=== PATIENT | female | born 1940 | race Hispanic/Latino ===

== ENCOUNTER 2017-08-17 20:44 | Inpatient (IN) | payer OTHER ==
[2017-08-17 21:38] LABS: Absolute Lymphocytes (CBC) 2.9 K/uL (0.7-4.9); Absolute Monocytes 1.2 K/uL (0.1-1.3); Absolute Neutrophil 10.7 K/uL (1.8-8.0); Eosinophils % 0.2 % (0-4.4); Hematocrit 35.5 % (36.0-45.0); Lymphocytes % 19.5 % (15.3-44.8); MCV 92.3 fL (80-100); MPV 9.8 fL (7.6-11.3); Monocytes % 8.2 % (3.3-12.3); RBC Red Blood Cell Count 3.85 M/uL (3.86-4.86)
[2017-08-17 21:49] LABS: Protime INR 1.07
[2017-08-17 21:54] LABS: Potassium 3.9 mEq/L (3.6-5.0)
[2017-08-17 22:03] LABS: Albumin 3.8 g/dL (3.2-5.5); Bilirubin Direct 0.1 mg/dL (0-0.2); Bilirubin Total 0.9 mg/dL (0.3-1.2); Magnesium 1.8 mg/dL (1.8-2.5); Protein, Total 6.9 g/dL (6.0-8.3)
--- NOTE | 2017-08-17 22:05 | RAD REPORT ---
EXAM DESCRIPTION: CT - Head C Spine Cap Wo Con - 08/17/2017 9:38 pm TECHNIQUE: Computed axial tomography of the head and cervical spine was obtained. Coronal and sagitt al reconstruction was performed Computed axial tomography of the chest, abdomen and pelvis was obtained. Contrast was not requested. All CT scans are performed using dose optimization technique as appropriate and may include automated exposure control or mA/KV adjustment according to patient size. CLINICAL HISTORY: Head and neck injury with chest and abdominal pain status post fall. Confusion and headache COMPARISON: 2013 -2016 CT exams FINDINGS: An intracranial bleed is not seen. Mild low-density areas within periventricular, deep and subcortica l white matter likely represent ischemic changes secondary to small vessel disease The ventricles are normal in caliber. An extra-axial fluid collection is not seen. Fluid within the sinuses/mastoids is not seen. A cervical fracture is not seen. No dislocation is noted. The evaluation of mediastinum, rafa, vessels, solid organs and bowel are limited secondary to the lac k of contrast administration. A mediastinal hematoma is not noted. A pleural effusion is not seen. Moderate alveolar opacities are present within the right upper lobe. Mild right middle and right lower lobe alveolar opacities are se en. A small hiatal hernia is present. A ventral hernia within the upper abdomen contains fat. It is midli ne. The neck measures 15 millimeters. Small umbilical hernia contains fat. The liver,spleen, pancreas, adrenals,kidneys and bladder appear grossly normal. The wall of distal ascending colon and proximal to mid transverse colon is moderately thickened. IMPRESSION: 1. No acute intracranial abnormality is seen. 2. A cervical fracture is not visualized. If the patient continues to have symptoms to suggest intrac ranial/spinal cord pathology then MRI would be recommended. 3. Moderate alveolar opacities within the right lung probably representing pneumonia. This should be followed until it is clear to help exclude a postobstructive process 4. Moderate thickening of the wall of the distal ascending and proximal to mid transverse colon consi stent with colitis
--- NOTE | 2017-08-17 22:10 | RAD REPORT ---
EXAM DESCRIPTION: [place] Single View08/17/2017 9:54 pm CLINICAL HISTORY: Chest pain COMPARISON: November 2016 FINDINGS: Moderate patchy alveolar opacities are present within the right upper lobe. Mild addition al opacities are present within the right lung base. The left lung appears clear of acute infiltrate The heart is normal size IMPRESSION: Moderate right lung alveolar opacities consistent with pneumonia. This should be follow ed until it is clear to exclude a post obstructive process
[2017-08-17] MEDS ORDERED: NA CHLORIDE 0.9% 1,000 ML ONE (22:14)
[2017-08-17 22:17] LABS: CKMB Creatine Kinase MB 25.4 ng/ml (0.3-4.0)
--- NOTE | 2017-08-17 22:43 | ER ---
Nurse's Notes [facility] Name: Meme Rushing Age: 77 yrs Sex: Female : 1940 Arrival Date: 08/17/2017 Time: 20:47 Bed 16 Private MD: Diagnosis: Altered mental status, unspecified;Pneumonia due to other specified bacteria;Other and unspecified noninfective gastroenteritis and colitis-RIGHT ASCENDING AND TRANSVERSE COLITIS;Anemia, unspecified;Repeated falls;Rhabdomyolysis;Elevated white blood cell count;Unspecified kidney failure Presentation: 08/17 20:48 Presenting complaint: Patient states: Confusion, hallucinations, urinary incontinence aj and falling. Reports headache, possibly fell and hit head today Last seen normal yesterday. Transition of care: patient was not received from another setting of care. Onset of symptoms was August 17, 2017. Initial Sepsis Screen: Does the patient meet any 2 criteria? No. Patient's initial sepsis screen is negative. Does the patient have a suspected source of infection? No. Patient's initial sepsis screen is negative. Care prior to arrival: None. 20:48 Method Of Arrival: Wheelchair aj 20:48 Acuity: RODY 3 aj 21:06 Mechanism of Injury: Fall from standing position. Trauma event details: Injury occurred fc in the [facility], Injury occurred: at home. Injury occurred: August 17, 2017. Triage Assessment: 20:53 General: Appears in no apparent distress. comfortable, Behavior is calm, cooperative, aj appropriate for age. Pain: Complains of pain in head, back of head, posterior chest and back. Neuro: Level of Consciousness is awake, alert, obeys commands, Oriented to person, place, time, situation, Carton Stapler are equal bilaterally Moves all extremities. Speech is normal, Facial symmetry appears normal, Reports headache. Respiratory: Airway is patent Respiratory effort is even, unlabored, Respiratory pattern is regular, symmetrical. Derm: Skin is intact, is healthy with good turgor, Skin is pink, warm \T\ dry. normal. Trauma Activation: Alert Physician: ED Physician; Name: Cesar; Notified At: 20:57; Arrived At: 20:57 Physician: General Surgeon; Name: ; Notified At: 20:57; Arrived At: Physician: Radiology; Name: Jyoti Fish Dillion; Notified At: 20:57; Arrived At: 20:57 Physician: Respiratory; Name: Josiane; Notified At: 20:57; Arrived At: 20:59 Physician: Lab; Name: ; Notified At: 20:57; Arrived At: Historical: - Allergies: 20:53 Aspirin; aj 20:53 Lisinopril; aj 20:53 PENICILLINS; aj - Home Meds: 20:53 amlodipine 5 mg tab 1 tab once daily [Active]; carvedilol 6.25 mg Oral tab 1 tab every aj 12 hours [Active]; Decara 50,000 unit Oral cap [Active]; escitalopram oxalate 20 mg Oral tab 1 tab once daily [Active]; Iron CR 27mg Oral daily [Active]; Lasix 20 mg Oral tab 1 tab [Active]; Lyrica 50mg Oral 1 cap 2 times per day [Active]; mirtazapine 15 mg Oral tab 1 tab once daily [Active]; Plavix 75 mg Oral tab 1 tab once daily [Active]; Protonix 40 mg Oral grps 1 packet once daily [Active]; Symbicort 160-4.5 mcg/actuation inhalation HFAA 2 puffs 2 times per day [Active]; Xanax 0.5 mg Oral tab 1 tab 2x a day [Active]; - PMHx: 20:53 ADD/ADHD; CHF; COPD; CVA; Diverticulitis; Hyperlipidemia; Hypertension; polyps and aj diverticuli in esophagus-had removed and now has more; Renal Disease; - PSHx: 20:53 esophageal sx; Hysterectomy; Cholecystectomy; aj - Immunization history:: Adult Immunizations up to date. - Social history:: Smoking status: Patient uses tobacco products, smokes one pack cigarettes per day. - Immunization history: Last tetanus immunization: unknown. Screenin:08 Abuse screen: Denies threats or abuse. Tuberculosis screening: No symptoms or risk fc factors identified. 21:10 Nutritional screening: No deficits noted. Fall Risk ea Primary Survey: 21:10 A: Airway: patent. Breathing/Chest: Respiratory pattern: regular, Respiratory effort: ea spontaneous, unlabored, Breath sounds: clear, bilaterally. Chest inspection: symmetrical rise and fall of the chest. Circulation: Heart tones present. Disability Alert. 22:10 Reassessment Airway Airway Patent Breathing/Chest Respiratory pattern Regular ea Respiratory effort Spontaneous Unlabored Breath sounds Clear Circulation Heart tones Present Color [place] Temperature Warm Disability Alert. Secondary Survey: 21:10 HEENT: No deficits noted. Gastrointestinal: No deficits noted. : No deficits noted. ea Musculoskeletal: No deficits noted. Assessment: 21:33 General: Appears in no apparent distress. Behavior is calm, cooperative, appropriate ea for age. Pain: Complains of pain in right hip and back Pain currently is 4 out of 10 on a pain scale. Quality of pain is described as aching. Neuro: Level of Consciousness is awake, alert, obeys commands, Oriented to person, place, time, situation. Cardiovascular: Heart tones present Patient's skin is warm and dry. Respiratory: Airway is patent Respiratory effort is even, unlabored, Respiratory pattern is regular, symmetrical, Breath sounds are clear bilaterally. GI: Abdomen is non-distended, Bowel sounds present X 4 quads. : No signs and/or symptoms were reported regarding the genitourinary system. EENT: No signs and/or symptoms were reported regarding the EENT system. Derm: Skin is pink, warm \T\ dry. Vital Signs: 20:53 BP 110 / 44; Pulse 60; Resp 17; Temp 98.7; Pulse Ox 93% on R/A; Weight 55.34 kg; Height aj 5 ft. 0 in. (152.40 cm); Pain 10/10; 22:15 BP 105 / 44; Pulse 60; Resp 18; Pulse Ox 98% on R/A; ea 23:15 BP 107 / 50; Pulse 62; Resp 18 S; Pulse Ox 97% on R/A; ea 08/18 00:00 BP 110 / 52; Pulse 60; Resp 18; Pulse Ox 97% on R/A; ea 01:07 BP 105 / 47; Pulse 60; Resp 18; Pulse Ox 96% on R/A; Pain 0/10; ea 02:06 BP 115 / 50; Pulse 60; Resp 18 S; Temp 97.7; Pulse Ox 97% on R/A; ea 08/17 20:53 Body Mass Index 23.83 (55.34 kg, 152.40 cm) aj Ingrid Coma Score: 08/17 21:15 Eye Response: spontaneous(4). Verbal Response: oriented(5). Motor Response: obeys ea commands(6). Total: 15. 22:15 Eye Response: spontaneous(4). Verbal Response: oriented(5). Motor Response: obeys ea commands(6). Total: 15. 23:15 Eye Response: spontaneous(4). Verbal Response: oriented(5). Motor Response: obeys ea commands(6). Total: 15. 08/18 00:15 Eye Response: spontaneous(4). Verbal Response: oriented(5). Motor Response: obeys ea commands(6). Total: 15. 01:07 Eye Response: spontaneous(4). Verbal Response: oriented(5). Motor Response: obeys ea commands(6). Total: 15. 02:06 Eye Response: spontaneous(4). Verbal Response: oriented(5). Motor Response: obeys ea commands(6). Total: 15. Trauma Score (Adult): 08/17 21:15 Eye Response: spontaneous(1); Verbal Response: oriented(1); Motor Response: obeys ea commands(2); Systolic BP: > 89 mm Hg(4); Respiratory Rate: 10 to 29 per min(4); Ingrid Score: 15; Trauma Score: 12 NIH Stroke Scale Scores: 20:53 NIHSS Score: 0 aj ED Course: 20:47 Patient arrived in ED. aj 20:52 Triage completed. aj 20:53 Arm band placed on right wrist. Patient placed in an exam room. aj 21:02 Bryan Guerrero MD is Attending Physician. quique 21:15 Patient has correct armband on for positive identification. Bed in low position. Call ea light in reach. Side rails up X2. 21:15 Patient maintains SpO2 saturation greater than 95% on room air. Thermoregulation: warm ea blanket given to patient. 21:27 Breanna Keller, RN is Primary Nurse. ea 21:32 Inserted saline lock: 20 gauge in left antecubital area, using aseptic technique. Blood oe collected. 21:37 CT completed. Patient tolerated procedure well. Patient moved to CT via stretcher. Patient moved back from CT. 21:38 CT Traumagram (Head C Spine CAP wo con) In Process Unspecified. EDMS 21:54 XRAY Chest (1 view) In Process Unspecified. EDMS 21:55 X-ray completed. Portable x-ray completed in exam room. Patient tolerated procedure ml well. 22:40 Emily Tolliver MD is Hospitalizing Provider. quique 08/18 02:04 No provider procedures requiring assistance completed. Patient admitted, IV remains in ea place. Administered Medications: 08/17 22:21 Drug: NS 0.9% 1000 ml Route: IV; Rate: 125 ml/hr; Site: left antecubital; ea 08/18 00:01 Follow up: IV Status: Infusion continued upon admission ea 08/17 23:09 Drug: Flagyl 500 mg Volume: 100 ml; Route: IVPB; Rate: 200 ml/hr; Infused Over: 30 ea mins; Site: left antecubital; 08/18 00:00 Follow up: Response: No adverse reaction; IV Status: Completed infusion ea 00:00 Drug: levofloxacin 500 mg Volume: 100 ml; Route: IVPB; Infused Over: 60 mins; Site: ea left antecubital; 01:45 Follow up: Response: No adverse reaction; IV Status: Completed infusion ea Intake: 02:07 PO: 0ml; IV: 500ml (IV Fluid); Total: 500ml. ea Output: 02:07 Urine: 300ml ([place]); Total: 300ml. ea Outcome: 08/17 22:43 Decision to Hospitalize by Provider. quique 23:49 pt admittedPatient's length of stay extended due to ea 08/18 02:05 Admitted to Med/surg accompanied by tech, via stretcher, room 216, Report called to ea Receiving nurse Condition: stable Instructed on the need for admit. 02:09 Patient left the ED. ea NIH Stroke Scale - NIH Stroke Score Date: 08/17/2017 Time: 20:53 Total Score = 0 1a. Level of Consciousness (LOC) - 0(Alert) 1b. Level of Consciousness (LOC) (Year \T\ Age) - 0(Both) 1c. LOC Commands (Open \T\ Closes Eyes/Access Assoc) - 0(Both) 2. Best Gaze (Lateral Gaze Paresis) - 0(Normal) 3. Visual Field Loss - 0(No visual loss) 4. Facial Palsy - 0(Normal) 5a. Left Arm: Motor (10-second hold) - 0(No drift) 5b. Right Arm: Motor (10-second hold) - 0(No drift) 6a. Left Leg: Motor (5-second hold - always test supine) - 0(No drift) 6b. Right Leg: Motor (5-second hold - always test supine) - 0(No drift) 7. Limb Ataxia (finger/nose \T\ heel/holland - test with eyes open) - 0(Absent) 8. Sensory Loss (pinprick arms/legs/face) - 0(Normal) 9. Best Language: Aphasia (description/naming/reading) - 0(No aphasia) 10. Dysarthria (speech clarity - read or repeat words) - 0(Normal) 11. Extinction and Inattention (visual/tactile/auditory/spatial/personal) - 0(No abnormality) Initials: danita Signatures: Dispatcher [employer] Rebekah Christianson RN RN Bryan Montalvo MD MD cha Chretien, Felicia, RN Mily Zamarripa Shannon sw Espinosa, Orlando oe Antunez, Elena, RN RN ea Corrections: (The following items were deleted from the chart) 08/17 20:54 20:48 Presenting complaint: Patient states: Confusion, hallucinations, urinary aj incontinence and falling. Last seen normal yesterday. aj
--- NOTE | 2017-08-17 22:43 | EDPHYS ---
Physician Documentation [facility] Name: Meme Rushing Age: 77 yrs Sex: Female : 1940 Arrival Date: 08/17/2017 Time: 20:47 Bed 16 Private MD: ED Physician Bryan Guerrero HPI: 08/17 21:18 This 77 yrs old Female presents to ER via Wheelchair with complaints of quique Altered Mental Status. Historical: - Allergies: 20:53 Aspirin; aj 20:53 Lisinopril; aj 20:53 PENICILLINS; aj - Home Meds: 20:53 amlodipine 5 mg tab 1 tab once daily [Active]; carvedilol 6.25 mg Oral tab 1 tab every aj 12 hours [Active]; Decara 50,000 unit Oral cap [Active]; escitalopram oxalate 20 mg Oral tab 1 tab once daily [Active]; Iron CR 27mg Oral daily [Active]; Lasix 20 mg Oral tab 1 tab [Active]; Lyrica 50mg Oral 1 cap 2 times per day [Active]; mirtazapine 15 mg Oral tab 1 tab once daily [Active]; Plavix 75 mg Oral tab 1 tab once daily [Active]; Protonix 40 mg Oral grps 1 packet once daily [Active]; Symbicort 160-4.5 mcg/actuation inhalation HFAA 2 puffs 2 times per day [Active]; Xanax 0.5 mg Oral tab 1 tab 2x a day [Active]; - PMHx: 20:53 ADD/ADHD; CHF; COPD; CVA; Diverticulitis; Hyperlipidemia; Hypertension; polyps and aj diverticuli in esophagus-had removed and now has more; Renal Disease; - PSHx: 20:53 esophageal sx; Hysterectomy; Cholecystectomy; aj - Immunization history:: Adult Immunizations up to date. - Social history:: Smoking status: Patient uses tobacco products, smokes one pack cigarettes per day. - Immunization history: Last tetanus immunization: unknown. ROS: 21:19 Constitutional: Negative for fever, chills, and weight loss, Eyes: Negative for injury, quique pain, redness, and discharge, ENT: Negative for injury, pain, and discharge, Neck: Negative for injury, pain, and swelling, Cardiovascular: Negative for chest pain, palpitations, and edema, Respiratory: Negative for shortness of breath, cough, wheezing, and pleuritic chest pain, Abdomen/GI: Negative for abdominal pain, nausea, vomiting, diarrhea, and constipation, Back: Negative for injury and pain, : Negative for injury, bleeding, discharge, and swelling, MS/Extremity: Negative for injury and deformity, Skin: Negative for injury, rash, and discoloration, Psych: Negative for depression, anxiety, suicide ideation, homicidal ideation, and hallucinations, Allergy/Immunology: Negative for hives, rash, and allergies, Endocrine: Negative for neck swelling, polydipsia, polyuria, polyphagia, and marked weight changes, Hematologic/Lymphatic: Negative for swollen nodes, abnormal bleeding, and unusual bruising. 21:19 Neuro: Positive for weakness, mulitple falls. Exam: 21:19 Constitutional: This is a well developed, well nourished patient who is awake, alert, quique and in no acute distress. Head/Face: Normocephalic, atraumatic. Eyes: Pupils equal round and reactive to light, extra-ocular motions intact. Lids and lashes normal. Conjunctiva and sclera are non-icteric and not injected. Cornea within normal limits. Periorbital areas with no swelling, redness, or edema. ENT: Nares patent. No nasal discharge, no septal abnormalities noted. Tympanic membranes are normal and external auditory canals are clear. Oropharynx with no redness, swelling, or masses, exudates, or evidence of obstruction, uvula midline. Mucous membranes moist. Neck: Trachea midline, no thyromegaly or masses palpated, and no cervical lymphadenopathy. Supple, full range of motion without nuchal rigidity, or vertebral point tenderness. No Meningismus. Chest/axilla: Normal chest wall appearance and motion. Nontender with no deformity. No lesions are appreciated. Cardiovascular: Regular rate and rhythm with a normal S1 and S2. No gallops, murmurs, or rubs. Normal PMI, no JVD. No pulse deficits. Respiratory: Lungs have equal breath sounds bilaterally, clear to auscultation and percussion. No rales, rhonchi or wheezes noted. No increased work of breathing, no retractions or nasal flaring. Abdomen/GI: Soft, non-tender, with normal bowel sounds. No distension or tympany. No guarding or rebound. No evidence of tenderness throughout. Back: No spinal tenderness. No costovertebral tenderness. Full range of motion. Female : Normal external genitalia. Skin: Warm, dry with normal turgor. Normal color with no rashes, no lesions, and no evidence of cellulitis. Neuro: Awake and alert, GCS 15, oriented to person, place, time, and situation. Cranial nerves II-XII grossly intact. Motor strength 5/5 in all extremities. Sensory grossly intact. Cerebellar exam normal. Normal gait. Psych: Awake, alert, with orientation to person, place and time. Behavior, mood, and affect are within normal limits. 21:19 Musculoskeletal/extremity: Circulation is intact in all extremities. Sensation intact. Compartment Syndrome exam of affected extremity: is normal. DVT Exam: No signs of deep vein thrombosis. no pain, no swelling, no tenderness, negative Homans' sign noted on exam, no appreciated bluish discoloration. Vital Signs: 20:53 BP 110 / 44; Pulse 60; Resp 17; Temp 98.7; Pulse Ox 93% on R/A; Weight 55.34 kg; Height aj 5 ft. 0 in. (152.40 cm); Pain 10/10; 22:15 BP 105 / 44; Pulse 60; Resp 18; Pulse Ox 98% on R/A; ea 23:15 BP 107 / 50; Pulse 62; Resp 18 S; Pulse Ox 97% on R/A; ea 08/18 00:00 BP 110 / 52; Pulse 60; Resp 18; Pulse Ox 97% on R/A; ea 01:07 BP 105 / 47; Pulse 60; Resp 18; Pulse Ox 96% on R/A; Pain 0/10; ea 02:06 BP 115 / 50; Pulse 60; Resp 18 S; Temp 97.7; Pulse Ox 97% on R/A; ea 08/17 20:53 Body Mass Index 23.83 (55.34 kg, 152.40 cm) aj NIH Stroke Scale Scores: 08/17 20:53 NIHSS Score: 0 [place] Coma Score: 21:15 Eye Response: spontaneous(4). Verbal Response: oriented(5). Motor Response: obeys ea commands(6). Total: 15. 22:15 Eye Response: spontaneous(4). Verbal Response: oriented(5). Motor Response: obeys ea commands(6). Total: 15. 23:15 Eye Response: spontaneous(4). Verbal Response: oriented(5). Motor Response: obeys ea commands(6). Total: 15. 08/18 00:15 Eye Response: spontaneous(4). Verbal Response: oriented(5). Motor Response: obeys ea commands(6). Total: 15. 01:07 Eye Response: spontaneous(4). Verbal Response: oriented(5). Motor Response: obeys ea commands(6). Total: 15. 02:06 Eye Response: spontaneous(4). Verbal Response: oriented(5). Motor Response: obeys ea commands(6). Total: 15. Trauma Score (Adult): 08/17 21:15 Eye Response: spontaneous(1); Verbal Response: oriented(1); Motor Response: obeys ea commands(2); Systolic BP: > 89 mm Hg(4); Respiratory Rate: 10 to 29 per min(4); Ingrid Score: 15; Trauma Score: 12 MDM: 21:02 Patient medically screened. [facility] 21:23 Data reviewed: vital signs, nurses notes, lab test result(s), EKG, radiologic studies, [facility] CT scan, plain films. 08/17 21:17 Order name: Basic Metabolic Panel; Complete Time: 22:36 [facility] 08/17 21:17 Order name: BNP; Complete Time: 22:36 [facility] 08/17 21:17 Order name: CBC with Diff; Complete Time: 22:36 [facility] 08/17 21:17 Order name: Ckmb; Complete Time: 22:36 [facility] 08/17 21:17 Order name: CPK; Complete Time: 22:36 [facility] 08/17 21:17 Order name: LFT's; Complete Time: 22:36 [facility] 08/17 21:17 Order name: Magnesium; Complete Time: 22:36 [facility] 08/17 21:17 Order name: PT-INR; Complete Time: 22:36 [facility] 08/17 21:17 Order name: Ptt, Activated; Complete Time: 22:36 [facility] 08/17 21:17 Order name: Troponin (emerg Dept Use Only); Complete Time: 22:36 [facility] 08/17 21:17 Order name: Lipase; Complete Time: 22:36 [facility] 08/17 21:17 Order name: Urine Culture [facility] 08/17 22:40 Order name: Blood Culture Adult (2) 08/18 02:08 Order name: Urine Dipstick--Ancillary (enter results) em1 08/17 21:17 Order name: XRAY Chest (1 view); Complete Time: 22:36 [facility] 08/17 21:17 Order name: EKG; Complete Time: 21:18 [facility] 08/17 21:17 Order name: Cardiac monitoring; Complete Time: 22:17 [facility] 08/17 21:17 Order name: EKG - Nurse/Tech; Complete Time: 22:16 [facility] 08/17 21:17 Order name: IV Saline Lock; Complete Time: 21:27 [facility] 08/17 21:17 Order name: Labs collected and sent; Complete Time: 22:17 [facility] 08/17 21:17 Order name: O2 Per Protocol; Complete Time: 23:30 [facility] 08/17 21:17 Order name: O2 Sat Monitoring; Complete Time: 22:17 [facility] 08/17 21:17 Order name: Urine Dipstick-Ancillary (obtain specimen); Complete Time: 02:05 [facility] 08/17 21:17 Order name: CT Traumagram (Head C Spine CAP wo con); Complete Time: 22:36 [facility] Administered Medications: 22:21 Drug: NS 0.9% 1000 ml Route: IV; Rate: 125 ml/hr; [facility]; 08/18 00:01 Follow up: IV Status: Infusion continued upon admission 08/17 23:09 Drug: Flagyl 500 mg Volume: 100 ml; Route: IVPB; Rate: 200 ml/hr; Infused Over: 30 ea mins; Site: left antecubital; 08/18 00:00 Follow up: Response: No adverse reaction; IV Status: Completed infusion 00:00 Drug: levofloxacin 500 mg Volume: 100 ml; Route: IVPB; Infused Over: 60 mins; Site: [facility]; 01:45 Follow up: Response: No adverse reaction; IV Status: Completed infusion Disposition: 08/17/17 22:43 Hospitalization ordered by Emily Tolliver for Inpatient Admission. Preliminary diagnosis are Altered mental status, unspecified, Pneumonia due to other specified bacteria, Other and unspecified noninfective gastroenteritis and colitis - RIGHT ASCENDING AND TRANSVERSE COLITIS, Anemia, unspecified, Repeated falls, Rhabdomyolysis, Elevated white blood cell count, Unspecified kidney failure. - Bed requested for Telemetry/MedSurg (Inpatient). - Status is Inpatient Admission. ea - Condition is Fair. - Problem is new. - Symptoms have improved. UTI on Admission? No NIH Stroke Scale - NIH Stroke Score Date: 08/17/2017 Time: 20:53 Total Score = 0 1a. Level of Consciousness (LOC) - 0(Alert) 1b. Level of Consciousness (LOC) (Year \T\ Age) - 0(Both) 1c. LOC Commands (Open \T\ Closes Eyes/Hand Marker) - 0(Both) 2. Best Gaze (Lateral Gaze Paresis) - 0(Normal) 3. Visual Field Loss - 0(No visual loss) 4. Facial Palsy - 0(Normal) 5a. Left Arm: Motor (10-second hold) - 0(No drift) 5b. Right Arm: Motor (10-second hold) - 0(No drift) 6a. Left Leg: Motor (5-second hold - always test supine) - 0(No drift) 6b. Right Leg: Motor (5-second hold - always test supine) - 0(No drift) 7. Limb Ataxia (finger/nose \T\ heel/holland - test with eyes open) - 0(Absent) 8. Sensory Loss (pinprick arms/legs/face) - 0(Normal) 9. Best Language: Aphasia (description/naming/reading) - 0(No aphasia) 10. Dysarthria (speech clarity - read or repeat words) - 0(Normal) 11. Extinction and Inattention (visual/tactile/auditory/spatial/personal) - 0(No abnormality) Initials: danita Signatures: Dispatcher [employer] Tina Lowe RN RN kl Myers, Amanda, RN RN aj Anderson, Corey, MD MD cha Antunez, Elena, RN RN ea
[2017-08-17] MEDS ORDERED: Levofloxacin500mg IV 500 MG/100 ML BAG IV ONE (22:50)
[2017-08-17] MEDS ORDERED: METRONIDAZOLE 500mg IVPB 500 MG/100 ML BAG IV ONE (22:50)
--- NOTE | 2017-08-18 01:02 | P.HP ---
Certification for Inpatient Patient admitted to: Inpatient With expected LOS: >2 Midnights Practitioner: I am a practitioner with admitting privileges, knowledge of patient current condition, hospital course, and medical plan of care. Services: Services provided to patient in accordance with Admission requirements found in Title 42 Section 412.3 of the Code of Federal Regulations Patient History Date of Service: 08/18/17 Reason for admission: pneumonia History of Present Illness: Ms Rushing is a 77 years old woman with history of multiple medical problems, her family states that she was bee progressively weak lately, having recurrent falls. Today she was brought to ED since her LOC decreased. There are no history of fever or chills. No history of cough or burning urination. ER CT head /cervical neck/ chest/ abdo & pelvis, was consistent with RLL pneumonia, and some signs of colitis. Lab work remarkable for leukocytosis, abnormal renal function and elevated CK. Allergies Penicillins Allergy (Intermediate, Verified 03/17/13 23:37) SWELLING lisinopril Allergy (Mild, Verified 03/17/13 23:37) Hives/Rash grapefruit Allergy (Verified 04/01/15 16:10) Hives/Rash aspirin Adverse Reaction (Verified 12/04/16 20:20) Shortness of breath Home Medications: Alprazolam [Xanax*] 0.5 mg PO BID PRN 04/25/13 Amlodipine [Norvasc*] 7.5 mg PO DAILY 04/25/13 B Complex with Vitamin C [B-Complex with Vitamin C] 1 each PO DAILY 04/25/13 Carvedilol [Coreg*] 6.25 mg PO BID 04/25/13 Clopidogrel Bisulfate [Clopidogrel] 75 mg PO DAILY 04/25/13 Escitalopram Oxalate 20 mg PO DAILY 04/25/13 Furosemide [Lasix*] 20 mg PO DAILY 04/25/13 Mirtazapine [Remeron*] 15 mg PO BEDTIME 04/25/13 Pregabalin [Lyrica*] 50 mg PO BID 04/25/13 Budesonide/Formoterol Fumarate [Symbicort 160-4.5 Mcg Inhaler] 2 puff IH BID Pantoprazole [Protonix Tab*] 40 mg PO DAILY 11/19/14 Prednisone [Deltasone*] 10 mg PO DAILY #5 tab 04/02/15 Cholecalciferol (Vitamin D3) [Decara] 50,000 unit PO EVERY 7TH DAY 12/04/16 - Past Medical/Surgical History Diabetic: No -: pneumonia -: copd -: small leak in aorta -: HTN -: Hyperlipidemia -: Depression -: GERD -: Recurrent pneumonia, recent bronchoscopy was normal. -: Previous Smoker -: Chronic renal disease -: Celiac disease with history of diverticulosis -: cholecystectomy -: esophogeal polyp removal -: appendectomy -: hysterectomy -: Doppler r/o DVT on L. foot, 02/04/13 -: Aortic echo, valve leakage, 02/04/13 Psychosocial/ Personal History: lives with daughter - Family History Sister -: Diabetes Brother -: Cancer Father -: Cancer Notes: bone, esophageal cx Mother -: Cancer Notes: gallbladder cx - Social History Smoking Status: Current every day smoker Counseled patient to stop smoking for: less than 10 minutes Smoking therapy provided: Yes Patient receptive to therapy: Yes Alcohol use: No CD- Drugs: No Caffeine use: Yes Place of Residence: Home Review of Systems 10-point ROS is otherwise unremarkable Physical Examination - Physical Exam General: Alert, In no apparent distress HEENT: Atraumatic, PERRLA, Mucous membr. moist/pink, EOMI, Sclerae nonicteric Neck: Supple, 2+ carotid pulse no bruit, No LAD, Without JVD or thyroid abnormality Respiratory: Clear to auscultation bilaterally, Normal air movement, Crackles/ rales (crackles on RLL) Cardiovascular: Regular rate/rhythm, Normal S1 S2 Gastrointestinal: Normal bowel sounds, No tenderness Musculoskeletal: No tenderness Integumentary: No rashes Neurological: Normal speech, Normal tone, Normal affect Lymphatics: No axilla or inguinal lymphadenopathy - Studies Laboratory Data (last 24 hrs) 08/17/17 21:25: PT 12.6 H, INR 1.07, APTT 31.0 08/17/17 21:25: WBC 15.1 H, Hgb 11.9 L, Hct 35.5 L, Plt Count 149 L 08/17/17 21:25: B-Natriuretic Peptide 296 H 08/17/17 21:25: Sodium 135, Potassium 3.9, BUN 32 H, Creatinine 2.42 H, Glucose 104, Magnesium 1.8, Total Bilirubin 0.9, AST 41, ALT 16, Alkaline Phosphatase 63 , Lipase 13 L Assessment and Plan - Problems (Diagnosis) (1) Pneumonia Current Visit: No Status: Active (2) CKD (chronic kidney disease), stage III Onset Date: 04/01/15 Current Visit: No Status: Chronic (3) COPD (chronic obstructive pulmonary disease) Onset Date: 11/20/14 Current Visit: No Status: Chronic Qualifiers: COPD type: chronic bronchitis Chronic bronchitis type: unspecified Qualified Code(s): J42 - Unspecified chronic bronchitis (4) Colitis Current Visit: Yes Status: Acute - Plan Ms Rushing will be admitted to the hospital due to progressive weakness secondary to peumonia and possible colitis. Will start empiric abx. CK is elevated as well, possible due to recurrent falls. - Advance Directives Does patient have a Living Will: No Does patient have a Durable POA for Healthcare: No
[2017-08-18] MEDS ORDERED: ONDANSETRON 4 MG/2 ML VIAL IV PRN (01:46)
[2017-08-18] MEDS: Levofloxacin500mg IV 500 MG/100 ML BAG IV SCH (02:00)
[2017-08-18 02:16] VITALS: BMI 23.5
[2017-08-18 02:21] LABS: Urine Blood TRACE (NEG); Urine Glucose NEGATIVE (NEG); Urine Protein NEGATIVE (NEG); Urine pH 5.5 (5.0-7.0)
[2017-08-18] MEDS: NA CHLORIDE 0.9% 1,000 ML IV SCH ×3 (03:10→17:16)
[2017-08-18 05:25] LABS: Absolute Lymphocytes (CBC) 2.7 K/uL (0.7-4.9); Absolute Monocytes 1.2 K/uL (0.1-1.3); Absolute Neutrophil 6.6 K/uL (1.8-8.0); Basophils % 0.4 % (0-1.3); Eosinophils % 1.7 % (0-4.4); Hematocrit 30.7 % (36.0-45.0); Lymphocytes % 25.1 % (15.3-44.8); MCH 32.4 pg (27.0-35.0); MCV 93.3 fL (80-100); MPV 9.7 fL (7.6-11.3); Monocytes % 11.4 % (3.3-12.3); RBC Red Blood Cell Count 3.28 M/uL (3.86-4.86)
[2017-08-18 05:53] LABS: Potassium 3.5 mEq/L (3.6-5.0)
--- NOTE | 2017-08-18 07:15 | EKG ---
Test Date: 2017-08-17 Test Time: 22:09:30 Quartz Orientator: RAIN MEASUREMENT RESULTS: Intervals: Rate: 60 ND: 178 QRSD: 76 QT: 670 QTc: 670 [place]: P: 64 ND: 178 QRS: 12 T: 1 INTERPRETIVE STATEMENTS: Normal sinus rhythm with sinus arrhythmia Prolonged QT Abnormal ECG Compared to ECG 12/10/2016 18:42:13 Prolonged QT interval now present Electronically Signed On 08-18-17 07:14:58 CDT by Crow Herrera
[2017-08-18] MEDS: NICOTINE 21 MG/PAT TD SCH (09:17)
[2017-08-18] MEDS: METRONIDAZOLE 500mg IVPB 500 MG/100 ML BAG IV SCH ×2 (09:17→17:16)
[2017-08-18] MEDS: ACETAMINOPHEN 500 MG TAB PO PRN ×2 (09:18→22:45)
--- NOTE | 2017-08-18 15:22 | PN ---
Date of Progress Note: 08/18/2017 Subjective: Patient seen and examined. Chart reviewed and case discussed with RN. The patient stat es that she is having pain all over. Also reports some hemoptysis. The patient is much more awake a nd alert. Review of Systems: Negative except as above. Medications: Reviewed. Physical Examination: Vital Signs: Temperature 98.4, heart rate 60, blood pressure 93/44, respirations 18, O2 91% on room air. General: Awake, alert, oriented x3, in some mild distress, elderly ill-appearing female. CV: S1, S2. No murmurs. Regular rate and rhythm. Peripheral pulses present. Respiratory: Moving air well bilaterally. No wheeze or rales. Abdomen: Soft, nontender, nondistended. Positive bowel sounds. Extremities: No clubbing, cyanosis, or edema. Neurologic: Nonfocal. Laboratory Data: CK 1515. Troponin 0.07, 0.07, 0.05. WBC 10.7, H/H 10.6 and 30.7, platelets 120. Blood cultures and urine culture pending. Assessment And Plan: A 77-year-old female with: 1.Pneumonia. 2.Chronic kidney disease, stage 3. We will continue to monitor creatinine. 3.Rhabdomyolysis, CK level elevated at 1500. We will continue to trend. Continue IV fluids. 4.Hemoptysis. We will obtain CT chest if not already done. 5.Acute chronic obstructive pulmonary disease, chronic bronchitis, not oxygen dependent. 6.Acute colitis. Continue IV antibiotics. Follow up on cultures. 7.Aortic valve disease with regurgitation. 8.Essential hypertension. 9.Hyperlipidemia. We will continue on home medication. 10.Major depressive disorder, stable. 11.Gastroesophageal reflux disease without esophagitis. Continue PPI. 12.History of celiac disease. 13.Gastrointestinal and deep venous thrombosis prophylaxes with PPI and SCDs, no chemical anticoagul ation secondary to hemoptysis. SA/MODL Voice ID: [id number] Report ID: [id number]
[2017-08-18] MEDS: HOME MED 1 EA UNK (Budesonide/Formoterol Fumarate [Symbicort 160-4.5 Mcg Inhaler] 2 PUFF) IH SCH (20:56)
[2017-08-18] MEDS: CARVEDILOL 6.25 MG TAB PO SCH (21:39)
[2017-08-18] MEDS: PREGABALIN 50 MG CAP PO SCH (21:39)
[2017-08-18] MEDS: MIRTAZAPINE 15 MG TAB PO SCH (22:45)
[2017-08-19] MEDS: METRONIDAZOLE 500mg IVPB 500 MG/100 ML BAG IV SCH ×3 (00:54→17:06)
[2017-08-19] MEDS: NA CHLORIDE 0.9% 1,000 ML IV SCH ×3 (00:57→17:46)
[2017-08-19 05:07] LABS: Absolute Lymphocytes (CBC) 2.4 K/uL (0.7-4.9); Absolute Neutrophil 4.4 K/uL (1.8-8.0); Basophils % 0.7 % (0-1.3); Eosinophils % 1.8 % (0-4.4); Hematocrit 31.3 % (36.0-45.0); Lymphocytes % 29.6 % (15.3-44.8); MCH 32.2 pg (27.0-35.0); MCV 93.1 fL (80-100); MPV 9.5 fL (7.6-11.3); Monocytes % 12.5 % (3.3-12.3); RBC Red Blood Cell Count 3.36 M/uL (3.86-4.86)
[2017-08-19 05:40] LABS: Potassium 3.5 mEq/L (3.6-5.0)
[2017-08-19] MEDS ORDERED: CLOPIDOGREL 75 MG TABLET PO SCH (09:00)
[2017-08-19] MEDS: AMLODIPINE 5 MG TAB PO SCH (09:00)
[2017-08-19] MEDS ORDERED: ESCITALOPRAM OXALATE 20 MG PO SCH (09:00)
[2017-08-19] MEDS: HOME MED 1 EA UNK (Budesonide/Formoterol Fumarate [Symbicort 160-4.5 Mcg Inhaler] 2 PUFF) IH SCH ×2 (09:00→21:00)
[2017-08-19] MEDS: IRON 27 MG PO SCH (09:00)
[2017-08-19] MEDS: PANTOPRAZOLE 40MG TABLET PO SCH (09:19)
[2017-08-19] MEDS: ESCITALOPRAM 20 MG TAB PO SCH (09:20)
[2017-08-19] MEDS: FUROSEMIDE 20 MG TABLET PO SCH (09:20)
[2017-08-19] MEDS: PREGABALIN 50 MG CAP PO SCH ×2 (09:20→21:25)
[2017-08-19] MEDS: CARVEDILOL 6.25 MG TAB PO SCH ×2 (09:20→21:25)
[2017-08-19] MEDS: NICOTINE 21 MG/PAT TD SCH (09:21)
--- NOTE | 2017-08-19 13:52 | PN ---
Date of Progress Note: 08/19/2017 Subjective: The patient seen and examined. Chart reviewed and case discussed with RN. The patient states she feels significantly better. Her pain is resolved. She has not had any further episodes o f hemoptysis. The patient's treatment plan was explained. All questions answered. The patient work ed with PT and will be requiring a skilled facility placement. Review of Systems: Negative except as above. Medications: Reviewed. Physical Examination: Vital Signs: Temperature 99.1, heart rate 66, blood pressure 144/66, respirations 18, O2 of 91% on r oom air. General: Awake, alert, oriented x3. Not in any acute distress. Elderly female. CVS: S1, S2. No murmurs. Peripheral pulses present bilaterally. Respiratory: Moving air well bilaterally. No wheezing. No stridor. Gastrointestinal: Abdomen is soft, nontender, nondistended. Positive bowel sounds. No guarding or rigidity. Extremities: No clubbing, cyanosis, or edema. Neurologic: Nonfocal. Laboratory Data: Sodium 144, potassium 3.5, chloride 116, CO2 of 24, BUN 17, creatinine 1.59, glucos e 90, calcium 7.9. CPK 701. WBC 8, H and H are 10.8 and 31.3, platelets 123, neutrophils 55%. Bloo d cultures no growth to date. Urine culture no growth. Assessment And Plan: A 77-year-old female with: 1.Pneumonia, right upper and lower lobe. 2.Chronic kidney disease, stage 3. Creatinine improved. We will continue with IV fluids and monito r. 3.Rhabdomyolysis. CPK level is improving down to 700, likely due to falls and muscle breakdown. We will continue IV fluids and monitor. 4.Hemoptysis, resolved. Plavix is currently being held. CT chest did not show any abnormalities do ne on admission. We will obtain Pulmonology consult. 5.Acute chronic obstructive pulmonary disease exacerbation. Non-oxygen dependent. 6.Acute colitis. We will continue IV antibiotics. Follow up on blood cultures negative to date. T he patient's pain is resolved. Tolerating diet. 7.Aortic valve disease with regurgitation. 8.Essential hypertension, stable. 9.Hyperlipidemia, stable. 10.Major depressive disorder, on SSRI. 11.Gastroesophageal reflux disease without esophagitis. Continue PPI. 12.History of celiac disease. 13.Gastrointestinal and deep venous thrombosis prophylaxis with PPI and SCDs. No chemical anticoagu lation secondary to hemoptysis. The patient was evaluated by PT and is going to require skilled Phys ical Therapy Services. The patient has been referred for SNF placement. [facility] Mosser have been c onsulted. /CLINT Voice ID: [id number] Report ID: [id number]
[2017-08-19] MEDS: ACETAMINOPHEN 500 MG TAB PO PRN (17:11)
[2017-08-19] MEDS: MIRTAZAPINE 15 MG TAB PO SCH (21:25)
[2017-08-19] MEDS: Levofloxacin500mg IV 500 MG/100 ML BAG IV SCH (21:25)
[2017-08-19 23:10] VITALS: O2SAT 97
[2017-08-20] MEDS: METRONIDAZOLE 500mg IVPB 500 MG/100 ML BAG IV SCH ×2 (00:48→08:47)
[2017-08-20] MEDS: NA CHLORIDE 0.9% 1,000 ML IV SCH ×2 (00:50→08:50)
[2017-08-20 04:49] LABS: Absolute Lymphocytes (CBC) 1.8 K/uL (0.7-4.9); Absolute Monocytes 0.7 K/uL (0.1-1.3); Absolute Neutrophil 4.4 K/uL (1.8-8.0); Basophils % 1.1 % (0-1.3); Eosinophils % 2.5 % (0-4.4); Hematocrit 35.9 % (36.0-45.0); Lymphocytes % 25.2 % (15.3-44.8); MCH 31.3 pg (27.0-35.0); MCV 92.9 fL (80-100); MPV 9.4 fL (7.6-11.3); Monocytes % 9.2 % (3.3-12.3); RBC Red Blood Cell Count 3.86 M/uL (3.86-4.86)
[2017-08-20 05:42] LABS: Albumin 3.1 g/dL (3.2-5.5); Bilirubin Total 0.7 mg/dL (0.3-1.2); Potassium 3.2 mEq/L (3.6-5.0)
[2017-08-20] MEDS: HOME MED 1 EA UNK (Budesonide/Formoterol Fumarate [Symbicort 160-4.5 Mcg Inhaler] 2 PUFF) IH SCH (08:47)
[2017-08-20] MEDS: CARVEDILOL 6.25 MG TAB PO SCH (08:47)
[2017-08-20] MEDS: PANTOPRAZOLE 40MG TABLET PO SCH (08:47)
[2017-08-20] MEDS: IRON 27 MG PO SCH (08:48)
[2017-08-20] MEDS: AMLODIPINE 5 MG TAB PO SCH (08:48)
[2017-08-20] MEDS: FUROSEMIDE 20 MG TABLET PO SCH (08:49)
[2017-08-20] MEDS: ESCITALOPRAM 20 MG TAB PO SCH (08:49)
[2017-08-20] MEDS: NICOTINE 21 MG/PAT TD SCH (08:49)
[2017-08-20] MEDS: PREGABALIN 50 MG CAP PO SCH (08:54)
--- NOTE | 2017-08-20 11:30 | P.DS ---
Admission Date: 08/17/17 Discharge Date: 08/20/17 Disposition: ROUTINE DISCHARGE Discharge Condition: GOOD Reason for Admission: pneumonia - Problems (1) Pneumonia Onset Date: 08/20/17 Current Visit: Yes Status: Active (2) CKD (chronic kidney disease), stage III Onset Date: 04/01/15 Current Visit: No Status: Chronic (3) COPD (chronic obstructive pulmonary disease) Onset Date: 11/20/14 Current Visit: No Status: Chronic Qualifiers: COPD type: chronic bronchitis Chronic bronchitis type: unspecified Qualified Code(s): J42 - Unspecified chronic bronchitis (4) Colitis Onset Date: 08/20/17 Current Visit: Yes Status: Acute Brief History of Present Illness: Ms Rushing is a 77 years old woman with history of multiple medical problems, her family states that she was bee progressively weak lately, having recurrent falls. Today she was brought to ED since her LOC decreased. There are no history of fever or chills. No history of cough or burning urination. ER CT head /cervical neck/ chest/ abdo & pelvis, was consistent with RLL pneumonia, and some signs of colitis. Lab work remarkable for leukocytosis, abnormal renal function and elevated CK. Hospital Course: The patient was admitted to the hospital due to acute encephalopathy secondary to RLL pneumonia and colitis. She was treated with IV Levaquin and Metronidazole. She had elevated CK consistent with rhabdomyolisis, improved after IF fluids. Her strength has significantly imporved as well, and she is able to ambulate by herself without difficulty. At this point, WBC came back to normal limits, and she remain hemodynamically stable. She is clinically stable to be discharged home. Will prescribe 5 more days of oral Levaquin and Flagyl to finish abx treatment. F/U with PCP next week. Vital Signs/Physical Exam: Temp Pulse Resp BP Pulse Ox 99.5 F 73 16 152/68 H 91 08/20/17 07:54 08/20/17 08:49 08/20/17 07:54 08/20/17 08:49 08/20/17 07:54 General: Alert, In no apparent distress HEENT: Atraumatic, PERRLA, EOMI Neck: Supple, JVD not distended Respiratory: Clear to auscultation bilaterally, Normal air movement Cardiovascular: Regular rate/rhythm, Normal S1 S2 Gastrointestinal: Normal bowel sounds, No tenderness Musculoskeletal: No tenderness Integumentary: No rashes Neurological: Normal speech, Normal tone, Normal affect Laboratory Data at Discharge: WBC 7.0 K/uL (4.3-10.9) 08/20/17 04:30 Hgb 12.1 g/dL (12.0-15.0) 08/20/17 04:30 Hct 35.9 % (36.0-45.0) L 08/20/17 04:30 Plt Count 165 K/uL (152-406) D 08/20/17 04:30 PT 12.6 SECONDS (9.5-12.5) H 08/17/17 21:25 INR 1.07 08/17/17 21:25 APTT 31.0 SECONDS (24.3-36.9) 08/17/17 21:25 Sodium 144 mEq/L (135-145) 08/20/17 04:30 Potassium 3.2 mEq/L (3.6-5.0) L 08/20/17 04:30 BUN 8 mg/dL (6-20) 08/20/17 04:30 Creatinine 1.12 mg/dL (0.44-1.00) H 08/20/17 04:30 Glucose 92 mg/dL (65-120) 08/20/17 04:30 Magnesium 1.8 mg/dL (1.8-2.5) 08/17/17 21:25 Total Bilirubin 0.7 mg/dL (0.3-1.2) 08/20/17 04:30 AST 29 IU/L (10-42) 08/20/17 04:30 ALT 16 IU/L (10-60) 08/20/17 04:30 Alkaline Phosphatase 61 IU/L (42-121) 08/20/17 04:30 Troponin I 0.06 ng/mL (<0.03) H 08/18/17 18:05 B-Natriuretic Peptide 296 pg/ml (<=100) H 08/17/17 21:25 Lipase 13 U/L (22-51) L 08/17/17 21:25 Home Medications: Alprazolam [Xanax*] 0.5 mg PO BID PRN 04/25/13 Amlodipine [Norvasc*] 5 mg PO DAILY 04/25/13 Carvedilol [Coreg*] 6.25 mg PO BID 04/25/13 Clopidogrel Bisulfate [Clopidogrel] 75 mg PO DAILY 04/25/13 Escitalopram Oxalate 20 mg PO DAILY 04/25/13 Furosemide [Lasix*] 20 mg PO DAILY 04/25/13 Mirtazapine [Remeron*] 15 mg PO BEDTIME 04/25/13 Pregabalin [Lyrica*] 50 mg PO BID 04/25/13 Budesonide/Formoterol Fumarate [Symbicort 160-4.5 Mcg Inhaler] 2 puff IH BID Pantoprazole [Protonix Tab*] 40 mg PO DAILY 11/19/14 Cholecalciferol (Vitamin D3) [Decara] 50,000 unit PO EVERY 7TH DAY 12/04/16 Iron Cr 27 mg PO DAILY 08/18/17 Levofloxacin [Levaquin] 500 mg PO DAILY #5 tablet 08/20/17 Metronidazole [Flagyl] 500 mg PO Q8H #15 tablet 08/20/17 New Medications: Levofloxacin [Levaquin] 500 mg PO DAILY #5 tablet Metronidazole [Flagyl] 500 mg PO Q8H #15 tablet Diet: Low sodium Activity: Fall precautions Time spent managing pt's care (in minutes): 40
[2017-08-20 11:52] VITALS: BP 141/67; TEMP 99
== END 2017-08-20 12:01 | disposition home or self-care (01) | DRG 193 ==
LOC: ER 20:44 → ERHOLD 22:43 → 2ND 08-18 01:18
PROVIDERS: ADMIT Internal Medicine; ATTEND Internal Medicine
DX: J18.9 Pneumonia, unspecified organism (principal); G93.40 Encephalopathy, unspecified; M62.82 Rhabdomyolysis; R04.2 Hemoptysis; J42 Unspecified chronic bronchitis; N18.3 Chronic kidney disease, stage 3 (moderate); I12.9 Hypertensive chronic kidney disease with stage 1 through stage 4 chronic kidney disease, or unspecified chronic kidney disease; E78.5 Hyperlipidemia, unspecified; F32.9 Major depressive disorder, single episode, unspecified; K21.9 Gastro-esophageal reflux disease without esophagitis; K52.9 Noninfective gastroenteritis and colitis, unspecified; K90.0 Celiac disease; I35.9 Nonrheumatic aortic valve disorder, unspecified; D72.829 Elevated white blood cell count, unspecified; Z72.0 Tobacco use
CPT/HCPCS: 36415; 70450; 71045; 71250; 72125; 80048; 80053; 80076; 81003; 82550; 82553; 83690; 83735; 83880; 84484; 85025; 85610; 85730; 87040; 87086; 87088; 93005; 96361; 96365; 96366; 96367; 97163; 99285; J7030

== ENCOUNTER 2017-09-22 13:44 | Emergency (ER) | payer OTHER ==
[2017-09-22 16:17] LABS: Absolute Lymphocytes (CBC) 3.2 K/uL (0.7-4.9); Absolute Monocytes 0.8 K/uL (0.1-1.3); Absolute Neutrophil 2.6 K/uL (1.8-8.0); Eosinophils % 6.2 % (0-4.4); Hematocrit 36.6 % (36.0-45.0); Lymphocytes % 44.5 % (15.3-44.8); MCH 31.1 pg (27.0-35.0); MCV 92.6 fL (80-100); MPV 9.4 fL (7.6-11.3); Monocytes % 11.4 % (3.3-12.3); RBC Red Blood Cell Count 3.95 M/uL (3.86-4.86)
[2017-09-22 16:19] LABS: Magnesium 1.9 mg/dL (1.8-2.5)
--- NOTE | 2017-09-22 16:39 | RAD REPORT ---
EXAM DESCRIPTION: RAD - Chest Single View - 09/22/2017 4:24 pm CLINICAL HISTORY: Chest pain. COMPARISON: 08/17/2017, 12/10/2016 FINDINGS: Portable technique limits examination quality. Mild interstitial pulmonary edema is seen. The heart is mildly enlarged in size. Aortic atheroscleros is. No displaced fractures. IMPRESSION: Mild CHF/ volume overload.
[2017-09-22 16:53] LABS: Urine Blood 1+ (NEG); Urine Glucose NEGATIVE (NEG); Urine Protein NEGATIVE (NEG)
[2017-09-22] MEDS ORDERED: BUMETANIDE 2.5 MG/10 ML VIAL IV SCH (17:00)
--- NOTE | 2017-09-22 17:40 | ER ---
Nurse's Notes [facility] Name: Meme Rushing Age: 77 yrs Sex: Female : 1940 Arrival Date: 09/22/2017 Time: 13:47 Bed 17 Private MD: Humza Ulloa Diagnosis: pitting edema Presentation: 09/22 13:58 Presenting complaint: Patient states: Patient reports swelling to JAYLIN feet. Patient ae1 denies SOB. Reports pain to JAYLIN feet. Transition of care: patient was not received from another setting of care. Onset of symptoms was July 29, 2017 at 08:00. Risk Assessment: Do you want to hurt yourself or someone else? Patient reports no desire to harm self or others. 13:58 Method Of Arrival: Wheelchair ae1 13:58 Acuity: RODY 3 ae1 14:30 Initial Sepsis Screen: Does the patient meet any 2 criteria? No. Patient's initial em sepsis screen is negative. Does the patient have a suspected source of infection? No. Patient's initial sepsis screen is negative. 14:30 Care prior to arrival: None. em Historical: - Allergies: 14:05 Aspirin; ae1 14:05 Lisinopril; ae1 14:05 PENICILLINS; ae1 - PMHx: 14:05 ADD/ADHD; CHF; COPD; CVA; Diverticulitis; Hyperlipidemia; Hypertension; polyps and ae1 diverticuli in esophagus-had removed and now has more; Renal Disease; - PSHx: 14:05 Hysterectomy; esophagus sx to remove polyps; Cholecystectomy; ae1 - Immunization history:: Flu vaccine is up to date. - Social history:: Smoking status: Patient uses tobacco products, smokes one-half pack cigarettes per day. - Ebola Screening: : Patient negative for fever greater than or equal to 101.5 degrees Fahrenheit, and additional compatible Ebola Virus Disease symptoms Patient denies exposure to infectious person. Screenin:51 Abuse screen: Denies threats or abuse. Nutritional screening: No deficits noted. em Tuberculosis screening: No symptoms or risk factors identified. Fall Risk None identified. Assessment: 15:00 General: Appears in no apparent distress. comfortable, Behavior is calm, cooperative. em Pain: Complains of pain in chest, right leg and left leg. Neuro: Level of Consciousness is awake, alert, obeys commands, Oriented to person, place, time, situation. Cardiovascular: Capillary refill < 3 seconds Patient's skin is warm and dry. Cardiovascular: Heart tones S1 S2 present Edema is 1+ to left ankle, left foot, right ankle and right foot Rhythm is sinus bradycardia. Respiratory: Airway is patent Respiratory effort is even, unlabored, Respiratory pattern is regular, symmetrical. Respiratory: Breath sounds are clear bilaterally. GI: Abdomen is flat. : Urine is clear. EENT: No signs and/or symptoms were reported regarding the EENT system. Derm: Skin is intact, Skin is pink, warm \T\ dry. Musculoskeletal: Range of motion: intact in all extremities. 15:04 Reassessment: Patient appears in no apparent distress at this time. I agree with above iw assessment by Brian Velasquez LVN. 16:00 Reassessment: Patient appears in no apparent distress at this time. Patient and/or em family updated on plan of care and expected duration. Pain level reassessed. Patient is alert, oriented x 3, equal unlabored respirations, skin warm/dry/pink. 16:48 Reassessment: Patient appears in no apparent distress at this time. Patient and/or iw family updated on plan of care and expected duration. Pain level reassessed. Patient is alert, oriented x 3, equal unlabored respirations, skin warm/dry/pink. warm blanket given, VSS. 17:45 Reassessment: Patient appears in no apparent distress at this time. Patient and/or em family updated on plan of care and expected duration. Pain level reassessed. resting comfortably with eyes closed. 18:30 Reassessment: Dr. White at bedside discussing POC. em Vital Signs: 14:01 BP 117 / 58; Pulse 53; Resp 18; Temp 97.5(O); Pulse Ox 97% on R/A; Weight 54.43 kg (R); ae1 15:00 BP 118 / 53; Pulse 54; Resp 18; Pulse Ox 98% on R/A; Pain 7/10; em 16:48 BP 120 / 51; Pulse 52; Resp 18 S; Pulse Ox 96% on R/A; iw 17:14 BP 120 / 56; Pulse 53; Resp 18; Pulse Ox 94% on R/A; Pain 9/10; em 18:33 BP 116 / 54; Pulse 54; Resp 16; Pulse Ox 97% on R/A; Pain 6/10; em ED Course: 13:47 Patient arrived in ED. mr 13:48 Humza Ulloa MD is Private Physician. mr 14:01 Triage completed. ae1 14:05 Arm band placed on left wrist. ae1 14:14 Jerome White MD is Attending Physician. ps1 14:18 Brian Velasquez LVN is Primary Nurse. em 15:00 Patient has correct armband on for positive identification. Placed in gown. Call light em in reach. Side rails up X2. 16:00 No provider procedures requiring assistance completed. Initial lab(s) drawn, by me, em sent to lab. Inserted saline lock: 20 gauge in right antecubital area, using aseptic technique. Blood collected. 16:17 EKG done, by ED staff, reviewed by Jerome White MD. [facility] 16:22 X-ray completed. Portable x-ray completed in exam room. Patient tolerated procedure la2 well. 16:24 XRAY Chest (1 view) In Process Unspecified. EDMS 17:39 Humza Ulloa MD is Referral Physician. ps1 18:53 IV discontinued, intact, bleeding controlled, No redness/swelling at site. Pressure em dressing applied. Administered Medications: 16:45 Drug: Bumex 1 mg Route: IVP; Site: right antecubital; iw 17:45 Follow up: Response: No adverse reaction em Outcome: 17:40 Discharge ordered by MD. ps1 18:53 Discharged to home ambulatory. em 18:53 Condition: good 18:53 Discharge instructions given to patient, Instructed on discharge instructions, follow up and referral plans. medication usage, Demonstrated understanding of instructions, follow-up care, medications, Prescriptions given X 1. 18:55 Patient left the ED. em Signatures: Dispatcher [employer] Natalie Coto Brian Velasquez, LEASING COORDINATOR LEASING COORDINATOR em Elaine Gilliland RN RAINA Kwesi Banuelos RN RN Natalie Hartman [facility] Marya Anderson [facility] Jerome White MD MD ps1
--- NOTE | 2017-09-22 17:41 | EDPHYS ---
Physician Documentation [facility] Name: Meme Rushing Age: 77 yrs Sex: Female : 1940 Arrival Date: 09/22/2017 Time: 13:47 Bed 17 Private MD: Humza Ulloa ED Physician Jerome White HPI: 09/22 17:33 This 77 yrs old Female presents to ER via Wheelchair with complaints of Feet ps1 Swelling. 17:33 The patient has shortness of breath at rest. Onset: The symptoms/episode began/occurred ps1 last month. Duration: The symptoms are intermittent. The patient's shortness of breath is aggravated by drinking, eating. Associated signs and symptoms: Pertinent positives: This patient does not have any pertinent positive signs or symptoms associated with shortness of breath. Pertinent negatives: chest pain, non-productive cough, numbness in extremities. hx of CHF. On lasix 10mg po. Longstanding history of same as well as CKD. . Historical: - Allergies: 14:05 Aspirin; ae1 14:05 Lisinopril; ae1 14:05 PENICILLINS; ae1 - PMHx: 14:05 ADD/ADHD; CHF; COPD; CVA; Diverticulitis; Hyperlipidemia; Hypertension; polyps and ae1 diverticuli in esophagus-had removed and now has more; Renal Disease; - PSHx: 14:05 Hysterectomy; esophagus sx to remove polyps; Cholecystectomy; ae1 - Immunization history:: Flu vaccine is up to date. - Social history:: Smoking status: Patient uses tobacco products, smokes one-half pack cigarettes per day. - Ebola Screening: : Patient negative for fever greater than or equal to 101.5 degrees Fahrenheit, and additional compatible Ebola Virus Disease symptoms Patient denies exposure to infectious person. ROS: 17:33 Constitutional: Negative for fever, chills, and weight loss, Eyes: Negative for injury, ps1 pain, redness, and discharge, Neck: Negative for injury, pain, and swelling, Respiratory: Negative for shortness of breath, cough, wheezing, and pleuritic chest pain, Abdomen/GI: Negative for abdominal pain, nausea, vomiting, diarrhea, and constipation, Back: Negative for injury and pain. 17:33 Skin: Negative for injury, rash, and discoloration, Neuro: Negative for headache, weakness, numbness, tingling, and seizure. 17:33 Cardiovascular: Positive for edema, Negative for chest pain, orthopnea, palpitations, paroxysmal nocturnal dyspnea. Exam: 17:33 Constitutional: This is a well developed, well nourished patient who is awake, alert, ps1 and in no acute distress. Head/Face: Normocephalic, atraumatic. Eyes: Pupils equal round and reactive to light, extra-ocular motions intact. Lids and lashes normal. Conjunctiva and sclera are non-icteric and not injected. Chest/axilla: Normal chest wall appearance and motion. Nontender with no deformity. No lesions are appreciated. Cardiovascular: Regular rate and rhythm. No gallops, murmurs, or rubs. Normal PMI, no JVD. No pulse deficits. Respiratory: Lungs have equal breath sounds bilaterally, clear to auscultation and percussion. No rales, rhonchi or wheezes noted. No increased work of breathing, no retractions or nasal flaring. Abdomen/GI: Soft, non-tender, with normal bowel sounds. No distension or tympany. No guarding or rebound. No evidence of tenderness throughout. Skin: Warm, dry with normal turgor. Normal color with no rashes, no lesions, and no evidence of cellulitis. MS/ Extremity: Pulses equal, no cyanosis. Neurovascular intact. Full, normal range of motion. Neuro: Awake and alert, GCS 15, oriented to person, place, time, and situation. Cranial nerves II-XII grossly intact. Sensory grossly intact. Psych: Awake, alert, with orientation to person, place and time. Behavior, mood, and affect are within normal limits. Vital Signs: 14:01 BP 117 / 58; Pulse 53; Resp 18; Temp 97.5(O); Pulse Ox 97% on R/A; Weight 54.43 kg (R); ae1 15:00 BP 118 / 53; Pulse 54; Resp 18; Pulse Ox 98% on R/A; Pain 7/10; em 16:48 BP 120 / 51; Pulse 52; Resp 18 S; Pulse Ox 96% on R/A; iw 17:14 BP 120 / 56; Pulse 53; Resp 18; Pulse Ox 94% on R/A; Pain 9/10; em 18:33 BP 116 / 54; Pulse 54; Resp 16; Pulse Ox 97% on R/A; Pain 6/10; em MDM: 15:27 Patient medically screened. ps1 17:33 Data reviewed: vital signs, nurses notes, lab test result(s), EKG, radiologic studies. ps1 ED course: asymptomatic and small amount of edema in lower extremities. Will have patient take double dose of lasix for next three days. Gave 1mg bumex in ED. Stable. . 09/22 15:27 Order name: Basic Metabolic Panel; Complete Time: 16:36 ps1 09/22 15:27 Order name: BNP; Complete Time: 16:36 ps1 09/22 15:27 Order name: CBC with Diff; Complete Time: 16:36 ps1 09/22 15:27 Order name: Magnesium; Complete Time: 16:36 ps1 09/22 15:27 Order name: Troponin (emerg Dept Use Only); Complete Time: 16:36 ps1 09/22 16:28 Order name: Urine Dipstick--Ancillary (enter results); Complete Time: 17:15 bd 09/22 15:27 Order name: XRAY Chest (1 view); Complete Time: 16:44 ps1 09/22 15:27 Order name: EKG; Complete Time: 15:28 ps1 09/22 15:27 Order name: Cardiac monitoring; Complete Time: 16:04 ps1 09/22 15:27 Order name: EKG - Nurse/Tech; Complete Time: 16:04 ps1 09/22 15:27 Order name: IV Saline Lock; Complete Time: 16:04 ps1 09/22 15:27 Order name: Labs collected and sent; Complete Time: 16:04 ps1 09/22 15:27 Order name: O2 Per Protocol; Complete Time: 16:04 ps1 09/22 15:27 Order name: O2 Sat Monitoring; Complete Time: 16:05 ps1 EC:33 Rate is 52 beats/min. Rhythm is regular. QRS [place] is Normal. MI interval is normal. QRS ps1 interval is normal. QT interval is normal. No Q waves. T waves are Normal. Clinical impression: Sinus bradycardia. Interpreted by me. Administered Medications: 16:45 Drug: Bumex 1 mg Route: IVP; Site: right antecubital; iw 17:45 Follow up: Response: No adverse reaction em Disposition: 17:33 Critical Care: not applicable. ps1 Disposition: 09/22/17 17:40 Discharged to Home. Impression: pitting edema. - Condition is Stable. - Discharge Instructions: Heart Failure, [id number]. - Prescriptions for Lasix 20 mg Oral Tablet - take 1 tablet by ORAL route every 12 hours for 3 days; 6 tablet. - Medication Reconciliation Form, Thank You Letter, Antibiotic Education, Prescription Opioid Use form. - Follow up: Humza Ulloa MD; When: As needed; Reason: Recheck today's complaints, Continuance of care, Re-evaluation by your physician. Follow up: Emergency Department; When: As needed; Reason: Fever > 102 F, Trouble breathing, Worsening of condition. - Problem is an ongoing problem. - Symptoms have worsened. Signatures: Dispatcher [employer] EDBrian Maharaj, AIR QUALITY SPECIALIST AIR QUALITY SPECIALIST em Elaine Gilliland RN RN iw Kwesi Banuelos RN RN ae1 Jerome White MD MD ps1 Corrections: (The following items were deleted from the chart) 18:55 17:40 09/22/2017 17:40 Discharged to Home. Impression: pitting edema. Condition is em Stable. Forms are Medication Reconciliation Form, Thank You Letter, Antibiotic Education, Prescription Opioid Use. Follow up: Humza Ulloa; When: As needed; Reason: Recheck today's complaints, Continuance of care, Re-evaluation by your physician. Follow up: Emergency Department; When: As needed; Reason: Fever > 102 F, Trouble breathing, Worsening of condition. Problem is an ongoing problem. Symptoms have worsened. ps1
[2017-09-22 19:00] VITALS: TEMP 97.5
[2017-09-22 19:05] VITALS: BP 116/54; O2SAT 97
--- NOTE | 2017-09-23 11:21 | EKG ---
Test Date: 2017-09-22 Test Time: 16:08:25 Stain Remover: HEATH MEASUREMENT RESULTS: Intervals: Rate: 52 MD: 190 QRSD: 76 QT: 492 QTc: 457 [place]: P: 39 MD: 190 QRS: 9 T: -7 INTERPRETIVE STATEMENTS: Sinus bradycardia Otherwise normal ECG Compared to ECG 08/17/2017 22:09:30 Sinus rhythm no longer present Sinus arrhythmia no longer present Prolonged QT interval no longer present Electronically Signed On 09-23-17 11:19:29 CDT by Sanju Obando
== END 2017-09-22 18:55 | disposition home or self-care (01) ==
LOC: ER 13:44
DX: R60.9 Edema, unspecified (principal); I10 Essential (primary) hypertension; I50.9 Heart failure, unspecified; E78.5 Hyperlipidemia, unspecified; J44.9 Chronic obstructive pulmonary disease, unspecified; F17.210 Nicotine dependence, cigarettes, uncomplicated; Z88.0 Allergy status to penicillin; Z88.6 Allergy status to analgesic agent; Z88.8 Allergy status to other drugs, medicaments and biological substances
CPT/HCPCS: 36415; 71045; 80048; 81003; 83735; 83880; 84484; 85025; 93005; 96374; 99284

== ENCOUNTER 2018-02-04 06:01 | Inpatient (IN) | payer OTHER ==
[2018-02-04] MEDS ORDERED: IPRATROPIUM BROM 0.5MG/2.5ML ONE (06:37)
[2018-02-04] MEDS ORDERED: LEVALBUTEROL 1.25 MG/3 ML NEB ONE (06:37)
[2018-02-04 07:34] LABS: Absolute Monocytes 0.3 K/uL (0.1-1.3); Absolute Neutrophil 7.8 K/uL (1.8-8.0); Basophils % 0.4 % (0-1.3); Eosinophils % 0.1 % (0-4.4); Hematocrit 40.4 % (36.0-45.0); Lymphocytes % 10.9 % (15.3-44.8); MCH 32.8 pg (27.0-35.0); MCV 94.5 fL (80-100); MPV 9.3 fL (7.6-11.3); Monocytes % 3.6 % (3.3-12.3); RBC Red Blood Cell Count 4.27 M/uL (3.86-4.86)
[2018-02-04 07:38] LABS: Protime INR 0.94
[2018-02-04 07:58] LABS: Albumin 3.6 g/dL (3.4-5.0); Bilirubin Direct 0.2 mg/dL (0-0.2); Bilirubin Total 0.6 mg/dL (0.2-1.0); CKMB Creatine Kinase MB 1.7 ng/mL (0.3-3.6); Potassium 3.4 mmol/L (3.5-5.1); Protein, Total 7.2 g/dL (6.4-8.2); Troponin (Emerg Dept Use Only) 0.02 ng/mL (0.0-0.045)
--- NOTE | 2018-02-04 08:52 | RAD REPORT ---
EXAM DESCRIPTION: RAD - Chest Single View - 02/04/2018 6:33 am CLINICAL HISTORY: DYSPNEA Chest pain. COMPARISON: Chest Single View dated 09/22/2017; Chest Single View dated 08/17/2017; Chest Single View dated 12/10/2016; Chest Single View dated 12/04/2016 FINDINGS: Portable technique limits examination quality. Moderate opacities are seen in the right lung most compatible with pneumonia. The left lung appears g rossly clear. The heart is normal in size. No displaced fractures. IMPRESSION: Moderate right-sided pneumonia.
[2018-02-04] MEDS ORDERED: CEFTRIAXONE/SWI 1gm 1 GM/10 ML SYR ONE (09:03)
--- NOTE | 2018-02-04 09:03 | ER ---
Nurse's Notes [facility] Name: Meme Rushing Age: 77 yrs Sex: Female : 1940 Arrival Date: 02/04/2018 Time: 06:03 Bed 14 Private MD: Humza Ulloa Diagnosis: Pneumonia, unspecified organism Presentation: 02/04 06:18 Presenting complaint: Patient states: she woke up this morning with chest pain, bb difficulty breathing, vomiting, spitting up blood states she gets pneumonia a lot. Transition of care: patient was not received from another setting of care. Onset of symptoms was February 04, 2018. Risk Assessment: Do you want to hurt yourself or someone else? Patient reports no desire to harm self or others. Initial Sepsis Screen: Does the patient meet any 2 criteria? No. Patient's initial sepsis screen is negative. Does the patient have a suspected source of infection? No. Patient's initial sepsis screen is negative. Care prior to arrival: None. 06:18 Method Of Arrival: Ambulatory bb 06:18 Acuity: RODY 2 bb Triage Assessment: 07:07 General: Appears in no apparent distress. GI: Reports lower abdominal pain, upper tw2 abdominal pain. Historical: - Allergies: 06:20 Aspirin; bb 06:20 Lisinopril; bb 06:20 PENICILLINS; bb - Home Meds: 06:20 amlodipine 5 mg tab 1 tab once daily [Active]; carvedilol 6.25 mg Oral tab 1 tab every bb 12 hours [Active]; Decara 50,000 unit Oral cap [Active]; escitalopram oxalate 20 mg Oral tab 1 tab once daily [Active]; Iron CR 27mg Oral daily [Active]; Lasix 20 mg Oral tab 1 tab [Active]; Lyrica 50mg Oral 1 cap 2 times per day [Active]; mirtazapine 15 mg Oral tab 1 tab once daily [Active]; Plavix 75 mg Oral tab 1 tab once daily [Active]; Protonix 40 mg Oral grps 1 packet once daily [Active]; Symbicort 160-4.5 mcg/actuation inhalation HFAA 2 puffs 2 times per day [Active]; Xanax 0.5 mg Oral tab 1 tab 2x a day [Active]; - PMHx: 06:20 ADD/ADHD; CHF; COPD; CVA; Diverticulitis; Hyperlipidemia; Hypertension; polyps and bb diverticuli in esophagus-had removed and now has more; Renal Disease; - PSHx: 06:20 Hysterectomy; esophagus sx to remove polyps; Cholecystectomy; bb - Immunization history:: Adult Immunizations up to date. - Social history:: Smoking status: Patient uses tobacco products, smokes one-half pack cigarettes per day. - Ebola Screening: : No symptoms or risks identified at this time. Screenin:20 Abuse screen: Denies threats or abuse. Nutritional screening: No deficits noted. jb4 Tuberculosis screening: No symptoms or risk factors identified. Fall Risk None identified. Assessment: 06:20 General: Appears in no apparent distress. uncomfortable, Behavior is calm, cooperative, jb4 appropriate for age. Pain: Complains of pain in chest Pain does not radiate. Pain currently is 10 out of 10 on a pain scale. at worst was 10 out of 10 on a pain scale. Quality of pain is described as stabbing, Pain began 2-3 days ago. Is intermittent. Neuro: Level of Consciousness is awake, alert, obeys commands, Oriented to person, place, time, situation. Cardiovascular: Heart tones S1 S2 present Patient's skin is warm and dry. Respiratory: Airway is patent Respiratory effort is even, unlabored, Respiratory pattern is regular, symmetrical, Breath sounds are clear bilaterally. GI: Abdomen is round non-distended, Bowel sounds present X 4 quads. Abd is soft X 4 quads Abdomen is tender to palpation X 4 quads. : No signs and/or symptoms were reported regarding the genitourinary system. EENT: No signs and/or symptoms were reported regarding the EENT system. Derm: Skin is intact, Skin is pink, warm \T\ dry. Musculoskeletal: Circulation, motion, and sensation intact. 07:00 Reassessment: Patient appears in no apparent distress at this time. Patient and/or jb4 family updated on plan of care and expected duration. Pain level reassessed. Patient is alert, oriented x 3, equal unlabored respirations, skin warm/dry/pink. 07:07 Reassessment: Patient appears in no apparent distress at this time. Patient and/or tw2 family updated on plan of care and expected duration. Pain level reassessed. Patient is alert, oriented x 3, equal unlabored respirations, skin warm/dry/pink. 08:09 Reassessment: Patient appears in no apparent distress at this time. Patient and/or tw2 family updated on plan of care and expected duration. Pain level reassessed. Patient is alert, oriented x 3, equal unlabored respirations, skin warm/dry/pink. 09:20 Reassessment: Patient appears in no apparent distress at this time. Patient and/or tw2 family updated on plan of care and expected duration. Pain level reassessed. Patient is alert, oriented x 3, equal unlabored respirations, skin warm/dry/pink. 10:21 Reassessment: Patient appears in no apparent distress at this time. Patient and/or tw2 family updated on plan of care and expected duration. Pain level reassessed. Patient is alert, oriented x 3, equal unlabored respirations, skin warm/dry/pink. Vital Signs: 06:20 BP 139 / 51; Pulse 89; Resp 28 S; Temp 98.3(O); Pulse Ox 78% on R/A; Weight 56.25 kg bb (R); Height 5 ft. 0 in. (152.40 cm) (R); Pain 10/10; 07:06 BP 111 / 60; Pulse 77; Resp 20; Pulse Ox 90% on 4 lpm NC; tw2 08:09 BP 127 / 49; Pulse 80; Resp 15; Pulse Ox 91% on 4 lpm NC; tw2 09:20 BP 121 / 47; Pulse 75; Resp 20; Pulse Ox 91% on 4 lpm NC; tw2 10:21 BP 122 / 51; Pulse 74; Resp 16; Pulse Ox 91% on 4 lpm NC; tw2 06:20 Body Mass Index 24.22 (56.25 kg, 152.40 cm) bb ED Course: 06:03 Patient arrived in ED. do 06:03 Humza Ulloa MD is Private Physician. do 06:08 Cristiana De Dios [facility]-C [facility]. kb 06:08 Luis Eduardo Steele MD is Attending Physician. kb 06:19 Triage completed. bb 06:19 Ruddy Lott, RAINA is Primary Nurse. jb4 06:20 Arm band placed on Patient placed in an exam room, on a stretcher, on oxygen, on pulse bb oximetry. Family accompanied patient. 06:20 Patient has correct armband on for positive identification. Placed in gown. Bed in low jb4 position. Call light in reach. Side rails up X 1. Pulse ox on. NIBP on. 06:33 X-ray completed. Portable x-ray completed in exam room. Patient tolerated procedure kw well. 06:34 Chest Single View XRAY In Process Unspecified. EDMS 06:45 Inserted saline lock: 20 gauge in left antecubital area, using aseptic technique. Blood jb4 collected. 06:45 Initial lab(s) drawn, by ne, sent to lab. First set of blood cultures drawn. Oxygen jb4 administration via nasal cannula \T\ 4L/min. 07:00 Second set of blood cultures drawn. jb4 07:07 Primary Nurse role handed off by Ruddy Lott, RAINA tw2 07:07 Lizette Rutherford, RAINA is Primary Nurse. tw2 09:01 Miguel Krishnamurthy MD is Hospitalizing Provider. kb 10:25 No provider procedures requiring assistance completed. Patient admitted, IV remains in tw2 place. Administered Medications: 06:35 Drug: Xopenex (3) 1.25 mg Route: Inhalation; jb4 06:35 Drug: AtroVENT Aerosol 0.5 mg Route: Inhalation; jb4 09:00 Drug: Rocephin - (cefTRIAXone) 1 grams {Note: IVP available only from pharmacy.} Route: tw2 IVPB; Infused Over: 5 mins; Site: left antecubital; 09:06 Follow up: Response: No adverse reaction; IV Status: Completed infusion tw2 09:06 Drug: Zithromax 500 mg Route: IVPB; Infused Over: 1 hrs; Site: left antecubital; tw2 10:21 Follow up: Response: No adverse reaction; IV Status: Completed infusion tw2 Outcome: 09:02 Decision to Hospitalize by Provider. kb 10:26 Admitted to Med/surg accompanied by tech, room 214, Report called to RAINA Bergeron tw2 10:26 Condition: stable 10:26 Instructed on the need for admit. 10:52 Patient left the ED. tw2 Signatures: Dispatcher [employer] EDIL Cristiana De Dios, ALTON DONG-Sri Pérez RN RN bb Jennifer Felton Danielle do Wise, Tara, RN RN tw2 Ruddy Lott, RN RN jb4
--- NOTE | 2018-02-04 09:03 | EDPHYS ---
Physician Documentation [facility] Name: Meme Rushing Age: 77 yrs Sex: Female : 1940 Arrival Date: 02/04/2018 Time: 06:03 Bed 14 Private MD: Humza Ulloa ED Physician Luis Eduardo Steele HPI: 02/04 06:28 This 77 yrs old Female presents to ER via Ambulatory with complaints of kb Nausea/Vomiting, Cough. 06:28 The patient has shortness of breath at rest. Onset: The symptoms/episode began/occurred kb this morning. Duration: The symptoms are continuous. The patient's shortness of breath is aggravated by nothing, is alleviated by nothing. Associated signs and symptoms: Pertinent positives: non-productive cough, nausea, vomiting. Severity of symptoms: At their worst the symptoms were mild moderate in the emergency department the symptoms are unchanged. The patient has experienced similar episodes in the past. The patient has not recently seen a physician. Pt states she woke up with cough and shortness of breath. States "When this happens it is normally pneumonia." Reports wheezing lighter captain, vomited and then wheezing went away. . Historical: - Allergies: 06:20 Aspirin; bb 06:20 Lisinopril; bb 06:20 PENICILLINS; bb - Home Meds: 06:20 amlodipine 5 mg tab 1 tab once daily [Active]; carvedilol 6.25 mg Oral tab 1 tab every bb 12 hours [Active]; Decara 50,000 unit Oral cap [Active]; escitalopram oxalate 20 mg Oral tab 1 tab once daily [Active]; Iron CR 27mg Oral daily [Active]; Lasix 20 mg Oral tab 1 tab [Active]; Lyrica 50mg Oral 1 cap 2 times per day [Active]; mirtazapine 15 mg Oral tab 1 tab once daily [Active]; Plavix 75 mg Oral tab 1 tab once daily [Active]; Protonix 40 mg Oral grps 1 packet once daily [Active]; Symbicort 160-4.5 mcg/actuation inhalation HFAA 2 puffs 2 times per day [Active]; Xanax 0.5 mg Oral tab 1 tab 2x a day [Active]; - PMHx: 06:20 ADD/ADHD; CHF; COPD; CVA; Diverticulitis; Hyperlipidemia; Hypertension; polyps and bb diverticuli in esophagus-had removed and now has more; Renal Disease; - PSHx: 06:20 Hysterectomy; esophagus sx to remove polyps; Cholecystectomy; bb - Immunization history:: Adult Immunizations up to date. - Social history:: Smoking status: Patient uses tobacco products, smokes one-half pack cigarettes per day. - Ebola Screening: : No symptoms or risks identified at this time. ROS: 06:28 Constitutional: Negative for fever, chills, and weight loss, ENT: Negative for injury, kb pain, and discharge, Neck: Negative for injury, pain, and swelling, Cardiovascular: Negative for chest pain, palpitations, and edema, Back: Negative for injury and pain, MS/Extremity: Negative for injury and deformity, Skin: Negative for injury, rash, and discoloration, Neuro: Negative for headache, weakness, numbness, tingling, and seizure. 06:28 Respiratory: Positive for cough, shortness of breath, wheezing. 06:28 Abdomen/GI: Positive for nausea and vomiting, Negative for abdominal pain, diarrhea. Exam: 06:31 Constitutional: This is a well developed, well nourished patient who is awake, alert, kb and in no acute distress. Head/Face: Normocephalic, atraumatic. Chest/axilla: Normal chest wall appearance and motion. Nontender with no deformity. No lesions are appreciated. Cardiovascular: Regular rate and rhythm with a normal S1 and S2. No gallops, murmurs, or rubs. Normal PMI, no JVD. No pulse deficits. Abdomen/GI: Soft, non-tender, with normal bowel sounds. No distension or tympany. No guarding or rebound. No evidence of tenderness throughout. Back: No spinal tenderness. No costovertebral tenderness. Full range of motion. Skin: Warm, dry with normal turgor. Normal color with no rashes, no lesions, and no evidence of cellulitis. MS/ Extremity: Pulses equal, no cyanosis. Neurovascular intact. Full, normal range of motion. Neuro: Awake and alert, GCS 15, oriented to person, place, time, and situation. Cranial nerves II-XII grossly intact. Motor strength 5/5 in all extremities. Sensory grossly intact. Cerebellar exam normal. Normal gait. 06:31 Respiratory: mild respiratory distress is noted, Respirations: labored breathing, that is mild, Breath sounds: are clear throughout. Vital Signs: 06:20 BP 139 / 51; Pulse 89; Resp 28 S; Temp 98.3(O); Pulse Ox 78% on R/A; Weight 56.25 kg bb (R); Height 5 ft. 0 in. (152.40 cm) (R); Pain 10/10; 07:06 BP 111 / 60; Pulse 77; Resp 20; Pulse Ox 90% on 4 lpm NC; tw2 08:09 BP 127 / 49; Pulse 80; Resp 15; Pulse Ox 91% on 4 lpm NC; tw2 09:20 BP 121 / 47; Pulse 75; Resp 20; Pulse Ox 91% on 4 lpm NC; tw2 10:21 BP 122 / 51; Pulse 74; Resp 16; Pulse Ox 91% on 4 lpm NC; tw2 06:20 Body Mass Index 24.22 (56.25 kg, 152.40 cm) bb MDM: 06:08 Patient medically screened. kb 06:30 Data reviewed: vital signs, nurses notes. Data interpreted: Pulse oximetry: on room air kb is 78 %. Interpretation: hypoxia. Plan: O2 by NC applied. 09:01 Counseling: I had a detailed discussion with the patient and/or guardian regarding: the kb historical points, exam findings, and any diagnostic results supporting the discharge/admit diagnosis, lab results, radiology results, the need for further work-up and treatment in the hospital. Physician consultation: Miguel Krishnamurthy MD was contacted at 09:01, regarding admission, to the telemetry unit. and will see patient in ED, shortly. 02/04 06:14 Order name: LFT's kb 02/04 06:14 Order name: Lipase kb 02/04 06:14 Order name: Basic Metabolic Panel kb 02/04 06:14 Order name: Blood Culture Adult (2) kb 02/04 06:14 Order name: CBC with Diff kb 02/04 06:14 Order name: Ckmb; Complete Time: 08:01 kb 02/04 06:14 Order name: CPK; Complete Time: 08:01 kb 02/04 06:14 Order name: Lactate; Complete Time: 07:43 kb 02/04 06:14 Order name: Procalcitonin; Complete Time: 08:09 kb 02/04 06:14 Order name: Protime (+inr); Complete Time: 07:40 kb 02/04 06:14 Order name: Ptt, Activated; Complete Time: 07:40 kb 02/04 06:14 Order name: Troponin (emerg Dept Use Only); Complete Time: 08:01 kb 02/04 06:14 Order name: Urine Microscopic Only kb 02/04 06:14 Order name: Liver (Hepatic) Function; Complete Time: 08:01 EDMS 02/04 06:14 Order name: Chest Single View XRAY; Complete Time: 08:53 kb 02/04 06:14 Order name: Cardiac monitoring; Complete Time: 06:59 kb 02/04 06:14 Order name: EKG - Nurse/Tech; Complete Time: 06:59 kb 02/04 06:14 Order name: IV Saline Lock - Large Bore; Complete Time: 07:03 kb 02/04 06:14 Order name: Labs collected and sent; Complete Time: 07:03 kb 02/04 06:14 Order name: O2 Per Protocol; Complete Time: 06:25 kb 02/04 06:14 Order name: O2 Sat Monitoring; Complete Time: 06:25 kb 02/04 06:14 Order name: Lipase; Complete Time: 08:01 EDMS 02/04 06:14 Order name: Basic Metabolic Panel; Complete Time: 08:01 EDMS 02/04 06:14 Order name: Blood Culture EDMS 02/04 06:14 Order name: CBC with Automated Diff; Complete Time: 07:40 EDMS 02/04 08:02 Order name: EKG Electrocardiogram EDMS Administered Medications: 06:35 Drug: Xopenex (3) 1.25 mg Route: Inhalation; jb4 06:35 Drug: AtroVENT Aerosol 0.5 mg Route: Inhalation; jb4 09:00 Drug: Rocephin - (cefTRIAXone) 1 grams {Note: IVP available only from pharmacy.} Route: tw2 IVPB; Infused Over: 5 mins; Site: left antecubital; 09:06 Follow up: Response: No adverse reaction; IV Status: Completed infusion tw2 09:06 Drug: Zithromax 500 mg Route: IVPB; Infused Over: 1 hrs; Site: left antecubital; tw2 10:21 Follow up: Response: No adverse reaction; IV Status: Completed infusion tw2 Disposition: 02/04/18 09:02 Hospitalization ordered by Miguel Krishnamurthy for Inpatient Admission. Preliminary diagnosis is Pneumonia, unspecified organism. - Bed requested for Telemetry/MedSurg (Inpatient). - Status is Inpatient Admission. tw2 - Condition is Stable. - Problem is new. - Symptoms are unchanged. UTI on Admission? No Signatures: Dispatcher [employer] EDMS Lanre Cristiana, PRODUCT SAFETY PROFESSIONAL-C PRODUCT SAFETY PROFESSIONAL-Ckb SheaLoraine lacey bd Sri Pate, RN RN bb Lizette Rutherford RN RN tw2 Ruddy Lott RN RN jb4 Corrections: (The following items were deleted from the chart) 10:20 09:02 Hospitalization Ordered by Miguel Krishnamurthy MD for Inpatient Admission. Preliminary bd diagnosis is Pneumonia, unspecified organism. Bed requested for Telemetry/MedSurg (Inpatient). Status is Inpatient Admission. Condition is Stable. Problem is new. Symptoms are unchanged. UTI on Admission? No. kb 10:52 10:20 02/04/2018 09:02 Hospitalization Ordered by Miguel Krishnamurthy MD for Inpatient tw2 Admission. Preliminary diagnosis is Pneumonia, unspecified organism. Bed requested for Telemetry/MedSurg (Inpatient). Status is Inpatient Admission. Condition is Stable. Problem is new. Symptoms are unchanged. UTI on Admission? No. bd
[2018-02-04] MEDS ORDERED: AZITHROMYCIN 500 MG/250 ML BAG ONE (09:04)
[2018-02-04] MEDS ORDERED: ALBUTEROL 2.5 MG/3 ML NEB SOL NEB PRN (10:08)
[2018-02-04] MEDS ORDERED: ONDANSETRON 4 MG/2 ML VIAL IV PRN (10:08)
--- NOTE | 2018-02-04 10:48 | EKG ---
Test Date: 2018-02-04 Test Time: 06:39:29 Seo Engineer: RAIN MEASUREMENT RESULTS: Intervals: Rate: 77 OK: 154 QRSD: 74 QT: 450 QTc: 509 Boissevain: P: 77 OK: 154 QRS: 10 T: -33 INTERPRETIVE STATEMENTS: Normal sinus rhythm Nonspecific ST and T wave abnormality Abnormal ECG Electronically Signed On 02-04-18 10:47:23 CDT by Crow Herrera
[2018-02-04] MEDS ORDERED: NA CHLORIDE 0.9% 1,000 ML IV SCH (11:00)
[2018-02-04 15:00] VITALS: BMI 24.5
[2018-02-04 16:36] LABS: Urine Appearance CLEAR; Urine Bilirubin NEGATIVE (NEG); Urine Blood 1+ (NEG); Urine Color YELLOW; Urine Glucose NEGATIVE (NEG); Urine Protein NEGATIVE (NEG); Urine Specific Gravity 1.015 (1.005-1.030); Urine Urobilinogen 0.2 mg/dL (0.2-1.0)
[2018-02-04 16:45] LABS: Urine Microscopic Reflex ORDER UMIC
[2018-02-04 16:52] LABS: Urine Bacteria <20 /HPF (<20)
[2018-02-04 16:53] LABS: Urine Culture Reflex Order NOT NEEDED; Urine Mucus 1+ /HPF (NONE SEEN)
--- NOTE | 2018-02-04 18:58 | RAD REPORT ---
EXAM DESCRIPTION: CT - Thorax Wo Con - 02/04/2018 6:43 pm CLINICAL HISTORY: Pneumonia, hypoxia COMPARISON: Chest film January 28, CT chest October 1999 TECHNIQUE: Axial 5 mm thick images of the chest were obtained without IV contrast. All CT scans are performed using dose optimization technique as appropriate and may include automated exposure control or mA/KV adjustment according to patient size. FINDINGS: Scattered scarring changes are present in the left lung field minimally progressive from 2 015. No acute left lung field finding. Extensive interstitial and alveolar opacification is present i n the right upper lobe and right lower lobe. There is minimal right middle lobe involvement. This is consistent with a multi lobar pneumonia. No cavitation. No underlying mass lesions seen. There are no endobronchial lesions. No pleural effusion or pneumothorax. No abnormal mediastinal or hilar masses or lymphadenopathy seen. No gross aortic or pulmonary artery finding suspected. No pericardial thickening or effusion. No chest wall mass or abnormal axillary lymphadenopathy. IMPRESSION: Moderately large right upper lobe and right lower lobe pneumonia findings. No cavitation , mass or other complicating factor.
--- NOTE | 2018-02-04 20:31 | P.CNS ---
Date of Consult: 02/04/18 Reason for Consult: CKD Chief Complaint: Persisitent Cough, Nausea Allergies Penicillins Allergy (Intermediate, Verified 03/17/13 23:37) SWELLING lisinopril Allergy (Mild, Verified 03/17/13 23:37) Hives/Rash grapefruit Allergy (Verified 04/01/15 16:10) Hives/Rash aspirin Adverse Reaction (Verified 12/04/16 20:20) Shortness of breath Home Medications: ALPRAZolam [Xanax*] 0.5 mg PO BID PRN 04/25/13 Amlodipine [Norvasc*] 5 mg PO DAILY 04/25/13 Carvedilol [Coreg*] 6.25 mg PO BID 04/25/13 Clopidogrel Bisulfate [Clopidogrel] 75 mg PO DAILY 04/25/13 Escitalopram Oxalate 20 mg PO DAILY 04/25/13 Furosemide [Lasix*] 20 mg PO DAILY 04/25/13 Mirtazapine [Remeron*] 15 mg PO BEDTIME 04/25/13 Pregabalin [Lyrica*] 50 mg PO BID 04/25/13 Budesonide/Formoterol Fumarate [Symbicort 160-4.5 Mcg Inhaler] 2 puff IH BID Pantoprazole [Protonix Tab*] 40 mg PO DAILY 11/19/14 Cholecalciferol (Vitamin D3) [Decara] 50,000 unit PO EVERY 7TH DAY 12/04/16 Iron Cr 27 mg PO DAILY 08/18/17 Albuterol Sulfate [Proair Hfa] 2 puff IH PRN 02/04/18 - Past Medical/Surgical History Diabetic: No -: pneumonia -: copd -: small leak in aorta -: HTN -: Hyperlipidemia -: Depression -: GERD -: Recurrent pneumonia, recent bronchoscopy was normal. -: Previous Smoker -: Chronic renal disease -: Celiac disease with history of diverticulosis -: cholecystectomy -: esophogeal polyp removal -: appendectomy -: hysterectomy -: Doppler r/o DVT on L. foot, 02/04/13 -: Aortic echo, valve leakage, 02/04/13 Psychosocial/ Personal History: lives with daughter - Family History Sister Medical History: Diabetes Brother Medical History: Cancer Father Medical History: Cancer Notes: bone, esophageal cx Mother Medical History: Cancer Notes: gallbladder cx - Social History Smoking Status: Current every day smoker Alcohol use: No CD- Drugs: No Caffeine use: No Place of Residence: Home Review of Systems General: Malaise Respiratory: Cough, Hemoptysis Cardiovascular: Unremarkable Gastrointestinal: Unremarkable Genitourinary: Unremarkable Physical Examination Temp Pulse Resp BP Pulse Ox 99.6 F 73 18 120/56 L 94 02/04/18 16:00 02/04/18 16:00 02/04/18 16:00 02/04/18 16:00 02/04/18 16:00 General: Oriented x3, Mild distress Neck: Supple Respiratory: Crackles/rales Cardiovascular: Edema (trace ) Laboratory Data (last 24 hrs) 02/04/18 06:45: PT 11.1, INR 0.94, APTT 29.5 02/04/18 06:45: WBC 9.2, Hgb 14.0, Hct 40.4, Plt Count 182 02/04/18 06:45: Sodium 145, Potassium 3.4 L, BUN 23 H, Creatinine 1.60 H, Glucose 115 H, Total Bilirubin 0.6, AST 31, ALT 30, Alkaline Phosphatase 102, Lipase 127 - Problems (1) Dyspnea Onset Date: 12/05/16 Current Visit: No Status: Active (2) Hemoptysis Current Visit: No Status: Active (3) Pneumonia Onset Date: 08/20/17 Current Visit: No Status: Active Conclusions/Impression: A 77 Y/O woman with PMHx of COPD on inhalers, CAD , HTN and CKD not on IRVING? due to rash Presented with SOB of 1 day duration associated with blood tinged sputum and nausea No chest pain, palpitation, headache or dizziness Nephrology consulted for CKD Assessment CKD Cr at base line Cr 1.3-1.5 since 2013 Low salt diet Adjust meds as per RFT avoid NSAID and IV contrast will dc IVF SOB CT b/L infltrate on Rocephin and Azithromycin Hx of COPD HTN BP ok CAD Anxiety disorder
[2018-02-04] MEDS: HOME MED 1 EA UNK (Budesonide/Formoterol Fumarate [Symbicort 160-4.5 Mcg Inhaler] 2 PUFF) IH SCH (21:00)
[2018-02-04] MEDS: PREGABALIN 50 MG CAP PO SCH (21:58)
[2018-02-04] MEDS: MIRTAZAPINE 15 MG TAB PO SCH (21:58)
[2018-02-04] MEDS: CEFTRIAXONE/SWI 1gm 1 GM/10 ML SYR IV SCH (21:58)
[2018-02-04] MEDS: CARVEDILOL 6.25 MG TAB PO SCH (21:58)
--- NOTE | 2018-02-05 01:12 | HP ---
Date of Admission: 02/04/2018 Code Status: Full. The patient does not have a living will at this time. No medical power of real estate attorney. Chief Complaint: Shortness of breath. Primary Care Physician: Humza Ulloa MD History Of Present Illness: The patient is a 77-year-old female with past medical history of COPD, h istory of previous recurrent pneumonias, possible aortic aneurysm, hypertension, hyperlipidemia, smok er, and chronic kidney disease, who comes in with shortness of breath. The patient also reports some cough with some streaks of blood in the sputum. Denies any ill contacts. No significant fevers or chills. The patient comes in with worsening symptoms. The patient's symptoms are constant, moderate . No alleviating factors. She did report some wheezing and felt that she has developed pneumonia, w hich has occurred previously. She denies being on any immune modulators or steroids recently. The p atient's workup revealed normal WBC count. She did have some low potassium. Her creatinine was 1.6, which is slightly above her baseline. Her procalcitonin was elevated at 3. She was hypoxic at 78% on room air. She was placed on supplemental oxygen and improved to 92% on 3 L. The patient had imag ing studies done, which showed right-sided pneumonia and was therefore referred for admission. When seen in the ER, she was awake, alert, oriented x3, in some mild distress. Past Medical History: COPD, not on home oxygen; apparent leak in the aorta, likely an aneurysm; hype rtension; hyperlipidemia; depression; history of recurrent pneumonias; GERD; has had bronchoscopy in the past; chronic kidney disease; celiac disease with history of diverticulosis. Surgical History: Esophageal polyp removal, appendectomy, hysterectomy, leaky aortic valve. Allergies: TO PENICILLIN, LISINOPRIL, GRAPEFRUIT, AND ASPIRIN. Medications: List reviewed. Social History: The patient is an everyday smoker. Denies any alcohol use or illicit drug use. The patient lives alone, but does have a niece that checks up on her every now and then. Family History: Sister has diabetes. Brother had cancer. Father also had cancer of the bone and es ophagus. Mother had cancer of the gallbladder. Review of Systems: Ten point system reviewed and negative except as per HPI. Physical Examination: Vital Signs: Temperature 98.3, heart rate 89, blood pressure 139/51, respirations 28, O2 of 78% on r oom air, improved to 92% on 3 L via nasal cannula. General: Awake, alert, oriented x3, in some mild respiratory distress. Elderly female, ill-appearin g. HEENT: Normocephalic, atraumatic. PERRLA. EOMI. Dry mucous membranes. Oropharynx is clear. Poor dentition. Conjunctivae anicteric. Neck: Supple. No JVD. Trachea midline. CV: S1, S2. Regular rate and rhythm. Peripheral pulses present. Respiratory: Diminished breath sounds in the right side. Some mild wheezing is heard. No stridor. The patient is tachypneic. Use of accessory muscles present. Gastrointestinal: Abdomen is soft, nontender, nondistended. Positive bowel sounds. No guarding or rigidity. Extremities: No clubbing, cyanosis, or edema. No calf tenderness. Capillary refill less than 2 sec onds. Neuro: Cranial nerves 2 through 12 intact grossly. No focal neurological deficit. Speech is normal . The patient intact to light touch. Skin: No rashes. Normal skin turgor. Psych: Mood is okay. Affect is full. Insight and judgment are good. Laboratory Data: Sodium 145, potassium 3.4, chloride 110, CO2 27, BUN 23, creatinine 1.6, glucose 11 5, lactate 1.8, calcium 8.7. Procalcitonin 3.17. INR 0.94. WBC 9.2, H and H 14 and 40.4, platelets 182, neutrophils 85%. UA pending. Chest x-ray shows moderate right-sided pneumonia. Assessment: 1.Right-sided pneumonia, community acquired. We will start on IV antibiotics. Obtain blood culture s and sputum cultures. 2.Hypoxia, improved with supplemental oxygen. We will place on continuous pulse ox, likely secondar y to above. 3.Hypokalemia. Replace and monitor. Check magnesium level. 4.Chronic obstructive pulmonary disease, chronic bronchitis. We will continue nebulizer treatments. 5.Essential hypertension. Resume home medications as appropriate. 6.Mixed hyperlipidemia. Continue statin. 7.Major depressive disorder on Remeron. 8.Gastroesophageal reflux disease. Continue PPI no esophagitis. 9.Nicotine dependence with cigarette smoking. Counseled. 10.Chronic kidney disease, stage 3. We will continue to monitor creatinine. The patient sees Dr. Gary negrete. We will consult her group. Plan: Admit patient to Med-Surg, place as inpatient. TITI Voice ID: [id number]
[2018-02-05] MEDS: PANTOPRAZOLE 40MG TABLET PO SCH (05:18)
[2018-02-05 05:29] LABS: Absolute Lymphocytes (CBC) 1.9 K/uL (0.7-4.9); Absolute Monocytes 0.8 K/uL (0.1-1.3); Absolute Neutrophil 12.6 K/uL (1.8-8.0); Basophils % 0.2 % (0-1.3); Eosinophils % 0.2 % (0-4.4); Lymphocytes % 12.6 % (15.3-44.8); MCH 32.9 pg (27.0-35.0); MCV 94.8 fL (80-100); MPV 9.3 fL (7.6-11.3); Monocytes % 5.4 % (3.3-12.3); RBC Red Blood Cell Count 3.16 M/uL (3.86-4.86)
[2018-02-05] MEDS: ACETAMINOPHEN 500 MG TAB PO PRN ×2 (05:34→18:01)
[2018-02-05 05:48] LABS: Albumin 2.7 g/dL (3.4-5.0); Bilirubin Total 0.7 mg/dL (0.2-1.0); Potassium 3.2 mmol/L (3.5-5.1); Protein, Total 5.9 g/dL (6.4-8.2)
[2018-02-05] MEDS ORDERED: AZITHROMYCIN IV 500 MG in NA CHLORIDE 0.9% 250 ML IVPB SCH (09:00)
[2018-02-05] MEDS: CARVEDILOL 6.25 MG TAB PO SCH ×2 (09:00→20:59)
[2018-02-05] MEDS: IRON 27 MG PO SCH (09:00)
[2018-02-05] MEDS: HOME MED 1 EA UNK (Budesonide/Formoterol Fumarate [Symbicort 160-4.5 Mcg Inhaler] 2 PUFF) IH SCH (09:00)
[2018-02-05] MEDS: CEFTRIAXONE/SWI 1gm 1 GM/10 ML SYR IV SCH ×2 (10:09→21:00)
[2018-02-05] MEDS: AMLODIPINE 5 MG TAB PO SCH (10:09)
[2018-02-05] MEDS: PREGABALIN 50 MG CAP PO SCH ×2 (10:10→20:59)
[2018-02-05] MEDS: CLOPIDOGREL 75 MG TABLET PO SCH (10:10)
[2018-02-05] MEDS: FUROSEMIDE 20 MG TABLET PO SCH (10:10)
[2018-02-05] MEDS: ESCITALOPRAM 20 MG TAB PO SCH (10:10)
[2018-02-05] MEDS ORDERED: POTASSIUM 25 MEQ EFFERV TAB PO ONE (12:11)
--- NOTE | 2018-02-05 12:19 | P.CNS ---
Date of Consult: 02/05/18 Reason for Consult: Pneumonia Chief Complaint: Chest pain and cough History of Present Illness: Patient is 77 years of age with a history of prior recurrent pneumonia as admitted with sudden onset of right-sided pleuritic chest pain associated with cough and worsening shortness of breath. Was found to have a right lung infiltrate diagnosis of pneumonia also has some associated hemoptysis without clear sputum this happened all of a sudden she was doing well prior to this admission. Patient has a history of COPD noncompliant with her inhaler still continues to smoke uses Symbicort on a p.r.n. basis Allergies Penicillins Allergy (Intermediate, Verified 03/17/13 23:37) SWELLING lisinopril Allergy (Mild, Verified 03/17/13 23:37) Hives/Rash grapefruit Allergy (Verified 04/01/15 16:10) Hives/Rash aspirin Adverse Reaction (Verified 12/04/16 20:20) Shortness of breath Home Medications: ALPRAZolam [Xanax*] 0.5 mg PO BID PRN 04/25/13 Amlodipine [Norvasc*] 5 mg PO DAILY 04/25/13 Carvedilol [Coreg*] 6.25 mg PO BID 04/25/13 Clopidogrel Bisulfate [Clopidogrel] 75 mg PO DAILY 04/25/13 Escitalopram Oxalate 20 mg PO DAILY 04/25/13 Furosemide [Lasix*] 20 mg PO DAILY 04/25/13 Mirtazapine [Remeron*] 15 mg PO BEDTIME 04/25/13 Pregabalin [Lyrica*] 50 mg PO BID 04/25/13 Budesonide/Formoterol Fumarate [Symbicort 160-4.5 Mcg Inhaler] 2 puff IH BID Pantoprazole [Protonix Tab*] 40 mg PO DAILY 11/19/14 Cholecalciferol (Vitamin D3) [Decara] 50,000 unit PO EVERY 7TH DAY 12/04/16 Iron Cr 27 mg PO DAILY 08/18/17 Albuterol Sulfate [Proair Hfa] 2 puff IH PRN 02/04/18 - Past Medical/Surgical History Diabetic: No -: pneumonia -: copd -: small leak in aorta -: HTN -: Hyperlipidemia -: Depression -: GERD -: Recurrent pneumonia, recent bronchoscopy was normal. -: Previous Smoker -: Chronic renal disease -: Celiac disease with history of diverticulosis -: cholecystectomy -: esophogeal polyp removal -: appendectomy -: hysterectomy -: Doppler r/o DVT on L. foot, 02/04/13 -: Aortic echo, valve leakage, 02/04/13 Psychosocial/ Personal History: lives with daughter - Family History Sister Medical History: Diabetes Brother Medical History: Cancer Father Medical History: Cancer Notes: bone, esophageal cx Mother Medical History: Cancer Notes: gallbladder cx - Social History Smoking Status: Current every day smoker Alcohol use: No CD- Drugs: No Caffeine use: No Place of Residence: Home Review of Systems 10-point ROS is otherwise unremarkable General: Weakness Respiratory: Cough, Shortness of Breath Cardiovascular: Chest Pain Physical Examination Temp Pulse Resp BP Pulse Ox 99.4 F 79 20 135/60 92 02/05/18 12:00 02/05/18 12:00 02/05/18 12:00 02/05/18 12:00 02/05/18 12:00 General: Alert, Oriented x3 HEENT: Atraumatic Neck: Supple Respiratory: Crackles/rales (Crackles on the right side) Cardiovascular: No edema, Regular rate/rhythm - Problems (1) Pneumonia Onset Date: 08/20/17 Current Visit: No Status: Active Plan: Patient is 77 years of age admitted with acute right lung pneumonia both upper and lower lobes associated with hemoptysis and pleuritic chest pain in addition to an elevated white count has a history of recurrent pneumonias in the past non compliant with bronchodilators continue to smoke history of COPD, Blood cultures neg. Cultures pending. Change ot PO levaquin Am 750 mg 7 days and plan for discahrge. Instructed pt to f/u with in 2 weeks. Stop smoking and consider changing to anticholinergic inhlaer, Avoid inhaled steroids due asscoiation with pneumonia.
[2018-02-05] MEDS: ARFORMOTEROL TARTRATE 15 MCG/2 ML VIAL.NEB NEB SCH ×2 (13:35→20:16)
--- NOTE | 2018-02-05 17:36 | PN ---
Date of Progress Note: 02/05/2018 Subjective: This patient doing good. No nausea. No vomiting. Physical Examination: Vital Signs: Blood pressure 135/60, pulse of 79, afebrile. The patient had good urine output, voidi ng. Chest: Clear to auscultation. Heart: S1, S2. Regular. Abdomen: Soft, nontender. Extremities: No edema. Laboratory Data: WBC 15.4, H and H 10.4/30, platelet 119. Sodium 145, potassium 3.2, bicarb 26, BUN 14, creatinine 1.1. GFR of 48, calcium 7.8. Albumin 2.7. Corrected calcium 8.6. Procalcitonin is 3. Current Medications: The patient on its include: 1.Z-Cl. 2.Ceftriaxone. 3.Plavix. 4.Amlodipine. 5.Carvedilol. 6.Mirtazapine. 7.Lyrica. 8.Lasix. 9.Pantoprazole. Assessment And Plan: 1.Chronic kidney disease with acute kidney injury, recover back to baseline. 2.Hypertension, controlled, optimal. Continue current medication. 3.Hypokalemia. We will supplement. 4.Pneumonia. We will follow up with the primary. LUX Voice ID: [id number] Report ID: [id number]
[2018-02-05] MEDS ORDERED: ACETAMINOPHEN 500 MG TAB PO PRN (17:50)
--- NOTE | 2018-02-05 20:21 | P.PN ---
Subjective Date of Service: 02/05/18 Chief Complaint: Chest pain and cough Patient seen and examined at bedside. No new complaints at this time. Review of Systems General: Fever Respiratory: Cough Physical Examination - Vital Signs Temperature: 101.8 F Blood Pressure: 138/65 Pulse: 87 Respirations: 18 Pulse Ox (%): 92 - Physical Exam General: Alert, Oriented x3, Mild distress HEENT: Atraumatic, Normocephalic Neck: JVD not distended Respiratory: Diminished (on R side), Other (Tachypneic) Cardiovascular: Regular rate/rhythm, Normal S1 S2 Gastrointestinal: Normal bowel sounds, No tenderness, No rebound, No guarding Musculoskeletal: No clubbing, No swelling Assessment And Plan - Plan 1. Right-sided pneumonia, community acquired. Improving on IV antibiotics. pending blood cultures and sputum cultures. 2. Hypoxia, improved with supplemental oxygen. We will place on continuous pulse ox, likely secondary to above. 3. Hypokalemia. Replace and monitor. 4.Chronic obstructive pulmonary disease, chronic bronchitis. We will continue nebulizer treatments. 5.Essential hypertension.Continue home medications as appropriate. 6.Mixed hyperlipidemia. Continue statin. 7.Major depressive disorder on Remeron. 8.Gastroesophageal reflux disease. Continue PPI no esophagitis. 9.Nicotine dependence with cigarette smoking. Counseled. 10. Chronic kidney disease, stage 3. We will continue to monitor creatinine. The patient sees Dr. Hernandez, consulted. Dispo pending symptomatic improvement Discharge Plan: Home Plan to discharge in: Unknown
[2018-02-05] MEDS: MIRTAZAPINE 15 MG TAB PO SCH (21:00)
[2018-02-05] MEDS: ALPRAZOLAM 0.5 MG TABLET PO PRN (21:01)
[2018-02-06] MEDS: ACETAMINOPHEN 500 MG TAB PO PRN ×2 (03:34→12:30)
[2018-02-06] MEDS: PANTOPRAZOLE 40MG TABLET PO SCH (05:38)
[2018-02-06 05:54] LABS: Absolute Monocytes 0.8 K/uL (0.1-1.3); Absolute Neutrophil 11.3 K/uL (1.8-8.0); Basophils % 0.3 % (0-1.3); Eosinophils % 0.5 % (0-4.4); Hematocrit 29.5 % (36.0-45.0); Lymphocytes % 13.8 % (15.3-44.8); MCH 33.2 pg (27.0-35.0); MCV 93.7 fL (80-100); Monocytes % 5.6 % (3.3-12.3); RBC Red Blood Cell Count 3.15 M/uL (3.86-4.86)
[2018-02-06 06:07] LABS: Albumin 2.7 g/dL (3.4-5.0); Bilirubin Total 0.7 mg/dL (0.2-1.0); Potassium 3.1 mmol/L (3.5-5.1); Protein, Total 6.2 g/dL (6.4-8.2)
[2018-02-06] MEDS: ARFORMOTEROL TARTRATE 15 MCG/2 ML VIAL.NEB NEB SCH ×2 (08:10→19:48)
[2018-02-06] MEDS: CEFTRIAXONE/SWI 1gm 1 GM/10 ML SYR IV SCH (09:00)
[2018-02-06] MEDS: IRON 27 MG PO SCH (09:00)
[2018-02-06] MEDS: CARVEDILOL 6.25 MG TAB PO SCH ×2 (10:10→20:47)
[2018-02-06] MEDS: PREGABALIN 50 MG CAP PO SCH ×2 (10:10→20:47)
[2018-02-06] MEDS: ESCITALOPRAM 20 MG TAB PO SCH (10:10)
[2018-02-06] MEDS: AMLODIPINE 5 MG TAB PO SCH (10:10)
[2018-02-06] MEDS: FUROSEMIDE 20 MG TABLET PO SCH (10:10)
[2018-02-06] MEDS: CLOPIDOGREL 75 MG TABLET PO SCH (10:10)
[2018-02-06] MEDS ORDERED: AZITHROMYCIN IV 500 MG in NA CHLORIDE 0.9% 250 ML IVPB SCH (12:00)
[2018-02-06] MEDS: levoFLOXacin 750 MG TAB PO SCH (13:40)
--- NOTE | 2018-02-06 19:38 | P.PN ---
Date of Service: 02/06/18 Subjective Date of Service: 02/06/18 Chief Complaint: Chest pain and cough Patient seen and examined at bedside. No new complaints at this time. Symptoms improving. Though still desatting down to 84-85% on exertion, even moderate talking. Review of Systems General: Fever Respiratory: Cough Physical Examination Temp Pulse Resp BP Pulse Ox 99.5 F 80 20 114/58 L 92 02/06/18 16:00 02/06/18 16:00 02/06/18 16:00 02/06/18 16:00 02/06/18 16:00 - Physical Exam General: Alert, Oriented x3, Mild distress on exertion HEENT: Atraumatic, Normocephalic Neck: JVD not distended Respiratory: Diminished (on R side), Other (Tachypneic) Cardiovascular: Regular rate/rhythm, Normal S1 S2 Gastrointestinal: Normal bowel sounds, No tenderness, No rebound, No guarding Musculoskeletal: No clubbing, No swelling Assessment And Plan - Plan 1. Right-sided pneumonia, community acquired. Number on IV antibiotics. Discontinued IV antibiotics and started oral Levaquin 750 mg daily. pending blood cultures and sputum cultures. 2. Hypoxia, improved with supplemental oxygen. We will place on continuous pulse ox, likely secondary to above. Hypoxia has improved, though patient still de-satting to 84-85% on exertion even with minimal to moderate talking 3. Hypokalemia. Replace and monitor. 4.Chronic obstructive pulmonary disease, chronic bronchitis. We will continue nebulizer treatments. 5.Essential hypertension.Continue home medications as appropriate. 6.Mixed hyperlipidemia. Continue statin. 7.Major depressive disorder on Remeron. 8.Gastroesophageal reflux disease. Continue PPI no esophagitis. 9.Nicotine dependence with cigarette smoking. Counseled. 10. Chronic kidney disease, stage 3. We will continue to monitor creatinine. The patient sees Dr. David Ramos pending symptomatic improvement, likely home tomorrow. Discharge Plan: Home Plan to discharge in: Tomorrow
[2018-02-06] MEDS ORDERED: ARFORMOTEROL TARTRATE 15 MCG/2 ML VIAL.NEB ONE (19:47)
[2018-02-06] MEDS: MIRTAZAPINE 15 MG TAB PO SCH (20:47)
[2018-02-06] MEDS: ALPRAZOLAM 0.5 MG TABLET PO PRN (20:51)
--- NOTE | 2018-02-07 03:37 | PN ---
Date of Progress Note: 02/06/2018 Subjective: The patient doing better. No nausea. No vomiting. The patient was admitted with acute kidney injury. Physical Examination: Vital Signs: Blood pressure 117/58, pulse of 67. Chest: Clear to auscultation. Heart: S1, S2. Regular. Abdomen: Soft, nontender. Extremities: No edema. Laboratory Data: H and H 10.5/29.5, sodium 143, potassium 3.1, bicarb 28, BUN 30, creatinine 1.2, GF R of 43, calcium 8.1. Current Medications: Levaquin 750, Plavix, Norvasc 5 mg, carvedilol, Lasix, Zofran, pantoprazole. Assessment And Plan: 1.Chronic kidney disease stage III, stable on baseline normal volume. Continue current dose of Lasi x. 2.Hypertension, controlled, optimal. Continue current medication. 3.Pneumonia. Continue current antibiotic. Follow up with the primary. 4.Hypokalemia. Continue supplement. LUX Voice ID: [id number] Report ID: [id number]
[2018-02-07] MEDS: PANTOPRAZOLE 40MG TABLET PO SCH (05:27)
[2018-02-07 06:04] LABS: Absolute Lymphocytes (CBC) 1.7 K/uL (0.7-4.9); Absolute Monocytes 0.8 K/uL (0.1-1.3); Absolute Neutrophil 7.5 K/uL (1.8-8.0); Basophils % 0.2 % (0-1.3); Eosinophils % 1.2 % (0-4.4); Hematocrit 30.3 % (36.0-45.0); Lymphocytes % 16.7 % (15.3-44.8); MCH 33.5 pg (27.0-35.0); MCV 93.8 fL (80-100); MPV 9.2 fL (7.6-11.3); Monocytes % 8.1 % (3.3-12.3); RBC Red Blood Cell Count 3.23 M/uL (3.86-4.86)
[2018-02-07 06:17] LABS: Albumin 2.6 g/dL (3.4-5.0); Bilirubin Total 0.6 mg/dL (0.2-1.0); Protein, Total 6.4 g/dL (6.4-8.2)
[2018-02-07] MEDS ORDERED: POTASSIUM CL SA 10 MEQ TAB PO ONE (06:29)
[2018-02-07] MEDS: ARFORMOTEROL TARTRATE 15 MCG/2 ML VIAL.NEB NEB SCH (07:21)
[2018-02-07 08:06] VITALS: O2SAT 94
[2018-02-07] MEDS: ESCITALOPRAM 20 MG TAB PO SCH (08:41)
[2018-02-07] MEDS: AMLODIPINE 5 MG TAB PO SCH (08:41)
[2018-02-07] MEDS: CARVEDILOL 6.25 MG TAB PO SCH (08:41)
[2018-02-07] MEDS: CLOPIDOGREL 75 MG TABLET PO SCH (08:41)
--- NOTE | 2018-02-07 08:41 | P.PN ---
Subjective Date of Service: 02/07/18 Chief Complaint: Pneumonia Subjective: Improving (Patient is improving doing well wants to go home she is borderline hypoxic) Review of Systems General: Weakness Respiratory: Cough, Shortness of Breath Physical Examination - Vital Signs Temperature: 98.1 F Blood Pressure: 123/60 Pulse: 79 Respirations: 20 Pulse Ox (%): 91 - Physical Exam General: Alert, Oriented x3 HEENT: Atraumatic Neck: Supple Respiratory: Clear to auscultation bilaterally Cardiovascular: No edema Assessment & Plan - Problems (Diagnosis) (1) Pneumonia Onset Date: 08/20/17 Current Visit: No Status: Active Plan: Patient is 68 years of age admitted with a pneumonia currently doing well no hemoptysis fever chills or chest pain. White count is declining cultures are all negative borderline hypoxic labs reviewed will check room air ABGs possible discharge today may not qualify for home O2 discharged home on levofloxacin had a low-dose prednisone 10 mg twice a day for 7 days to follow up with me in 2 weeks the pre clinic chest x-ray
[2018-02-07] MEDS: FUROSEMIDE 20 MG TABLET PO SCH (08:42)
[2018-02-07] MEDS: levoFLOXacin 750 MG TAB PO SCH (08:42)
[2018-02-07] MEDS: PREGABALIN 50 MG CAP PO SCH (08:42)
[2018-02-07] MEDS: IRON 27 MG PO SCH (08:44)
[2018-02-07] MEDS ORDERED: predniSONE 10 MG TAB PO SCH (09:00)
[2018-02-07 10:04] LABS: Arterial Blood Carboxyhemoglob 1.7 % (0-1.5); Blood Gas Oxyhemoglobin 83.8 % (94-97); Blood O2 Saturation 85.7 % (92-98.5)
[2018-02-07 15:27] VITALS: BP 116/59; TEMP 99.3
--- NOTE | 2018-02-07 22:25 | P.PN ---
Subjective Date of Service: 02/07/18 Chief Complaint: Pneumonia Pt with CKD was admitted for persisitant cough No chest pain, palpitation, nausea or vomiting Physical Examination - Vital Signs Temperature: 99.3 F Blood Pressure: 116/59 Pulse: 80 Respirations: 20 Pulse Ox (%): 90 - Physical Exam General: Oriented x3 Respiratory: Clear to auscultation bilaterally, Other Cardiovascular: Regular rate/rhythm, Normal S1 S2 Gastrointestinal: Normal bowel sounds Assessment And Plan - Current Problems (Diagnosis) (1) Dyspnea Onset Date: 12/05/16 Status: Active (2) Hemoptysis Status: Active (3) Pneumonia Onset Date: 08/20/17 Status: Active - Plan CKD Cr at baseline Pneumonia Improved on Abx Hypokalemia Replace and repeat if plan to dc the pt then need to repeat as an op
--- NOTE | 2018-02-12 19:44 | P.DS ---
Admission Date: 02/04/18 Discharge Date: 02/12/18 Disposition: ROUTINE DISCHARGE Discharge Condition: GOOD Reason for Admission: Pneumonia Consultations: Nephrology Pulmonology Brief History of Present Illness: : The patient is a 77-year-old female with past medical history of COPD, history of previous recurrent pneumonias, possible aortic aneurysm, hypertension , hyperlipidemia, smoker, and chronic kidney disease, who comes in with shortness of breath. The patient also reports some cough with some streaks of blood in the sputum. Denies any ill contacts. No significant fevers or chills. The patient comes in with worsening symptoms. The patient's symptoms are constant, moderate. No alleviating factors. She did report some wheezing and felt that she has developed pneumonia, which has occurred previously. She denies being on any immune modulators or steroids recently. The patient's workup revealed normal WBC count. She did have some low potassium. Her creatinine was 1.6, which is slightly above her baseline. Her procalcitonin was elevated at 3. She was hypoxic at 78% on room air. She was placed on supplemental oxygen and improved to 92% on 3 L. The patient had imaging studies done, which showed right-sided pneumonia and was therefore referred for admission. When seen in the ER, she was awake, alert, oriented x3, in some mild distress. Hospital Course: Right-sided pneumonia, community acquired. Started on IV antibiotics IV antibiotics. Blood and sputum cultures were obtained. Patient improved clinically and symptomatically with the IV antibiotics and supportive care. She was discharged home on oral antibiotics. Hypoxia, improved with supplemental oxygen. Continuous pulse ox was placed so can monitor oxygen saturation. She had used BiPAP at times, as needed but was taken off of it without any problems. At the time of discharge, she was satting 92+ percent on room air and on x-ray.. Chronic obstructive pulmonary disease, chronic bronchitis. Nebulizer treatment were continued. Essential hypertension. She remained stable on home medications. She was discharged without any changes to her medications for blood pressure Mixed hyperlipidemia. Stable on the statin throughout her hospitalization. She was discharged with any changes to her medication. Major depressive disorder remained stable on Remeron. No changes made. Nicotine dependence with cigarette smoking. She was extensively counseled on smoking cessation. Chronic kidney disease, stage 3. Nephrology was consulted. Her creatinine remained stable throughout the stay. There changes made to her medications Vital Signs/Physical Exam: Temp Pulse Resp BP Pulse Ox 99.3 F 80 20 116/59 L 90 L 02/07/18 22:25 02/07/18 22:25 02/07/18 22:25 02/07/18 22:25 02/07/18 22:25 General: Alert, In no apparent distress HEENT: Atraumatic, PERRLA, EOMI Neck: Supple, JVD not distended Respiratory: Clear to auscultation bilaterally, Normal air movement Cardiovascular: Regular rate/rhythm, Normal S1 S2 Gastrointestinal: Normal bowel sounds, No tenderness Musculoskeletal: No tenderness Integumentary: No rashes Neurological: Normal speech, Normal tone, Normal affect Lymphatics: No axilla or inguinal lymphadenopathy Laboratory Data at Discharge: WBC 10.2 K/uL (4.3-10.9) D 02/07/18 05:26 Hgb 10.8 g/dL (12.0-15.0) L 02/07/18 05:26 Hct 30.3 % (36.0-45.0) L 02/07/18 05:26 Plt Count 149 K/uL (152-406) L 02/07/18 05:26 PT 11.1 SECONDS (9.5-12.5) 02/04/18 06:45 INR 0.94 02/04/18 06:45 APTT 29.5 SECONDS (24.3-36.9) 02/04/18 06:45 Sodium 144 mmol/L (136-145) 02/07/18 05:26 Potassium 4.0 mmol/L (3.5-5.1) 02/07/18 12:58 BUN 14 mg/dL (7-18) 02/07/18 05:26 Creatinine 1.40 mg/dL (0.55-1.3) H 02/07/18 05:26 Glucose 92 mg/dL (74-106) 02/07/18 05:26 Total Bilirubin 0.6 mg/dL (0.2-1.0) 02/07/18 05:26 AST 15 U/L (15-37) 02/07/18 05:26 ALT 14 U/L (12-78) 02/07/18 05:26 Alkaline Phosphatase 69 U/L (45-117) 02/07/18 05:26 Lipase 127 U/L (73-393) 02/04/18 06:45 Home Medications: ALPRAZolam [Xanax*] 0.5 mg PO BID PRN 04/25/13 Amlodipine [Norvasc*] 5 mg PO DAILY 04/25/13 Carvedilol [Coreg*] 6.25 mg PO BID 04/25/13 Clopidogrel Bisulfate [Clopidogrel] 75 mg PO DAILY 04/25/13 Escitalopram Oxalate 20 mg PO DAILY 04/25/13 Furosemide [Lasix*] 20 mg PO DAILY 04/25/13 Mirtazapine [Remeron*] 15 mg PO BEDTIME 04/25/13 Pregabalin [Lyrica*] 50 mg PO BID 04/25/13 Budesonide/Formoterol Fumarate [Symbicort 160-4.5 Mcg Inhaler] 2 puff IH BID Pantoprazole [Protonix Tab*] 40 mg PO DAILY 11/19/14 Cholecalciferol (Vitamin D3) [Decara] 50,000 unit PO EVERY 7TH DAY 12/04/16 Iron Cr 27 mg PO DAILY 08/18/17 Albuterol Sulfate [Proair Hfa] 2 puff IH PRN 02/04/18 Albuterol Neb [Proventil 0.083% Neb Soln] 2.5 mg NEB Q6HP PRN 30 Days amp 02/07 levoFLOXacin [Levaquin*] 750 mg PO DAILY #6 tab 02/07/18 predniSONE [Deltasone*] 10 mg PO BID #12 tab 02/07/18 New Medications: Albuterol Neb [Proventil 0.083% Neb Soln] 2.5 mg NEB Q6HP PRN 30 Days amp PRN Reason: Shortness Of Breath levoFLOXacin [Levaquin*] 750 mg PO DAILY #6 tab predniSONE [Deltasone*] 10 mg PO BID #12 tab Patient Discharge Instructions: Please follow up with your Primary care physician in 1 week. You will need to complete the course of 6 more days of your antibiotic (levaquin) and the steroid (deltasone). These have been sent to the pharmacy. As we discussed, I think it is very important that you also follow up with your lung specialist. We will give you Dr. anderson's information. I recommend that you call his office and schedule an appointment. Diet: AHA Activity: Ad [place] Followup: Tio Anderson MD [ACTIVE - CAN ADMIT] - (2 weeks)
== END 2018-02-07 15:16 | disposition home or self-care (01) | DRG 194 ==
LOC: ER 06:01 → ERHOLD 09:02 → 2ND 10:37
PROVIDERS: ADMIT Family Medicine; ATTEND Family Medicine
DX: J18.9 Pneumonia, unspecified organism (principal); N17.9 Acute kidney failure, unspecified; R04.2 Hemoptysis; J44.9 Chronic obstructive pulmonary disease, unspecified; F17.210 Nicotine dependence, cigarettes, uncomplicated; I12.9 Hypertensive chronic kidney disease with stage 1 through stage 4 chronic kidney disease, or unspecified chronic kidney disease; N18.3 Chronic kidney disease, stage 3 (moderate); E78.2 Mixed hyperlipidemia; R09.02 Hypoxemia; F32.9 Major depressive disorder, single episode, unspecified; E87.6 Hypokalemia; K21.9 Gastro-esophageal reflux disease without esophagitis; Z91.14 Patient's other noncompliance with medication regimen; K90.0 Celiac disease
CPT/HCPCS: 36415; 71045; 71250; 80048; 80053; 80076; 81003; 81015; 82550; 82553; 82805; 83605; 83690; 84132; 84145; 84484; 85025; 85610; 85730; 87040; 87070; 87205; 87804; 93005; 94640; 96365; 96375; 97163; 99285; J0456; J0696; J7030; J7512; J7605

== ENCOUNTER 2019-01-13 09:48 | Emergency (ER) | payer OTHER ==
[2019-01-13] MEDS ORDERED: IPRATROPIUM BROM 0.5MG/2.5ML ONE (10:29)
[2019-01-13] MEDS ORDERED: ALBUTEROL 2.5 MG/3 ML NEB SOL ONE (10:29)
[2019-01-13 10:36] LABS: Absolute Lymphocytes (CBC) 0.7 K/uL (0.7-4.9); Basophils % 0.4 % (0-1.3); Hematocrit 34.3 % (36.0-45.0); Lymphocytes % 5.9 % (15.3-44.8); MPV 9.3 fL (7.6-11.3); RBC Red Blood Cell Count 3.72 M/uL (3.86-4.86)
[2019-01-13 10:39] LABS: Protime INR 1.04
--- NOTE | 2019-01-13 10:45 | RAD REPORT ---
EXAM DESCRIPTION: CT - Head Brain Wo Cont - 01/13/2019 10:38 am CLINICAL HISTORY: Dizziness COMPARISON: December 2017 TECHNIQUE: Computed axial tomography of the head was obtained. IV contrast was not requested. All CT scans are performed using dose optimization technique as appropriate and may include automated exposure control or mA/KV adjustment according to patient size. FINDINGS: An intracranial bleed is not seen . The ventricles are normal in caliber. No extra-axial fluid collection is noted. Mild low-density areas within periventricular, deep and subcortical white matter likely represent is chemic changes secondary to small vessel disease. Fluid within the sinuses/ mastoids is not seen. IMPRESSION: No acute intracranial abnormality is seen. If patient's symptoms persist MRI of the bra in would be recommended.
[2019-01-13 11:04] LABS: Blood Morphology Comment NOT SEEN (NOT SEEN); Platelet Estimate ADEQ; Urine White Blood Cell Casts OK
--- NOTE | 2019-01-13 11:04 | RAD REPORT ---
EXAM DESCRIPTION: RAD - Chest Single View - 01/13/2019 10:57 am CLINICAL HISTORY: CONGESTION Chest pain. COMPARISON: Chest Single View dated 02/04/2018; Chest Single View dated 09/22/2017; Chest Single View dated 08/17/2017; Chest Single View dated 12/10/2016 FINDINGS: Portable technique limits examination quality. Small to moderate area of lung infiltrate suspected in the medial right lung base likely representing pneumonia. The heart is normal in size. Aortic atherosclerosis. IMPRESSION: Medial right lung base pneumonia.
--- NOTE | 2019-01-13 11:31 | EKG ---
Test Date: 2019-01-13 Test Time: 10:27:05 Research Fellow: DEVIN MEASUREMENT RESULTS: Intervals: Rate: 72 GA: 158 QRSD: 70 QT: 378 QTc: 413 [place]: P: 56 GA: 158 QRS: 7 T: -32 INTERPRETIVE STATEMENTS: Normal sinus rhythm T wave abnormality, consider anterolateral ischemia Abnormal ECG Compared to ECG 02/04/2018 06:39:29 T-wave abnormality now present Possible ischemia now present ST (T wave) deviation no longer present Electronically Signed On 01-13-19 11:30:35 CDT by Sanju Obando
[2019-01-13 11:42] LABS: Albumin 3.4 g/dL (3.4-5.0); Bilirubin Direct 0.1 mg/dL (0-0.2); Bilirubin Total 0.4 mg/dL (0.2-1.0); Magnesium 1.6 mg/dL (1.8-2.4); Potassium 3.4 mmol/L (3.5-5.1); Protein, Total 6.7 g/dL (6.4-8.2); Troponin (Emerg Dept Use Only) 0.04 ng/mL (0.0-0.045)
--- NOTE | 2019-01-13 13:49 | ER ---
Nurse's Notes [facility] Name: Meme Rushing Age: 78 yrs Sex: Female : 1940 Arrival Date: 01/13/2019 Time: 09:55 Bed 4 Private MD: Diagnosis: Pneumonia due to other specified infectious organisms Presentation: 01/13 09:55 Presenting complaint: Significant other states: 1 WEEK FEVER, DIARRHEA AND GEN bp WEAKNESS. Transition of care: patient was not received from another setting of care. Onset of symptoms is unknown. Risk Assessment: Do you want to hurt yourself or someone else? Patient reports no desire to harm self or others. Initial Sepsis Screen: Does the patient meet any 2 criteria? No. Patient's initial sepsis screen is negative. Does the patient have a suspected source of infection? No. Patient's initial sepsis screen is negative. Care prior to arrival: IV initiated. 20 GA, in the right Glucose check: 200. 09:55 Method Of Arrival: EMS: [facility] bp 09:55 Acuity: RODY 3 bp Triage Assessment: 09:55 General: Appears in no apparent distress. comfortable, Behavior is cooperative, bp appropriate for age, anxious. Pain: Denies pain. EENT: No deficits noted. Neuro: No deficits noted. Cardiovascular: No deficits noted. Respiratory: No deficits noted. GI: No signs and/or symptoms were reported involving the gastrointestinal system. Historical: - Allergies: 17:43 Aspirin; tw2 17:43 Lisinopril; tw2 17:43 PENICILLINS; tw2 17:43 Ibuprofen; tw2 - Home Meds: 17:43 amlodipine 5 mg tab 1 tab once daily [Active]; carvedilol 6.25 mg Oral tab 1 tab every tw2 12 hours [Active]; Decara 50,000 unit Oral cap [Active]; escitalopram oxalate 20 mg Oral tab 1 tab once daily [Active]; Iron CR 27mg Oral daily [Active]; Lasix 20 mg Oral tab 1 tab [Active]; Lyrica 50mg Oral 1 cap 2 times per day [Active]; mirtazapine 15 mg Oral tab 1 tab once daily [Active]; Plavix 75 mg Oral tab 1 tab once daily [Active]; Protonix 40 mg Oral grps 1 packet once daily [Active]; Symbicort 160-4.5 mcg/actuation inhalation HFAA 2 puffs 2 times per day [Active]; Xanax 0.5 mg Oral tab 1 tab 2x a day [Active]; - PMHx: 17:43 ADD/ADHD; CHF; COPD; Diverticulitis; Hyperlipidemia; Hypertension; CVA; Renal Disease; tw2 polyps and diverticuli in esophagus-had removed and now has more; - Immunization history:: Adult Immunizations up to date. - Social history:: Smoking status: Patient/guardian denies using tobacco. - Ebola Screening: : No symptoms or risks identified at this time. - Family history:: not pertinent. - Hospitalizations: : No recent hospitalization is reported. Screenin:00 Abuse screen: Denies threats or abuse. Nutritional screening: No deficits noted. tw2 Tuberculosis screening: No symptoms or risk factors identified. Fall Risk Secondary diagnosis (15 points) impaired mobility. Assessment: 10:01 General: SEE TRIAGE NOTE.. bp 10:48 Reassessment: Patient appears in no apparent distress at this time. No changes from tw2 previously documented assessment. Patient and/or family updated on plan of care and expected duration. Pain level reassessed. Patient is alert, oriented x 3, equal unlabored respirations, skin warm/dry/pink. 11:58 Reassessment: Patient appears in no apparent distress at this time. No changes from tw2 previously documented assessment. Patient and/or family updated on plan of care and expected duration. Pain level reassessed. Patient is alert, oriented x 3, equal unlabored respirations, skin warm/dry/pink. 13:48 Reassessment: Patient appears in no apparent distress at this time. No changes from bp previously documented assessment. Patient and/or family updated on plan of care and expected duration. Pain level reassessed. Patient is alert, oriented x 3, equal unlabored respirations, skin warm/dry/pink. 14:11 Reassessment: Patient appears in no apparent distress at this time. No changes from tw2 previously documented assessment. Patient and/or family updated on plan of care and expected duration. Pain level reassessed. Patient is alert, oriented x 3, equal unlabored respirations, skin warm/dry/pink. Vital Signs: 09:55 BP 111 / 47; Pulse 81; Resp 17; Temp 99.7; Pulse Ox 95% ; Weight 49.44 kg; Height 5 ft. bp (152.40 cm); 10:48 BP 120 / 84; Pulse 77; Resp 17; Pulse Ox 100% on R/A; tw2 11:58 BP 119 / 47; Pulse 72; Resp 21; Pulse Ox 99% on R/A; tw2 12:30 BP 96 / 48; Pulse 71; Resp 21; Pulse Ox 99% ; bp 13:30 BP 101 / 34; Pulse 70; Resp 17; Pulse Ox 97% ; bp 14:11 BP 107 / 47; Pulse 72; Resp 17; Pulse Ox 100% on R/A; tw2 09:55 Body Mass Index 21.29 (49.44 kg, 152.40 cm) bp ED Course: 09:55 Patient arrived in ED. bp 09:55 Bed in low position. Side rails up X2. quality assurance monitor body on. Pulse ox on. NIBP on. tw2 09:59 Triage completed. bp 10:00 Lizette Rutherford, RN is Primary Nurse. tw2 10:01 Adrián Grimm MD is Attending Physician. ma2 10:01 Arm band placed on. tw2 10:02 Maintain EMS IV. Good blood return noted. bp 10:44 EKG done, by materials engineering technician. reviewed by Adrián Grimm MD. at1 14:11 No provider procedures requiring assistance completed. IV discontinued, intact, tw2 bleeding controlled, No redness/swelling at site. Pressure dressing applied. Administered Medications: 10:30 Drug: Albuterol - atroVENT (3:1) (2.5 mg - 0.5 mg) 3 ml Route: Nebulizer; bp 13:49 Follow up: Response: Marked relief of symptoms bp Outcome: 13:48 Discharge ordered by . ma2 14:11 Discharged to home via wheelchair, with family. tw2 14:11 Condition: stable 14:11 Discharge instructions given to patient, family, Instructed on discharge instructions, follow up and referral plans. medication usage, Demonstrated understanding of instructions, follow-up care, medications, Prescriptions given X 2. 14:11 Patient left the ED. tw2 Signatures: Rebekah Cortez, papier mache' molder EKG Tat1 Lizette Rutherford, RAINA RN tw2 Vladimir Tavares RN RN bp Adrián Grimm MD MD fl2
--- NOTE | 2019-01-13 13:50 | EDPHYS ---
Physician Documentation [facility] Name: Meme Rushing Age: 78 yrs Sex: Female : 1940 Arrival Date: 01/13/2019 Time: 09:55 Bed 4 Private MD: ED Physician Adrián Grimm HPI: 01/13 12:51 This 78 yrs old Female presents to ER via EMS with complaints of General ma2 Weakness. 12:51 The patient presents with vertigo. Onset: The symptoms/episode began/occurred ma2 gradually, 5 week(s) ago. Associated signs and symptoms: Pertinent positives: Pertinent negatives: ataxia, chest pain, diaphoresis, nausea, , shortness of breath, syncope. Severity of symptoms: At their worst the symptoms were mild in the emergency department the symptoms are unchanged. The patient has experienced similar episodes in the past. Historical: - Allergies: 17:43 Aspirin; tw2 17:43 Lisinopril; tw2 17:43 PENICILLINS; tw2 17:43 Ibuprofen; tw2 - Home Meds: 17:43 amlodipine 5 mg tab 1 tab once daily [Active]; carvedilol 6.25 mg Oral tab 1 tab every tw2 12 hours [Active]; Decara 50,000 unit Oral cap [Active]; escitalopram oxalate 20 mg Oral tab 1 tab once daily [Active]; Iron CR 27mg Oral daily [Active]; Lasix 20 mg Oral tab 1 tab [Active]; Lyrica 50mg Oral 1 cap 2 times per day [Active]; mirtazapine 15 mg Oral tab 1 tab once daily [Active]; Plavix 75 mg Oral tab 1 tab once daily [Active]; Protonix 40 mg Oral grps 1 packet once daily [Active]; Symbicort 160-4.5 mcg/actuation inhalation HFAA 2 puffs 2 times per day [Active]; Xanax 0.5 mg Oral tab 1 tab 2x a day [Active]; - PMHx: 17:43 ADD/ADHD; CHF; COPD; Diverticulitis; Hyperlipidemia; Hypertension; CVA; Renal Disease; tw2 polyps and diverticuli in esophagus-had removed and now has more; - Immunization history:: Adult Immunizations up to date. - Social history:: Smoking status: Patient/guardian denies using tobacco. - Ebola Screening: : No symptoms or risks identified at this time. - Family history:: not pertinent. - Hospitalizations: : No recent hospitalization is reported. ROS: 12:51 Constitutional: Negative for fever, chills, and weight loss, MS/Extremity: Negative for ma2 injury and deformity. 12:51 All other systems are negative. Exam: 12:51 Constitutional: This is a well developed, well nourished patient who is awake, alert, ma2 and in no acute distress. Chest/axilla: Normal chest wall appearance and motion. Nontender with no deformity. No lesions are appreciated. Cardiovascular: Regular rate and rhythm with a normal S1 and S2. No gallops, murmurs, or rubs. Normal PMI, no JVD. No pulse deficits. Respiratory: Lungs have equal breath sounds bilaterally, clear to auscultation and percussion. No rales, rhonchi or wheezes noted. No increased work of breathing, no retractions or nasal flaring. Abdomen/GI: Soft, non-tender, with normal bowel sounds. No distension or tympany. No guarding or rebound. No evidence of tenderness throughout. MS/ Extremity: Pulses equal, no cyanosis. Neurovascular intact. Full, normal range of motion. Neuro: Awake and alert, GCS 15, oriented to person, place, time, and situation. Cranial nerves II-XII grossly intact. Motor strength 5/5 in all extremities. Sensory grossly intact. Cerebellar exam normal. Normal gait. Vital Signs: 09:55 BP 111 / 47; Pulse 81; Resp 17; Temp 99.7; Pulse Ox 95% ; Weight 49.44 kg; Height 5 ft. bp (152.40 cm); 10:48 BP 120 / 84; Pulse 77; Resp 17; Pulse Ox 100% on R/A; tw2 11:58 BP 119 / 47; Pulse 72; Resp 21; Pulse Ox 99% on R/A; tw2 12:30 BP 96 / 48; Pulse 71; Resp 21; Pulse Ox 99% ; bp 13:30 BP 101 / 34; Pulse 70; Resp 17; Pulse Ox 97% ; bp 14:11 BP 107 / 47; Pulse 72; Resp 17; Pulse Ox 100% on R/A; tw2 09:55 Body Mass Index 21.29 (49.44 kg, 152.40 cm) bp MDM: 10:01 Patient medically screened. nm2 12:51 Differential diagnosis: generalized weakness, head injury, hypovolemia, vertigo. Data nm2 reviewed: vital signs, nurses notes. Counseling: I had a detailed discussion with the patient and/or guardian regarding: the historical points, exam findings, and any diagnostic results supporting the discharge/admit diagnosis, the presence of at least one elevated blood pressure reading (>120/80) during this emergency department visit. 01/13 10:15 Order name: Basic Metabolic Panel [facility] 01/13 10:15 Order name: CBC with Diff [facility] 01/13 10:15 Order name: LFT's [facility] 01/13 10:15 Order name: Magnesium [facility] 01/13 10:15 Order name: NT PRO-BNP [facility] 01/13 10:15 Order name: PT-INR [facility] 01/13 10:15 Order name: Troponin (emerg Dept Use Only) [facility] 01/13 10:38 Order name: CBC with Automated Diff; Complete Time: 12:16 [facility] 01/13 10:41 Order name: Protime (+INR); Complete Time: 12:16 [facility] 01/13 11:07 Order name: CBC Smear Scan; Complete Time: 12:16 [facility] 01/13 11:48 Order name: Basic Metabolic Panel [facility] 01/13 11:48 Order name: Liver (Hepatic) Function [facility] 01/13 11:48 Order name: Troponin (Emerg Dept Use Only) [facility] 01/13 11:48 Order name: NT PRO-BNP [facility] 01/13 10:15 Order name: XRAY Chest (1 view) [facility] 01/13 10:15 Order name: EKG; Complete Time: 10:18 [facility] 01/13 10:15 Order name: Cardiac monitoring; Complete Time: 10:19 [facility] 01/13 10:15 Order name: EKG - Nurse/Tech; Complete Time: 10:31 [facility] 01/13 10:15 Order name: IV Saline Lock; Complete Time: 10:31 [facility] 01/13 10:15 Order name: Labs collected and sent; Complete Time: 10:31 [facility] 01/13 10:15 Order name: O2 Per Protocol; Complete Time: 10:19 [facility] 01/13 10:15 Order name: O2 Sat Monitoring; Complete Time: 10: [facility] 01/13 10:15 Order name: CT Head Brain wo Cont ma2 01/13 11:48 Order name: Magnesium EDMS 01/13 13:13 Order name: CT EDMS 01/13 13:14 Order name: RAD EDMS Administered Medications: 10:30 Drug: Albuterol - atroVENT (3:1) (2.5 mg - 0.5 mg) 3 ml Route: Nebulizer; bp 13:49 Follow up: Response: Marked relief of symptoms bp Disposition: 01/13/19 13:48 Discharged to Home. Impression: Pneumonia due to other specified infectious organisms. - Condition is Stable. - Discharge Instructions: Community-Acquired Pneumonia, Adult. - Prescriptions for Meclizine 25 mg Oral Tablet - take 1 tablet by ORAL route every 8 hours As needed; 30 tablet. Zithromax Z- Cl 250 mg Oral Tablet - take 1 tablet by ORAL route as directed for 5 days Day 1 - take two (2) tablets one time. Day 2, 3, 4 , 5 take one (1) tablet once daily.; 6 tablet. - Medication Reconciliation Form, Thank You Letter, Antibiotic Education, Prescription Opioid Use form. - Follow up: Private Physician; When: Tomorrow; Reason: Continuance of care. Signatures: Dispatcher [employer] [facility] Lizette Rutherford RN RN tw2 Vladimir Tavares RN RN bp Adrián Grimm MD MD ma2 Corrections: (The following items were deleted from the chart) 14:11 13:48 01/13/2019 13:48 Discharged to Home. Impression: Pneumonia due to other specified tw2 infectious organisms. Condition is Stable. Prescriptions for Meclizine 25 mg Oral Tablet - take 1 tablet by ORAL route every 8 hours As needed; 30 tablet. and Forms are Medication Reconciliation Form, Thank You Letter, Antibiotic Education, Prescription Opioid Use. Follow up: Private Physician; When: Tomorrow; Reason: Continuance of care. ma2
[2019-01-13 14:17] VITALS: TEMP 99.7
[2019-01-13 14:24] VITALS: BP 107/47; O2SAT 100
== END 2019-01-13 14:11 | disposition home or self-care (01) ==
LOC: ER 09:48
DX: J16.8 Pneumonia due to other specified infectious organisms (principal); I13.0 Hypertensive heart and chronic kidney disease with heart failure and stage 1 through stage 4 chronic kidney disease, or unspecified chronic kidney disease; N18.9 Chronic kidney disease, unspecified; I50.9 Heart failure, unspecified; E78.5 Hyperlipidemia, unspecified; Z79.01 Long term (current) use of anticoagulants; Z88.0 Allergy status to penicillin; Z88.6 Allergy status to analgesic agent; Z88.8 Allergy status to other drugs, medicaments and biological substances
CPT/HCPCS: 36415; 70450; 71045; 80048; 80076; 83735; 83880; 84484; 85025; 85610; 93005; 94640; 99285

== ENCOUNTER 2022-03-04 15:37 | Inpatient (IN) | payer MEDICARE ==
--- OUTSIDE RECORDS SUMMARY | 2022-03-04 15:42 | XMS REPORT | Continuity of Care Document ---
:1940 Author Organization [facility] t Address [address] [place] [address] Care Team Providers Name Role Phone PCP, PATIENT DOES NOT HAVE A Primary Care Physician Unavaila Phuong Montoya Attending Clinician Unavailable Thomas_T Attending Clinician Unavailable OW_T Attending Clinician Unavailable Jackelin Flanagan Attending Clinician JAELYN MCKEON Attending Clinician Unavailable JAGJIT REID Attending Clinician Unavailable Radiology Attending Clinician Unavailable Ni Farrell Attending Clinician Unavailable Severiano Xiong MD Attending Clinician RADIOLOGY Attending Clinician Unavailable Thomas_T Admitting Clinician Unavailable OWENS_T Admitting Clinician Unavailable Payers Payer Name Policy Type Policy Number Effective Date Expiration Date S [facility] [id number] 2020 (MEDICARE 00:00:00 REPLACEMENT HMO) Problems Condition Condition Condition Status Onset Resolution Last Treating Co mments Source Name Details Category Date Date Treatment Clinician Date No known No known Disease Unive rs active active ity of problems problems [facility] Diverticul Diverticul Problem C ommon itis itis [facility] Swelling Swelling Problem Commo n [facility] [id number] Gastro-eso Problem Co mmon phageal [facility] reflux [facility] [id number] History of Problem Co mmon stomach [facility] ulcers - [facility] [id number] 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 s presence Medica l not Center specified [id number] Hyperlipid Problem Com mon emia, Spirit unspecifie - [facility] d hyperlipid [facility] emia type [facility] [place] [id number] Essential Problem Comm on hypertensi Spirit on - [facility] [id number] History of Problem Co mmon stroke [facility] - [facility] [id number] Chronic Problem Common obstructiv [facility] Center type [id number] Peripheral Problem Co mmon edema [facility] [id number] Anemia in Problem Com mon chronic [facility] kidney - [facility] disease [facility] [id number] Fibromyalg Problem Co mmon ia [facility] Vitamin D Vitamin D Problem Com mon deficiency deficiency Sp [facility] 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 [facility] [id number] 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, - [facility]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) [facility] [id number] Depression Problem Co mmon with Spirit anxiety - [facility] [id number] Chronic Problem Common congestive [facility], [facility] type Heart Heart Problem Common disease disease [facility] 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 - [facility] Hypertensi Hypertensi Problem C ommon on on [facility] Chronic CKD Problem Common kidney (chronic Spirit disease kidney - [facility] stage 4 disease) [facility] GFR 15-29 Medical ml/min Center [id number] Other Problem Common chronic [facility] pain - [facility] [id number] Lumbar Problem Common degenerati Spirit ve disc - [facility] disease [facility] Allergies, Adverse Reactions, Alerts Allergy Allergy Status Severity Reaction(s) Onset Inactive Treating Comm ents Source Name Type Date Date Clinician Aspirin Propensi Active Other - See "I can't Univers ty to comments 12-28 take it ity of adverse 00:00: because [place] reaction 00 of my Medical s esophagus Branch " Penicill Propensi Active Hives Univer s ins ty to 12-28 ity of adverse 00:00: [place] reaction 00 Medical s Branch ASPIRIN DRUG Active Other-Cmnt Unive rs INGREDI 12-28 ity of 00:00: [place] 00 Medical Branch LISINOPR DRUG Active Swelling Univer s [place] INGREDI 12-28 ity of 00:00: [place] 00 Medical Branch PENICILL Drug Active Hives Univers INS Class 12-28 ity of 00:00: [place] 00 Medical Branch penicill penicill Active swelling Comm on in V in V [facility] Lisinopr Lisinopr Active dizziness Com mon il il [facility] Grapefru Grapefru Active Unknown Commo n it it [facility] Social History Social Habit Start Date Stop Date Quantity Comments Source History of Current Smoker Common Spi rit - Tobacco Use [facility] Sex Assigned At [birth year] [facility] Smoking Status Start Date Stop Date Source Tobacco smoking consumption [facility] unknown Current Smoker 2022-02-23 00:00:00 [facility] nter Medications Ordered Filled Start Stop Current Ordering Indication Dosage Frequency Signature Comments Components Source Medication Medication Date Date Medication? Clinician (SIG) Name Name Pregabalin Pregabalin No Pregabalin 50 MG 50 MG 7-05 50 MG 00:00: 00 Pregabalin Pregabalin No Pregabalin 50 MG 50 MG 7-05 50 MG 00:00: 00 Pregabalin Pregabalin No Pregabalin 50 MG 50 MG 7-05 50 MG 00:00: 00 Pregabalin Pregabalin No Pregabalin 50 MG 50 MG 7-05 50 MG 00:00: 00 Pregabalin Pregabalin No Pregabalin 50 MG 50 MG 7-05 50 MG 00:00: 00 Pregabalin Pregabalin No Pregabalin 50 MG 50 MG 7-05 50 MG 00:00: 00 Pregabalin Pregabalin 2-0 No Pregabalin 50 MG 50 MG 7-05 50 MG 00:00: 00 Pregabalin Pregabalin 2-0 No Pregabalin 50 MG 50 MG 7-05 50 MG 00:00: 00 Famotidine Famotidine 2-0 No 1{table QD Famotidine 20 MG 20 MG 3-14 t_at_be 20 MG 00:00: dtime_a 00 s_neede d} Famotidine Famotidine 2-0 No 1{table QD Famotidine 20 MG 20 MG 3-14 t_at_be 20 MG 00:00: dtime_a 00 s_neede d} Famotidine Famotidine 2-0 No 1{table QD Famotidine 20 MG 20 MG 3-14 t_at_be 20 MG 00:00: dtime_a 00 s_neede d} Famotidine Famotidine 2-0 No 1{table QD Famotidine 20 MG 20 MG 3-14 t_at_be 20 MG 00:00: dtime_a 00 s_neede d} Famotidine Famotidine 2-0 No 1{table QD Famotidine 20 MG 20 MG 3-14 t_at_be 20 MG 00:00: dtime_a 00 s_neede d} Famotidine Famotidine 2-0 No 1{table QD Famotidine 20 MG 20 MG 3-14 t_at_be 20 MG 00:00: dtime_a 00 s_neede d} Famotidine Famotidine 2-0 No 1{table QD Famotidine 20 MG 20 MG 3-14 t_at_be 20 MG 00:00: dtime_a 00 s_neede d} Famotidine Famotidine 2-0 No 1{table QD Famotidine 20 MG 20 MG 3-14 t_at_be 20 MG 00:00: dtime_a 00 s_neede d} Famotidine Famotidine 2-0 No 1{table QD Famotidine 20 MG 20 MG 3-14 t_at_be 20 MG 00:00: dtime_a 00 s_neede d} Famotidine Famotidine 2022-0 No 1{table QD Famotidine 20 MG 20 MG 3-14 t_at_be 20 MG 00:00: dtime_a 00 s_neede d} Pregabalin Pregabalin 0 No Pregabalin 50 MG 50 MG 2-18 50 MG 00:00: 00 Pregabalin Pregabalin 2021-0 No Pregabalin 50 MG 50 MG 2-18 50 MG 00:00: 00 Alendronate Alendronate 0 2021- No Alendronat Sodium 70 Sodium 70 2-17 08-16 e Sodium MG MG 00:00: 00:00 70 MG 00 :00 Alendronate Alendronate 0 2021- No Alendronat Sodium 70 Sodium 70 2-17 08-16 e Sodium MG MG 00:00: 00:00 70 MG 00 :00 Alendronate Alendronate 0 2021- No Alendronat Sodium 70 Sodium 70 2-16 08-15 e Sodium MG MG 00:00: 00:00 70 MG 00 :00 Alendronate Alendronate 0 2021- No Alendronat Sodium 70 Sodium 70 2-16 08-15 e Sodium MG MG 00:00: 00:00 70 MG 00 :00 Alendronate Alendronate 0 2021- No Alendronat Sodium 70 Sodium 70 2-16 08-15 e Sodium MG MG 00:00: 00:00 70 MG 00 :00 Nasonex 50 Nasonex 50 2019-0 No 2{spray QD Nasonex 50 MCG/ACT MCG/ACT 6-25 s_in_ea MCG/ACT 00:00: ch_nost 00 ril} Nasonex 50 Nasonex 50 2019-0 No 2{spray QD Nasonex 50 MCG/ACT MCG/ACT 6-25 s_in_ea MCG/ACT 00:00: ch_nost 00 ril} Nasonex 50 Nasonex 50 2019-0 No 2{spray QD Nasonex 50 MCG/ACT MCG/ACT 6-25 s_in_ea MCG/ACT 00:00: ch_nost 00 ril} Nasonex 50 Nasonex 50 2019-0 No 2{spray QD Nasonex 50 MCG/ACT MCG/ACT 6-25 s_in_ea MCG/ACT 00:00: ch_nost 00 ril} Nasonex 50 Nasonex 50 2020-0 No 2{spray QD Nasonex 50 MCG/ACT MCG/ACT 6-25 s_in_ea MCG/ACT 00:00: ch_nost 00 ril} Nasonex 50 Nasonex 50 2020-0 No 2{spray QD Nasonex 50 MCG/ACT MCG/ACT 6-25 s_in_ea MCG/ACT 00:00: ch_nost 00 ril} Nasonex 50 Nasonex 50 2020-0 No 2{spray QD Nasonex 50 MCG/ACT MCG/ACT 6-25 s_in_ea MCG/ACT 00:00: ch_nost 00 ril} Nasonex 50 Nasonex 50 2020-0 No 2{spray QD Nasonex 50 MCG/ACT MCG/ACT 6-25 s_in_ea MCG/ACT 00:00: ch_nost 00 ril} Nasonex 50 Nasonex 50 2020-0 No 2{spray QD Nasonex 50 MCG/ACT MCG/ACT 6-25 s_in_ea MCG/ACT 00:00: ch_nost 00 ril} Nasonex 50 Nasonex 50 2020-0 No 2{spray QD Nasonex 50 MCG/ACT MCG/ACT 6-25 s_in_ea MCG/ACT 00:00: ch_nost 00 ril} amLODIPine 2018-04 Yes 7.5mg Take 7.5 Un rex (NORVASC) 5 0-10 mg by ity of mg tablet 20:50: mouth [place] 45 daily. Medical Branch B-complex 2018-04 Yes Take by Unive rs with 0-10 mouth. ity of vitamin C 20:50: [place] (VITAMIN B 45 Medical COMPLEX-C Branch ORAL) clonazePAM 2018-04 Yes .5mg Take 0.5 Uni vers 0.5 mg 0-10 mg by ity of tablet 20:50: mouth 3 [place] 45 (three) Medical times Branch daily. budesonide/ 2018-04 Yes Inhale. Uni vers formoterol 0-10 ity of fumarate 20:50: [place] (SYMBICORT 45 Medical INHALE) Branch carvedilol 2018-04 Yes 6.25mg Take 6.25 Univers (COREG) 0-10 mg by ity of 6.25 mg 20:50: mouth 2 [place] tablet 45 (two) Medical times Branch daily with meals. mv-mn/iron/ 2018-04 Yes Take by Uni vers folic 0-10 mouth. ity of acid/herb 20:50: [place] 190 45 Medical (VITAMIN D3 Branch COMPLETE ORAL) escitalopra 2018- Yes 20mg Take 20 mg Univers m oxalate 0-10 by mouth ity of 20 mg 20:50: daily. [place] tablet 45 Medical Branch furosemide 2018- Yes 20mg Take 20 mg U nivers (LASIX) 20 0-10 by mouth ity o f mg tablet 20:50: daily. [place] 45 Medical Branch mirtazapine 2018-04 Yes 15mg Take 15 mg Univers (REMERON) 0-10 by mouth ity of 15 mg 20:50: at [place] tablet 45 bedtime. Medical Branch pantoprazol 2018-04 Yes 40mg Take 40 mg Univers e 0-10 by mouth ity of (PROTONIX) 20:50: daily. [place] 40 EC 45 Medical tablet Branch lovastatin 2018-04 Yes 40mg Take 40 mg U nivers 40 mg 0-10 by mouth ity of tablet 20:50: at [place] 45 bedtime. Medical Branch clopidogrel 2018-04 Yes 75mg Take 75 mg Univers bisulfate 0-10 by mouth. ity o f (PLAVIX 20:50: [place] ORAL) 45 Medical Branch amLODIPine 2018-04 Yes 7.5mg Take 7.5 Un rex (NORVASC) 5 0-10 mg by ity of mg tablet 20:50: mouth [place] 45 daily. Medical Branch B-complex 2018-04 Yes Take by Unive rs with 0-10 mouth. ity of vitamin C 20:50: [place] (VITAMIN B 45 Medical COMPLEX-C Branch ORAL) clonazePAM 2018- Yes .5mg Take 0.5 Uni vers 0.5 mg 0-10 mg by ity of tablet 20:50: mouth 3 [place] 45 (three) Medical times Branch daily. budesonide/ 2018-04 Yes Inhale. Uni vers formoterol 0-10 ity of fumarate 20:50: [place] (SYMBICORT 45 Medical INHALE) Branch carvedilol 2018-04 Yes 6.25mg Take 6.25 Univers (COREG) 0-10 mg by ity of 6.25 mg 20:50: mouth 2 [place] tablet 45 (two) Medical times Branch daily with meals. mv-mn/iron/ 2018-04 Yes Take by Uni vers folic 0-10 mouth. ity of acid/herb 20:50: [place] 190 45 Medical (VITAMIN D3 Branch COMPLETE ORAL) escitalopra 2018-04 Yes 20mg Take 20 mg Univers m oxalate 0-10 by mouth ity of 20 mg 20:50: daily. [place] tablet 45 Medical Branch furosemide 2018- Yes 20mg Take 20 mg U nivers (LASIX) 20 0-10 by mouth ity o f mg tablet 20:50: daily. [place] 45 Medical Branch mirtazapine 2018-04 Yes 15mg Take 15 mg Univers (REMERON) 0-10 by mouth ity of 15 mg 20:50: at [place] tablet 45 bedtime. Medical Branch pantoprazol 2018-04 Yes 40mg Take 40 mg Univers e 0-10 by mouth ity of (PROTONIX) 20:50: daily. [place] 40 mg EC 45 Medical tablet Branch lovastatin 2018-04 Yes 40mg Take 40 mg U nivers 40 mg 0-10 by mouth ity of tablet 20:50: at [place] [address] bedtime. Medical Branch clopidogrel 2018-04 Yes 75mg Take 75 mg Univers bisulfate 0-10 by mouth. ity o f (PLAVIX 20:50: [place] ORAL) 45 Medical Branch amLODIPine 2018-04 Yes 7.5mg Take 7.5 Un rex (NORVASC) 5 0-10 mg by ity of mg tablet 20:50: mouth [place] 45 daily. Medical Branch B-complex 2018-04 Yes Take by Unive rs with 0-10 mouth. ity of vitamin C 20:50: [place] (VITAMIN B 45 Medical COMPLEX-C Branch ORAL) clonazePAM 2018-04 Yes .5mg Take 0.5 Uni vers 0.5 mg 0-10 mg by ity of tablet 20:50: mouth 3 [place] 45 (three) Medical times Branch daily. budesonide/ 2018-04 Yes Inhale. Uni vers formoterol 0-10 ity of fumarate 20:50: [place] (SYMBICORT 45 Medical INHALE) Branch carvedilol 2018-04 Yes 6.25mg Take 6.25 Univers (COREG) 0-10 mg by ity of 6.25 mg 20:50: mouth 2 [place] tablet 45 (two) Medical times Branch daily with meals. mv-mn/iron/ 2018-04 Yes Take by Uni vers folic 0-10 mouth. ity of acid/herb 20:50: [place] 190 45 Medical (VITAMIN D3 Branch COMPLETE ORAL) escitalopra 2018- Yes 20mg Take 20 mg Univers m oxalate 0-10 by mouth ity of 20 mg 20:50: daily. [place] tablet 45 Medical Branch furosemide 2018- Yes 20mg Take 20 mg U nivers (LASIX) 20 0-10 by mouth ity o f mg tablet 20:50: daily. [place] 45 Medical Branch mirtazapine 2018-04 Yes 15mg Take 15 mg Univers (REMERON) 0-10 by mouth ity of 15 mg 20:50: at [place] tablet 45 bedtime. Medical Branch pantoprazol 2018- Yes 40mg Take 40 mg Univers e 0-10 by mouth ity of (PROTONIX) 20:50: daily. [place] 40 mg EC 45 Medical tablet Branch lovastatin 2018- Yes 40mg Take 40 mg U nivers 40 mg 0-10 by mouth ity of tablet 20:50: at [place] 45 bedtime. Medical Branch clopidogrel 2018-04 Yes 75mg Take 75 mg Univers bisulfate 0-10 by mouth. ity o f (PLAVIX 20:50: [place] ORAL) 45 Medical Branch amLODIPine 2018-04 Yes 7.5mg Take 7.5 Un rex (NORVASC) 5 0-10 mg by ity of mg tablet 20:50: mouth [place] 45 daily. Medical Branch B-complex 2018-04 Yes Take by Unive rs with 0-10 mouth. ity of vitamin C 20:50: [place] (VITAMIN B 45 Medical COMPLEX-C Branch ORAL) clonazePAM 2018-04 Yes .5mg Take 0.5 Uni vers 0.5 mg 0-10 mg by ity of tablet 20:50: mouth 3 [place] 45 (three) Medical times Branch daily. budesonide/ 2018-04 Yes Inhale. Uni vers formoterol 0-10 ity of fumarate 20:50: [place] (SYMBICORT 45 Medical INHALE) Branch carvedilol 2018-04 Yes 6.25mg Take 6.25 Univers (COREG) 0-10 mg by ity of 6.25 mg 20:50: mouth 2 [place] tablet 45 (two) Medical times Branch daily with meals. mv-mn/iron/ 2018-04 Yes Take by Uni vers folic 0-10 mouth. ity of acid/herb 20:50: [place] 190 45 Medical (VITAMIN D3 Branch COMPLETE ORAL) escitalopra 2018-04 Yes 20mg Take 20 mg Univers m oxalate 0-10 by mouth ity of 20 mg 20:50: daily. [place] tablet 45 Medical Branch furosemide 2018-04 Yes 20mg Take 20 mg U nivers (LASIX) 20 0-10 by mouth ity o f mg tablet 20:50: daily. [place] 45 Medical Branch mirtazapine 2018-04 Yes 15mg Take 15 mg Univers (REMERON) 0-10 by mouth ity of 15 mg 20:50: at [place] tablet 45 bedtime. Medical Branch pantoprazol 2018-04 Yes 40mg Take 40 mg Univers e 0-10 by mouth ity of (PROTONIX) 20:50: daily. [place] 40 mg EC 45 Medical tablet Branch lovastatin 2018-04 Yes 40mg Take 40 mg U nivers 40 mg 0-10 by mouth ity of tablet 20:50: at [place] 45 bedtime. Medical Branch clopidogrel 2018-04 Yes 75mg Take 75 mg Univers bisulfate 0-10 by mouth. ity o f (PLAVIX 20:50: [place] ORAL) 45 Medical Branch Allopurinol Allopurinol No Allopurino 100 MG 100 MG l 100 MG Symbicort Symbicort No 2{puffs BID Symbicort 160-4.5 160-4.5 } 160-4.5 MCG/ACT MCG/ACT MCG/ACT cloNIDine cloNIDine No cloNIDine HCl 0.1 MG HCl 0.1 MG HCl 0.1 MG amLODIPine amLODIPine No 1{table QD amLODIPine Besylate Besylate t} Besylate 2.5 MG 2.5 MG 2.5 MG Lovastatin Lovastatin No QD Lovastatin 40 MG 40 MG 40 MG Mirtazapine Mirtazapine No Mirtazapin 15 MG 15 MG e 15 MG Escitalopra Escitalopra No 1{table QD Escitalopr m Oxalate m Oxalate t} am Oxalate 20 MG 20 MG 20 MG Albuterol Albuterol No 2{puffs Albuterol Sulfate HFA Sulfate HFA _as_nee Sulfate 108 (90 108 (90 ded} HFA 108 Base) Base) (90 Base) MCG/ACT MCG/ACT MCG/ACT amLODIPine amLODIPine No amLODIPine Besylate 5 Besylate 5 Besylate 5 MG MG MG busPIRone busPIRone No busPIRone HCl 7.5 MG HCl 7.5 MG HCl 7.5 MG Macrobid Macrobid No 1{capsu BID Macrobid 100 MG 100 MG le_with 100 MG _food} amLODIPine amLODIPine No 1{table amLODIPine Besylate Besylate t} Besylate 2.5 MG 2.5 MG 2.5 MG Symbicort Symbicort No 2{puffs BID Symbicort 160-4.5 160-4.5 } 160-4.5 MCG/ACT MCG/ACT MCG/ACT Vitamin D3 Vitamin D3 No Vitamin D3 50,000 50,000 50,000 Losartan Losartan No QD Losartan Potassium Potassium Potassium 25 MG 25 MG 25 MG Pantoprazol Pantoprazol No 1{table QD Pantoprazo e Sodium 20 e Sodium 20 t} le Sodium MG MG 20 MG Dicyclomine Dicyclomine No Dicyclomin HCl 20 MG HCl 20 MG e HCl 20 MG Clopidogrel Clopidogrel No 1{table QD Clopidogre Bisulfate Bisulfate t} l 75 MG 75 MG Bisulfate 75 MG Linzess 145 Linzess 145 No 1{table QD Linzess mcg mcg t} 145 mcg Furosemide Furosemide No Furosemide 20 MG 20 MG 20 MG Carvedilol Carvedilol No Carvedilol 12.5 MG 12.5 MG 12.5 MG Allopurinol Allopurinol No Allopurino 100 MG 100 MG l 100 MG Symbicort Symbicort No 2{puffs BID Symbicort 160-4.5 160-4.5 } 160-4.5 MCG/ACT MCG/ACT MCG/ACT cloNIDine cloNIDine No cloNIDine HCl 0.1 MG HCl 0.1 MG HCl 0.1 MG amLODIPine amLODIPine No 1{table QD amLODIPine Besylate Besylate t} Besylate 2.5 MG 2.5 MG 2.5 MG Lovastatin Lovastatin No QD Lovastatin 40 MG 40 MG 40 MG Losartan Losartan No QD Losartan Potassium Potassium Potassium 25 MG 25 MG 25 MG cloNIDine cloNIDine No cloNIDine HCl 0.1 MG HCl 0.1 MG HCl 0.1 MG amLODIPine amLODIPine No 1{table QD amLODIPine Besylate Besylate t} Besylate 2.5 MG 2.5 MG 2.5 MG Vitamin D3 Vitamin D3 No Vitamin D3 50,000 50,000 50,000 Lovastatin Lovastatin No QD Lovastatin 40 MG 40 MG 40 MG Symbicort Symbicort No 2{puffs BID Symbicort 160-4.5 160-4.5 } 160-4.5 MCG/ACT MCG/ACT MCG/ACT busPIRone busPIRone No busPIRone HCl 7.5 MG HCl 7.5 MG HCl 7.5 MG Symbicort Symbicort No 2{puffs BID Symbicort 160-4.5 160-4.5 } 160-4.5 MCG/ACT MCG/ACT MCG/ACT Albuterol Albuterol No 2{puffs Albuterol Sulfate HFA Sulfate HFA _as_nee Sulfate 108 (90 108 (90 ded} HFA 108 Base) Base) (90 Base) MCG/ACT MCG/ACT MCG/ACT Dicyclomine Dicyclomine No Dicyclomin HCl 20 MG HCl 20 MG e HCl 20 MG Mirtazapine Mirtazapine No 1{table QD Mirtazapin 15 MG 15 MG t_at_be e 15 MG dtime} Carvedilol Carvedilol No 1{table BID Carvedilol 6.25 MG 6.25 MG t_with_ 6.25 MG food} busPIRone busPIRone No BID busPIRone HCl 7.5 MG HCl 7.5 MG HCl 7.5 MG Linzess 145 Linzess 145 No 1{table QD Linzess mcg mcg t} 145 mcg Pantoprazol Pantoprazol No 1{table QD Pantoprazo e Sodium 20 e Sodium 20 t} le Sodium MG MG 20 MG Escitalopra Escitalopra No 1{table QD Escitalopr m Oxalate m Oxalate t} am Oxalate 20 MG 20 MG 20 MG amLODIPine amLODIPine No 1{table amLODIPine Besylate Besylate t} Besylate 2.5 MG 2.5 MG 2.5 MG Mirtazapine Mirtazapine No Mirtazapin 15 MG 15 MG e 15 MG Carvedilol Carvedilol No Carvedilol 12.5 MG 12.5 MG 12.5 MG Allopurinol Allopurinol No Allopurino 100 MG 100 MG l 100 MG Clopidogrel Clopidogrel No 1{table QD Clopidogre Bisulfate Bisulfate t} l 75 MG 75 MG Bisulfate 75 MG Furosemide Furosemide No Furosemide 20 MG 20 MG 20 MG Mirtazapine Mirtazapine No 1{table QD Mirtazapin 15 MG 15 MG t_at_be e 15 MG dtime} cloNIDine cloNIDine No cloNIDine HCl 0.1 MG HCl 0.1 MG HCl 0.1 MG Symbicort Symbicort No 2{puffs BID Symbicort 160-4.5 160-4.5 } 160-4.5 MCG/ACT MCG/ACT MCG/ACT Vitamin D3 Vitamin D3 No Vitamin D3 50,000 50,000 50,000 Losartan Losartan No QD Losartan Potassium Potassium Potassium 25 MG 25 MG 25 MG amLODIPine amLODIPine No 1{table QD amLODIPine Besylate Besylate t} Besylate 2.5 MG 2.5 MG 2.5 MG Symbicort Symbicort No 2{puffs BID Symbicort 160-4.5 160-4.5 } 160-4.5 MCG/ACT MCG/ACT MCG/ACT Carvedilol Carvedilol No 1{table BID Carvedilol 6.25 MG 6.25 MG t_with_ 6.25 MG food} Escitalopra Escitalopra No Escitalopr m Oxalate m Oxalate am Oxalate 20 MG 20 MG 20 MG Mirtazapine Mirtazapine No Mirtazapin 15 MG 15 MG e 15 MG Albuterol Albuterol No 2{puffs Albuterol Sulfate HFA Sulfate HFA _as_nee Sulfate 108 (90 108 (90 ded} HFA 108 Base) Base) (90 Base) MCG/ACT MCG/ACT MCG/ACT amLODIPine amLODIPine No 1{table amLODIPine Besylate Besylate t} Besylate 2.5 MG 2.5 MG 2.5 MG Linzess 145 Linzess 145 No 1{table QD Linzess mcg mcg t} 145 mcg Pantoprazol Pantoprazol No 1{table QD Pantoprazo e Sodium 20 e Sodium 20 t} le Sodium MG MG 20 MG Dicyclomine Dicyclomine No Dicyclomin HCl 20 MG HCl 20 MG e HCl 20 MG Alendronate Alendronate No Alendronat Sodium 70 Sodium 70 e Sodium MG MG 70 MG busPIRone busPIRone No busPIRone HCl 7.5 MG HCl 7.5 MG HCl 7.5 MG Carvedilol Carvedilol No Carvedilol 12.5 MG 12.5 MG 12.5 MG Furosemide Furosemide No Furosemide 20 MG 20 MG 20 MG Clopidogrel Clopidogrel No 1{table QD Clopidogre Bisulfate Bisulfate t} l 75 MG 75 MG Bisulfate 75 MG Allopurinol Allopurinol No Allopurino 100 MG 100 MG l 100 MG Lovastatin Lovastatin No Lovastatin 40 MG 40 MG 40 MG Albuterol Albuterol No 2{puffs Albuterol Sulfate HFA Sulfate HFA _as_nee Sulfate 108 (90 108 (90 ded} HFA 108 Base) Base) (90 Base) MCG/ACT MCG/ACT MCG/ACT Pantoprazol Pantoprazol No 1{table QD Pantoprazo e Sodium 20 e Sodium 20 t} le Sodium MG MG 20 MG Mirtazapine Mirtazapine No 1{table QD Mirtazapin 15 MG 15 MG t_at_be e 15 MG dtime} Linzess 145 Linzess 145 No 1{table QD Linzess mcg mcg t} 145 mcg Escitalopra Escitalopra No Escitalopr m Oxalate m Oxalate am Oxalate 20 MG 20 MG 20 MG busPIRone busPIRone No busPIRone HCl 7.5 MG HCl 7.5 MG HCl 7.5 MG Mirtazapine Mirtazapine No Mirtazapin 15 MG 15 MG e 15 MG Carvedilol Carvedilol No 1{table BID Carvedilol 6.25 MG 6.25 MG t_with_ 6.25 MG food} Symbicort Symbicort No 2{puffs BID Symbicort 160-4.5 160-4.5 } 160-4.5 MCG/ACT MCG/ACT MCG/ACT Carvedilol Carvedilol No Carvedilol 12.5 MG 12.5 MG 12.5 MG amLODIPine amLODIPine No 1{table amLODIPine Besylate Besylate t} Besylate 2.5 MG 2.5 MG 2.5 MG Vitamin D3 Vitamin D3 No Vitamin D3 50,000 50,000 50,000 Furosemide Furosemide No Furosemide 20 MG 20 MG 20 MG Allopurinol Allopurinol No Allopurino 100 MG 100 MG l 100 MG Alendronate Alendronate No Alendronat Sodium 70 Sodium 70 e Sodium MG MG 70 MG Clopidogrel Clopidogrel No Clopidogre Bisulfate Bisulfate l 75 MG 75 MG Bisulfate 75 MG Lovastatin Lovastatin No Lovastatin 40 MG 40 MG 40 MG cloNIDine cloNIDine No cloNIDine HCl 0.1 MG HCl 0.1 MG HCl 0.1 MG Dicyclomine Dicyclomine No Dicyclomin HCl 20 MG HCl 20 MG e HCl 20 MG Losartan Losartan No QD Losartan Potassium Potassium Potassium 25 MG 25 MG 25 MG amLODIPine amLODIPine No 1{table QD amLODIPine Besylate Besylate t} Besylate 2.5 MG 2.5 MG 2.5 MG Symbicort Symbicort No 2{puffs BID Symbicort 160-4.5 160-4.5 } 160-4.5 MCG/ACT MCG/ACT MCG/ACT Albuterol Albuterol No 2{puffs Albuterol Sulfate HFA Sulfate HFA _as_nee Sulfate 108 (90 108 (90 ded} HFA 108 Base) Base) (90 Base) MCG/ACT MCG/ACT MCG/ACT Pantoprazol Pantoprazol No 1{table QD Pantoprazo e Sodium 20 e Sodium 20 t} le Sodium MG MG 20 MG Mirtazapine Mirtazapine No 1{table QD Mirtazapin 15 MG 15 MG t_at_be e 15 MG dtime} Linzess 145 Linzess 145 No 1{table QD Linzess mcg mcg t} 145 mcg Escitalopra Escitalopra No Escitalopr m Oxalate m Oxalate am Oxalate 20 MG 20 MG 20 MG busPIRone busPIRone No busPIRone HCl 7.5 MG HCl 7.5 MG HCl 7.5 MG Mirtazapine Mirtazapine No Mirtazapin 15 MG 15 MG e 15 MG Carvedilol Carvedilol No 1{table BID Carvedilol 6.25 MG 6.25 MG t_with_ 6.25 MG food} Symbicort Symbicort No 2{puffs BID Symbicort 160-4.5 160-4.5 } 160-4.5 MCG/ACT MCG/ACT MCG/ACT Carvedilol Carvedilol No Carvedilol 12.5 MG 12.5 MG 12.5 MG amLODIPine amLODIPine No 1{table amLODIPine Besylate Besylate t} Besylate 2.5 MG 2.5 MG 2.5 MG Vitamin D3 Vitamin D3 No Vitamin D3 50,000 50,000 50,000 Furosemide Furosemide No Furosemide 20 MG 20 MG 20 MG Allopurinol Allopurinol No Allopurino 100 MG 100 MG l 100 MG Alendronate Alendronate No Alendronat Sodium 70 Sodium 70 e Sodium MG MG 70 MG Clopidogrel Clopidogrel No Clopidogre Bisulfate Bisulfate l 75 MG 75 MG Bisulfate 75 MG Lovastatin Lovastatin No Lovastatin 40 MG 40 MG 40 MG cloNIDine cloNIDine No cloNIDine HCl 0.1 MG HCl 0.1 MG HCl 0.1 MG Dicyclomine Dicyclomine No Dicyclomin HCl 20 MG HCl 20 MG e HCl 20 MG Losartan Losartan No QD Losartan Potassium Potassium Potassium 25 MG 25 MG 25 MG amLODIPine amLODIPine No 1{table QD amLODIPine Besylate Besylate t} Besylate 2.5 MG 2.5 MG 2.5 MG Symbicort Symbicort No 2{puffs BID Symbicort 160-4.5 160-4.5 } 160-4.5 MCG/ACT MCG/ACT MCG/ACT Escitalopra Escitalopra No Escitalopr m Oxalate m Oxalate am Oxalate 20 MG 20 MG 20 MG busPIRone busPIRone No busPIRone HCl 7.5 MG HCl 7.5 MG HCl 7.5 MG Mirtazapine Mirtazapine No 1{table QD Mirtazapin 15 MG 15 MG t_at_be e 15 MG dtime} Pantoprazol Pantoprazol No 1{table QD Pantoprazo e Sodium 20 e Sodium 20 t} le Sodium MG MG 20 MG Mirtazapine Mirtazapine No Mirtazapin 15 MG 15 MG e 15 MG Albuterol Albuterol No 2{puffs Albuterol Sulfate HFA Sulfate HFA _as_nee Sulfate 108 (90 108 (90 ded} HFA 108 Base) Base) (90 Base) MCG/ACT MCG/ACT MCG/ACT Carvedilol Carvedilol No 1{table BID Carvedilol 6.25 MG 6.25 MG t_with_ 6.25 MG food} Symbicort Symbicort No 2{puffs BID Symbicort 160-4.5 160-4.5 } 160-4.5 MCG/ACT MCG/ACT MCG/ACT Carvedilol Carvedilol No Carvedilol 12.5 MG 12.5 MG 12.5 MG amLODIPine amLODIPine No 1{table amLODIPine Besylate Besylate t} Besylate 2.5 MG 2.5 MG 2.5 MG Alendronate Alendronate No Alendronat Sodium 70 Sodium 70 e Sodium MG MG 70 MG Furosemide Furosemide No Furosemide 20 MG 20 MG 20 MG Allopurinol Allopurinol No Allopurino 100 MG 100 MG l 100 MG Vitamin D3 Vitamin D3 No Vitamin D3 50,000 50,000 50,000 Linzess 145 Linzess 145 No 1{table QD Linzess mcg mcg t} 145 mcg Clopidogrel Clopidogrel No Clopidogre Bisulfate Bisulfate l 75 MG 75 MG Bisulfate 75 MG Lovastatin Lovastatin No Lovastatin 40 MG 40 MG 40 MG cloNIDine cloNIDine No cloNIDine HCl 0.1 MG HCl 0.1 MG HCl 0.1 MG Dicyclomine Dicyclomine No Dicyclomin HCl 20 MG HCl 20 MG e HCl 20 MG Losartan Losartan No QD Losartan Potassium Potassium Potassium 25 MG 25 MG 25 MG amLODIPine amLODIPine No 1{table QD amLODIPine Besylate Besylate t} Besylate 2.5 MG 2.5 MG 2.5 MG Symbicort Symbicort No 2{puffs BID Symbicort 160-4.5 160-4.5 } 160-4.5 MCG/ACT MCG/ACT MCG/ACT Dicyclomine Dicyclomine No Dicyclomin HCl 20 MG HCl 20 MG e HCl 20 MG Mirtazapine Mirtazapine No Mirtazapin 15 MG 15 MG e 15 MG Linzess 145 Linzess 145 No 1{table QD Linzess mcg mcg t} 145 mcg busPIRone busPIRone No busPIRone HCl 7.5 MG HCl 7.5 MG HCl 7.5 MG Carvedilol Carvedilol No Carvedilol 12.5 MG 12.5 MG 12.5 MG Lovastatin Lovastatin No QD Lovastatin 40 MG 40 MG 40 MG Pantoprazol Pantoprazol No 1{table QD Pantoprazo e Sodium 20 e Sodium 20 t} le Sodium MG MG 20 MG Symbicort Symbicort No 2{puffs BID Symbicort 160-4.5 160-4.5 } 160-4.5 MCG/ACT MCG/ACT MCG/ACT Clopidogrel Clopidogrel No Clopidogre Bisulfate Bisulfate l 75 MG 75 MG Bisulfate 75 MG Allopurinol Allopurinol No Allopurino 100 MG 100 MG l 100 MG amLODIPine amLODIPine No 1{table amLODIPine Besylate Besylate t} Besylate 2.5 MG 2.5 MG 2.5 MG Carvedilol Carvedilol No 1{table BID Carvedilol 6.25 MG 6.25 MG t_with_ 6.25 MG food} Losartan Losartan No QD Losartan Potassium Potassium Potassium 25 MG 25 MG 25 MG Escitalopra Escitalopra No Escitalopr m Oxalate m Oxalate am Oxalate 20 MG 20 MG 20 MG cloNIDine cloNIDine No cloNIDine HCl 0.1 MG HCl 0.1 MG HCl 0.1 MG Vitamin D3 Vitamin D3 No Vitamin D3 50,000 50,000 50,000 Furosemide Furosemide No Furosemide 20 MG 20 MG 20 MG Albuterol Albuterol No 2{puffs Albuterol Sulfate HFA Sulfate HFA _as_nee Sulfate 108 (90 108 (90 ded} HFA 108 Base) Base) (90 Base) MCG/ACT MCG/ACT MCG/ACT Symbicort Symbicort No 2{puffs BID Symbicort 160-4.5 160-4.5 } 160-4.5 MCG/ACT MCG/ACT MCG/ACT amLODIPine amLODIPine No 1{table QD amLODIPine Besylate Besylate t} Besylate 2.5 MG 2.5 MG 2.5 MG Alendronate Alendronate No Alendronat Sodium 70 Sodium 70 e Sodium MG MG 70 MG amLODIPine amLODIPine No 1{table amLODIPine Besylate Besylate t} Besylate 2.5 MG 2.5 MG 2.5 MG Carvedilol Carvedilol No 1{table BID Carvedilol 6.25 MG 6.25 MG t_with_ 6.25 MG food} Allopurinol Allopurinol No Allopurino 100 MG 100 MG l 100 MG Symbicort Symbicort No 2{puffs BID Symbicort 160-4.5 160-4.5 } 160-4.5 MCG/ACT MCG/ACT MCG/ACT Escitalopra Escitalopra No Escitalopr m Oxalate m Oxalate am Oxalate 20 MG 20 MG 20 MG Albuterol Albuterol No 2{puffs Albuterol Sulfate HFA Sulfate HFA _as_nee Sulfate 108 (90 108 (90 ded} HFA 108 Base) Base) (90 Base) MCG/ACT MCG/ACT MCG/ACT Pantoprazol Pantoprazol No 1{table QD Pantoprazo e Sodium 20 e Sodium 20 t} le Sodium MG MG 20 MG Linzess 145 Linzess 145 No 1{table QD Linzess mcg mcg t} 145 mcg busPIRone busPIRone No busPIRone HCl 7.5 MG HCl 7.5 MG HCl 7.5 MG Losartan Losartan No QD Losartan Potassium Potassium Potassium 25 MG 25 MG 25 MG cloNIDine cloNIDine No cloNIDine HCl 0.1 MG HCl 0.1 MG HCl 0.1 MG Clopidogrel Clopidogrel No Clopidogre Bisulfate Bisulfate l 75 MG 75 MG Bisulfate 75 MG Carvedilol Carvedilol No Carvedilol 12.5 MG 12.5 MG 12.5 MG Mirtazapine Mirtazapine No Mirtazapin 15 MG 15 MG e 15 MG amLODIPine amLODIPine No 1{table QD amLODIPine Besylate Besylate t} Besylate 2.5 MG 2.5 MG 2.5 MG Furosemide Furosemide No Furosemide 20 MG 20 MG 20 MG Escitalopra Escitalopra No 1{table QD Escitalopr m Oxalate m Oxalate t} am Oxalate 20 MG 20 MG 20 MG Mirtazapine Mirtazapine No 1{table QD Mirtazapin 15 MG 15 MG t_at_be e 15 MG dtime} Lovastatin Lovastatin No QD Lovastatin 40 MG 40 MG 40 MG Vitamin D3 Vitamin D3 No Vitamin D3 50,000 50,000 50,000 Symbicort Symbicort No 2{puffs BID Symbicort 160-4.5 160-4.5 } 160-4.5 MCG/ACT MCG/ACT MCG/ACT Alendronate Alendronate No Alendronat Sodium 70 Sodium 70 e Sodium MG MG 70 MG busPIRone busPIRone No BID busPIRone HCl 7.5 MG HCl 7.5 MG HCl 7.5 MG Dicyclomine Dicyclomine No Dicyclomin HCl 20 MG HCl 20 MG e HCl 20 MG Dicyclomine Dicyclomine No Dicyclomin HCl 20 MG HCl 20 MG e HCl 20 MG Mirtazapine Mirtazapine No Mirtazapin 15 MG 15 MG e 15 MG Linzess 145 Linzess 145 No 1{table QD Linzess mcg mcg t} 145 mcg busPIRone busPIRone No busPIRone HCl 7.5 MG HCl 7.5 MG HCl 7.5 MG Carvedilol Carvedilol No Carvedilol 12.5 MG 12.5 MG 12.5 MG Lovastatin Lovastatin No QD Lovastatin 40 MG 40 MG 40 MG Pantoprazol Pantoprazol No 1{table QD Pantoprazo e Sodium 20 e Sodium 20 t} le Sodium MG MG 20 MG Symbicort Symbicort No 2{puffs BID Symbicort 160-4.5 160-4.5 } 160-4.5 MCG/ACT MCG/ACT MCG/ACT Clopidogrel Clopidogrel No Clopidogre Bisulfate Bisulfate l 75 MG 75 MG Bisulfate 75 MG Allopurinol Allopurinol No Allopurino 100 MG 100 MG l 100 MG amLODIPine amLODIPine No 1{table amLODIPine Besylate Besylate t} Besylate 2.5 MG 2.5 MG 2.5 MG Carvedilol Carvedilol No 1{table BID Carvedilol 6.25 MG 6.25 MG t_with_ 6.25 MG food} Losartan Losartan No QD Losartan Potassium Potassium Potassium 25 MG 25 MG 25 MG Escitalopra Escitalopra No Escitalopr m Oxalate m Oxalate am Oxalate 20 MG 20 MG 20 MG cloNIDine cloNIDine No cloNIDine HCl 0.1 MG HCl 0.1 MG HCl 0.1 MG Vitamin D3 Vitamin D3 No Vitamin D3 50,000 50,000 50,000 Furosemide Furosemide No Furosemide 20 MG 20 MG 20 MG Albuterol Albuterol No 2{puffs Albuterol Sulfate HFA Sulfate HFA _as_nee Sulfate 108 (90 108 (90 ded} HFA 108 Base) Base) (90 Base) MCG/ACT MCG/ACT MCG/ACT Symbicort Symbicort No 2{puffs BID Symbicort 160-4.5 160-4.5 } 160-4.5 MCG/ACT MCG/ACT MCG/ACT amLODIPine amLODIPine No 1{table QD amLODIPine Besylate Besylate t} Besylate 2.5 MG 2.5 MG 2.5 MG Alendronate Alendronate No Alendronat Sodium 70 Sodium 70 e Sodium MG MG 70 MG Mirtazapine Mirtazapine No Mirtazapin 15 MG 15 MG e 15 MG Escitalopra Escitalopra No 1{table QD Escitalopr m Oxalate m Oxalate t} am Oxalate 20 MG 20 MG 20 MG Albuterol Albuterol No 2{puffs Albuterol Sulfate HFA Sulfate HFA _as_nee Sulfate 108 (90 108 (90 ded} HFA 108 Base) Base) (90 Base) MCG/ACT MCG/ACT MCG/ACT amLODIPine amLODIPine No amLODIPine Besylate 5 Besylate 5 Besylate 5 MG MG MG busPIRone busPIRone No busPIRone HCl 7.5 MG HCl 7.5 MG HCl 7.5 MG Macrobid Macrobid No 1{capsu BID Macrobid 100 MG 100 MG le_with 100 MG _food} amLODIPine amLODIPine No 1{table amLODIPine Besylate Besylate t} Besylate 2.5 MG 2.5 MG 2.5 MG Symbicort Symbicort No 2{puffs BID Symbicort 160-4.5 160-4.5 } 160-4.5 MCG/ACT MCG/ACT MCG/ACT Vitamin D3 Vitamin D3 No Vitamin D3 50,000 50,000 50,000 Losartan Losartan No QD Losartan Potassium Potassium Potassium 25 MG 25 MG 25 MG Pantoprazol Pantoprazol No 1{table QD Pantoprazo e Sodium 20 e Sodium 20 t} le Sodium MG MG 20 MG Dicyclomine Dicyclomine No Dicyclomin HCl 20 MG HCl 20 MG e HCl 20 MG Clopidogrel Clopidogrel No 1{table QD Clopidogre Bisulfate Bisulfate t} l 75 MG 75 MG Bisulfate 75 MG Linzess 145 Linzess 145 No 1{table QD Linzess mcg mcg t} 145 mcg Furosemide Furosemide No Furosemide 20 MG 20 MG 20 MG Carvedilol Carvedilol No Carvedilol 12.5 MG 12.5 MG 12.5 MG Immunizations Ordered Filled Immunization Date Status Comments Sour e Immunization Name Name FluAD FluAD 2021-03-04 [facility] FluAD FluAD 2021-03-04 [facility] FluAD FluAD 2021-03-04 [facility] 15:40:00 [facility] FluAD FluAD 2021-03-04 [facility] 15:40:00 [facility] FluAD FluAD 2021-03-04 Com[facility] 15:40:00 [facility] FluAD FluAD 2021-03-04 Com[facility] 15:40:00 [facility] FluAD FluAD 2021-03-04 Com[facility] 15:40:00 [facility] FluAD FluAD 2021-03-04 Com[facility] 15:40:00 [facility] FluAD FluAD 2021-03-04 Com[facility] 15:40:00 [facility] FluAD FluAD 2021-03-04 Com[facility]00 [facility] [facility]04 [facility] (Low Dose Vaccine (Low Dose 15:37:[address] [facility] Booster) Booster) [facility] [address] [facility]-04 [facility]ine (Low Dose Vaccine (Low Dose 15:37:[address] [facility] Booster) Booster) [facility] [address] COVID19 2021-03-04 Completed [facility] (Low Dose Vaccine (Low Dose 15:37:[address] [facility] Booster) Booster) [facility] [facility]-04 [facility]ine (Low Dose Vaccine (Low Dose 15:37:[address] [facility] Booster) Booster) [facility] [facility] 2021-03-04 [facility]ine (Low Dose Vaccine (Low Dose 15:37:[address] [facility] Booster) Booster) [facility] [facility] 2021-03-04 Com[facility] (Low Dose Vaccine (Low Dose 15:37:[address] [facility] Booster) Booster) [facility] [facility] 2021-03-04 Com[facility] (Low Dose Vaccine (Low Dose 15:37:[address] [facility] Booster) Booster) [facility] [address] COVID19 2021-03-04 Completed [facility] (Low Dose Vaccine (Low Dose 15:37:[address] [facility] Booster) Booster) [facility] [facility] 2021-03-04 Com[facility] (Low Dose Vaccine (Low Dose 15:37:[address] [facility] Booster) Booster) [facility] COVID19 [facility] COVID19 2021-03-04 Completed [facility] - [facility]ine (Low Dose Vaccine (Low Dose 15:37:00 [facility] Booster) Booster) [facility] Td 2019-02-06 Completed [facility] 00[facility]00[facility]00 [facility] Td 2019-02-06 Completed [facility] 00:00:00 [facility] 2019-02-06 Completed [facility] 00:00:00 [facility] 2019-02-06 Completed [facility] 00:00:00 [facility] Vital Signs Vital Name Observation Time Observation Value Comments Source height 2022-02-23 17:00:00 59.50 [in_i] [facility] weight 2022-02-23 17:00:00 117 [lb_av] [facility] bmi 2022-02-23 17:00:00 23.23 kg/m2 [facility] height 2021-10-06 15:00:00 59.50 [in_i] [facility] weight 2021-10-06 15:00:00 117 [lb_av] [facility] temperature 2021-10-06 15:00:00 97.3 [degF] [facility] bmi 2021-10-06 15:00:00 23.23 kg/m2 [facility] oximetry 2021-10-06 15:00:00 96 % [facility] respiratory rate 2021-10-06 15:00:00 14 /min [facility] blood pressure 2021-10-06 15:00:00 109 mm[Hg] [facility] - systolic [facility] blood pressure 2021-10-06 15:00:00 55 mm[Hg] [facility] - diastolic [facility] height 2021-10-06 15:00:00 59.50 [in_i] [facility] weight 2021-10-06 15:00:00 117 [lb_av] [facility] temperature 2021-10-06 15:00:00 97.3 [degF] [facility] bmi 2021-10-06 15:00:00 23.23 kg/m2 [facility] oximetry 2021-10-06 15:00:00 96 % [facility] respiratory rate 2021-10-06 15:00:00 14 /min [facility] blood pressure 2021-10-06 15:00:00 109 mm[Hg] [facility] - systolic [facility] blood pressure 2021-10-06 15:00:00 55 mm[Hg] Common [facility] diastolic [facility] Procedures Procedure Date / Time Performing Clinician Source Performed [place] MODIFIED BARIUM SWALLOW 2020-03-03 19:43:20 Requisition, Luis fleming [facility] NOTICE OF BILLING 2020-03-03 19:07:40 Doctor Unassigned, [facility] PRACTICES FOR MEDICARE [facility] PATIENTS [facility] PATIENT FINANCIAL 2020-03-03 19:07:02 Doctor Unaaneta, [facility] POLICY [facility] NO SHOW OR MISSED 2020-03-03 19:06:26 Doctor Mara, [facility] APPOINTMENT POLICY [facility] ACKNOWLEDGEMENT CONSENT/REFUSAL FOR 2020-03-03 19:05:29 Doctor Mara, [facility] DIAGNOSIS AND TREATMENT [facility] ASSIGNMENT OF BENEFITS 2020-03-03 19:04:46 Doctor Unassigned, [facility] Name Medical Branch Plan of Care Planned Activity Planned Date Details Comments Source Future Scheduled 2022-03-02 HEPATITIS B VACCINES Met [facility] Test 05:55:59 (1 of 3 - 3-dose series) [code = HEPATITIS B VACCINES (1 of 3 - 3-dose series)] Future Scheduled 2022-03-02 COVID-19 VACCINE (#1) [facility] Test 05:55:59 [code = COVID-19 VACCINE (#1)] Future Scheduled 2022-03-02 SHINGLES VACCINES (1 Met [facility] Test 05:55:59 of 2) [code = SHINGLES VACCINES (1 of 2)] Future Scheduled 2022-03-02 65+ [facility] 05:55:59 VACCINE (2 - PCV) [code = 65+ PNEUMOCOCCAL VACCINE (2 - PCV)] Future Scheduled 2022-03-02 INFLUENZA VACCINE Method [facility] Test 05:55:59 [code = INFLUENZA VACCINE] Encounters Start End Encounter Admission Attending Care Care Encounter Source Date/Time Date/Time Type Type Clinicians Facility Department ID 2022-02-21 Outpatient Mike, Na STLMLC STLMLC [id number] 2 Common 15:52:03 [facility] 2021-11-02 Outpatient Mike, Na STLMLC STLMLC [id number] 2 Common 11:05:01 [facility] 2021-10-06 Outpatient Mike, Na STLMLC STLMLC [id number] 2 Common 15:20:03 [facility] 2022-02-23 2022-02-23 OL DIG E/M STLMLC STLMLC [id number] Common 00:00:00 00:00:00 [facility] 03-19 [facility] 2022-02-10 2022-02-10 (TEL) STLMLC STLMLC [id number] [facility] 00:00:00 00:00:00 [facility] 2022-01-10 2022-01-10 (TEL) STLMLC STLMLC [id number] [facility] 00:00:00 00:00:00 [facility] 2021-12-26 2021-12-26 Outpatient Thomas_T DMG [facility] [id number] [facility] 00:00:00 00:00:00 0829 [facility] 2021-12-20 2021-12-20 OL DIG E/M STLMLC STLMLC [id number] Common 00:00:00 00:00:00 [facility] -20 Spir it [facility] 2021-12-16 2021-12-16 (TEL) STLMLC STLMLC [id number] [facility] 00:00:00 00:00:00 [facility] 2021-12-09 2021-12-09 (TEL) STLMLC STLC [id number] Co mmon 00:00:00 00:00:00 [facility] - [facility] 2021-11-12 2021-11-12 Outpatient OWENS_T TERRIGary TERRI [id number] [facility] 04:31:00 04:31:00 0716 [facility] 2021-11-02 2021-11-02 OL DIG E/M STLMLC STLC [id number] Common 00:00:00 00:00:00 C 11-20 Spir it MIN - [facility] 2021-10-06 2021-10-06 SUB ANNUAL STLMLC STLMLC [id number] Common 00:00:00 00:00:00 [facility] Spirit WELLNESS - CHI VISIT [facility] 2021-10-06 2021-10-06 OFFICE STLC STLC [id number] Co mmon 00:00:00 00:00:00 VISIT [facility] ESTAB PT - CHI LEVEL 4 [facility] 2021-04-19 2021-04-19 On Demand [place]er [id number] [facility] 15:30:00 16:00:00 Masha [id number] [place] [id number] 2020-11-17 2020-11-17 Outpatient [facility] [id number] [place] [address] 00:00:00 00:00:00 JAELYN [facility] 2020-09-01 2020-09-01 Outpatient Quinten [facility] [id number] Univers 11:10:00 11:00:53 JAGJIT [facility] 2020-08-31 2020-08-31 Outpatient OWENS_T RADU MURRAY [id number] [facility] 06:09:00 06:09:00 0504 [facility] 2020-08-04 2020-08-04 Outpatient Quinten [facility] [id number] Univers 16:40:00 16:37:08 JAGJIT [facility] 2020-03-03 2020-03-03 Hospital Radiology [facility] [id number] 13:00:00 23:59:00 Encounter [place] [id number] [place] [id number] [place] [phone] [facility] 2020-03-03 2020-03-03 [facility] Radiology [facility] [id number] Univers 13:00:00 23:59:00 Encounter [place] [id number] [id number] [id number] [address] 2020-03-03 2020-03-03 Ancillary Eduard, [facility] [id number] 13:51:46 14:36:46 Visit Ni [place] [id number] [place] [id number] Professio [id number] [address] 2020-03-03 2020-03-03 Ancillary Allegra Chapandra [facility] [id number] Univers 13:51:46 14:36:46 Visit Severiano Xiong [id number] ity of [place] [id number] [facility] s Professio [id number] Mn dical [address] 2020-03-03 2020-03-03 Outpatient R [facility] [id number] Univers 14:30:00 14:30:00 ity [facility] 2020-03-03 2020-03-03 Outpatient R RADIOLOGY [facility] [id number] Univers 13:00:00 13:00:00 ity [facility] 2020-02-18 2020-02-18 [facility] [id number] 00:00:00 00:00:00 Niarjun [place] [id number] [place] [id number] Professio [id number] [address] 2020-02-18 2020-02-18 Telephone Eduard [facility] [id number] Univers 00:00:00 00:00:00 Niarjun [place] [id number] [id number] Profess[place] [phone] Mn dical nal [address] Results Test Description Test Time Test Comments Results Result [facility] e Comments [place] MODIFIED HISTORY: Dysphagia Unive rsity of BARIUM SWALLOW 4 and difficulty in [facility] 19:48:57 swallowing Branch medication. TECHNIQUE: Swallowing function was evaluated with the patient sittingupright on chair, using video assisted C-arm fluoroscopy, in the presenceof speech therapist. Swallowing function was evaluated using thin barium,thick barium, barium mixed with pudding, piece of mindy cracker. FINDINGS: Swallowing function appeared normal. Patient was able to formbolus of food, initiation of swallowing without any significant difficultyand the food material as well as barium flowed through the cervicalesophagus without any obstruction or aspiration. Small amount of bariumnoted retained within the piriform sinuses without aspiration into thelarynx or trachea.Incidental note made of grade 1 spondylolisthesis at C4-C5 and mild changesof degenerative disc disease at C5-C6-C7. CONCLUSIONS: Small amount of retained barium visualized in the piriformsinuses, otherwise normal study. [facility], Radiant Results Inft User - 03/03/2020 1:50 PM CSTHISTORY: Dysphagia and difficulty in swallowing medication.TECHNIQUE: Swallowing function was evaluated with the patient sittingupright on chair, using video assisted C-arm fluoroscopy, in the presenceof speech therapist. Swallowing function was evaluated using thin barium,thick barium, barium mixed with pudding, piece of mindy cracker.FINDINGS: Swallowing function appeared normal. Patient was able to formbolus of food, initiation of swallowing without any significant difficultyand the food material as well as barium flowed through the cervicalesophagus without any obstruction or aspiration. Small amount of bariumnoted retained within the piriform sinuses without aspiration into thelarynx or trachea.Incidental note made of grade 1 spondylolisthesis at C4-C5 and mild changesof degenerative disc disease at C5-C6-C7.CONCLUSIONS: Small amount of retained barium visualized in the piriformsinuses, otherwise normal study.
[2022-03-04 17:28] LABS: Absolute Lymphocytes (CBC) 1.9 K/uL (0.7-4.9); Hematocrit 41.3 % (36.0-45.0); Lymphocytes % 10.1 % (15.3-44.8); MCV 95.6 fL (80-100); MPV 9.6 fL (7.6-11.3); RBC Red Blood Cell Count 4.32 M/uL (3.86-4.86)
--- NOTE | 2022-03-04 17:29 | RAD REPORT ---
EXAM DESCRIPTION: US - Abdomen Exam Limited - 03/04/2022 5:20 pm CLINICAL HISTORY: ABD PAIN COMPARISON: Renal Ultrasound-Complete dated 09/23/2020 FINDINGS: Surgically absent gallbladder. No abnormality identified at the gallbladder fossa. Common bile duct is obscured by bowel gas. The liver demonstrates no findings of intrahepatic biliary dilatation. IMPRESSION: Cholecystectomy. Common bile duct is obscured by bowel gas.
[2022-03-04 17:44] LABS: Urine Blood 2+ (Negative); Urine Glucose Negative (Negative); Urine Protein 2+ (Negative); Urine pH 5.5 (5.0-7.0)
[2022-03-04] MEDS ORDERED: FENTANYL CITR 100 MCG/2 ML ONE (17:50)
[2022-03-04 17:51] LABS: Urine Mucus Slight /HPF (None Seen)
[2022-03-04 18:17] LABS: Albumin 3.9 g/dL (3.4-5.0); Potassium 3.7 mmol/L (3.5-5.1); Protein, Total 7.4 g/dL (6.4-8.2)
--- NOTE | 2022-03-04 18:44 | RAD REPORT ---
EXAM DESCRIPTION: CTAbdomen Pelvis W Contrast - 03/04/2022 6:22 pm CLINICAL HISTORY: Abdominal pain, acute, nonlocalized COMPARISON: <Comparisons> TECHNIQUE: CT of the abdomen and pelvis was performed with IV contrast. All CT scans are performed using dose optimization technique as appropriate and may include automated exposure control or mA/KV adjustment according to patient size. FINDINGS: Lower chest: No acute abnormality. Liver: No acute abnormality or suspicious lesions. Biliary: Cholecystectomy. Extrahepatic biliary duct dilatation may be related to the postcholecystect luis state. Stomach: No significant focal abnormality. Duodenum: No significant focal abnormality. Pancreas: No significant abnormality. Spleen: No significant abnormality. Adrenal: No suspicious lesions. Kidney/ureter: No hydronephrosis. No renal calculi. Too small to characterize and/or benign appearing renal lesions are noted. Renal scarring bilaterally. Retroperitoneum: No retroperitoneal adenopathy. Vascular: No aneurysm. Bowel: Small bowel obstruction with transition point in the midline pelvis. At the transition, the wa ll of the small bowel is hypoenhancing.. Diverticulosis. Peritoneum: Small volume of ascites. Fat containing ventral hernia. Fat containing umbilical hernia. Bladder: Grossly unremarkable. Reproductive: No adnexal masses. Bones: Remote appearing L1 and L4 compression fractures. Multilevel degenerative changes are present in the spine. Other: n/a IMPRESSION: Findings are suspicious for a closed loop small-bowel obstruction. Two transition points are located in the pelvis where the small bowel is sharply angulated. The wall of the small bowel at one of the transition points is hypoenhancing and may be either ischemic or necrotic. Recommend surg ical consultation. Discussed with Jana Mcdonnell by Dr. Hutchins at 1832 on 03/04/22
[2022-03-04] MEDS ORDERED: METRONIDAZOLE 500mg IVPB 500 MG/100 ML BAG IV ONE (19:45)
[2022-03-04] MEDS ORDERED: CIPROFLOXACIN 400mg IV 400 MG/200 ML BAG IV ONE (19:45)
[2022-03-04] MEDS ORDERED: NA CHLORIDE 0.9% 1,000 ML ONE (19:45)
--- NOTE | 2022-03-04 20:02 | RAD REPORT ---
EXAM DESCRIPTION: RAD - Chest Single View - 03/04/2022 7:46 pm CLINICAL HISTORY: preop COMPARISON: Chest Single View dated 01/13/2019; Chest Single View dated 02/04/2018; Chest Single View dated 09/22/2017; Chest Single View dated 08/17/2017 FINDINGS: Lines: None. Lungs: Coarsening of the interstitium. Opacities in the medial aspect of the right lung base have res olved. Pleural: No significant pleural effusions or pneumothorax. Cardiac: The heart size is within normal limits. Mediastinum: Within normal limits. Bones: No acute fractures. Other: None IMPRESSION: No acute cardiopulmonary disease.
--- NOTE | 2022-03-04 20:50 | EDPHYS ---
Physician Documentation [facility] Name: Meme Rushing Age: 81 yrs Sex: Female : 1940 Arrival Date: 03/04/2022 Time: 15:39 Bed 17 Private MD: ED Physician Abiodun Pruett HPI: 03/04 17:09 This 81 yrs old Female presents to ER via Wheelchair with complaints of snw Abdominal Pain, Vomiting. 17:09 The patient presents with abdominal pain in the epigastric area, in the upper abdomen. snw Onset: The symptoms/episode began/occurred suddenly, 4 day(s) ago, and became worse this morning, and became persistent. The symptoms do not radiate. Associated signs and symptoms: Pertinent positives: nausea and vomiting. The symptoms are described as stabbing, steady. Severity of pain: At its worst the pain was severe in the emergency department the pain is unchanged. It is unknown whether or not the patient has had similar symptoms in the past. The patient has not recently seen a physician, sees Dr. Mike. Historical: - Allergies: 16:07 Aspirin; kb3 16:07 Ibuprofen; kb3 16:07 Lisinopril; kb3 16:07 PENICILLINS; kb3 - PMHx: 16:07 ADD/ADHD; CHF; COPD; CVA; Diverticulitis; Hyperlipidemia; Hypertension; polyps and kb3 diverticuli in esophagus-had removed and now has more; Renal Disease; Hernia; - Immunization history:: Adult Immunizations up to date, Client reports receiving the 2nd dose of the Covid vaccine, Last tetanus immunization: up to date. - Social history:: Smoking status: Patient denies any tobacco usage or history of. ROS: 17:09 Constitutional: Negative for fever, chills, and weight loss, Eyes: Negative for injury, snw pain, redness, and discharge, ENT: Negative for injury, pain, and discharge, Neck: Negative for injury, pain, and swelling, Cardiovascular: Negative for chest pain, palpitations, and edema, Respiratory: Negative for shortness of breath, cough, wheezing, and pleuritic chest pain, Back: Negative for injury and pain, : Negative for injury, bleeding, discharge, and swelling, MS/Extremity: Negative for injury and deformity, Skin: Negative for injury, rash, and discoloration, Neuro: Negative for headache, weakness, numbness, tingling, and seizure. 17:09 Abdomen/GI: Positive for abdominal pain, nausea and vomiting. Exam: 17:07 Constitutional: This is a well developed, well nourished patient who is awake, alert, snw and in no acute distress. Head/Face: Normocephalic, atraumatic. Eyes: Pupils equal round and reactive to light, extra-ocular motions intact. Lids and lashes normal. Conjunctiva and sclera are non-icteric and not injected. Cornea within normal limits. Periorbital areas with no swelling, redness, or edema. ENT: Nares patent. No nasal discharge, no septal abnormalities noted. Tympanic membranes are normal and external auditory canals are clear. Oropharynx with no redness, swelling, or masses, exudates, or evidence of obstruction, uvula midline. Mucous membranes moist. Neck: Trachea midline, no thyromegaly or masses palpated, and no cervical lymphadenopathy. Supple, full range of motion without nuchal rigidity, or vertebral point tenderness. No Meningismus. Chest/axilla: Normal chest wall appearance and motion. Nontender with no deformity. No lesions are appreciated. Cardiovascular: Regular rate and rhythm with a normal S1 and S2. No gallops, murmurs, or rubs. Normal PMI, no JVD. No pulse deficits. Respiratory: Lungs have equal breath sounds bilaterally, clear to auscultation and percussion. No rales, rhonchi or wheezes noted. No increased work of breathing, no retractions or nasal flaring. 17:07 Back: No spinal tenderness. No costovertebral tenderness. Full range of motion. Skin: Warm, dry with normal turgor. Normal color with no rashes, no lesions, and no evidence of cellulitis. MS/ Extremity: Pulses equal, no cyanosis. Neurovascular intact. Full, normal range of motion. Neuro: Awake and alert, GCS 15, oriented to person, place, time, and situation. Cranial nerves II-XII grossly intact. Motor strength 5/5 in all extremities. Sensory grossly intact. Cerebellar exam normal. Normal gait. 17:07 Abdomen/GI: Inspection: distension, that is mild, Bowel sounds: normal, Palpation: moderate abdominal tenderness, in the epigastric area, right upper quadrant and left upper quadrant, Hernia: noted in the epigastric area, tenderness, that is mild. Vital Signs: 16:05 BP 181 / 80; Pulse 82; Resp 20; Temp 98.2; Pulse Ox 96% ; Weight 47.63 kg; Height 5 ft. kb3 0 in. (152.40 cm); Pain 10/10; 17:48 BP 194 / 66; Pulse 70; Resp 18; Pulse Ox 100% on R/A; db 21:57 BP 158 / 77; Pulse 76; Resp 16; Pulse Ox 96% on R/A; bb 22:38 BP 185 / 53; Pulse 78; Resp 18 S; Pulse Ox 97% on R/A; bb 23:44 BP 185 / 68; Pulse 76; Resp 16; Pulse Ox 97% on R/A; bb 16:05 Body Mass Index 20.51 (47.63 kg, 152.40 cm) kb3 MDM: 16:34 Patient medically screened. snw 18:40 Data reviewed: vital signs, nurses notes. Data interpreted: Pulse oximetry: on room air snw is 100 %. Interpretation: normal. Counseling: I had a detailed discussion with the patient and/or guardian regarding: the historical points, exam findings, and any diagnostic results supporting the discharge/admit diagnosis, lab results, radiology results, the need for further work-up and treatment in the hospital. Physician consultation: Primitivo Dorman MD. 20:46 Physician consultation: Lily Jesus PA-C was called at 19:00, was contacted at 19:00, snw regarding admission, to the telemetry unit. would like admission per Dr. Dominik Piper. 03/04 16:35 Order name: CBC with Diff; Complete Time: 17:33 snw 03/04 16:35 Order name: CMP; Complete Time: 18:18 snw 03/04 16:35 Order name: Lipase; Complete Time: 18:18 snw 03/04 17:07 Order name: Urine Culture snw 03/04 17:07 Order name: Urine Microscopic Only; Complete Time: 17:52 snw 03/04 17:45 Order name: Urine Dipstick-Ancillary; Complete Time: 17:46 EDMS 03/04 16:35 Order name: Abdomen Limited US; Complete Time: 17:33 snw 03/04 17:06 Order name: CT Abd/Pelvis - IV Contrast Only; Complete Time: 18:50 snw 03/04 18:35 Order name: Lactate; Complete Time: 20:40 snw 03/04 18:35 Order name: Troponin High Sensitivity; Complete Time: 20:40 snw 03/04 18:35 Order name: Blood Culture Adult (2) [facility] 03/04 18:38 Order name: Chest Single View XRAY; Complete Time: 20:06 snw 03/04 21:56 Order name: SARS-COV-2 Antigen Rapid; Complete Time: 22:35 ke1 03/04 22:15 Order name: XRAY Chest (1 view) 03/04 16:35 Order name: IV Saline Lock; Complete Time: 17:16 snw 03/04 16:35 Order name: Labs collected and sent; Complete Time: 17:16 snw 03/04 16:36 Order name: EKG; Complete Time: 16:36 snw 03/04 16:36 Order name: EKG - Nurse/Tech; Complete Time: 17:08 snw 03/04 17:07 Order name: Urine Dipstick-Ancillary (obtain specimen); Complete Time: 17:44 snw 03/04 17:45 Order name: Labs - recollect needed; Complete Time: 17:56 eb 03/04 19:46 Order name: NG Tube; Complete Time: 22:20 snw EC:00 Rate is 71 beats/min. Rhythm is regular. QRS [place] is Normal. Q waves are Present in snw lead V1. T waves are Inverted in leads II, III, aVF, V2, V3, V4. Clinical impression: NSR w/ Non-specific ST/T Changes. Administered Medications: 17:53 Drug: fentaNYL (PF) 25 mcg Route: IVP; Site: right antecubital; em6 20:24 Drug: NS 0.9% 1000 ml Route: IV; Rate: 75 ml/hr; Site: right antecubital; 03/05 01:08 Follow up: IV Status: Infusion continued upon admission 03/04 20:25 Drug: Flagyl (metroNIDAZOLE) 500 mg Volume: 100 ml; Route: IVPB; Rate: 200 ml/hr; bb Infused Over: 30 mins; Site: right antecubital; 21:00 Follow up: IV Status: Completed infusion bb 21:00 Drug: Cipro (ciprofloxacin) 400 mg Volume: 200 ml; Route: IVPB; Infused Over: 60 mins; bb Site: right antecubital; 22:00 Follow up: IV Status: Completed infusion; IV Intake: 200ml bb 22:35 Drug: Zofran (Ondansetron) 4 mg Route: IVP; Site: right antecubital; bb 23:32 Follow up: Response: No adverse reaction bb 22:37 Drug: morphine 4 mg Route: IVP; Infused Over: 4 mins; Site: right antecubital; bb 23:30 Follow up: Response: Pain is decreased bb Disposition Summary: 03/04/22 20:49 Hospitalization Ordered Hospitalization Status: Inpatient Admission snw Provider: Dominik Piper snkwan Location: Telemetry/MedSurg (Inpatient) snw Condition: Fair snw Problem: new snw Symptoms: are unchanged snw Bed/Room Type: Standard snw Room Assignment: 411(03/04/22 23:32) tw5 Diagnosis - Other and unspecified intestinal obstruction snw - Dehydration snw Forms: - Medication Reconciliation Form snw - SBAR form snw Signatures: Dispatcher [employer] EDMS Ana Mcdonnell, ACCOUNTANT BOOKKEEPER-C ACCOUNTANT BOOKKEEPER-Csnw Sri Pate RN RN bb Carol Cedeno Tiffany tw5 Paulina Dorman RN RN em6 Kirstin Contreras RN RN kb3 Lily Jesus, PA-C PA-C sb4 Corrections: (The following items were deleted from the chart) 23:32 20:49 snw tw5
--- NOTE | 2022-03-04 20:50 | ER ---
Nurse's Notes [facility] Name: Meme Rushing Age: 81 yrs Sex: Female : 1940 Arrival Date: 03/04/2022 Time: 15:39 Bed 17 Private MD: Diagnosis: Other and unspecified intestinal obstruction;Dehydration Presentation: 03/04 16:05 Chief complaint: Patient states: Pt reports epigastric pain and vomiting x2 days. kb3 Denies fever and diarrhea. Coronavirus screen: Vaccine status: Patient reports receiving the 2nd dose of the covid vaccine. Client denies travel out of the [place] in the last 14 days. Ebola Screen: Patient negative for fever greater than or equal to 101.5 degrees Fahrenheit, and additional compatible Ebola Virus Disease symptoms Patient denies exposure to infectious person. Patient denies travel to an Ebola-affected area in the 21 days before illness onset. Initial Sepsis Screen: Does the patient meet any 2 criteria? No. Patient's initial sepsis screen is negative. Does the patient have a suspected source of infection? No. Patient's initial sepsis screen is negative. Risk Assessment: Do you want to hurt yourself or someone else? Patient reports no desire to harm self or others. Onset of symptoms was March 02, 2022. 16:05 Method Of Arrival: Wheelchair kb3 16:05 Acuity: RODY 3 kb3 Triage Assessment: 16:07 General: Appears uncomfortable, ill, Behavior is calm, cooperative. Pain: Complains of kb3 pain in epigastric area Pain does not radiate. Pain currently is 9 out of 10 on a pain scale. GI: Reports upper abdominal pain, nausea, vomiting. Historical: - Allergies: 16:07 Aspirin; kb3 16:07 Ibuprofen; kb3 16:07 Lisinopril; kb3 16:07 PENICILLINS; kb3 - PMHx: 16:07 ADD/ADHD; CHF; COPD; CVA; Diverticulitis; Hyperlipidemia; Hypertension; polyps and kb3 diverticuli in esophagus-had removed and now has more; Renal Disease; Hernia; - Immunization history:: Adult Immunizations up to date, Client reports receiving the 2nd dose of the Covid vaccine, Last tetanus immunization: up to date. - Social history:: Smoking status: Patient denies any tobacco usage or history of. Screenin:48 Abuse screen: Denies threats or abuse. Denies injuries from another. Nutritional db screening: No deficits noted. Tuberculosis screening: No symptoms or risk factors identified. Fall Risk None identified. No fall in past 12 months (0 pts). No secondary diagnosis (0 pts). IV access (20 points). Ambulatory Aid- None/Bed Rest/Nurse Assist (0 pts). Gait- Normal/Bed Rest/Wheelchair (0 pts) Mental Status- Oriented to own ability (0 pts). Total Couch Fall Scale indicates No Risk (0-24 pts). Assessment: 18:13 Reassessment: Patient appears in no apparent distress at this time. Patient is alert, db oriented x 3, equal unlabored respirations, skin warm/dry/pink. patient came in with upper middle abdominal pain with nausea and vomiting. Vomited prior to receiving medication. General: Appears in no apparent distress. comfortable. Pain: Denies pain. Neuro: No deficits noted. Level of Consciousness is awake, alert, obeys commands, Oriented to person, place, time, situation, Appropriate for age Speech is normal, Facial symmetry appears normal, Pupils are PERRLA. Cardiovascular: No deficits noted. Respiratory: No deficits noted. 20:25 Reassessment: Patient is alert, oriented x 3, equal unlabored respirations, skin bb warm/dry/pink. pt vomiting EDP notified will apply NG tube as ordered. 21:30 Reassessment: Attempt to insert NG tube X 2 failed. ke1 22:15 Reassessment: Patient is alert, oriented x 3, equal unlabored respirations, skin bb warm/dry/pink. [address] to right nare pt tolerated well. 22:38 Reassessment: pt c/o pain to throat Onelia BRIONES notified new orders received pt bb medicated see JUN. Pt awaiting room assignment IV site intact, patent with fluids infusing. 23:10 Reassessment: Dr Dorman at bedside for pt evaluation. bb 23:43 Reassessment: Patient is alert, oriented x 3, equal unlabored respirations, skin bb warm/dry/pink. Onelia BRIONES at bedside to discuss admission pt verbalized understanding of and agrees to plan of care. NG tube in place to low intermittent suction, IV site intact patent with fluids infusing. 03/05 00:15 Reassessment: report give to Carmelo PARIS for room 411. bb Vital Signs: 03/04 16:05 BP 181 / 80; Pulse 82; Resp 20; Temp 98.2; Pulse Ox 96% ; Weight 47.63 kg; Height 5 ft. kb3 0 in. (152.40 cm); Pain 10/10; 17:48 BP 194 / 66; Pulse 70; Resp 18; Pulse Ox 100% on R/A; db 21:57 BP 158 / 77; Pulse 76; Resp 16; Pulse Ox 96% on R/A; bb 22:38 BP 185 / 53; Pulse 78; Resp 18 S; Pulse Ox 97% on R/A; bb 23:44 BP 185 / 68; Pulse 76; Resp 16; Pulse Ox 97% on R/A; bb 16:05 Body Mass Index 20.51 (47.63 kg, 152.40 cm) kb3 ED Course: 15:39 Patient arrived in ED. as 16:07 Triage completed. kb3 16:07 Arm band placed on right wrist. kb3 16:34 A[facility]cd[facility]nell [facility]-C [facility] snw 16:34 Abiodun Pruett MD is Attending Physician. snw 16:37 Rupa Cortez, RAINA is Primary Nurse. db 17:10 Inserted saline lock: 20 gauge in right antecubital area, using aseptic technique. db Missed attempt(s): 20 gauge in left antecubital area. Bleeding controlled, band aid applied, catheter tip intact. 17:21 Abdomen Limited US In Process Unspecified. EDMS 18:26 CT Abd/Pelvis - IV Contrast Only In Process Unspecified. EDMS 19:22 Patient has correct armband on for positive identification. Bed in low position. Call db light in reach. Side rails up X 1. Pulse ox on. Warm blanket given. 19:23 Report given to RAINA Fierro. db 19:48 Chest Single View XRAY In Process Unspecified. EDMS 20:47 Dominik Piper is Hospitalizing Provider. snw 22:14 NGT: inserted 16 Fr. via right nare. verified placement of air over stomach, verified bb return of gastric contents, Placement verified by X-ray, to intermittent suction. Patient tolerated well. 22:55 XRAY Chest (1 view) In Process Unspecified. EDMS 03/05 01:06 No provider procedures requiring assistance completed. Patient admitted, IV remains in bb place. Administered Medications: 03/04 17:53 Drug: fentaNYL (PF) 25 mcg Route: IVP; Site: right antecubital; em6 20:24 Drug: NS 0.9% 1000 ml Route: IV; Rate: 75 ml/hr; Site: right antecubital; bb 03/05 01:08 Follow up: IV Status: Infusion continued upon admission bb 03/04 20:25 Drug: Flagyl (metroNIDAZOLE) 500 mg Volume: 100 ml; Route: IVPB; Rate: 200 ml/hr; bb Infused Over: 30 mins; Site: right antecubital; 21:00 Follow up: IV Status: Completed infusion bb 21:00 Drug: Cipro (ciprofloxacin) 400 mg Volume: 200 ml; Route: IVPB; Infused Over: 60 mins; bb Site: right antecubital; 22:00 Follow up: IV Status: Completed infusion; IV Intake: 200ml bb 22:35 Drug: Zofran (Ondansetron) 4 mg Route: IVP; Site: right antecubital; bb 23:32 Follow up: Response: No adverse reaction bb 22:37 Drug: morphine 4 mg Route: IVP; Infused Over: 4 mins; Site: right antecubital; bb 23:30 Follow up: Response: Pain is decreased bb Medication: 17:48 VIS not applicable for this client. db Intake: 22:00 IV: 200ml; Total: 200ml. bb Outcome: 20:49 Decision to Hospitalize by Provider. snw 23:45 Instructed on the need for admit. bb 03/05 01:07 Admitted to Tele accompanied by tech, via stretcher, room 411, with chart. bb Condition: stable 01:08 Patient left the ED. bb Signatures: Dispatcher [employer] EDMS Ana Mcdonnell FNP-C ACCOUNTS RECEIVABLE COORDINATOR-Selam Yuen Brenda RN RN bb Deni Tovar RN RN ke1 Paulina Dorman RN RN em6 Kirstin Contreras, RAINA RN kb3 Rupa Cortez RN RN db
[2022-03-04] MEDS ORDERED: LIDOCAINE VISCOUS 2% SOLN 15 ML UDC ONE (21:34)
[2022-03-04] MEDS ORDERED: MORPHINE 4 MG/ML SYR ONE (22:30)
[2022-03-04 22:31] LABS: SARS-CoV-2 Antigen Rapid Res Negative (Negative)
[2022-03-04] MEDS ORDERED: ONDANSETRON 4 MG/2 ML VIAL ONE (22:31)
--- NOTE | 2022-03-04 23:36 | P.HP ---
Certification for Inpatient Patient admitted to: Inpatient With expected LOS: >2 Midnights Patient will require the following post-hospital care: None Practitioner: I am a practitioner with admitting privileges, knowledge of patient current condition, hospital course, and medical plan of care. Services: Services provided to patient in accordance with Admission requirements found in Title 42 Section 412.3 of the Code of Federal Regulations Patient History Date of Service: 03/05/22 Primary Care Provider: Rashid Reason for admission: SBO History of Present Illness: Patient is an 81 year old female with history of CKD3, COPD, HTN, HLD, GERD, chronic diastolic CHF, and CVA who presented to the ED with complaints of abdominal pain, nausea, and vomiting x 4 days. Labs are significant for WBC 18.6 with left shift, BUN 29, Cr 1.6, troponin HS 86.1. Abdominal ultrasound showed "Cholecystectomy. Common bile duct is obscured by bowel gas." Follow up CT abdomen pelvis showed "Findings are suspicious for a closed loop small-bowel obstruction. Two transition points are located in the pelvis where the small bowel is sharply angulated. The wall of the small bowel at one of the transition points is hypoenhancing and may be either ischemic or necrotic." CT NSR with nonspecific ST changes. Patient denies chest pain. She states that she has not seen a lye peel operator in several years. NG tube was inserted in ED. She was additionally given 1L fluid, cipro, flagyl. Dr. Dorman has agreed to consult with cardiac clearance. She is admitted for further management. Allergies Penicillins Allergy (Intermediate, Verified 03/17/13 23:37) SWELLING lisinopril Allergy (Mild, Verified 03/17/13 23:37) Hives/Rash grapefruit Allergy (Verified 04/01/15 16:10) Hives/Rash aspirin Adverse Reaction (Verified 12/04/16 20:20) Shortness of breath Home Medications: ALPRAZolam [Xanax*] 0.5 mg PO BID PRN 04/25/13 Amlodipine [Norvasc*] 5 mg PO DAILY 04/25/13 Clopidogrel Bisulfate [Clopidogrel] 75 mg PO DAILY 04/25/13 Escitalopram Oxalate 20 mg PO DAILY 04/25/13 Furosemide [Lasix*] 20 mg PO DAILY 04/25/13 Mirtazapine [Remeron*] 15 mg PO BEDTIME 04/25/13 Pregabalin [Lyrica*] 50 mg PO BID 04/25/13 carvediloL [Coreg*] 6.25 mg PO BID 04/25/13 Budesonide/Formoterol Fumarate [Symbicort 160-4.5 Mcg Inhaler] 2 puff IH BID 11/19/14 Pantoprazole [Protonix Tab*] 40 mg PO DAILY 11/19/14 Cholecalciferol (Vitamin D3) [Decara] 50,000 unit PO EVERY 7TH DAY 12/04/16 Iron Cr 27 mg PO DAILY 08/18/17 Albuterol Sulfate [Proair Hfa] 2 puff IH PRN 02/04/18 Albuterol Neb [Proventil 0.083% Neb Soln] 2.5 mg NEB Q6HP PRN 30 Days amp 02/07/18 levoFLOXacin [Levaquin*] 750 mg PO DAILY #6 tab 02/07/18 predniSONE [Deltasone*] 10 mg PO BID #12 tab 02/07/18 - Past Medical/Surgical History Diabetic: No -: Chronic renal disease -: copd -: 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 - Family History Sister -: Diabetes Brother -: Cancer Father -: Cancer Notes: bone, esophageal cx Mother -: Cancer Notes: gallbladder cx - Social History Smoking Status: Former smoker Alcohol use: No CD- Drugs: No Caffeine use: No Place of Residence: Home Review of Systems Gastrointestinal: Nausea, Vomiting, Abdominal Pain Physical Examination - Physical Exam General: Alert, In no apparent distress HEENT: Atraumatic, PERRLA, EOMI, Sclerae nonicteric Neck: Supple, 2+ carotid pulse no bruit, No LAD, Without JVD or thyroid abnormality Respiratory: Clear to auscultation bilaterally, Normal air movement Cardiovascular: Regular rate/rhythm, Normal S1 S2 Gastrointestinal: Normal bowel sounds, No tenderness Musculoskeletal: No tenderness Integumentary: No rashes Neurological: Normal speech, Normal strength at 5/5 x4 extr, Normal tone, Normal affect - Studies Laboratory Data (last 24 hrs) 03/04/22 17:53: Sodium 143, Potassium 3.7, BUN 29 H, Creatinine 1.61 H, Glucose 154 H, Total Bilirubin 1.0, AST 20, ALT 17, Alkaline Phosphatase 65, Lipase 34 L 03/04/22 17:15: WBC 18.60 H, Hgb 13.8, Hct 41.3, Plt Count 176 Assessment and Plan - Problems (Diagnosis) (1) Small bowel obstruction Current Visit: Yes Status: Acute (2) GERD (gastroesophageal reflux disease) Current Visit: Yes Status: Chronic Qualifiers: Esophagitis presence: without esophagitis Qualified Code(s): K21.9 - Gastro-esophageal reflux disease without esophagitis (3) CKD (chronic kidney disease), stage III Current Visit: Yes Status: Chronic Qualifiers: Chronic kidney disease stage 3 subtype: stage 3b (GFR 30-44) Qualified Code(s): N18.32 - Chronic kidney disease, stage 3b (4) COPD (chronic obstructive pulmonary disease) Current Visit: Yes Status: Chronic Qualifiers: COPD type: chronic bronchitis Chronic bronchitis type: unspecified Qualified Code(s): J42 - Unspecified chronic bronchitis (5) HTN (hypertension) Current Visit: Yes Status: Chronic Qualifiers: Hypertension type: primary hypertension Qualified Code(s): I10 - Essential (primary) hypertension (6) Hyperlipidemia Current Visit: Yes Status: Chronic Qualifiers: Hyperlipidemia type: unspecified Qualified Code(s): E78.5 - Hyperlipidemia, unspecified (7) Elevated troponin Current Visit: Yes Status: Acute - Plan Dr. Dorman consulting. Cardiology consulted for cardiac clearance. NG tube in place, low to intermittent suction. NPO. IVF. Pain medications and antiemetics as needed. Cipro and flagyl. Troponin HS slightly elevated at 86.1. Patient denies chest pain. She reports aspirin allergy but cannot specify what reaction she has. Trend serial cardiac enzymes. Monitor on telemetry. Monitor and replete electrolytes per protocol Reconcile and continue home medications Lovenox for VTE prophylaxis Full code Discharge Plan: Home Plan to discharge in: Greater than 2 days - Advance Directives Does patient have a Living Will: Yes Does patient have a Durable POA for Healthcare: No - Code Status/Comfort Care Code Status Assessed: Yes (Full) Critical Care: No Time Spent Managing Pts Care (In Minutes): 50
[2022-03-05] MEDS ORDERED: NA CHLORIDE 0.9% 1,000 ML IV SCH (01:11)
--- NOTE | 2022-03-05 01:44 | CON ---
Date of Consultation: 03/04/2022 Reason For Service: Abdominal pain. History Of Present Illness: This is a case of an 81-year-old patient who comes to the hospital today after having 4 days history of abdominal pain. She describes the pain as crampy in nature. She kiara cribes it mainly on the epigastric area. At the beginning apparently, they were thinking she may hav e some gallbladder issues and they were doing an ultrasound of the upper abdomen, but she has no gall bladder and instead they did a CT scan and found the patient to have a small bowel obstruction and mu ltiple hernias and multiple findings. She denies any dysuria, hematuria, hematochezia, or melena. D enies any recent traveling out of the country. Denies any family member sick at home. She does not remember the last colonoscopy. Review of Systems: Ten points otherwise unremarkable. Allergies: ASPIRIN, IBUPROFEN, LISINOPRIL, AND PENICILLIN. Past Medical History: Includes ADD, congestive heart failure, COPD, CVA, diverticulitis, hyperlipide olamide, hypertension. She said she had some esophageal diverticulum removed. She has renal disease and hiatal hernia. Social History: She does not smoke. She does not drink alcohol. Medications: Reviewed. Physical Examination: General: The patient is awake and alert. Eyes: Pupils are equal and reactive. Anicteric. Neck: Supple. Chest: Clear. Abdomen: Softly distended. She said she feels better now compared to when she came initially, altho ugh she had received some pain medication. No rebound tenderness at this moment. Pelvic: Deferred. Rectal: Deferred. Extremities: Good capillary refill. Laboratory Data: Blood work shows WBC count of 18, hemoglobin of 13, platelets of 176. BUN is 29, c reatinine is 1.61. Ultrasound of the abdomen and pelvis shows cholecystectomy done. CAT scan of the abdomen and pelvis shows findings suspicious for closed loop small bowel obstruction. There is fat containing ventral hernia. There is fat containing umbilical hernia. In the area of the pelvis, alt karin she does not have any pain in that area, there is a small bowel obstruction transition point. The wall of the small bowel has hypoenhancing diverticulosis. Assessment: This is an 81-year-old patient with abdominal pain who happened to have also small bowel obstruction and multiple hernias, although at this moment, does not seem to be the cause of that. T here is a transition point in the area of the pelvis, although her pain is in the epigastric area. F rom the surgical standpoint, we are going to put her on bowel rest and nasogastric decompression and started antibiotics. I explained to her the option of exploratory laparotomy, possible bowel resecti on, possible ostomy with benefits, alternatives, and risks including, but not limited to infection, b leeding, damage to adjacent structures, anesthesia complication, myocardial infarction, and even deat h. She understands that. She also has history of cardiac clearance, we are waiting for the cardiac evaluation to proceed accordingly. She understands that the reason we may have to do laparotomy is b ecause of the CAT scan findings and make sure that bowel was not compromised. She understands we hollie l see how Cardiology sees this patient and then if they believe this may be done in this institution, we will proceed accordingly. TEDDY/CLINT Voice ID: [id number] Report ID: [id number]
[2022-03-05 01:55] LABS: CKMB Creatine Kinase MB 3.2 ng/mL (1.0-3.6)
[2022-03-05] MEDS: METRONIDAZOLE 500mg IVPB 500 MG/100 ML BAG IV SCH ×3 (02:08→17:10)
[2022-03-05] MEDS: MORPHINE 4 MG/ML SYR IV PRN ×4 (02:09→18:36)
[2022-03-05 04:10] LABS: Absolute Lymphocytes (CBC) 1.6 K/uL (0.7-4.9); Hematocrit 36.4 % (36.0-45.0); Lymphocytes % 11.6 % (15.3-44.8); MCV 95.8 fL (80-100); MPV 9.5 fL (7.6-11.3)
[2022-03-05 04:41] LABS: Magnesium 2.1 mg/dL (1.8-2.4); Phosphorus 2.6 mg/dL (2.5-4.9); Potassium 3.4 mmol/L (3.5-5.1); Thyroid Stimulating Hormone 0.481 uIU/mL (0.360-3.740)
[2022-03-05] MEDS: CIPROFLOXACIN 400mg IV 400 MG/200 ML BAG IV SCH ×2 (08:57→21:08)
[2022-03-05] MEDS ORDERED: ENOXAPARIN 30 MG/0.3 ML SQ SCH (09:00)
[2022-03-05] MEDS: HYDRALAZINE HCL 20 MG/ML VIAL IV PRN (09:34)
[2022-03-05] MEDS ORDERED: INFLUENZA VACCINE (for 6+ mo) 0.5 ML DOSE IMVAC ONE (10:00)
[2022-03-05] MEDS ORDERED: Ringers Lactate 1,000 ML IV ONE (10:36)
[2022-03-05] MEDS ORDERED: propofoL 200 MG/20 ML VIAL IV ONE (11:24)
[2022-03-05] MEDS ORDERED: ROCURONIUM 50 MG/5 ML VIAL IV ONE (11:24)
[2022-03-05] MEDS ORDERED: LIDOCAINE 2% MPF 5 ML VIAL ONE (11:24)
[2022-03-05] MEDS ORDERED: Phenylephrine HCl 10 MG/ML 1 ML VIAL ONE (11:25)
[2022-03-05] MEDS ORDERED: FENTANYL CITR 100 MCG/2 ML ONE (11:25)
[2022-03-05] MEDS ORDERED: GLYCOPYRROLATE 0.2 MG/ML SYR ONE ×2 (11:25→12:32)
[2022-03-05] MEDS ORDERED: SUCCINYLCHOLINE 20 MG/ML (10 ML) IV ONE (11:30)
[2022-03-05] MEDS ORDERED: dexAMETHasone 10 MG/ML VIAL ONE (12:16)
[2022-03-05] MEDS ORDERED: ONDANSETRON 4 MG/2 ML VIAL ONE (12:16)
[2022-03-05] MEDS ORDERED: LABETALOL 20 MG/4ML SYRINGE IV ONE (12:16)
[2022-03-05] MEDS ORDERED: NEOSTIGMINE 1 MG/ML -5 ML ONE (12:32)
[2022-03-05] MEDS ORDERED: MORPHINE 2 MG/ML SYR IV PRN (12:48)
--- NOTE | 2022-03-05 12:52 | P.BOP ---
Preoperative diagnosis: SBO Postoperative diagnosis: same Primary procedure: 1. Exploratory laparotomy, 2. small bowel resection with anastomosis Secondary procedure: 3. Extensive lysis of adhesions, 4. incarcerated ventral hernia repair Other procedure(s): 5. umbilical hernia repair Corporate Legal Manager: Odalis Marie (Misti) Estimated blood loss: 100cc Specimen: small bowel Findings: see dictation Anesthesia: General Complications: None Transferred to: Recovery Room Condition: Good
[2022-03-05] MEDS: HYDROMORPHONE HCL 1 MG/ML INJ ONE ×2 (13:02→13:12)
[2022-03-05] MEDS ORDERED: MORPHINE 4 MG/ML SYR ONE (13:23)
--- NOTE | 2022-03-05 14:56 | P.PN ---
Subjective Date of Service: 03/05/22 Primary Care Provider: Rashid Chief Complaint: SBO Patient with NG tube draining bilious fluid. She is complaining of abdominal pain. Physical Examination - Vital Signs Temperature: 97.9 F Blood Pressure: 146/53 Pulse: 72 Respirations: 20 Pulse Ox (%): 100 - Studies Laboratory Data (last 24 hrs) 03/04/22 17:53: Sodium 143, Potassium 3.7, BUN 29 H, Creatinine 1.61 H, Glucose 154 H, Total Bilirubin 1.0, AST 20, ALT 17, Alkaline Phosphatase 65, Lipase 34 L 03/04/22 17:15: WBC 18.60 H, Hgb 13.8, Hct 41.3, Plt Count 176 Microbiology Data (last 24 hrs): 03/04/22 19:47 Blood - Blood Anaerobic Blood Culture - Final Assessment And Plan - Current Problems (Diagnosis) (1) Small bowel obstruction Current Visit: Yes Status: Acute (2) CKD (chronic kidney disease), stage III Current Visit: Yes Status: Chronic Qualifiers: Chronic kidney disease stage 3 subtype: stage 3b (GFR 30-44) Qualified Code(s): N18.32 - Chronic kidney disease, stage 3b (3) HTN (hypertension) Current Visit: Yes Status: Chronic Qualifiers: Hypertension type: primary hypertension Qualified Code(s): I10 - Essential (primary) hypertension - Plan Physical Exam General: Alert, In no apparent distress ENT: NG tube to suction. Respiratory: Clear to auscultation bilaterally, Normal air movement Cardiovascular: Regular rate/rhythm, Normal S1 S2 Gastrointestinal: Hyperactive bowel sounds, no tenderness Musculoskeletal: No tenderness Integumentary: No rashes Neurological: No focal motor deficit. Plan: Patient seen by cardiology-Dr. Obando and cleared for surgery. Dr. Dorman seen patient. Patient planned for surgery today. Continue supportive measures with IV hydration. Pain management as needed. Empiric antibiotic. Monitor and optimize electrolytes. Hydralazine as needed for BP spikes.
[2022-03-05] MEDS ORDERED: NA CHLORIDE 0.9% 500 ML IV ONE (15:36)
[2022-03-05] MEDS: NA CHLORIDE 0.9% 1,000 ML IV SCH ×2 (16:00→21:14)
--- NOTE | 2022-03-05 19:23 | CON ---
Date of Consultation: 03/05/2022 I saw the patient on 03/05/2022. Reason For Consultation: Cardiac clearance for small bowel obstruction surgery by Dr. Dorman. History Of Present Illness: Ms. Rushing is 81. Has a history of COPD, CVA, chronic renal disease, ADD, hypertension, dyslipidemia, and congestive heart failure. Had had a normal heart catheterizati on in the past and apparently she used to see Dr. Herrera, then she saw myself and then she saw Dr. Aguiar [facility], but for insurance purposes, Dr. Warren told her she does not have congestive heart failure, she h as not gone back to him since. She comes in without any cardiac symptoms. Small bowel obstruction, surgery is planned. Past Medical History: As stated above. Allergies: SHE IS ALLERGIC TO ASPIRIN, PENICILLIN, GRAPE FRUIT, AND LISINOPRIL. Review of Systems: Negative. Social History: Negative. Family History: Noncontributory. Medications: At home include Coreg, losartan, Lovenox, inhalers, Norvasc, clonidine, Lasix, allopuri nol, and Pepcid. Physical Examination: General: She was pleasant, no acute distress. Vital Signs: Stable, afebrile. NG tube in place. HEENT: Negative, otherwise. Neck: Supple with no bruit, lymphadenopathy, JVD, or thyromegaly. Chest: Clear to auscultation and percussion. Cardiac: Revealed a regular rhythm and rate with an S4 gallop. No murmurs or rubs. Abdomen: Benign. Extremities: Revealed no clubbing, cyanosis, or edema. Diagnostic Data: Creatinine is 1.34. Chest x-ray is negative. EKG showed nonspecific changes. i te count is 18,000. Impression And Plan: 1.Ms. Rushing is a patient with questionable congestive heart failure by history. She has had xavi arently normal catheterization. It was told she do not have congestive heart failure by Dr. Warren. Nevertheless, she takes medicine for congestive heart failure including Coreg, losartan, and Lasix. We will continue that regimen when she is able to take p.o. For now, I think she is cleared to under go her surgery. 2.Blood pressure poorly controlled probably because she is not taking her medicine now. We will res ume her medication after she is able to take p.o. If she needs anything IV, we can give her IV hydra lazine 10 mg on an as-needed basis at least 6 hours. 3.Renal insufficiency. 4.Elevated white count secondary to small bowel obstruction. 5.Chronic obstructive pulmonary disease. 6.Cerebrovascular accident, stable. 7.Chronic renal disease. 8.ADD. 9.Dyslipidemia. We will continue to follow Ms. Rushing postop. No cardiac workup recommended at this point. ZARI/CLINT Voice ID: [id number] Report ID: [id number]
--- NOTE | 2022-03-05 20:14 | OP ---
Date of Procedure: 03/05/2022 Surgeon: Primitivo Dorman MD Blocker Automatic: EVELIA [place] Preoperative Diagnoses: Small bowel obstruction, abdominal pain, ventral hernias. Postoperative Diagnoses: Small bowel obstruction, abdominal pain, ventral hernias. Procedures: 1.Exploratory laparotomy. 2.Small bowel resection with anastomosis. 3.Extensive lysis of adhesions. 4.Repair of incarcerated ventral hernia. 5.Repair of umbilical hernia. Estimated Blood Loss: Less than 100 cc. Specimen: Small bowel. Findings: Patient has multiple pathology. Patient has previous surgeries. Patient has extensive in traabdominal adhesions. Patient has an upper ventral hernia which is allowing intestines to come thr ough, although that seems not to be the only cause of her obstruction. She also has umbilical hernia , but lower in the pelvis, she has a lot of scar tissue present and that is kinking the bowel making a loop of small bowel enough to have some changes in ischemia that need to be resected. Complications: None. Specimen: Small bowel. Anesthesia: General plus local. Indication: This is a case of an 81-year-old patient who comes to us with small bowel obstruction. The benefits, alternatives, and risks of laparotomy, possible resection, possible ostomy fully explai constantine to the patient which include, but not limited to, infection, bleeding, damage to adjacent structu res, anesthesia complication, TN, and even . She also understands this may not relieve any symp toms. She might need more than one surgical intervention. She understood, signed a consent. Description Of Procedure: Patient brought to the operating room, placed in supine position. Anesthe chuck was done without complication. Abdominal area was prepped and draped in sterile fashion. Marcai ne 0.5% was injected. After that, a midline incision was made. We started on the mid upper abdomen. There was a hernia in the epigastric region that is allowing intestines to come through, but we do not believe that is the only cause of her problems. So since she has an infraumbilical incision from a previous hysterectomy, we carefully opened that area. There were a lot of adhesions present, so w ith the help of LigaSure and Larisa scissors we carefully opened that midline incisions. When we have opened we have to deal with all the adhesions of the omentum into the small bowel to the pelvis into the abdominal wall and with the help of LigaSure, we were able to obtain release of those. When I wa s releasing that there was a band going all the way down to the pelvis with small bowel loops, twiste d around with an area of ischemia. We released that bowel. We found the area of the transition poin t, ran the bowel from the ligament of Treitz all the way down to the cecum, then to ascending, transv erse and descending colon. We inspected the area for any bleeding, obtaining any hemostasis. I irri gated the area. We took a look at the area of the small bowel. Once again, it does not seem to be r ecovered and on looking, there is a chronic scar tissue with the stenosis at that point and I believe it should be removed. So we obtained this with proximal control. We selected an area where we finley sected with a HARLEY and divided and transected that. Then we carried out proximal and distal transecti on and then the mesenteric was ligated with the help of a LigaSure. Specimen sent to the pathologist . Then, we put the small bowel together with a silk in the antimesenteric border at the end what see med to be anastomosis. Do small enterotomies, put an Endo-HARLEY 60 in that region, fired the Endo-HARLEY, removed the Endo-HARLEY, noticed to be a good anastomosis with no bleeding and then closed the enteroto mies with a TA 60. Good anastomosis was present. We noticed that the distal part of the bowel was r egaining shape since there was good flow through it right now. We closed the mesenteric area with th e 0 chromic, obtained hemostasis. After that, we placed carefully the small bowel back into the norm al place into the abdomen, making sure there was no twist and did profuse irrigation of the abdomen, looked at the area, with lysis of adhesions, making sure there was no bleeding. We have this large h ernia that when we came in, there was still small bowel coming through it. We inspected small bowel coming through it. It was in epigastric area. We have to make a counter incision since it is too hi gh near the sternum. We made an incision in that area. I found out the hernia sac, transected the h ernia contents, which is mainly fatty and part of the falciform ligament and cleaned the fascial edge s and closed that with #2 nylon in a [id number]-de-lpfub fashion multiple times that gave us the time onc e again to go back to the abdominal area, inspected the area of anastomosis, still to be intact with peristalsis. That area after profuse irrigation and obtaining instrument counts, we proceeded then t o put the omentum over the area and then proceeded to close the abdomen fascia with #2 nylon in a run anabell fashion. Area was irrigated and 2-0 chromic was used for the subcutaneous incision and the skin was closed with zaida. Sponge counts and instrument counts were correct. Patient tolerated the p rocedure well. Patient on her way to Recovery in stable condition. TEDDY/CLINT Voice ID: [id number] Report ID: [id number]
[2022-03-05] MEDS: HOME MED 1 EA UNK (Budesonide/Formoterol Fumarate [Symbicort 80-4.5 Mcg Inhaler] 10.2 GM H IH SCH (21:00)
--- NOTE | 2022-03-05 21:01 | RAD REPORT ---
EXAM DESCRIPTION: XR Chest, 1 View CLINICAL HISTORY: The patient is 81 years old and is Female; NG tube placement TECHNIQUE: Frontal view of the chest. COMPARISON: None. FINDINGS: Lungs: Unremarkable. No consolidation. Pleural space: Unremarkable. No pneumothorax. Heart: Unremarkable. Mediastinum: Unremarkable. Bones/joints: Unremarkable. Tubes, lines and devices: Nasogastric tube coursing below the diaphragm and coiled in the upper a bdomen. Upper abdomen: Clips overlying the right upper quadrant. IMPRESSION: No acute findings in the chest. Electronically signed by: Dallas Saravia MD 03/04/2022 11:45 PM CDT Due to temporary technical issues with the PACS/Fluency reporting system, reports are being signed by the in house radiologists without review as a courtesy to insure prompt reporting. The interpreting radiologist is fully responsible for the content of the report.
[2022-03-06] MEDS: METRONIDAZOLE 500mg IVPB 500 MG/100 ML BAG IV SCH ×3 (00:31→16:32)
[2022-03-06] MEDS: MORPHINE 4 MG/ML SYR IV PRN ×5 (00:32→20:04)
[2022-03-06 04:54] LABS: Hematocrit 32.7 % (36.0-45.0); Lymphocytes % 8.6 % (15.3-44.8); MCV 96.7 fL (80-100); MPV 9.5 fL (7.6-11.3); RBC Red Blood Cell Count 3.38 M/uL (3.86-4.86)
[2022-03-06 05:10] LABS: Magnesium 1.9 mg/dL (1.8-2.4); Phosphorus 2.4 mg/dL (2.5-4.9); Potassium 3.3 mmol/L (3.5-5.1)
[2022-03-06] MEDS: NA CHLORIDE 0.9% 1,000 ML IV SCH (06:02)
[2022-03-06 06:07] VITALS: BMI 22.7
[2022-03-06] MEDS ORDERED: KCL 20 MEQ/100 mL IVPB 20 MEQ/100 ML BAG IV SCH ×2 (07:00→23:00)
[2022-03-06] MEDS: HOME MED 1 EA UNK (Budesonide/Formoterol Fumarate [Symbicort 80-4.5 Mcg Inhaler] 10.2 GM H IH SCH ×2 (07:34→21:00)
[2022-03-06] MEDS ORDERED: POTASSIUM PHOS IN 0.9 % NACL 15 MMOL/250 ML BAG IV ONE (09:00)
[2022-03-06] MEDS: CIPROFLOXACIN 400mg IV 400 MG/200 ML BAG IV SCH ×2 (09:16→20:04)
[2022-03-06] MEDS ORDERED: WATER FOR INJ,STERILE 10 ML IM PRN (09:27)
[2022-03-06] MEDS ORDERED: ZIPRASIDONE MESYLA 20 MG/VIAL IM PRN (09:27)
[2022-03-06] MEDS: HALOPERIDOL LACT 5 MG/ML INJ IV PRN ×2 (10:08→17:26)
--- NOTE | 2022-03-06 10:14 | P.PN ---
Subjective Date of Service: 03/06/22 Primary Care Provider: Rashid Chief Complaint: SBO Patient with NG tube draining bilious fluid. She is complaining of abdominal pain. Status post exploratory laparotomy, bowel resection and end-to-end anastomosis as well as adhesiolysis. Patient appears confused. Physical Examination - Vital Signs Temperature: 98.1 F Blood Pressure: 161/57 Pulse: 82 Respirations: 32 Pulse Ox (%): 94 - Studies Microbiology Data (last 24 hrs): 03/04/22 17:39 Clean Catch Urine [place] Count - Final <10,000 CFU/ML. 03/04/22 17:39 Clean Catch Urine - Final MIXED YOAV. 03/04/22 19:47 Blood - Blood Anaerobic Blood Culture - Final Assessment And Plan - Current Problems (Diagnosis) (1) Small bowel obstruction Current Visit: Yes Status: Acute (2) CKD (chronic kidney disease), stage III Current Visit: Yes Status: Chronic Qualifiers: Chronic kidney disease stage 3 subtype: stage 3b (GFR 30-44) Qualified Code(s): N18.32 - Chronic kidney disease, stage 3b (3) HTN (hypertension) Current Visit: Yes Status: Chronic Qualifiers: Hypertension type: primary hypertension Qualified Code(s): I10 - Essential (primary) hypertension - Plan Physical Exam General: Confused, moderate distress ENT: NG tube to suction. Respiratory: Clear to auscultation bilaterally, Normal air movement Cardiovascular: Regular rate/rhythm, Normal S1 S2 Gastrointestinal: No bowel sounds, no tenderness, laparotomy wound dressing is not soaked. Integumentary: No rashes Neurological: No focal motor deficit. Plan: Patient seen by cardiology-Dr. Obando and cleared for surgery. Status post exploratory laparotomy, bowel resection, end-to-end anastomosis and adhesiolysis by Dr. Dorman Continue supportive measures with IV hydration. NG tube in place. I suspect patient is experiencing delirium Pain management as needed. Empiric antibiotic. Haldol IV as needed for delirium Monitor and optimize electrolytes. Hydralazine as needed for BP spikes. Monitor intake and output.
--- NOTE | 2022-03-06 10:39 | PN ---
Date of Progress Note: 03/06/2022 Subjective: Ms. Rushing is the patient with history of COPD, congestive heart failure, CVA, underw ent small bowel obstruction surgery by Dr. Dorman. She was transferred to the ICU after that. She did not have any cardiac complication. Her O2 saturation was 99% on room air. She is in sinus rhyt hm, has no specific complaints. Her examination showed no evidence of congestive heart failure. No rales. No edema. Impression And Plan: Ms. Rushing is status post small bowel obstruction surgery by Dr. Dorman. Has a history of chronic obstructive pulmonary disease, congestive heart failure, and cerebrovascular accident as well as ADD. She is stable hemodynamically. No arrhythmias. No congestive heart failu re. No evidence of coronary artery disease. I will continue her present regimen. I will sign off h er case. ZARI/CLINT Voice ID: [id number] Report ID: [id number]
[2022-03-06] MEDS: D5.45NS W/KCL 20MEQ 20 MEQ/1,000 ML BAG IV SCH ×2 (12:07→21:40)
--- NOTE | 2022-03-06 12:15 | EKG ---
Test Date: 2022-03-04 Test Time: 17:00:20 Vehicle Technician: MEASUREMENT RESULTS: Intervals: Rate: 71 SC: 120 QRSD: 68 QT: 406 QTc: 441 [place]: P: 83 SC: 120 QRS: 8 T: -47 INTERPRETIVE STATEMENTS: Normal sinus rhythm ST & T wave abnormality, consider inferior ischemia ST & T wave abnormality, consider anterolateral ischemia Abnormal ECG Compared to ECG 01/13/2019 10:27:05 ST (T wave) deviation now present T-wave abnormality no longer present Possible ischemia still present Electronically Signed On 03-06-22 12:12:32 MAGAZINE REPAIRER by Bill Porter
--- NOTE | 2022-03-06 16:08 | PN ---
Date of Progress Note: 03/06/2022 Diagnosis: Abdominal pain, small bowel obstruction, status post laparotomy, bowel resection, anastom osis, lysis of adhesions, ventral and umbilical hernia repair. Subjective: The patient is doing well, improving. No nausea, shortness of breath. No chest pain. Objective: Chest: Clear. Abdomen: Intact surgical site. Extremities: Good capillary refill. Laboratory Data: Blood work reviewed. Plan: Continue bowel rest. Tomorrow, we may clamp the NG tube and give her clear liquid diet if cli nically she improves. It is okay from the surgical standpoint to move to the floor. We also encoura ged incentive spirometry and ambulation with the help of the rehab personnel. DVT prophylaxis. TEDDY/CLINT Voice ID: [id number] Report ID: [id number]
--- NOTE | 2022-03-06 18:29 | P.PN ---
Date of Service: 03/07/22 Subjective: no acute events overnight remains confused, repeats words spoken to her slow to respond ROS: 10 point ROS as noted above, otherwise negative Physical Exam: Gen: confused, repeats words spoken to her, follows basic commands, fatigued appearing HEENT: normal conjunctiva, sclera anicteric CV: regular rate & rhythm, no edema Pulm: non-labored respirations, clear bilaterally Abd: soft, wound dressing c/d/i Neuro: moves all extremities, vitals reviewed Problem List SBO now s/p ex-lap, bowel resection with end-to-end anastomosis CKD3 HTN COPD, chronic GERD Depression seen by cardiology pre-op s/p ex-lap, bowel resection, end-to-end anastomosis NGT, IVF, NPO possible clamp trials of NGT today vs removal IVF changed to d5 1/2NS on 03/06 due to hypernatremia mild hypernatremia electrolyte abnormalities, hypocalcemia, hypophosphatemia replete as needed worsened by no PO intake PPN ordered nephrology consulted acute encephalopathy - possibly delirium possibly from electrolyte abnormalities, possible CVA check CT head pain meds as needed continue empiric antibiotics haldol PRN for delirium Code: Full Dispo: home, ~3 days continue icu level of care, possible downgrade tomorrow Time Spent Managing Pts Care (In Minutes): 35
[2022-03-06] MEDS: HYDRALAZINE HCL 20 MG/ML VIAL IV PRN (23:11)
[2022-03-07] MEDS: METRONIDAZOLE 500mg IVPB 500 MG/100 ML BAG IV SCH ×3 (00:28→18:22)
[2022-03-07] MEDS: MORPHINE 4 MG/ML SYR IV PRN ×4 (02:10→21:09)
[2022-03-07 05:05] LABS: Absolute Lymphocytes (CBC) 1.4 K/uL (0.7-4.9); Hematocrit 30.7 % (36.0-45.0); Lymphocytes % 10.2 % (15.3-44.8); MCV 96.3 fL (80-100); MPV 9.4 fL (7.6-11.3); RBC Red Blood Cell Count 3.19 M/uL (3.86-4.86)
[2022-03-07 05:38] LABS: BUN Blood Urea Nitrogen 15 mg/dL (7-18); Bicarbonate 25 mmol/L (21-32); Glomerular Filtration Rate 55 ml/min (=/>90); Glucose Level 159 mg/dL (74-106); Magnesium 1.9 mg/dL (1.8-2.4); Potassium 3.7 mmol/L (3.5-5.1); Sodium Level 147 mmol/L (136-145)
[2022-03-07 05:51] LABS: Phosphorus < 0.5 mg/dL (2.5-4.9)
[2022-03-07] MEDS: HYDRALAZINE HCL 20 MG/ML VIAL IV PRN (06:25)
[2022-03-07] MEDS ORDERED: CALCIUM GLUC 10% INJ 4.65 MEQ in NA CHLORIDE 0.9% 100 ML IV ONE (06:35)
[2022-03-07 06:48] LABS: Albumin 2.6 g/dL (3.4-5.0); Bilirubin Direct 0.2 mg/dL (0-0.2); Bilirubin Total 0.5 mg/dL (0.2-1.0); Protein, Total 5.7 g/dL (6.4-8.2)
[2022-03-07] MEDS ORDERED: CALCIUM GLUCONATE 1 GM IVPB 1 GM/50 ML BAG IV ONE (07:00)
[2022-03-07] MEDS ORDERED: POTASSIUM PHOS 30 MM in NA CHLORIDE 0.9% 500 ML IV ONE (07:30)
[2022-03-07] MEDS ORDERED: MAGNESIUM SULFATE 1 gm IVPB 1 GM/100 ML BAG IV ONE (07:55)
[2022-03-07] MEDS ORDERED: KCL 20 MEQ/100 mL IVPB 20 MEQ/100 ML BAG IV SCH (08:00)
[2022-03-07] MEDS: HOME MED 1 EA UNK (Budesonide/Formoterol Fumarate [Symbicort 80-4.5 Mcg Inhaler] 10.2 GM H IH SCH ×2 (08:01→20:57)
[2022-03-07] MEDS: CIPROFLOXACIN 400mg IV 400 MG/200 ML BAG IV SCH ×2 (08:01→21:02)
[2022-03-07] MEDS: D5.45NS W/KCL 20MEQ 20 MEQ/1,000 ML BAG IV SCH (08:03)
[2022-03-07] MEDS: HALOPERIDOL LACT 5 MG/ML INJ IV PRN (09:57)
--- NOTE | 2022-03-07 11:00 | RAD REPORT ---
EXAM DESCRIPTION: CT - Head Brain Wo Cont - 03/07/2022 10:53 am CLINICAL HISTORY: AMS COMPARISON: Head Brain Wo Cont dated 01/13/2019 TECHNIQUE: Axial 5 mm thick images of the head were obtained without IV contrast. All CT scans are performed using dose optimization technique as appropriate and may include automated exposure control or mA/KV adjustment according to patient size. FINDINGS: No intracranial hemorrhage, mass, edema or shift of mid-line structures. No acute infarcti on changes seen. No abnormal extra-axial fluid collections. Patient has minimal atrophy for age. Vent ricles are in proportion to any volume loss. Chronic ischemic changes are mild. Intracranial findings are not significantly different from the 2019 study. Vascular and physiologic calcifications are pre sent. Mastoid air cells and visualized portions of the paranasal sinuses are clear. No acute bony findings. IMPRESSION: Negative non-contrast CT head examination for acute finding. The above detailed findings are not clearly different from 2019 comparison.
[2022-03-07] MEDS ORDERED: D5W 1,000 ML with POTASSIUM CL 20 MEQ IV SCH ×2 (13:00)
--- NOTE | 2022-03-07 15:03 | PN ---
Date of Progress Note: 03/07/2022 Subjective: The patient was admitted with acute kidney injury. DICTATION ENDS HERE LUX Voice ID: [id number] Report ID: [id number]
--- NOTE | 2022-03-07 16:27 | CON ---
Date of Consultation: 03/07/2022 Reason For Consultation: Hyponatremia, acute kidney injury. History Of Present Illness: This is a pleasant 81-year-old female. All the information has been obt ained from the daughter by bedside with significant past medical history of chronic kidney disease, C OPD, hyperlipidemia, GERD, congestive heart failure, diastolic dysfunction, CVA, the patient came to the hospital back on the with small bowel obstruction. The patient undergone surgery. Upon arri jass to the hospital, the patient had a creatinine of 1.6 and the patient was started on hydration. R eviewing the record for the patient, the patient's baseline creatinine of 1.1 as of September . Allergies: TO PENICILLIN, LISINOPRIL, ASPIRIN. Home Medications: Include alprazolam, amlodipine, Lasix, mirtazapine, pantoprazole, Levaquin. Past Medical History: Includes hypertension, hyperlipidemia, GERD, celiac disease, chronic kidney di sease stage 3, baseline creatinine 1.1-1.4 as of September . Past Surgical History: Includes cholecystectomy, EGD, appendectomy, hysterectomy. Family History: Positive for cancer and diabetes. Social History: Ex-smoker. Denied alcohol. Denied drugs abuse. Review of Systems: Head and Neck: No red eye. No ear pain. GI: Has nausea, vomiting, decreased intake. : No polyuria. No dysuria. No hematuria. 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 Respiratory: No shortness of breath. Cardiovascular: No chest pain. Endocrine: No polydipsia. Skin: No rash. Neuro: Has confusion. Musculoskeletal: No joint pain. Physical Examination: Vital Signs: Blood pressure of 151/57, pulse of 92. Chest: Clear to auscultation. Heart: S1, S2. Systolic murmur. Abdomen: Soft, nontender. Extremity: No edema. Neurologic: Alert. Pleasantly confused. No focality. Laboratory Data: Sodium 147, potassium 3.7, bicarb 25, BUN 15, creatinine 1, GFR of 55, calcium 6.7. Albumin 2.6. Current Medications: The patient on include ciprofloxacin, metronidazole, haloperidol, D5 half with KCl. Assessment And Plan: 1.Chronic kidney disease, stage 3 secondary to hypertension nephrosclerosis, stable on her baseline. Continue current hydration. 2.Hypertension, controlled, optimal. Continue current treatment. 3.Hypernatremia secondary to depletional. We will consider changing IV fluid to plain D5 and we hollie l follow up the patient. 4.Hypokalemia. Continue supplement. 5.Malnourished, mostly secondary to poor intake secondary to n.p.o. to consider PPN/TPN. 6.Hypomagnesemia. We will supplement. LUX Voice ID: [id number] Report ID: [id number]
[2022-03-07 16:33] LABS: Specific Gravity 1.017 (1.005-1.030); Urine Bilirubin NEGATIVE (Negative); Urine Blood Trace (Negative); Urine Clarity Clear (Clear); Urine Color Yellow (Yellow); Urine Crystals Unidentified Few /HPF (None Seen); Urine Glucose TRACE (Negative); Urine Mucus Slight /HPF (None Seen); Urine Protein 1+ (Negative); Urine Urobilinogen Normal (Normal); Urine pH 5.5 (5.0-7.0)
[2022-03-07] MEDS: AA 4.25 %/D5W/ELECTROLYTES 2,000 ML IV SCH (18:22)
[2022-03-07] MEDS: POTASS/SODIUM PHOSPHATE 1 PKT POWD.PACK PO SCH (23:40)
[2022-03-08] MEDS: METRONIDAZOLE 500mg IVPB 500 MG/100 ML BAG IV SCH ×3 (00:50→17:30)
[2022-03-08] MEDS: POTASS/SODIUM PHOSPHATE 1 PKT POWD.PACK PO SCH ×5 (00:59→12:52)
[2022-03-08] MEDS: MORPHINE 4 MG/ML SYR IV PRN ×5 (01:08→21:13)
[2022-03-08] MEDS: HALOPERIDOL LACT 5 MG/ML INJ IV PRN (03:30)
[2022-03-08 05:51] LABS: Albumin 2.4 g/dL (3.4-5.0); Bilirubin Total 0.6 mg/dL (0.2-1.0); Phosphorus 1.7 mg/dL (2.5-4.9); Potassium 4.2 mmol/L (3.5-5.1); Protein, Total 5.3 g/dL (6.4-8.2)
[2022-03-08 05:53] LABS: Hematocrit 28.7 % (36.0-45.0); MCV 96.3 fL (80-100); MPV 8.9 fL (7.6-11.3); RBC Red Blood Cell Count 2.98 M/uL (3.86-4.86)
--- NOTE | 2022-03-08 06:03 | P.PN ---
Date of Service: 03/08/22 Subjective: no acute events overnight mentation slightly improved; still not quite to baseline per family continues with pain, medication helps ROS: 10 point ROS as noted above, otherwise negative Physical Exam: Gen: repeats words spoken to her, follows commands, fatigued appearing. hard of hearing HEENT: normal conjunctiva, sclera anicteric CV: regular rate & rhythm, no edema Pulm: non-labored respirations, clear bilaterally Abd: soft, wound dressing c/d/i Neuro: moves all extremities, vitals reviewed Problem List SBO now s/p ex-lap, bowel resection with end-to-end anastomosis CKD3 HTN COPD, chronic GERD Depression seen by cardiology pre-op s/p ex-lap, bowel resection, end-to-end anastomosis advanced to liquid diet not much PO intake yet continue PPN mild hypernatremia electrolyte abnormalities, hypocalcemia, hypophosphatemia replete as needed worsened by no PO intake PPN started 03/07 nephrology consulted acute encephalopathy - possibly delirium possibly from electrolyte abnormalities, possible CVA CT brain (03/07) negative for acute process improving if persists, consider MRI pain meds as needed continue empiric antibiotics haldol PRN for delirium Code: Full Dispo: home, ~3 days ok to transfer to telemetry Time Spent Managing Pts Care (In Minutes): 35
[2022-03-08] MEDS: CIPROFLOXACIN 400mg IV 400 MG/200 ML BAG IV SCH ×2 (08:45→21:12)
[2022-03-08] MEDS: HOME MED 1 EA UNK (Budesonide/Formoterol Fumarate [Symbicort 80-4.5 Mcg Inhaler] 10.2 GM H IH SCH ×2 (08:46→21:00)
[2022-03-08] MEDS: HYDRALAZINE HCL 20 MG/ML VIAL IV PRN ×2 (10:16→16:08)
[2022-03-08] MEDS ORDERED: FUROSEMIDE 20 MG/ 2ML VIAL IV ONE (16:00)
--- NOTE | 2022-03-08 16:54 | PN ---
Date of Progress Note: 03/08/2022 Subjective: The patient was admitted with acute kidney injury on chronic kidney disease with hyponat remia, electrolyte imbalance. The patient maintained on her baseline. After hydration, kidney funct ion has been improved. Blood pressure has been elevated. The patient had decrease in her urine outp ut. Physical Examination: Vital Signs: Blood pressure 179/76, pulse of 86, afebrile. The patient had only 850 in the last 24 hours. Chest: Clear to auscultation. Heart: S1, S2. Regular. Abdomen: Nontender. No guarding or rebound. Extremities: Trace edema. Neurologic: Alert. No focality. Laboratory Data: Hemoglobin 9.9. Sodium 146, potassium 4.2, bicarb 25, BUN 12, creatinine 0.9, GFR of 60, calcium 7.1, phosphorus 1.7, magnesium of 2. Albumin 2.4, corrected calcium is 8.6. Current Medications: The patient on include calcium gluconate, Cipro, metronidazole, TPN, magnesium, sulfate, potassium sulfate. Assessment And Plan: 1.Chronic kidney disease, stable on her baseline, slightly on the over volume side. I am going to d ose the patient with single dose of Lasix of 20 mg and we will follow up. 2.Hypertension, controlled, not optimal. I will start the patient on beta-enla. We will give th e patient a single dose of Lasix and we will follow up the patient. 3.Hypophosphatemia. We will supplement. 4.Malnourished. Continue TPN. 5.Hypokalemia, status post supplement, resolved. 6.Deconditioning. Continue PT/OT. MERCEDES/MODL Voice ID: [id number] Report ID: [id number]
--- NOTE | 2022-03-08 18:03 | PN ---
Date of Progress Note: 03/08/2022 Diagnosis: Status post laparotomy with the small bowel resection and anastomosis, lysis of adhesions , ventral hernia repair. Subjective: This is a case of an 81-year-old patient, status post bowel resection with bowel obstruc tion. Patient is doing well, improving. NG tube is out yesterday. She is tolerating clear liquids, advancing to full liquid. Objective: Chest: Clear. Abdomen: Soft and depressible. Bowel sounds positive. Passing gas. Extremities: Good capillary refill. Plan: Advance diet, out of bed, ambulation, incentive spirometry. DVT prophylaxis. Continue medica l care. HM/MODL Voice ID: [id number] Report ID: [id number]
[2022-03-08] MEDS ORDERED: POTASSIUM 25 MEQ EFFERV TAB PO ONE (20:07)
[2022-03-08] MEDS: carvediloL 6.25 MG TAB PO SCH (21:00)
[2022-03-09] MEDS: METRONIDAZOLE 500mg IVPB 500 MG/100 ML BAG IV SCH ×3 (00:42→17:20)
[2022-03-09] MEDS: AA 4.25 %/D5W/ELECTROLYTES 2,000 ML, Lipids 20% 250 ML with MULTIVITAMINS INJ 10 ML IV SCH ×3 (00:42)
[2022-03-09] MEDS: HYDRALAZINE HCL 20 MG/ML VIAL IV PRN ×2 (01:09→13:18)
[2022-03-09] MEDS: MORPHINE 4 MG/ML SYR IV PRN ×4 (02:34→20:39)
[2022-03-09 05:44] LABS: Hematocrit 34.5 % (36.0-45.0); MCV 95.8 fL (80-100); MPV 8.6 fL (7.6-11.3)
[2022-03-09 06:05] LABS: Albumin 2.5 g/dL (3.4-5.0); Bilirubin Total 0.8 mg/dL (0.2-1.0); Protein, Total 5.7 g/dL (6.4-8.2)
--- NOTE | 2022-03-09 06:12 | P.PN ---
Date of Service: 03/09/22 Subjective: mentation improved episode of greenish / bilious emesis today overall feeling better ROS: 10 point ROS as noted above, otherwise negative Physical Exam: Gen: hard of hearing, answers appropriately, slight aphasia, improving HEENT: normal conjunctiva, sclera anicteric CV: regular rate & rhythm, no edema Pulm: non-labored respirations, clear bilaterally Abd: soft, wound dressing c/d/i Neuro: moves all extremities, follows commands vitals reviewed Problem List SBO now s/p ex-lap, bowel resection with end-to-end anastomosis CKD3 HTN COPD, chronic GERD Depression seen by cardiology pre-op s/p ex-lap, bowel resection, end-to-end anastomosis advanced to full liquid diet not much PO intake yet continue PPN for now no BM yet mild hypernatremia electrolyte abnormalities, hypocalcemia, hypophosphatemia replete as needed worsened by no PO intake PPN started 03/07 improving nephrology consulted acute encephalopathy - possibly delirium possibly from electrolyte abnormalities, possible CVA CT brain (03/07) negative for acute process improving slowly each day if persists, consider MRI; neuro consulted pain meds as needed continue empiric antibiotics haldol PRN for delirium VTE: lovenox, renally dosed Code: Full Dispo: ~3 days slow to improve, low PO intake might need SNF Time Spent Managing Pts Care (In Minutes): 35
[2022-03-09] MEDS: carvediloL 6.25 MG TAB PO SCH (08:08)
[2022-03-09] MEDS: CIPROFLOXACIN 400mg IV 400 MG/200 ML BAG IV SCH ×2 (08:10→20:44)
[2022-03-09] MEDS: HOME MED 1 EA UNK (Budesonide/Formoterol Fumarate [Symbicort 80-4.5 Mcg Inhaler] 10.2 GM H IH SCH ×2 (09:00→20:48)
--- NOTE | 2022-03-09 15:24 | PN ---
Date of Progress Note: 03/09/2022 Subjective: The patient was admitted to the hospital with acute kidney injury on chronic kidney dise ase. The patient back to her baseline. The patient has some electrolyte imbalance, under supplement . The patient is planned for EEG today. Physical Examination: Vital Signs: Blood pressure 195/73, earlier blood pressure 175, pulse of 108, afebrile. Chest: Clear to auscultation. Heart: S1, S2. Regular. Abdomen: Soft. Dressing on the midline. Extremities: No edema. Neurologic: Alert. Pleasantly confused. Laboratory Data: Hemoglobin 11.5. Sodium 142, potassium 4, bicarb 25, BUN 22, creatinine 0.9, calci um 7.9, magnesium of 3, albumin 2.5, corrected calcium is 9.1. Current Medications: The patient on include; 1.Ciprofloxacin. 2.Metronidazole. 3.Carvedilol 6.25 b.i.d. 4.Hydralazine. 5.Haloperidol. 6.Zofran. 7.Received Lasix and KCl. Assessment And Plan: 1.Acute kidney injury secondary to prerenal, recovered, resolved. 2.Chronic kidney disease, back to baseline, normal volume currently. We will continue to monitor. 3.Hypophosphatemia, hypokalemia, status post supplement, resolved. 4.Deconditioning. Continue PT/OT. 5.Hypertension, not controlled. We will go ahead and increase carvedilol to 12.5. MA/MODL Voice ID: [id number] Report ID: [id number]
[2022-03-09] MEDS: AA 4.25 %/D5W/ELECTROLYTES 2,000 ML IV SCH (17:20)
[2022-03-09] MEDS: carvediloL 12.5 MG TAB PO SCH (20:45)
[2022-03-09] MEDS: MIRTAZAPINE 15 MG TAB PO SCH (20:48)
[2022-03-09] MEDS: ONDANSETRON 4 MG/2 ML VIAL IV PRN (20:48)
[2022-03-09] MEDS: AMLODIPINE 2.5 MG TAB PO SCH (20:48)
[2022-03-09] MEDS ORDERED: HOME MED 1 EA UNK (Budesonide/Formoterol Fumarate [Symbicort 160-4.5 Mcg Inhaler] 10.2 GM IH SCH (21:00)
[2022-03-10] MEDS: METRONIDAZOLE 500mg IVPB 500 MG/100 ML BAG IV SCH ×3 (01:07→15:49)
[2022-03-10] MEDS: MORPHINE 4 MG/ML SYR IV PRN ×3 (01:11→15:50)
[2022-03-10 05:49] LABS: Hematocrit 32.6 % (36.0-45.0); MCV 96.3 fL (80-100); MPV 8.6 fL (7.6-11.3); RBC Red Blood Cell Count 3.38 M/uL (3.86-4.86)
[2022-03-10 06:00] LABS: Albumin 2.4 g/dL (3.4-5.0); Bilirubin Total 0.7 mg/dL (0.2-1.0); Magnesium 2.1 mg/dL (1.8-2.4); Phosphorus 3.5 mg/dL (2.5-4.9); Potassium 4.1 mmol/L (3.5-5.1); Protein, Total 5.4 g/dL (6.4-8.2)
[2022-03-10] MEDS: CIPROFLOXACIN 400mg IV 400 MG/200 ML BAG IV SCH ×2 (08:54→21:32)
[2022-03-10] MEDS: carvediloL 12.5 MG TAB PO SCH ×2 (08:54→21:36)
[2022-03-10] MEDS: ESCITALOPRAM 20 MG TAB PO SCH (08:54)
[2022-03-10] MEDS: CLOPIDOGREL 75 MG TABLET PO SCH (08:54)
[2022-03-10] MEDS: HOME MED 1 EA UNK (Budesonide/Formoterol Fumarate [Symbicort 80-4.5 Mcg Inhaler] 10.2 GM H IH SCH ×2 (08:55→21:00)
[2022-03-10] MEDS: ONDANSETRON 4 MG/2 ML VIAL IV PRN (15:49)
--- NOTE | 2022-03-10 16:59 | P.PN ---
Date of Service: 03/10/22 Subjective: mentation improving less nausea continues with abd discomfort no BM ROS: 10 point ROS as noted above, otherwise negative Physical Exam: Gen: hard of hearing, answers appropriately, but slowly HEENT: normal conjunctiva, sclera anicteric CV: regular rate & rhythm, no edema Pulm: non-labored respirations, clear bilaterally Abd: mild distention, wound dressing c/d/i Neuro: moves all extremities, follows commands vitals reviewed Problem List SBO now s/p ex-lap, bowel resection with end-to-end anastomosis CKD3 HTN COPD, chronic GERD Depression seen by cardiology pre-op s/p ex-lap, bowel resection, end-to-end anastomosis advanced to full liquid diet not much PO intake continue PPN for now no BM yet awaiting further bowel function mild hypernatremia electrolyte abnormalities, hypocalcemia, hypophosphatemia replete as needed worsened by no PO intake PPN started 03/07 improving nephrology consulted acute encephalopathy - possibly delirium possibly from electrolyte abnormalities CT brain (03/07) negative for acute process improving slowly each day neuro consulted pain meds as needed continue empiric antibiotics haldol PRN for delirium VTE: lovenox, renally dosed Code: Full Dispo: ~3 days slow to improve, low PO intake SNF Time Spent Managing Pts Care (In Minutes): 35
--- NOTE | 2022-03-10 19:01 | P.PN ---
Subjective Date of Service: 03/10/22 Primary Care Provider: Rashid Chief Complaint: SBO Subjective: No new changes Physical Examination - Vital Signs Temperature: 98.1 F Blood Pressure: 180/74 Pulse: 84 Respirations: 18 Pulse Ox (%): 95 - Physical Exam General: Other (Appears as her stated age) HEENT: Atraumatic, Normocephalic Neck: Supple Respiratory: Other (Symmetric chest expansion) Cardiovascular: No rubs, No murmurs Gastrointestinal: No guarding Musculoskeletal: No clubbing Integumentary: No warmth Neurological: Normal tone Urinary: Other (No bladder distention) External genitalia: Deferred Rectal: Deferred - Studies Microbiology Data (last 24 hrs): 03/04/22 19:47 Blood - Blood Aerobic Blood Culture - Final No growth in 5 days. 03/04/22 19:47 Blood - Blood Anaerobic Blood Culture - Final 03/04/22 19:35 Blood - Blood Aerobic Blood Culture - Final No growth in 5 days. 03/04/22 19:35 Blood - Blood Anaerobic Blood Culture - Final No growth in 5 days. Assessment And Plan - Plan 1. Acute kidney injury secondary to prerenal, recovered, resolved. [place] po fluid intake. 2. Chronic kidney disease, back to baseline, normal volume currently. We will continue to monitor. 3. Hypophosphatemia, hypokalemia, status post supplement, resolved. 4. Deconditioning. Continue PT/OT. 5. Hypertension. BP above goal. Amlodipine dose increased.
--- NOTE | 2022-03-10 20:36 | PN ---
Date of Progress Note: 03/10/2022 Reason For Service: Small bowel obstruction status post laparotomy with bowel resection. History Of Present Illness: The patient is doing well, improving. She is becoming very alert and or iented. She has some nausea yesterday with the liquid diet, so we advanced the diet slowly. Today, she has not vomited and she is passing gas. Physical Examination: Chest: Clear. Abdomen: Soft and depressible. Intact surgical site. Extremities: Good capillary refill. Plan: Advance the diet early, out of bed. Incentive spirometry. Continue medical service. Replace electrolytes. HM/MODL Voice ID: [id number] Report ID: [id number]
[2022-03-10] MEDS: ENSURE ENLIVE 237 ML CAN PO SCH (21:00)
[2022-03-10] MEDS: MIRTAZAPINE 15 MG TAB PO SCH (21:33)
[2022-03-10] MEDS: AMLODIPINE 2.5 MG TAB PO SCH (21:35)
--- NOTE | 2022-03-10 22:42 | CON ---
Date of Consultation: 03/10/2022 Reason For Consultation: Consultation called because of possible aphasia. History Of Present Illness: Ms. Rushing is an 81-year-old patient admitted to the hospital on 08/2021, today is 03/10/2022, with small bowel obstruction. She has multiple comorbidities including COPD, stage 3 kidney disease, hypertension, dyslipidemia, gastroesophageal reflux disease, chronic di astolic dysfunction, and reported prior stroke who comes with the nausea, vomiting, and abdominal radu n for at least 4 days. She had an elevated white count. BUN elevated, creatinine elevated to 1.6. Abdominal ultrasound showed she had a cholecystectomy and common bile duct was obstructed by bowel ga s. CT scan identified a suspicious close loop of small bowel suspicious for obstruction. With respe ct to this possible aphasia, the patient has had a slow way of speaking and communicating, but compre hends well and eventually expresses herself appropriately and in my discussion with hospitalist, the possible aphasia seem to have resolved and at my evaluation, she was appropriate in terms of expressi on. She knew she was in the hospital. She follows commands appropriately, but her rate of speech pr oduction was mildly slow. Her head CT scan on the was remarkable for mild atrophy without acute findings and her blood work earlier today showed white blood cell count was normal at 10.1 and hemogl obin 11.1. Chemistries showed normal sodium and potassium, chloride 111, creatinine 0.89, glucose ra nged from 128-145, calcium is 8.1, magnesium 2.1, and liver function studies unremarkable. Urinalysi s suggested possible urinary tract infections with esterase being 25, red blood cells 5-10, but bacte david not reported. Nitrite was negative. COVID test negative. Past Medical History: As noted, in addition to depression, gastroesophageal reflux disease, and rachael ac disease. Past Surgical History: Cholecystectomy, esophageal polyp removal, appendicostomy, and hysterectomy. Allergies: PENICILLIN, LISINOPRIL, GRAPEFRUIT, AND ASPIRIN. Medications: Xanax 0.5 mg twice daily, Norvasc 5 mg daily, Plavix 75 mg daily, oxalate 20 mg daily, Lasix 20 mg daily, Remeron 15 mg at bedtime, Lyrica 50 mg twice daily, Coreg 6.25 mg twice daily, Sym bicort 2 puffs twice daily, Protonix 40 mg daily, vitamin D 50,000 units weekly, iron supplementation 27 mg daily, albuterol ProAir 2 puffs inhaler as needed every 4 hours, Proventil nebulizer every 6 h ours as needed, Levaquin, and prednisone. Social History: Smoked in the past. No current alcohol, tobacco, or IV drug use. Review of Systems: She has abdominal pain. No nausea or vomiting and some myalgias and arthralgias. No rash. No psych iatric issues. No other positives on systems review. Physical Examination: Vital Signs: Blood pressure 180/74 and down to 143/64, pulse is 84, temperature 98.1, ox, respirator y rate 16, oxygen saturation 95%. Weight 116 pounds, height 5 feet, BMI 22.8. General: Ms. Rushing is lying in bed. She is in no significant distress. HEENT: She appears normocephalic, atraumatic. Sclerae anicteric. Oropharynx is moist. Neck: Supple. Chest: Clear. Heart: Regular. No cyanosis or edema. Neurological: She is alert and oriented to person, place, and situation. She follows commands with no significant difficulty. She has slow speech production. Cranial nerves with no focal deficits. On motor, she has mild diffuse weakness in upper and lower extremities. No focal findings. Stocking -glove loss to light touch and temperature. Depressed reflexes. Coordination slow and intact. Rega rding gait, she did ambulate over 30 feet with a walker and contact guard assistance. The patient am bulates with a walker and has done so for a long time, perhaps more than a few years. Assessment: Ms. Rushing is an 81-year-old patient with multiple comorbid conditions including smal l bowel obstruction, chronic renal disease, hypertension, dyslipidemia, gastroesophageal reflux disea se, and diastolic congestive heart failure who has a baseline slow speech without aphasia. Plan: 1.No further neurological workup. 2.Continue with Plavix for stroke risk reduction and other medications as appropriate for her comorb id conditions. She may follow up with Dr. Sanchez if need be within a month of discharge. CHARLEE/CLINT Voice ID: [id number] Report ID: [id number]
[2022-03-11] MEDS: METRONIDAZOLE 500mg IVPB 500 MG/100 ML BAG IV SCH ×4 (00:13→23:56)
[2022-03-11] MEDS: HALOPERIDOL LACT 5 MG/ML INJ IV PRN (01:22)
[2022-03-11] MEDS: AA 4.25 %/D5W/ELECTROLYTES 2,000 ML, Lipids 20% 250 ML with MULTIVITAMINS INJ 10 ML IV SCH ×3 (01:35)
[2022-03-11] MEDS ORDERED: AMLODIPINE 5 MG TAB PO ONE (06:19)
[2022-03-11] MEDS: HOME MED 1 EA UNK (Budesonide/Formoterol Fumarate [Symbicort 80-4.5 Mcg Inhaler] 10.2 GM H IH SCH ×2 (08:40→21:00)
[2022-03-11] MEDS: CIPROFLOXACIN 400mg IV 400 MG/200 ML BAG IV SCH ×2 (08:41→21:56)
[2022-03-11] MEDS: CLOPIDOGREL 75 MG TABLET PO SCH (08:42)
[2022-03-11] MEDS: PREGABALIN 75 MG CAP PO SCH ×2 (08:42→21:57)
[2022-03-11] MEDS: cloNIDine HCL 0.1 MG TAB PO SCH ×2 (08:42→21:00)
[2022-03-11] MEDS: ENSURE ENLIVE 237 ML CAN PO SCH ×2 (08:42→21:59)
[2022-03-11] MEDS: ESCITALOPRAM 20 MG TAB PO SCH (08:42)
[2022-03-11] MEDS: carvediloL 12.5 MG TAB PO SCH ×2 (08:42→21:00)
[2022-03-11] MEDS: ONDANSETRON 4 MG/2 ML VIAL IV PRN (10:05)
[2022-03-11] MEDS ORDERED: CLONIDINE 0.1 MG/PATCH TD SCH (12:38)
[2022-03-11] MEDS: HYDRALAZINE HCL 20 MG/ML VIAL IV PRN (13:14)
--- NOTE | 2022-03-11 13:28 | P.PN ---
Date of Service: 03/11/22 Subjective: mentation improved less nausea, reports emesis with coffee this morning continues with abd discomfort no BM, denies flatus ROS: 10 point ROS as noted above, otherwise negative Physical Exam: Gen: hard of hearing, answers appropriately, but slowly HEENT: normal conjunctiva, sclera anicteric CV: regular rate & rhythm, no edema Pulm: non-labored respirations, clear bilaterally Abd: mild distention, wound dressing c/d/i Neuro: moves all extremities, follows commands vitals reviewed Problem List SBO now s/p ex-lap, bowel resection with end-to-end anastomosis CKD3 HTN COPD, chronic GERD Depression seen by cardiology pre-op s/p ex-lap, bowel resection, end-to-end anastomosis full liquid diet not much PO intake continue PPN for now no BM yet awaiting further bowel function Check KUB mild hypernatremia electrolyte abnormalities, hypocalcemia, hypophosphatemia replete as needed worsened by no PO intake, no improving PPN started 03/07 nephrology consulted acute encephalopathy - possibly delirium possibly from electrolyte abnormalities CT brain (03/07) negative for acute process improving each day neuro consulted pain meds as needed continue empiric antibiotics haldol PRN for delirium VTE: lovenox, renally dosed Code: Full Dispo: ~2-3 days slow to improve, low PO intake SNF vs home; family and patient prefer home, reports that we will have good family support Moderate in return of bowel function, able to tolerate p.o., continue PT Time Spent Managing Pts Care (In Minutes): 25
--- NOTE | 2022-03-11 14:39 | PN ---
Date of Progress Note: 03/11/2022 Subjective: Patient was admitted to the hospital with small bowel obstruction. Patient on TPN. Pat ient had acute kidney injury on chronic kidney disease. Patient's blood pressure been not controlled . Physical Examination: Vital Signs: Blood pressure 180/74, pulse of 84, afebrile. Chest: Clear to auscultation. Heart: S1, S2. Regular. Systolic murmur. Abdomen: Soft. Nontender. Dressing. Extremities: No edema. Neurologic: Alert. No focality. Laboratory Data: Hemoglobin 11.1, sodium 142, potassium 4.1, bicarb 28, BUN 30, creatinine 0.8, GFR of 64, calcium 8.1, phosphorus 3.5, albumin 2.4, corrected calcium is 9.3. Current Medications: The patient on include ciprofloxacin, metronidazole, amlodipine 5 mg, carvedilo l 12.5, clonidine 0.2 b.i.d., mirtazapine, haloperidol, TPN. Assessment And Plan: 1.Acute kidney injury on chronic kidney disease. Continue to improve, resolved, back to baseline. We will continue to monitor. 2.Hypertension, not controlled. The patient with poor intake. I am going to start the patient on c lonidine patch. 3.I am going to go ahead and increase amlodipine to 10 mg and we will continue to follow up the catrachita ent. 4.Hyponatremia, resolved. 5.Hypokalemia, hypophosphatemia. We will continue on the supplement. LUX Voice ID: [id number] Report ID: [id number]
[2022-03-11] MEDS: AA 4.25 %/D5W/ELECTROLYTES 2,000 ML IV SCH (17:12)
--- NOTE | 2022-03-11 17:24 | RAD REPORT ---
EXAM DESCRIPTION: RAD - Abdomen 1 View (KUB) - 03/11/2022 2:43 pm CLINICAL HISTORY: constipation, post-op COMPARISON: Abdomen Pelvis W Contrast dated 03/04/2022 FINDINGS: Distended small bowel and colon without discrete transition point. Laparotomy defect. No a cute osseous abnormality.Visualized lungs are unremarkable.No abnormal calcifications. Surgical clips in right upper quadrant. IMPRESSION: Findings most consistent with an ileus.
[2022-03-11] MEDS: AMLODIPINE 5 MG TAB PO SCH (21:00)
[2022-03-11] MEDS ORDERED: AMLODIPINE 5 MG TAB PO SCH (21:00)
[2022-03-11] MEDS: MIRTAZAPINE 15 MG TAB PO SCH (21:57)
[2022-03-12 05:53] LABS: Hematocrit 30.8 % (36.0-45.0); MCV 95.8 fL (80-100); MPV 7.9 fL (7.6-11.3); RBC Red Blood Cell Count 3.22 M/uL (3.86-4.86)
[2022-03-12 06:09] LABS: Potassium 3.8 mmol/L (3.5-5.1)
[2022-03-12] MEDS: HOME MED 1 EA UNK (Budesonide/Formoterol Fumarate [Symbicort 80-4.5 Mcg Inhaler] 10.2 GM H IH SCH ×2 (09:00→20:48)
[2022-03-12] MEDS: ENSURE ENLIVE 237 ML CAN PO SCH ×2 (09:00→20:26)
[2022-03-12] MEDS: CLOPIDOGREL 75 MG TABLET PO SCH (09:10)
[2022-03-12] MEDS: cloNIDine HCL 0.1 MG TAB PO SCH (09:10)
[2022-03-12] MEDS: PREGABALIN 75 MG CAP PO SCH ×2 (09:10→20:29)
[2022-03-12] MEDS: carvediloL 12.5 MG TAB PO SCH ×2 (09:11→20:28)
[2022-03-12] MEDS: ESCITALOPRAM 20 MG TAB PO SCH (09:11)
[2022-03-12] MEDS: METRONIDAZOLE 500mg IVPB 500 MG/100 ML BAG IV SCH ×2 (09:12→16:19)
[2022-03-12] MEDS: CIPROFLOXACIN 400mg IV 400 MG/200 ML BAG IV SCH ×2 (09:12→20:47)
--- NOTE | 2022-03-12 13:10 | PN ---
Date of Progress Note: 03/12/2022 Subjective: The patient was admitted with abdominal pain, status post surgery. The patient found to have ileus yesterday. Has nausea and vomiting, resumed on the TPN. The patient had acute kidney in jury secondary to prerenal. The patient had hyponatremia. Blood pressure was not controlled. We st arted the patient on clonidine patch. Blood pressure today very well controlled. Physical Examination: Vital Signs: Blood pressure 147/69, pulse of 90, afebrile. Chest: Clear to auscultation. Heart: S1, S2. Regular. Abdomen: Dressing. No guarding or rebound. Extremities: No edema. Neurologic: Alert. No focality. Laboratory Data: Hemoglobin 10.3. Sodium 137, potassium 3.8, bicarb 25, BUN 32, creatinine 1, GFR o f 53, calcium 7.7. Assessment And Plan: 1.Hypertension, controlled, optimal. We will continue clonidine patch, discontinue clonidine oral. 2.Acute kidney injury secondary to prerenal, recovered, resolved. 3.Hyponatremia, depletional, resolved. 4.Hypokalemia. Continue p.r.n. supplement. 5.Ileus, small bowel obstruction, status post surgery. We will follow up with primary. MERCEDES/CLINT Voice ID: [id number] Report ID: [id number]
[2022-03-12] MEDS: ONDANSETRON 4 MG/2 ML VIAL IV PRN (15:27)
[2022-03-12] MEDS: AA 4.25 %/D5W/ELECTROLYTES 2,000 ML IV SCH (16:18)
--- NOTE | 2022-03-12 17:27 | P.PN ---
Date of Service: 03/12/22 Subjective: no nausea this morning ileus noted on KUB yesterday after large emesis no new/worsening symptoms, no BM ROS: 10 point ROS as noted above, otherwise negative Physical Exam: Gen: hard of hearing, answers appropriately, but slowly HEENT: normal conjunctiva, sclera anicteric CV: regular rate & rhythm, no edema Pulm: non-labored respirations, clear bilaterally Abd: mild distention, wound dressing c/d/i Neuro: moves all extremities, follows commands vitals reviewed Problem List SBO now s/p ex-lap, bowel resection with end-to-end anastomosis CKD3 HTN COPD, chronic GERD Depression seen by cardiology pre-op s/p ex-lap, bowel resection, end-to-end anastomosis ileus noted 03/11, sips/ice chips ok continue PPN for now no BM yet awaiting return of bowel function Check KUB tomorrow mild hypernatremia electrolyte abnormalities, hypocalcemia, hypophosphatemia replete as needed worsened by no PO intake, now improved PPN started 03/07 nephrology consulted acute encephalopathy - possibly delirium possibly from electrolyte abnormalities CT brain (03/07) negative for acute process improving each day neuro consulted pain meds as needed continue empiric antibiotics haldol PRN for delirium VTE: lovenox, renally dosed Code: Full Dispo: ~2-3 days slow to improve, low PO intake SNF vs home; family and patient prefer home, reports that we will have good family support Moderate in return of bowel function, able to tolerate p.o., continue PT Time Spent Managing Pts Care (In Minutes): 25
[2022-03-12] MEDS: AMLODIPINE 5 MG TAB PO SCH (20:28)
[2022-03-12] MEDS: MIRTAZAPINE 15 MG TAB PO SCH (20:29)
[2022-03-13] MEDS: METRONIDAZOLE 500mg IVPB 500 MG/100 ML BAG IV SCH ×3 (00:15→16:17)
[2022-03-13] MEDS ORDERED: SODIUM CHLORIDE 0.9% 10ML INJ IV PRN (01:21)
[2022-03-13] MEDS: ONDANSETRON 4 MG/2 ML VIAL IV PRN (01:43)
[2022-03-13] MEDS: PANTOPRAZOLE 40 MG INJ IVP SCH ×2 (01:43→10:01)
[2022-03-13 04:32] LABS: Hematocrit 31.4 % (36.0-45.0); MCV 95.7 fL (80-100); MPV 8.2 fL (7.6-11.3); RBC Red Blood Cell Count 3.28 M/uL (3.86-4.86)
[2022-03-13 05:03] LABS: Albumin 2.2 g/dL (3.4-5.0); Bilirubin Total 0.4 mg/dL (0.2-1.0); Potassium 4.2 mmol/L (3.5-5.1); Protein, Total 4.9 g/dL (6.4-8.2)
[2022-03-13] MEDS: HOME MED 1 EA UNK (Budesonide/Formoterol Fumarate [Symbicort 80-4.5 Mcg Inhaler] 10.2 GM H IH SCH ×2 (09:00→21:00)
[2022-03-13] MEDS: ENSURE ENLIVE 237 ML CAN PO SCH ×2 (09:00→21:27)
[2022-03-13] MEDS: CLOPIDOGREL 75 MG TABLET PO SCH (10:01)
[2022-03-13] MEDS: PREGABALIN 75 MG CAP PO SCH ×2 (10:02→21:26)
[2022-03-13] MEDS: ESCITALOPRAM 20 MG TAB PO SCH (10:03)
[2022-03-13] MEDS: carvediloL 12.5 MG TAB PO SCH ×2 (10:03→21:26)
[2022-03-13] MEDS: CIPROFLOXACIN 400mg IV 400 MG/200 ML BAG IV SCH ×2 (10:04→21:27)
--- NOTE | 2022-03-13 10:24 | RAD REPORT ---
EXAM DESCRIPTION: RAD - Abdomen 1 View (KUB) - 03/13/2022 9:54 am CLINICAL HISTORY: Abdomen pain FINDINGS: Mildly dilated small bowel is present minimally worsened from the March 11, 2022 exam. Air is present throughout the colon. This has the appearance of an adynamic ileus.
[2022-03-13] MEDS: MORPHINE 4 MG/ML SYR IV PRN ×2 (11:42→23:37)
--- NOTE | 2022-03-13 16:24 | P.PN ---
Date of Service: 03/13/22 Subjective: nausea/emesis yesterday +flatus overnight no BM feels her abdomen is softer, less gas ROS: 10 point ROS as noted above, otherwise negative Physical Exam: Gen: hard of hearing, answers appropriately HEENT: normal conjunctiva, sclera anicteric CV: regular rate & rhythm, no edema Pulm: non-labored respirations, clear bilaterally Abd: mild distention but soft, wound dressing c/d/i Neuro: moves all extremities, follows commands vitals reviewed Problem List SBO now s/p ex-lap, bowel resection with end-to-end anastomosis CKD3 HTN COPD, chronic GERD Depression seen by cardiology pre-op s/p ex-lap, bowel resection, end-to-end anastomosis ileus noted 03/11, sips/ice chips ok continue PPN for now no BM yet awaiting return of bowel function KUB ordered today mild hypernatremia electrolyte abnormalities, hypocalcemia, hypophosphatemia replete as needed worsened by no PO intake, now improved PPN started 03/07 nephrology consulted acute encephalopathy - possibly delirium possibly from electrolyte abnormalities CT brain (03/07) negative for acute process improving each day neuro consulted patient back to baseline pain meds as needed continue empiric antibiotics haldol PRN for delirium VTE: lovenox, renally dosed Code: Full Dispo: ~2-3 days slow to improve, low PO intake family and patient prefer home, reports that we will have good family support awaiting return of bowel function, able to tolerate p.o., continue PT Time Spent Managing Pts Care (In Minutes): 25
[2022-03-13] MEDS: AA 4.25 %/D5W/ELECTROLYTES 2,000 ML, Lipids 20% 250 ML with MULTIVITAMINS INJ 10 ML IV SCH ×3 (17:03)
[2022-03-13] MEDS: MIRTAZAPINE 15 MG TAB PO SCH (21:27)
[2022-03-13] MEDS: AMLODIPINE 5 MG TAB PO SCH (21:27)
[2022-03-14] MEDS: METRONIDAZOLE 500mg IVPB 500 MG/100 ML BAG IV SCH ×3 (00:52→18:06)
[2022-03-14 05:51] LABS: Hematocrit 30.5 % (36.0-45.0); MCV 96.2 fL (80-100); MPV 8.2 fL (7.6-11.3); RBC Red Blood Cell Count 3.17 M/uL (3.86-4.86)
[2022-03-14 06:10] LABS: Magnesium 2.2 mg/dL (1.8-2.4); Potassium 4.5 mmol/L (3.5-5.1)
--- NOTE | 2022-03-14 06:15 | PN ---
Date of Progress Note: 03/13/2022 Chief Complaint: Acute kidney injury secondary to prerenal azotemia. Renal function has stabilized. History Of Present Illness: Patient was admitted with abdominal pain, underwent surgery. Patient was found to have ileus. Yesterday, she was vomiting and TPN was resumed. Patient had acute kidney injury secondary to prerenal azotemia with nonoliguric ATN. Patient was found to have hyponatremia due to salt depletion. Review of Systems: Denies complaints. Physical Examination: Lungs: Clear to auscultation bilaterally. Heart: S1, S2. Abdomen: Soft, benign. Extremities: No edema. Impression And Plan: 1. Hypertension, controlled. Continue current medication. Patient is on clonidine patch. 2. Acute kidney injury secondary to prerenal azotemia. Continue IV fluids as needed and monitor renal function. Avoid nephrotoxic medication. 3. Hyponatremia, depletional, resolved. Continue to monitor electrolytes. 4. Hypokalemia. Monitor renal panel , MG , Po4 level, supplementation p.r.n. 5. Ileus, small-bowel obstruction, status post surgery. Follow up with Primary and Surgery. CABRERA/CLINT Voice ID: [id number] Report ID: [id number] ALFONSO
[2022-03-14] MEDS: HOME MED 1 EA UNK (Budesonide/Formoterol Fumarate [Symbicort 80-4.5 Mcg Inhaler] 10.2 GM H IH SCH ×2 (09:00→21:00)
[2022-03-14] MEDS: carvediloL 12.5 MG TAB PO SCH ×2 (10:16→21:42)
[2022-03-14] MEDS: CIPROFLOXACIN 400mg IV 400 MG/200 ML BAG IV SCH ×2 (10:16→20:19)
[2022-03-14] MEDS: ESCITALOPRAM 20 MG TAB PO SCH (10:17)
[2022-03-14] MEDS: CLOPIDOGREL 75 MG TABLET PO SCH (10:17)
[2022-03-14] MEDS: PREGABALIN 75 MG CAP PO SCH ×2 (10:17→21:42)
[2022-03-14] MEDS: PANTOPRAZOLE 40 MG INJ IVP SCH (10:18)
[2022-03-14] MEDS: ENSURE ENLIVE 237 ML CAN PO SCH ×2 (10:18→21:43)
--- NOTE | 2022-03-14 16:03 | PN ---
Date of Progress Note: 03/14/2022 Diagnosis: Status post small bowel obstruction, status post small bowel resection with anastomosis. Subjective: The patient is doing better. She has also more energy and she is more awake. Passing f latus. The dressings were changed yesterday by me. Incision looks intact and we are not going to ge t her zaida out yet. Objective: Abdomen: Soft and benign. Plan: Continue advancing the diet slowly. We encouraged ambulation. When she gets discharged from the floor, we will like to see the patient in a week in our office. She was advised yesterday also t he importance of the diet and how to take her time and chew her food properly. TEDDY/CLINT Voice ID: [id number] Report ID: [id number]
--- NOTE | 2022-03-14 16:11 | P.PN ---
Subjective Date of Service: 03/14/22 Primary Care Provider: Rashid Chief Complaint: SBO Patient with NG tube draining bilious fluid. She is complaining of abdominal pain. Status post exploratory laparotomy, bowel resection and end-to-end anastomosis as well as adhesiolysis. Patient appears confused. Physical Examination - Vital Signs Temperature: 97.6 F Blood Pressure: 118/59 Pulse: 76 Respirations: 14 Pulse Ox (%): 93 Assessment And Plan - Current Problems (Diagnosis) (1) Small bowel obstruction Current Visit: Yes Status: Acute (2) CKD (chronic kidney disease), stage III Current Visit: Yes Status: Chronic Qualifiers: Chronic kidney disease stage 3 subtype: stage 3b (GFR 30-44) Qualified Code(s): N18.32 - Chronic kidney disease, stage 3b (3) HTN (hypertension) Current Visit: Yes Status: Chronic Qualifiers: Hypertension type: primary hypertension Qualified Code(s): I10 - Essential (primary) hypertension - Plan Physical Exam General: Confused, moderate distress ENT: NG tube to suction. Respiratory: Clear to auscultation bilaterally, Normal air movement Cardiovascular: Regular rate/rhythm, Normal S1 S2 Gastrointestinal: No bowel sounds, no tenderness, laparotomy wound dressing is not soaked. Integumentary: No rashes Neurological: No focal motor deficit. Plan: Patient seen by cardiology-Dr. Obando and cleared for surgery. Status post exploratory laparotomy, bowel resection, end-to-end anastomosis and adhesiolysis by Dr. Dorman Continue supportive measures with IV hydration. NG tube in place. I suspect patient is experiencing delirium Pain management as needed. Empiric antibiotic. Haldol IV as needed for delirium Monitor and optimize electrolytes. Hydralazine as needed for BP spikes. Monitor intake and output. Physical Exam: Gen: Awake and alert CV: regular rate & rhythm, no edema Pulm: non-labored respirations, clear bilaterally Abd: soft, wound dressing c/d/i, bowel sounds heard. Neuro: moves all extremities, follows commands vitals reviewed Problem List SBO now s/p ex-lap, bowel resection with end-to-end anastomosis CKD3 HTN COPD, chronic GERD Depression s/p ex-lap, bowel resection, end-to-end anastomosis/EUS ileus noted 03/11. Patient having flatus. No BM yet continue PPN for now Patient tolerating full liquid diet. Surgery is following and planning discharge once patient able to tolerate soft diet. Serial abdominal examination, optimize electrolyte continue empiric antibiotics Hypernatremia Resolved. Hypocalcemia, hypophosphatemia replete as needed On PPN started 03/07 nephrology is following Acute encephalopathy ICU delirium. CT brain (03/07) negative for acute process Delirium resolved. Seen by neuro-Dr. Sanchez. pain meds as needed haldol PRN for delirium VTE: lovenox, renally dosed Code: Full Dispo: Home upon discharge. Awaiting return of bowel function Continue PT Time Spent Managing Pts Care (In Minutes): 28
[2022-03-14] MEDS: AA 4.25 %/D5W/ELECTROLYTES 2,000 ML IV SCH (20:19)
[2022-03-14] MEDS: AMLODIPINE 5 MG TAB PO SCH (21:41)
[2022-03-14] MEDS: MIRTAZAPINE 15 MG TAB PO SCH (21:42)
--- NOTE | 2022-03-14 22:15 | PN ---
Date of Progress Note: 03/14/2022 Chief Complaint: Acute kidney injury secondary to prerenal azotemia. Renal function has stabilized. History Of Present Illness: Patient was admitted with abdominal pain, underwent surgery. Patient wa s found to have ileus yesterday. The patient was complaining of some nausea and vomiting. Review of Systems: Denies new complaints. Physical Examination: Lungs: Clear to auscultation bilaterally. Heart: S1, S2. Abdomen: Soft. Extremities: No edema. Impression And Plan: 1.Hypertension, controlled. Continue current medication. Patient is on clonidine patch. 2.Acute kidney injury secondary to prerenal azotemia. Continue hydration with IV fluids. 3.Hyponatremia depletional, resolved. Continue to monitor electrolytes. 4.Hypokalemia. Replacement and supplementation as needed. 5.Ileus and small bowel obstruction status post surgery. Followed up by Primary and Surgery. CABRERA/CLINT Voice ID: [id number] Report ID: [id number]
[2022-03-15] MEDS: METRONIDAZOLE 500mg IVPB 500 MG/100 ML BAG IV SCH ×3 (01:24→16:04)
[2022-03-15] MEDS: HOME MED 1 EA UNK (Budesonide/Formoterol Fumarate [Symbicort 80-4.5 Mcg Inhaler] 10.2 GM H IH SCH ×2 (08:41→21:00)
[2022-03-15] MEDS: PANTOPRAZOLE 40 MG INJ IVP SCH (08:44)
[2022-03-15] MEDS: CLOPIDOGREL 75 MG TABLET PO SCH (08:44)
[2022-03-15] MEDS: PREGABALIN 75 MG CAP PO SCH ×2 (08:44→21:57)
[2022-03-15] MEDS: ESCITALOPRAM 20 MG TAB PO SCH (08:44)
[2022-03-15] MEDS: carvediloL 12.5 MG TAB PO SCH ×2 (08:44→21:50)
[2022-03-15] MEDS: ENSURE ENLIVE 237 ML CAN PO SCH ×2 (08:45→21:51)
[2022-03-15] MEDS: CIPROFLOXACIN 400mg IV 400 MG/200 ML BAG IV SCH (09:32)
[2022-03-15] MEDS: ACETAMINOPHEN 500 MG TAB PO PRN ×2 (09:32→21:48)
--- NOTE | 2022-03-15 13:18 | RAD REPORT ---
EXAM DESCRIPTION: RAD - Foot Left 3 View - 03/15/2022 12:12 pm CLINICAL HISTORY: Left Foot pain FINDINGS: No fracture or dislocation is seen. Hallux valgus and hammertoe deformities. Bones are osteoporotic. Joint spaces are well-maintained
--- NOTE | 2022-03-15 14:44 | PN ---
Date of Progress Note: 03/15/2022 Subjective: Patient is doing better. Abdomen is benign. Passing flatus. She is able to tolerate f ull liquid diet. Plan: Obviously, ambulation, incentive spirometry. Advance diet. We are going to trying to give he r pureed diet to see if she can assimilate that little bit better than the full liquid and from our s urgical standpoint, we may stop the PPN, although we are going to let the primary doctors determine t he proper timing. TEDDY/CLINT Voice ID: [id number] Report ID: [id number]
--- NOTE | 2022-03-15 14:57 | PN ---
Date of Progress Note: 03/15/2022 Subjective: The patient was admitted with acute kidney injury, small bowel obstruction, status post surgery. The patient tolerated the surgery. Kidney function normalized. Blood pressure was uncontr olled. After placing the patient on patch, blood pressure has been controlled. Physical Examination: Vital Signs: Blood pressure 147/62, pulse of 78, afebrile. Chest: Clear to auscultation. Heart: S1, S2. Regular. Abdomen: Soft, nontender. Extremities: No edema. Neurologic: Alert. No focality. Laboratory Data: Hemoglobin 10.3. Sodium 138, potassium 4.5, bicarb 25, BUN 33, creatinine 1.1, GFR of 49, calcium 7.8, phosphorus is 3.5, magnesium 2.2. Current Medications: The patient on include; 1.Ciprofloxacin. 2.Metronidazole. 3.Amlodipine 10 mg. 4.Carvedilol. 5.Tylenol. 6.Lexapro. 7.Lyrica. Assessment And Plan: 1.Acute kidney injury secondary to prerenal, recovered, resolved. 2.Hypertension, controlled, optimal. Continue current medication. 3.Small bowel obstruction. Continue symptomatic treatment. We will follow up with primary. LUX Voice ID: [id number] Report ID: [id number]
--- NOTE | 2022-03-15 17:24 | P.PN ---
Subjective Date of Service: 03/15/22 Primary Care Provider: Rashid Chief Complaint: SBO Patient is tolerating full liquid diet. She reported passing gas. Currently alert and oriented. Physical Examination - Vital Signs Temperature: 98.4 F Blood Pressure: 136/57 Pulse: 88 Respirations: 14 Pulse Ox (%): 96 Assessment And Plan - Current Problems (Diagnosis) (1) Small bowel obstruction Current Visit: Yes Status: Acute (2) CKD (chronic kidney disease), stage III Current Visit: Yes Status: Chronic Qualifiers: Chronic kidney disease stage 3 subtype: stage 3b (GFR 30-44) Qualified Code(s): N18.32 - Chronic kidney disease, stage 3b (3) HTN (hypertension) Current Visit: Yes Status: Chronic Qualifiers: Hypertension type: primary hypertension Qualified Code(s): I10 - Essential (primary) hypertension - Plan Physical Exam General: Oriented x3, NAD. Respiratory: Clear to auscultation bilaterally, Normal air movement Cardiovascular: Regular rate/rhythm, Normal S1 S2 Gastrointestinal: No bowel sounds, no tenderness. Integumentary: No rashes Neurological: No focal motor deficit. vitals reviewed Problem List SBO now s/p ex-lap, bowel resection with end-to-end anastomosis CKD3 HTN COPD, chronic GERD Depression s/p ex-lap, bowel resection, end-to-end anastomosis/EUS ileus noted 03/11. Patient having flatus. No BM yet Patient tolerating full liquid diet. Dr. Dorman advised a diet to pured Discontinue antibiotics. Hypernatremia Resolved. Hypocalcemia, hypophosphatemia replete as needed PPN discontinued nephrology is following Acute encephalopathy ICU delirium CT brain (03/07) negative for acute process Delirium resolved. Seen by neuro-Dr. Sanchez. pain meds as needed haldol PRN for delirium VTE: lovenox, renally dosed Code: Full Dispo: Anticipating discharge with home health tomorrow Continue PT Time Spent Managing Pts Care (In Minutes): 25
[2022-03-15] MEDS: AMLODIPINE 5 MG TAB PO SCH (21:50)
[2022-03-15] MEDS: MIRTAZAPINE 15 MG TAB PO SCH (21:50)
[2022-03-16 01:45] VITALS: O2SAT 98
[2022-03-16 06:14] LABS: Potassium 4.1 mmol/L (3.5-5.1)
[2022-03-16 06:17] LABS: Absolute Lymphocytes (CBC) 1.4 K/uL (0.7-4.9); Hematocrit 28.5 % (36.0-45.0); Lymphocytes % 15.1 % (15.3-44.8); MCV 96.3 fL (80-100); MPV 8.1 fL (7.6-11.3); RBC Red Blood Cell Count 2.96 M/uL (3.86-4.86)
[2022-03-16] MEDS: HOME MED 1 EA UNK (Budesonide/Formoterol Fumarate [Symbicort 80-4.5 Mcg Inhaler] 10.2 GM H IH SCH (08:13)
[2022-03-16] MEDS: PREGABALIN 75 MG CAP PO SCH (08:26)
[2022-03-16] MEDS: carvediloL 12.5 MG TAB PO SCH (08:26)
[2022-03-16] MEDS: ESCITALOPRAM 20 MG TAB PO SCH (08:26)
[2022-03-16] MEDS: PANTOPRAZOLE 40 MG INJ IVP SCH (08:26)
[2022-03-16] MEDS: CLOPIDOGREL 75 MG TABLET PO SCH (08:26)
[2022-03-16 08:27] VITALS: BP 119/55
[2022-03-16] MEDS: ENSURE ENLIVE 237 ML CAN PO SCH (08:27)
[2022-03-16 08:33] VITALS: TEMP 97.5
[2022-03-16 08:59] LABS: Blood Morphology Comment NOT SEEN (NOT SEEN); Platelet Estimate ADEQ
--- NOTE | 2022-03-16 08:59 | P.DS ---
Admission Date: 03/04/22 Discharge Date: 03/16/22 Primary Care Provider: Rashid Disposition: DC HOME/HOME HEALTH CARE Discharge Condition: FAIR Reason for Admission: SBO - Problems (1) Small bowel obstruction Current Visit: Yes Status: Acute (2) CKD (chronic kidney disease), stage III Current Visit: Yes Status: Chronic Qualifiers: Chronic kidney disease stage 3 subtype: stage 3b (GFR 30-44) Qualified Code(s): N18.32 - Chronic kidney disease, stage 3b (3) HTN (hypertension) Current Visit: Yes Status: Chronic Qualifiers: Hypertension type: primary hypertension Qualified Code(s): I10 - Essential (primary) hypertension Brief History of Present Illness: Patient is an 81 year old female with history of CKD3, COPD, HTN, HLD, GERD, chronic diastolic CHF, and CVA who presented to the ED with complaints of abdominal pain, nausea, and vomiting x 4 days. Labs significant for WBC 18.6 with left shift, BUN 29, Cr 1.6, troponin HS 86.1. Abdominal ultrasound showed "Cholecystectomy. Common bile duct is obscured by bowel gas." Follow up CT abdomen pelvis showed "Findings are suspicious for a closed loop small-bowel obstruction. Two transition points located in the pelvis where the small bowel is sharply angulated. The wall of the small bowel at one of the transition point s is hypoenhancing and may be either ischemic or necrotic." CT NSR with nonspecific ST changes. NG tube was inserted in ED. She was additionally given 1L fluid, cipro, flagyl. She is admitted for further management. Hospital Course: Diagnosis SBO now s/p ex-lap, bowel resection with end-to-end anastomosis CKD3 HTN COPD, chronic GERD Depression Patient admitted to the medical floor and started on antibiotics. She was seen by cardiology for preop clearance. Also seen by Dr. Hassan and s/p ex-lap, bowel resection, end-to-end anastomosis/EUS Patient developed postop ileus which was managed supportively. Patient was on PPN for prolonged n.p.o. status. Postop ileus finally resolved. Patient had flatus and bowel movements Diet was advanced to soft consistency which she tolerated She was on antibiotics for several days. Hypernatremia Resolved. Hypocalcemia, hypophosphatemia nephrology saw patient and assisted with management of electrolyte abnormalities Acute encephalopathy She ICU delirium CT brain (03/07) negative for acute process Seen by neuro-Dr. Sanchez. Delirium resolved Patient with decreased functional status. She was seen by PT and underwent PT sessions. Patient prefers to go home with home health. She has clinically improved and deemed stable for discharge. Vital Signs/Physical Exam: Temp Pulse Resp BP Pulse Ox 97.5 F 71 16 119/55 L 96 03/16/22 08:00 03/16/22 08:26 03/16/22 08:00 03/16/22 08:26 03/16/22 08:00 General: Alert, In no apparent distress, Oriented x3 HEENT: Mucous membr. moist/pink Neck: JVD not distended Respiratory: Clear to auscultation bilaterally, Normal air movement Cardiovascular: No edema, Regular rate/rhythm, Normal S1 S2 Gastrointestinal: Soft and benign, Non-distended Musculoskeletal: No swelling Integumentary: No rashes Neurological: Normal strength at 5/5 x4 extr Laboratory Data at Discharge: WBC 9.40 K/uL (4.3-10.9) 03/16/22 05:47 Hgb 9.7 g/dL (12.0-15.0) L 03/16/22 05:47 Hct 28.5 % (36.0-45.0) L 03/16/22 05:47 Plt Count 281 K/uL (152-406) 03/16/22 05:47 Sodium 142 mmol/L (136-145) 03/16/22 05:47 Potassium 4.1 mmol/L (3.5-5.1) 03/16/22 05:47 BUN 24 mg/dL (7-18) H 03/16/22 05:47 Creatinine 1.12 mg/dL (0.55-1.3) 03/16/22 05:47 Glucose 101 mg/dL (74-106) 03/16/22 05:47 Phosphorus 3.5 mg/dL (2.5-4.9) 03/10/22 05:20 Magnesium 2.2 mg/dL (1.8-2.4) 03/14/22 05:26 Total Bilirubin 0.4 mg/dL (0.2-1.0) 03/13/22 03:37 AST 14 U/L (15-37) L 03/13/22 03:37 ALT 13 U/L (12-78) 03/13/22 03:37 Alkaline Phosphatase 48 U/L (45-117) 03/13/22 03:37 Triglycerides 93 mg/dL (<150) 03/05/22 03:39 Cholesterol 128 mg/dL (<200) 03/05/22 03:39 HDL Cholesterol 59 mg/dL (40-60) 03/05/22 03:39 Cholesterol/HDL Ratio 2.17 03/05/22 03:39 Lipase 34 U/L (73-393) L 03/04/22 17:53 Home Medications: Amlodipine [Norvasc*] 2.5 mg PO BEDTIME 04/25/13 Clopidogrel Bisulfate [Clopidogrel] 75 mg PO DAILY 04/25/13 Escitalopram Oxalate 20 mg PO DAILY 04/25/13 Furosemide [Lasix*] 10 mg PO DAILY 04/25/13 Mirtazapine [Remeron*] 15 mg PO BEDTIME 04/25/13 Pregabalin [Lyrica*] 75 mg PO BID 04/25/13 carvediloL [Coreg*] 6.25 mg PO BID 04/25/13 Budesonide/Formoterol Fumarate [Symbicort 160-4.5 Mcg Inhaler] 2 puff IH BID 11/19/14 Albuterol Sulfate [Proair Hfa] 2 puff IH PRN PRN 02/04/18 Albuterol Neb [Proventil 0.083% Neb Soln] 2.5 mg NEB Q6HP PRN 30 Days amp 02/07/18 Allopurinol 100 mg PO BREAKFAST 03/05/22 Buspirone HCl 1 tab PO BID 03/05/22 Famotidine [Pepcid*] 20 mg PO DAILY 03/05/22 Losartan Potassium [Cozaar] 12.5 mg PO DAILY 03/05/22 Lovastatin 1 tab PO BEDTIME 03/05/22 Ensure Enlive 237 ml PO BID #60 can 03/16/22 New Medications: Ensure Enlive 237 ml PO BID #60 can Physician Discharge Instructions: Progress from soft diet as tolerated. Followup: Phuong Mike DO [Primary Care Provider] - Time spent managing pt's care (in minutes): 40
--- NOTE | 2022-03-16 14:13 | EEG ---
CHART: [id number] TEST ID#: [id number] DATE OF STUDY: 03-09-22 THE EEG WAS RECORDED PORTABLE IN THE PATIENT'S ROOM ON A 17 CHANNEL MACHINE. ELECTRODES WERE APPLIED IN THE USUAL MANNER USING THE INTERNATIONAL 10-20 SYSTEM. THE WAKING BACKGROUND RHYTHM IN THIS RECORD CONSISTS OF WELL DEVELOPED AND WELL ORGANIZED WAVES OF 6 HZ., IN A WIDE DISTRIBUTION WHICH DO NOT ATTENUATE NORMALLY WITH EYE OPENING. MODERATE VOLTAGE 1.5-3 HZ ACTIVITY IS EXPRESSED IN THE FRONTAL REGIONS. THERE ARE NO FOCAL OR LATERALIZING FEATURES. NO EPILEPTIFORM ACTIVITY APPEARS. SLEEP DID NOT OCCUR. HYPERVENTILATION WAS NOT PERFORMED. PHOTIC STIMULATION PRODUCED NO DRIVING BILATERALLY. IMPRESSION: THIS IS A MILD TO MODERATELY ABNORMAL ROUTINE EEG DUE TO A MILD TO MODERATELY SLOW BACKGROUND. THIS IS A NON-SPECIFIC FINDING INDICATING THE PRESENCE OF A MILD TO MODERATE DIFFUSE DISTURBANCE IN CEREBRAL FUNCTION.
[2022-03-18] MEDS ORDERED: CLONIDINE 0.1 MG/PATCH TD SCH (09:00)
== END 2022-03-16 12:02 | disposition home health service (06) | DRG 329 ==
LOC: ER 15:37 → ERHOLD 22:30 → 4TH 03-05 00:16 → 3RD-ICU 03-05 13:45 → 2ND 03-08 16:15
PROVIDERS: ADMIT Internal Medicine; ATTEND Internal Medicine
PROC: 0DN80ZZ Release Small Intestine, Open Approach (ICD-10-PCS; 2022-03-05)
PROC: 0WQF0ZZ Repair Abdominal Wall, Open Approach (ICD-10-PCS; 2022-03-05)
PROC: 0DB80ZZ Excision of Small Intestine, Open Approach (ICD-10-PCS; principal; 2022-03-05 11:15)
PROC: 0DNU0ZZ Release Omentum, Open Approach (ICD-10-PCS; 2022-03-05 11:15)
PROC: 3E0336Z Introduction of Nutritional Substance into Peripheral Vein, Percutaneous Approach (ICD-10-PCS; 2022-03-09)
DX: K56.699 Other intestinal obstruction unspecified as to partial versus complete obstruction (principal); N17.0 Acute kidney failure with tubular necrosis; E87.0 Hyperosmolality and hypernatremia; I13.0 Hypertensive heart and chronic kidney disease with heart failure and stage 1 through stage 4 chronic kidney disease, or unspecified chronic kidney disease; K43.6 Other and unspecified ventral hernia with obstruction, without gangrene; I50.32 Chronic diastolic (congestive) heart failure; G93.40 Encephalopathy, unspecified; E87.1 Hypo-osmolality and hyponatremia; E46 Unspecified protein-calorie malnutrition; K91.30 Postprocedural intestinal obstruction, unspecified as to partial versus complete; N18.32 Chronic kidney disease, stage 3b; J44.9 Chronic obstructive pulmonary disease, unspecified; E78.5 Hyperlipidemia, unspecified; E83.39 Other disorders of phosphorus metabolism; E87.6 Hypokalemia; E83.51 Hypocalcemia; E83.42 Hypomagnesemia; F32.A Depression, unspecified; E86.0 Dehydration; F98.8 Other specified behavioral and emotional disorders with onset usually occurring in childhood and adolescence; R41.0 Disorientation, unspecified; Z88.0 Allergy status to penicillin; Z88.6 Allergy status to analgesic agent; Z88.8 Allergy status to other drugs, medicaments and biological substances; Z60.2 Problems related to living alone; Z68.22 Body mass index [BMI] 22.0-22.9, adult; Z79.82 Long term (current) use of aspirin; Z86.73 Personal history of transient ischemic attack (TIA), and cerebral infarction without residual deficits; Z79.02 Long term (current) use of antithrombotics/antiplatelets; Z79.52 Long term (current) use of systemic steroids; Z90.49 Acquired absence of other specified parts of digestive tract; Z79.899 Other long term (current) drug therapy; Z90.710 Acquired absence of both cervix and uterus; Z20.822 Contact with and (suspected) exposure to COVID-19; Y83.8 Other surgical procedures as the cause of abnormal reaction of the patient, or of later complication, without mention of misadventure at the time of the procedure
CPT/HCPCS: 36415; 70450; 71045; 74018; 74177; 76705; 80048; 80053; 80061; 80076; 81001; 81003; 81015; 82550; 82553; 82565; 83605; 83690; 83735; 84100; 84132; 84300; 84443; 84484; 85025; 85027; 87040; 87086; 87088; 87811; 88302; 88304; 88307; 93005; 94010; 94760; 95816; 96361; 96365; 96367; 96375; 97110; 97116; 97161; 97530; 97760; 99285; C9113; J0330; J0360; J0610; J0744; J1100; J1170; J1630; J1650; J1940; J2001; J2370; J2405; J2704; J2710; J3010; J3475; J3480; J7030; J7040; J7120; Q9967

== ENCOUNTER 2022-11-01 12:12 | Emergency (ER) | payer MEDICARE ==
--- OUTSIDE RECORDS SUMMARY | 2022-11-01 12:18 | XMS REPORT | Continuity of Care Document ---
:1940 Author Organization [facility] t Address [address] [facility]. [address] [place] [address] Care Team Providers Name Role Phone Phuong Salas DO Primary Care Physician Emelia Devine Attending Clinician Unavailable Mayco Pruett Attending Clinician Unavailable Agueda Rain Attending Clinician Unavailable Phuong SALAS Attending Clinician Unavailable Penny Wu Attending Clinician Thomas_Joe Attending Clinician Unavailable OW_T Attending Clinician Unavailable Jackelin Flanagan Attending Clinician JAELYN MCKEON Attending Clinician Unavailable JAGJIT REID Attending Clinician Unavailable Radiology Attending Clinician Unavailable Ni Farrell Attending Clinician Unavailable Severiano Xiong MD Attending Clinician RADIOLOGY Attending Clinician Unavailable Bryce_T Admitting Clinician Unavailable OW_T Admitting Clinician Unavailable Payers Payer Name Policy Type Policy Number Effective Date Expiration Date [facility] [id number] 2020 (MEDICARE 00:00:00 REPLACEMENT HMO) Problems Condition Condition Condition Status Onset Resolution Last Treating Co mments Source Name Details Category Date Date Treatment Clinician Date No known No known Disease Unive rs active active ity of problems problems [facility] Diverticul Diverticul Problem C ommon itis itis [facility] Swelling Swelling Problem Commo n [facility] [id number] Gastro-eso Problem Co mmon phageal [facility] reflux - [facility] disease [facility] esophagiti [facility] [id number] History of Problem Co mmon stomach [facility] ulcers - [facility] [id number] Irritable Problem Com mon bowel [id number] Gastroesop Problem Co mmon hageal [facility] reflux - [facility] disease, esophagiti [facility] s presence Medica l not Center specified [id number] Hyperlipid Problem Com mon emia, Spirit unspecifie - CHI d hyperlipid [facility] emia type Medical [place] [id number] Essential Problem Comm on hypertensi Spirit on [facility] [id number] History of Problem Co mmon stroke [facility] [id number] Chronic Problem Common obstructiv [facility] type [id number] Peripheral Problem Co mmon edema [facility] [id number] Anemia in Problem Com mon chronic [facility] kidney - [facility] disease [facility] [id number] Fibromyalg Problem Co mmon ia Spirit [facility] Vitamin D Vitamin D Problem Com mon deficiency deficiency Sp eliza [facility] 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 [facility] [id number] 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, - CHI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) [facility] [id number] Depression Problem Co mmon with Spirit anxiety - [facility] [id number] Chronic Problem Common congestive [facility], [facility] type Heart Heart Problem Common disease disease Spirit [facility] 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 - [facility] Hypertensi Hypertensi Problem C ommon on on Spirit [facility] Chronic CKD Problem Common kidney (chronic Spirit disease kidney - [facility] stage 4 disease) [facility] GFR 15-29 Medical ml/min [place] [id number] Other Problem Common chronic [facility] pain - [facility] [id number] Lumbar Problem Common degenerati Spirit ve disc - [facility] disease [facility] Allergies, Adverse Reactions, Alerts Allergy Allergy [...] swelling Comm on in V in V [facility] Lisinopr Lisinopr Active dizziness Com mon il [facility] Grapefru Grapefru Active Unknown Commo n it it [facility] Social History Social Habit Start Date Stop Date Quantity Comments Source History of Tobacco Current Smoker Co mmon [facility] Use [facility] Gender identity [facility] Sexual orientation Method t Hospital Sex Assigned At [birth year] [facility] 00:[facility]00 Hospital Smoking Status Start Date Stop Date Source Tobacco smoking consumption Meth [facility] unknown Current Smoker 2022-04-17 00:00:00 [facility] Medications Ordered Filled Start Stop Current [...] 7-05 50 MG 00:00: 00 Pregabalin Pregabalin 2022-0 No Pregabalin 50 MG 50 MG 7-05 50 MG 00:00: 00 Pregabalin Pregabalin 2022-0 No Pregabalin 50 MG 50 MG 7-05 50 MG 00:00: 00 Pregabalin Pregabalin 2022-0 No Pregabalin 50 MG 50 MG 7-05 50 MG 00:00: 00 Pregabalin Pregabalin 2022-0 No Pregabalin 50 MG 50 MG 7-05 50 MG 00:00: 00 Pregabalin Pregabalin 2022-0 No Pregabalin 50 MG 50 MG 7-05 50 MG 00:00: 00 Pregabalin Pregabalin 2022-0 No Pregabalin 50 MG 50 MG 7-05 50 MG 00:00: 00 Pregabalin Pregabalin 2022-0 No Pregabalin 50 MG 50 MG 7-05 50 MG 00:00: 00 Pregabalin Pregabalin 2022-0 No Pregabalin 50 MG 50 MG 7-05 50 MG 00:00: 00 Pregabalin Pregabalin 2022-0 No Pregabalin 50 MG 50 MG 7-05 50 MG 00:00: 00 Famotidine Famotidine 2022-0 No 1{table QD Famotidine [...] 00:00: dtime_a 00 s_neede d} Pregabalin Pregabalin 2-0 No Pregabalin 50 MG 50 MG 2-18 50 MG 00:00: 00 Pregabalin Pregabalin 2-0 No Pregabalin 50 MG 50 MG 2-18 [...] 00:00 70 MG 00 :00 Alendronate Alendronate 2021- No Alendronat Sodium 70 Sodium 70 2-16 08-15 e Sodium MG MG 00:00: 00:00 70 MG 00 :00 Alendronate Alendronate 2021- No Alendronat Sodium 70 Sodium 70 [...] 6-25 s_in_ea MCG/ACT 00:00: ch_nost 00 ril} clopidogrel 2018-04 Yes 75mg Take 75 mg Univers bisulfate 0-10 by mouth. ity o f (PLAVIX 20:50: [place] ORAL) 45 Medical Branch amLODIPine 2018-04 Yes 7.5mg Take 7.5 Un rex (NORVASC) 5 0-10 mg by ity of mg tablet 20:50: mouth [place] 45 daily. Medical Branch B-complex 2018- Yes Take by Unive rs with 0-10 mouth. ity of vitamin C 20:50: [place] (VITAMIN B 45 Medical COMPLEX-C Branch ORAL) clonazePAM 2018- Yes .5mg Take 0.5 Uni vers 0.5 mg 0-10 mg by ity of tablet 20:50: mouth 3 [place] 45 (three) Medical times Branch daily. budesonide/ 2018- Yes Inhale. Uni vers formoterol 0-10 ity [...] 20:50: daily. [place] 45 Medical Branch mirtazapine 2018- Yes 15mg Take 15 mg Univers (REMERON) 0-10 by mouth ity of 15 mg 20:50: at [place] tablet 45 bedtime. Medical Branch pantoprazol 2018- Yes 40mg Take 40 mg Univers e 0-10 by mouth ity of (PROTONIX) 20:50: daily. [place] 40 mg EC 45 Medical tablet Branch lovastatin 2018-04 Yes 40mg Take 40 mg U nivers 40 mg 0-10 by mouth ity of tablet 20:50: at [place] 45 bedtime. Medical Branch clopidogrel 2018- Yes 75mg Take 75 mg Univers bisulfate 0-10 by mouth. ity o f (PLAVIX 20:50: [place] ORAL) 45 Medical Branch amLODIPine 2018- Yes 7.5mg Take 7.5 Un rex (NORVASC) [...] by mouth ity of (PROTONIX) 20:50: daily. [place] 40 mg EC 45 Medical tablet Branch [...] by mouth ity of tablet 20:50: at [place] [address] bedtime. Medical Branch clopidogrel 2018-04 Yes 75mg [...] 0-10 mouth. ity of vitamin C 20:50: [place] (VITAMIN B 45 Medical COMPLEX-C Branch ORAL) clonazePAM 2018-04 Yes .5mg Take 0.5 Uni vers 0.5 mg 0-10 mg by ity of tablet 20:50: mouth 3 [place] 45 (three) Medical times Branch daily. budesonide/ 2018-04 Yes Inhale. Uni vers formoterol 0-10 ity of fumarate 20:50: [place] (SYMBICORT 45 Medical INHALE) Branch carvedilol 2018-04 [...] ity o f mg tablet 20:50: daily. [place] 45 Medical Branch mirtazapine 2018-04 Yes 15mg Take 15 mg Univers (REMERON) 0-10 by mouth ity of 15 mg 20:50: at [place] tablet 45 bedtime. Medical Branch pantoprazol 2018-04 Yes 40mg Take 40 mg Univers e 0-10 by mouth ity of (PROTONIX) 20:50: daily. [place] 40 mg EC 45 Medical tablet Branch lovastatin 2018-04 Yes 40mg Take 40 mg U nivers 40 mg 0-10 by mouth ity of tablet 20:50: at [place] [address] bedtime. Medical Branch Allopurinol Allopurinol No Allopurino 100 [...] HCl 20 MG e HCl 20 MG Lovastatin Lovastatin No QD Lovastatin 40 MG 40 MG 40 MG busPIRone busPIRone No BID busPIRone HCl 7.5 MG HCl 7.5 MG HCl 7.5 MG Vitamin D3 Vitamin D3 No Vitamin D3 50,000 50,000 50,000 Albuterol Albuterol No 2{puffs Albuterol Sulfate HFA Sulfate HFA _as_nee Sulfate 108 (90 108 (90 ded} HFA 108 Base) Base) (90 Base) MCG/ACT MCG/ACT MCG/ACT Escitalopra Escitalopra No Escitalopr m Oxalate m Oxalate am Oxalate 20 MG 20 MG 20 MG Alendronate Alendronate No Alendronat Sodium 70 Sodium 70 e Sodium MG MG 70 MG Mirtazapine Mirtazapine No Mirtazapin 15 MG 15 MG e 15 MG Mirtazapine Mirtazapine No 1{table QD Mirtazapin 15 MG 15 MG t_at_be e 15 MG dtime} Allopurinol Allopurinol No Allopurino 100 MG 100 MG l 100 MG Symbicort Symbicort No 2{puffs BID Symbicort 160-4.5 160-4.5 } 160-4.5 MCG/ACT MCG/ACT MCG/ACT Dicyclomine Dicyclomine No Dicyclomin HCl 20 MG HCl 20 MG e HCl 20 MG Symbicort Symbicort No 2{puffs BID Symbicort 160-4.5 160-4.5 } 160-4.5 MCG/ACT MCG/ACT MCG/ACT Clopidogrel Clopidogrel No Clopidogre Bisulfate Bisulfate l 75 MG 75 MG Bisulfate 75 MG amLODIPine amLODIPine No 1{table amLODIPine Besylate Besylate t} Besylate 2.5 MG 2.5 MG 2.5 MG Furosemide Furosemide No Furosemide 20 MG 20 MG 20 MG Carvedilol Carvedilol No Carvedilol 12.5 MG 12.5 MG 12.5 MG Carvedilol Carvedilol No 1{table BID Carvedilol 6.25 MG 6.25 MG t_with_ 6.25 MG food} Escitalopra Escitalopra No 1{table QD Escitalopr m Oxalate m Oxalate t} am Oxalate 20 MG 20 MG 20 MG Losartan Losartan No QD Losartan Potassium Potassium Potassium 25 MG 25 MG 25 MG amLODIPine amLODIPine No 1{table QD amLODIPine Besylate Besylate t} Besylate 2.5 MG 2.5 MG 2.5 MG Pantoprazol Pantoprazol No 1{table QD Pantoprazo e Sodium 20 e Sodium 20 t} le Sodium MG MG 20 MG busPIRone busPIRone No busPIRone HCl 7.5 MG HCl 7.5 MG HCl 7.5 MG cloNIDine cloNIDine No cloNIDine HCl 0.1 MG HCl 0.1 MG HCl 0.1 MG Linzess 145 Linzess 145 No 1{table QD Linzess mcg mcg t} 145 mcg Lovastatin Lovastatin No QD Lovastatin 40 MG 40 MG 40 MG busPIRone busPIRone No BID busPIRone HCl 7.5 MG HCl 7.5 MG HCl 7.5 MG Vitamin D3 Vitamin D3 No Vitamin D3 50,000 50,000 50,000 Albuterol Albuterol No 2{puffs Albuterol Sulfate HFA Sulfate HFA _as_nee Sulfate 108 (90 108 (90 ded} HFA 108 Base) Base) (90 Base) MCG/ACT MCG/ACT MCG/ACT Escitalopra Escitalopra No Escitalopr m Oxalate m Oxalate am Oxalate 20 MG 20 MG 20 MG Alendronate Alendronate No Alendronat Sodium 70 Sodium 70 e Sodium MG MG 70 MG Mirtazapine Mirtazapine No Mirtazapin 15 MG 15 MG e 15 MG Mirtazapine Mirtazapine No 1{table QD Mirtazapin 15 MG 15 MG t_at_be e 15 MG dtime} Allopurinol Allopurinol No Allopurino 100 MG 100 MG l 100 MG Symbicort Symbicort No 2{puffs BID Symbicort 160-4.5 160-4.5 } 160-4.5 MCG/ACT MCG/ACT MCG/ACT Dicyclomine Dicyclomine No Dicyclomin HCl 20 MG HCl 20 MG e HCl 20 MG Symbicort Symbicort No 2{puffs BID Symbicort 160-4.5 160-4.5 } 160-4.5 MCG/ACT MCG/ACT MCG/ACT Clopidogrel Clopidogrel No Clopidogre Bisulfate Bisulfate l 75 MG 75 MG Bisulfate 75 MG amLODIPine amLODIPine No 1{table amLODIPine Besylate Besylate t} Besylate 2.5 MG 2.5 MG 2.5 MG Furosemide Furosemide No Furosemide 20 MG 20 MG 20 MG Carvedilol Carvedilol No Carvedilol 12.5 MG 12.5 MG 12.5 MG Carvedilol Carvedilol No 1{table BID Carvedilol 6.25 MG 6.25 MG t_with_ 6.25 MG food} Escitalopra Escitalopra No 1{table QD Escitalopr m Oxalate m Oxalate t} am Oxalate 20 MG 20 MG 20 MG Losartan Losartan No QD Losartan Potassium Potassium Potassium 25 MG 25 MG 25 MG amLODIPine amLODIPine No 1{table QD amLODIPine Besylate Besylate t} Besylate 2.5 MG 2.5 MG 2.5 MG Pantoprazol Pantoprazol No 1{table QD Pantoprazo e Sodium 20 e Sodium 20 t} le Sodium MG MG 20 MG busPIRone busPIRone No busPIRone HCl 7.5 MG HCl 7.5 MG HCl 7.5 MG cloNIDine cloNIDine No cloNIDine HCl 0.1 MG HCl 0.1 MG HCl 0.1 MG Linzess 145 Linzess 145 No 1{table QD Linzess mcg mcg t} 145 mcg Vitamin D3 Vitamin D3 No Vitamin D3 50,000 50,000 50,000 busPIRone busPIRone No BID busPIRone HCl 7.5 MG HCl 7.5 MG HCl 7.5 MG Albuterol Albuterol No 2{puffs Albuterol Sulfate HFA Sulfate HFA _as_nee Sulfate 108 (90 108 (90 ded} HFA 108 Base) Base) (90 Base) MCG/ACT MCG/ACT MCG/ACT Escitalopra Escitalopra No Escitalopr m Oxalate m Oxalate am Oxalate 20 MG 20 MG 20 MG Symbicort Symbicort No 2{puffs BID Symbicort 160-4.5 160-4.5 } 160-4.5 MCG/ACT MCG/ACT MCG/ACT Lovastatin Lovastatin No QD Lovastatin 40 MG 40 MG 40 MG Alendronate Alendronate No Alendronat Sodium 70 Sodium 70 e Sodium MG MG 70 MG Allopurinol Allopurinol No Allopurino 100 MG 100 MG l 100 MG Symbicort Symbicort No 2{puffs BID Symbicort 160-4.5 160-4.5 } 160-4.5 MCG/ACT MCG/ACT MCG/ACT Mirtazapine Mirtazapine No Mirtazapin 15 MG 15 MG e 15 MG Clopidogrel Clopidogrel No Clopidogre Bisulfate Bisulfate l 75 MG 75 MG Bisulfate 75 MG Carvedilol Carvedilol No Carvedilol 12.5 MG 12.5 MG 12.5 MG amLODIPine amLODIPine No 1{table amLODIPine Besylate Besylate t} Besylate 2.5 MG 2.5 MG 2.5 MG Furosemide Furosemide No Furosemide 20 MG 20 MG 20 MG Dicyclomine Dicyclomine No Dicyclomin HCl 20 MG HCl 20 MG e HCl 20 MG Carvedilol Carvedilol No 1{table BID Carvedilol 6.25 MG 6.25 MG t_with_ 6.25 MG food} Escitalopra Escitalopra No 1{table QD Escitalopr m Oxalate m Oxalate t} am Oxalate 20 MG 20 MG 20 MG Losartan Losartan No QD Losartan Potassium Potassium Potassium 25 MG 25 MG 25 MG amLODIPine amLODIPine No 1{table QD amLODIPine Besylate Besylate t} Besylate 2.5 MG 2.5 MG 2.5 MG Dicyclomine Dicyclomine No Dicyclomin HCl 20 MG HCl 20 MG e HCl 20 MG Pantoprazol Pantoprazol No 1{table QD Pantoprazo e Sodium 20 e Sodium 20 t} le Sodium MG MG 20 MG busPIRone busPIRone No busPIRone HCl 7.5 MG HCl 7.5 MG HCl 7.5 MG cloNIDine cloNIDine No cloNIDine HCl 0.1 MG HCl 0.1 MG HCl 0.1 MG Linzess 145 Linzess 145 No 1{table QD Linzess mcg mcg t} 145 mcg Vitamin D3 Vitamin D3 No Vitamin D3 50,000 50,000 50,000 busPIRone busPIRone No BID busPIRone HCl 7.5 MG HCl 7.5 MG HCl 7.5 MG Mirtazapine Mirtazapine No Mirtazapin 15 MG 15 MG e 15 MG Albuterol Albuterol No 2{puffs Albuterol Sulfate HFA Sulfate HFA _as_nee Sulfate 108 (90 108 (90 ded} HFA 108 Base) Base) (90 Base) MCG/ACT MCG/ACT MCG/ACT Escitalopra Escitalopra No Escitalopr m Oxalate m Oxalate am Oxalate 20 MG 20 MG 20 MG Symbicort Symbicort No 2{puffs BID Symbicort 160-4.5 160-4.5 } 160-4.5 MCG/ACT MCG/ACT MCG/ACT Lovastatin Lovastatin No QD Lovastatin 40 MG 40 MG 40 MG Alendronate Alendronate No Alendronat Sodium 70 Sodium 70 e Sodium MG MG 70 MG Allopurinol Allopurinol No Allopurino 100 MG 100 MG l 100 MG Symbicort Symbicort No 2{puffs BID Symbicort 160-4.5 160-4.5 } 160-4.5 MCG/ACT MCG/ACT MCG/ACT Mirtazapine Mirtazapine No Mirtazapin 15 MG 15 MG e 15 MG Clopidogrel Clopidogrel No Clopidogre Bisulfate Bisulfate l 75 MG 75 MG Bisulfate 75 MG Linzess 145 Linzess 145 No 1{table QD Linzess mcg mcg t} 145 mcg Carvedilol Carvedilol No Carvedilol 12.5 MG 12.5 MG 12.5 MG amLODIPine amLODIPine No 1{table amLODIPine Besylate Besylate t} Besylate 2.5 MG 2.5 MG 2.5 MG Furosemide Furosemide No Furosemide 20 MG 20 MG 20 MG Dicyclomine Dicyclomine No Dicyclomin HCl 20 MG HCl 20 MG e HCl 20 MG Carvedilol Carvedilol No 1{table BID Carvedilol 6.25 MG 6.25 MG t_with_ 6.25 MG food} Escitalopra Escitalopra No 1{table QD Escitalopr m Oxalate m Oxalate t} am Oxalate 20 MG 20 MG 20 MG Losartan Losartan No QD Losartan Potassium Potassium Potassium 25 MG 25 MG 25 MG amLODIPine amLODIPine No 1{table QD amLODIPine Besylate Besylate t} Besylate 2.5 MG 2.5 MG 2.5 MG busPIRone busPIRone No busPIRone HCl 7.5 MG HCl 7.5 MG HCl 7.5 MG Pantoprazol Pantoprazol No 1{table QD Pantoprazo e Sodium 20 e Sodium 20 t} le Sodium MG MG 20 MG busPIRone busPIRone No busPIRone HCl 7.5 MG HCl 7.5 MG HCl 7.5 MG cloNIDine cloNIDine No cloNIDine HCl 0.1 MG HCl 0.1 MG HCl 0.1 MG Linzess 145 Linzess 145 No 1{table QD Linzess mcg mcg t} 145 mcg Carvedilol Carvedilol No Carvedilol 12.5 MG 12.5 MG 12.5 MG Albuterol Albuterol No 2{puffs Albuterol Sulfate HFA Sulfate HFA _as_nee Sulfate 108 (90 108 (90 ded} HFA 108 Base) Base) (90 Base) MCG/ACT MCG/ACT MCG/ACT Escitalopra Escitalopra No 1{table QD Escitalopr m Oxalate m Oxalate t} am Oxalate 20 MG 20 MG 20 MG Lovastatin Lovastatin No QD Lovastatin 40 MG 40 MG 40 MG Symbicort Symbicort No 2{puffs BID Symbicort 160-4.5 160-4.5 } 160-4.5 MCG/ACT MCG/ACT MCG/ACT Vitamin D3 Vitamin D3 No Vitamin D3 50,000 50,000 50,000 Alendronate Alendronate No Alendronat Sodium 70 Sodium 70 e Sodium MG MG 70 MG Escitalopra Escitalopra No Escitalopr m Oxalate m Oxalate am Oxalate 20 MG 20 MG 20 MG Symbicort Symbicort No 2{puffs BID Symbicort 160-4.5 160-4.5 } 160-4.5 MCG/ACT MCG/ACT MCG/ACT Lovastatin Lovastatin No QD Lovastatin 40 MG 40 MG 40 MG Mirtazapine Mirtazapine No Mirtazapin 15 MG 15 MG e 15 MG Clopidogrel Clopidogrel No Clopidogre Bisulfate Bisulfate l 75 MG 75 MG Bisulfate 75 MG Carvedilol Carvedilol No Carvedilol 12.5 MG 12.5 MG 12.5 MG Carvedilol Carvedilol No 1{table BID Carvedilol 6.25 MG 6.25 MG t_with_ 6.25 MG food} Furosemide Furosemide No Furosemide 20 MG 20 MG 20 MG Dicyclomine Dicyclomine No Dicyclomin HCl 20 MG HCl 20 MG e HCl 20 MG Allopurinol Allopurinol No Allopurino 100 MG 100 MG l 100 MG amLODIPine amLODIPine No 1{table amLODIPine Besylate Besylate t} Besylate 2.5 MG 2.5 MG 2.5 MG Losartan Losartan No QD Losartan Potassium Potassium Potassium 25 MG 25 MG 25 MG busPIRone busPIRone No BID busPIRone HCl 7.5 MG HCl 7.5 MG HCl 7.5 MG Pantoprazol Pantoprazol No 1{table QD Pantoprazo e Sodium 20 e Sodium 20 t} le Sodium MG MG 20 MG amLODIPine amLODIPine No 1{table QD amLODIPine Besylate Besylate t} Besylate 2.5 MG 2.5 MG 2.5 MG Pantoprazol Pantoprazol No 1{table QD Pantoprazo e Sodium 20 e Sodium 20 t} le Sodium MG MG 20 MG busPIRone busPIRone No busPIRone HCl 7.5 MG HCl 7.5 MG HCl 7.5 MG cloNIDine cloNIDine No cloNIDine HCl 0.1 MG HCl 0.1 MG HCl 0.1 MG Linzess 145 Linzess 145 No 1{table QD Linzess mcg mcg t} 145 mcg Symbicort Symbicort No 2{puffs BID Symbicort 160-4.5 [...] Immunizations Ordered Filled Immunization Date Status Comments [facility] e Immunization Name Name FluAD FluAD 2021-03-04 Completed [facility]40[facility] FluAD FluAD 2021-03-04 Completed [facility] - 15:40:00 [facility] FluAD FluAD 2021-03-04 Completed [facility] - 15:40:00 [facility] FluAD FluAD 2021-03-04 Completed [facility] - 15:40:00 [facility] FluAD FluAD 2021-03-04 Completed [facility] - 15:40:00 [facility] FluAD FluAD 2021-03-04 Completed [facility] - 15:40:00 [facility] FluAD FluAD 2021-03-04 Completed [facility] - 15:40:00 [facility] FluAD FluAD 2021-03-04 Completed [facility] - 15:40:00 [facility] FluAD FluAD 2021-03-04 Completed [facility] - 15:40:00 [facility] FluAD FluAD 2021-03-04 Completed [facility] - 15:40:00 [facility] FluAD FluAD 2021-03-04 Completed [facility] - 15:40:00 [facility] FluAD FluAD 2021-03-04 Completed [facility] - 15:40:00 [facility] FluAD FluAD 2021-03-04 Completed [facility] - 15:40:00 [facility] FluAD FluAD 2021-03-04 Completed [facility] - 15:40:00 [facility] FluAD FluAD 2021-03-04 Completed [facility] - 15[facility]40:[address] [facility] COVID-19 Moderna COVID-19 2021-03-04 Completed [facility] - Vaccine (Low Dose Vaccine (Low Dose 15:37:[address] [facility] COVID-19 Moderna COVID-19 2021-03-04 Completed [facility] - Vaccine (Low Dose Vaccine (Low Dose 15:37:[address] [facility] COVID-19 Moderna COVID-19 2021-03-04 Completed [facility] - Vaccine (Low Dose Vaccine (Low Dose 15:37:[address] [facility] Booster) Booster) [facility] [facility]04 Com[facility] - Vaccine (Low Dose Vaccine (Low Dose 15:37:[address] [facility] Booster) Booster) [facility] COVID[address] [facility]-04 Completed [facility] - Vaccine (Low Dose Vaccine (Low Dose 15:37:[address] [facility] Booster) Booster) [facility] [facility]-04 Completed [facility] - Vaccine (Low Dose Vaccine (Low Dose 15:37:[address] [facility] Booster) Booster) [facility] [facility]-04 Completed [facility] - Vaccine (Low Dose Vaccine (Low Dose 15:37:[address] [facility] Booster) Booster) [facility] [facility] 2021-03-04 Completed [facility] - Vaccine (Low Dose Vaccine (Low Dose 15:37:[address] [facility] Booster) Booster) [facility] [facility] 2021-03-04 Completed [facility] - Vaccine (Low Dose Vaccine (Low Dose 15:37:[address] [facility] Booster) Booster) [facility] [facility] 2021-03-04 Completed [facility] - Vaccine (Low Dose Vaccine (Low Dose 15:37:[address] [facility] Booster) Booster) [facility] [address] [facility] 2021-03-04 Completed [facility] - Vaccine (Low Dose Vaccine (Low Dose 15:37:[address] [facility] Booster) Booster) [facility] [address] [facility] 2021-03-04 Completed [facility] - Vaccine (Low Dose Vaccine (Low Dose 15:37:[address] [facility] Booster) Booster) [facility] [address] [facility] 2021-03-04 Completed [facility] - Vaccine (Low Dose Vaccine (Low Dose 15:37:[address] [facility] Booster) Booster) [facility] [address] 2021-03-04 Completed [facility] - Vaccine (Low Dose Vaccine (Low Dose 15:37:[address] [facility] Booster) Booster) [facility] COVID-19 [facility] COVID-19 2021-03-04 Completed [facility] - Vaccine (Low Dose Vaccine (Low Dose 15:37:[address] [facility] Booster) Booster) [facility] 2019-02-06 Completed [facility] 00:00:00 [facility] 2019-02-06 Completed [facility] 00:00:00 [facility] 2019-02-06 Completed [facility] of 00:00:00 [facility] 2019-02-06 Completed [facility] of 00:00:00 [facility] Vital Signs Vital Name Observation Time Observation Value Comments Source height 2022-02-23 17:00:00 59.50 [in_i] [facility] weight 2022-02-23 17:00:00 117 [lb_av] [facility] bmi 2022-02-23 17:00:00 23.23 kg/m2 [facility] height 2021-10-06 15:00:00 59.50 [in_i] [facility] weight 2021-10-06 15:00:00 117 [lb_av] [facility] temperature 2021-10-06 15:00:00 97.3 [degF] [facility] bmi 2021-10-06 15:00:00 23.23 kg/m2 [facility] oximetry 2021-10-06 15:00:00 96 % [facility] respiratory rate 2021-10-06 15:00:00 14 /min Comm on [facility] blood pressure 2021-10-06 15:00:00 109 mm[Hg] [facility] - systolic [facility] blood pressure 2021-10-06 15:00:00 55 mm[Hg] [facility] - diastolic [facility] height 2021-10-06 15:00:00 59.50 [in_i] [facility] weight 2021-10-06 15:00:00 117 [lb_av] [facility] temperature 2021-10-06 15:00:00 97.3 [degF] [facility] bmi 2021-10-06 15:00:00 23.23 kg/m2 [facility] oximetry 2021-10-06 15:00:00 96 % [facility] respiratory rate 2021-10-06 15:00:00 14 /min Comm on [facility] blood pressure 2021-10-06 15:00:00 109 mm[Hg] [place] [facility] blood pressure 2021-10-06 15:00:00 55 mm[Hg] [facility] diastolic [facility] Procedures Procedure Date / Time Performing Clinician Source Performed [place] MODIFIED BARIUM SWALLOW 2020-03-03 19:43:20 Requisition, Luis fleming [facility] NOTICE OF BILLING 2020-03-03 19:07:40 Doctor Unassigned, [facility] PRACTICES FOR MEDICARE [facility] PATIENTS [facility] PATIENT FINANCIAL 2020-03-03 19:07:02 Doctor Unassigned, [facility] POLICY [facility] NO SHOW OR MISSED 2020-03-03 19:06:26 Doctor Unassigned, [facility] APPOINTMENT POLICY [facility] ACKNOWLEDGEMENT CONSENT/REFUSAL FOR 2020-03-03 19:05:29 Doctor Unassigned, [facility] DIAGNOSIS AND TREATMENT [facility] ASSIGNMENT OF BENEFITS 2020-03-03 19:04:46 Doctor Unassigned, [facility] Plan of Care Planned Activity Planned Date Details Comments Source Future Scheduled 2022-10-23 COVID-19 VACCINE (#1) [facility] Test 14:48:03 [code = COVID-19 VACCINE (#1)] Future Scheduled 2022-10-23 SHINGLES VACCINES ([address] [facility] Test 14:48:03 of 2) [code = SHINGLES VACCINES (1 of 2)] Future Scheduled 2022-10-23 65+ PNEUMOCOCCAL [facility] Test 14:48:03 VACCINE (2 - PCV) [code = 65+ PNEUMOCOCCAL VACCINE (2 - PCV)] Future Scheduled 2022-10-23 INFLUENZA VACCINE Method [facility] Test 14:48:03 [code = INFLUENZA VACCINE] Future Scheduled 2022-03-02 INFLUENZA VACCINE Method [facility] Test 05:55:59 [code = INFLUENZA VACCINE] Future Scheduled 2022-03-02 HEPATITIS B VACCINES Met [facility] Test 05:55:59 (1 of 3 - 3-dose series) [code = HEPATITIS B VACCINES (1 of 3 - 3-dose series)] Future Scheduled 2022-03-02 COVID-19 VACCINE (#1) Me [facility] Test 05:55:59 [code = COVID-19 VACCINE (#1)] Future Scheduled 2022-03-02 SHINGLES VACCINES ([address] [facility] Test 05:55:59 of 2) [code = SHINGLES VACCINES (1 of 2)] Future Scheduled 2022-03-02 65+ PNEUMOCOCCAL [facility] Test 05:55:59 VACCINE (2 - PCV) [code = 65+ PNEUMOCOCCAL VACCINE (2 - PCV)] Encounters Start End Encounter Admission Attending Care Care Encounter Source Date/Time Date/Time Type Type Clinicians Facility Department ID 2022-09-05 Outpatient Devine, [facility] [id number] Common 13:52:01 Emelia [id number] [facility] 2022-09-01 Outpatient Pruett, [facility] [id number] Common 08:45:01 [facility] [id number] [facility] 2022-07-25 Outpatient Pruett, [facility] [id number] Common 15:41:01 [facility] [id number] [facility] 2022-06-20 Outpatient Devine, [facility] [id number] Common 11:36:01 Emelia [id number] [facility] 2022-06-16 Outpatient Briseyda, [facility] [id number] Common 11:00:02 Agueda [id number] [facility] 2022-05-08 Outpatient SALAS, Na [facility] [id number] Common 14:16:02 [id number] [facility] 2022-02-21 Outpatient Salas, Na [facility] [id number] Common 15:52:03 [facility] 2021-11-02 Outpatient Salas, Na [facility] [id number] 2 Common 11:05:01 [facility] 2021-10-06 Outpatient Salas, Na [facility] [id number] Common 15:20:03 [facility] 2022-05-19 2022-05-19 (TEL) STLMLC STL[facility] [id number] Co mmon 00:00:00 00:00:00 [facility] 2022-04-19 2022-04-19 (TEL) STLMLC STLML[facility] [id number] Co mmon 00:00:00 00:00:00 [facility] 2022-04-18 2022-04-18 (TEL) STLMLC STLMLC [id number] Co mmon 00:00:00 00:00:00 [facility] 2022-03-22 2022-03-22 OL DIG E/M STLMLC STLML[facility] [id number] Common 00:00:00 00:00:00 [facility] [place] Spir it MIN [facility] 2022-03-20 2022-03-20 (TEL) STLMLC STLMLC [id number] Co mmon 00:00:00 00:00:00 [facility] 2022-02-23 2022-02-23 OL DIG E/M STLMLC STLMLC [id number] Common 00:00:00 00:00:00 [facility] [place] Spir it MIN [facility] 2022-02-10 2022-02-10 (TEL) STLMLC STLMLC [id number] Co mmon 00:00:00 00:00:00 [facility] 2022-01-11 2022-01-11 CAV Penny [id number]. [id number]. CLAC [id number] [facility] 19:00:00 20:00:00 Bryce [id number] [facility] [id number] 2022-01-10 2022-01-10 (TEL) STLMLC STLMLC [id number] Co mmon 00:00:00 00:00:00 [facility] 2021-12-26 2021-12-26 Outpatient Thomas_T [facility] [id number] [facility] 00:00:00 00:00:00 0829 [facility] 2021-12-26 2021-12-26 Outpatient Thomas_T [facility] [id number] [facility] 00:00:00 00:00:00 0112 [facility] l [facility] 2021-12-26 2021-12-26 Outpatient Thomas_T [facility] [id number] [facility] 00:00:00 00:00:00 0506 [facility] l [facility] 2021-12-20 2021-12-20 OL DIG E/M STLMLC STLMLC [id number] Common 00:00:00 00:00:00 [facility] 03-19 Spir it MIN [facility] 2021-12-16 2021-12-16 (TEL) STLMLC STLMLC [id number] Co mmon 00:00:00 00:00:00 [facility] 2021-12-09 2021-12-09 (TEL) STLMLC STLMLC [id number] Co mmon 00:00:00 00:00:00 [facility] 2021-11-12 2021-11-12 Outpatient OWENS_T [facility] [id number] 022 [facility] 04:31:00 04:31:00 0716 Medica l Group 2021-11-02 2021-11-02 OL DIG E/M STLMLC STLMLC [id number] Common 00:00:00 00:00:00 [facility] 11-20 Spir it MIN - [facility] 2021-10-06 2021-10-06 SUB ANNUAL STLMLC STLMLC [id number] Common 00:00:00 00:00:00 [facility] VISIT [facility] 2021-10-062021-10-06 OFFICE [facility] [id number] Co mmon 00:00:00 00:00:00 VISIT Saman DEJESUS PT - CHI LEVEL 4 [facility] 2021-04-19 2021-04-19 On Demand Jackelin 2.16.840. [id number]. CL [id number] [facility] 15:30:00 16:00:00 Lawrence [id number] [place] [id number] 2020-11-17 2020-11-17 [facility]patient [facility] [id number] 00:00:00 00:00:00 JAELYN [address] 2020-09-01 2020-09-01 Outpatient [facility] [id number] Univers 11:10:00 11:00:53 JAGJIT [facility] 2020-08-31 2020-08-31 Outpatient OWENS_T [facility] [id number] 021 Devoted 06:09:00 06:09:00 0504 Medica l Group 2020-08-04 2020-08-04 Outpatient Quinten REID [facility] [id number] Univers 16:40:00 16:37:08 JAGJIT [facility] 2020-03-03 2020-03-03 [facility] Radiology [facility] [id number] 13:00:00 23:59:00 Encounter Chuck [id number] [place] [id number] [place] [id number] [facility] 2020-03-03 2020-03-03 [facility] Radiology [facility] [id number] Univers 13:00:00 23:59:00 Encounter Chuck [id number] [facility] [id number] [facility] [id number] [address] 2020-03-03 2020-03-03 [facility] [id number] 13:51:46 14:36:46 Visit [place] [id number] [place] [id number] Professio [id number] [address] 2020-03-03 2020-03-03 Ancillary Ni Chapa [facility] 1.2.8 40.114 [id number] Univers 13:51:46 14:36:46 Visit Severiano Xiong [id number] ity [facility] [id number] [id number] [address] 2020-03-03 2020-03-03 Outpatient R [facility] [id number] Univers 14:30:00 14:30:00 ity [facility] 2020-03-03 2020-03-03 Outpatient R RADIOLOGY [facility] [id number] Univers 13:00:00 13:00:00 [facility] 2020-02-18 2020-02-18 Telephone Eduard [facility] [id number] 00:00:00 00:00:00 [place] [id number] [place] [id number] Professio [id number] [address] 2020-02-18 2020-02-18 Telephone Eduard [facility] [id number] [facility] 00:00:00 00:00:00 [place] [id number] [facility] [id number] [place] [phone] [address] Results Test Description Test Time Test Comments Results Result [facility] e Comments [place] MODIFIED HISTORY: Dysphagia Unive rsity of BARIUM SWALLOW 4 and difficulty in [place] as Medical 19:48:57 swallowing [place] medication. TECHNIQUE: Swallowing function was evaluated with [...] visualized in the piriformsinuses, otherwise normal study. [facility], Radiant Results Inft User - 03/03/2020 1:50 [...]
[2022-11-01 13:19] LABS: Absolute Lymphocytes (CBC) 2.6 K/uL (0.7-4.9); Hematocrit 34.9 % (36.0-45.0); Lymphocytes % 36.1 % (15.3-44.8); MPV 8.6 fL (7.6-11.3); RBC Red Blood Cell Count 3.59 M/uL (3.86-4.86)
[2022-11-01 13:29] LABS: Albumin 3.6 g/dL (3.4-5.0); Bilirubin Total 0.5 mg/dL (0.2-1.0); Potassium 3.9 mEq/L (3.5-5.1); Protein, Total 7.1 g/dL (6.4-8.2)
--- NOTE | 2022-11-01 14:02 | RAD REPORT ---
EXAM DESCRIPTION: CT - Abdomen Pelvis Wo Contrast - 11/01/2022 1:42 pm CLINICAL HISTORY: Abdominal pain COMPARISON: 2021 TECHNIQUE: Computed axial tomography of the abdomen and pelvis was obtained. IV and oral contrast we re not requested. All CT scans are performed using dose optimization technique as appropriate and may include automated exposure control or mA/KV adjustment according to patient size. FINDINGS: The evaluation of solid organs, vessels and bowel is limited secondary to the lack of con trast administration. The liver, spleen, pancreas, adrenals and right kidney appear grossly normal. Small left renal cyst. Cholecystectomy Bowel caliber and wall thickness is normal. Diverticula stem from the colon without evidence divertic ulitis. Hysterectomy. No adnexal mass. Atherosclerosis Mild prominence of the intra and extrahepatic biliary tree IMPRESSION: Mild prominence of intra and extrahepatic biliary tree may be a normal finding in this e lderly patient status post cholecystectomy. Pathology such as stricture or a nonvisualized stone with in the distal common bile duct can also result in this appearance. This should be correlated clinical ly and with appropriate lab values
--- NOTE | 2022-11-01 15:17 | RAD REPORT ---
EXAM DESCRIPTION: [place] Single View11/01/2022 2:38 pm CLINICAL HISTORY: cough COMPARISON: July 2022 FINDINGS: Mild bilateral interstitial lung opacities appear chronic The lungs appear clear of acute infiltrate. The heart is mildly enlarged IMPRESSION: No acute abnormalities displayed
[2022-11-01 15:20] LABS: Specific Gravity 1.015 (1.005-1.030); Urine Bilirubin NEGATIVE (Negative); Urine Blood Negative (Negative); Urine Clarity Clear (Clear); Urine Color Light-Yellow (Yellow); Urine Glucose NEGATIVE (Negative); Urine Protein NEGATIVE (Negative); Urine Urobilinogen Normal (Normal)
--- NOTE | 2022-11-01 16:10 | EDPHYS ---
Physician Documentation [facility] Name: Meme Rushing Age: 82 yrs Sex: Female : 1940 Arrival Date: 11/01/2022 Time: 12:12 Bed 14 Private MD: Juve Moncada ED Physician Zeke Puri HPI: 11/01 16:12 This 82 yrs old Female presents to ER via Ambulatory with complaints of Fever, kb Nausea, General Weakness. 16:12 The patient presents with abdominal pain in the right upper quadrant. Onset: The kb symptoms/episode began/occurred 3 day(s) ago. The symptoms do not radiate. Associated signs and symptoms: Pertinent positives: diarrhea, fever, sore throat, general malaise. The symptoms are described as constant. Modifying factors: The symptoms are alleviated by nothing, the symptoms are aggravated by nothing. Severity of pain: At its worst the pain was mild in the emergency department the pain is unchanged. The patient has not experienced similar symptoms in the past. The patient has not recently seen a physician. Historical: - Allergies: 12:27 Aspirin; cm10 12:27 Ibuprofen; cm10 12:27 Lisinopril; cm10 12:27 PENICILLINS; cm10 12:27 Grapefruit; cm10 - PMHx: 12:27 ADD/ADHD; CHF; COPD; CVA; Diverticulitis; Hernia; Hyperlipidemia; Hypertension; polyps cm10 and diverticuli in esophagus-had removed and now has more; Renal Disease; - Immunization history:: Adult Immunizations up to date. - Social history:: Smoking status: unknown. ROS: 14:41 Cardiovascular: Negative for chest pain, palpitations, and edema. kb 14:41 Constitutional: Positive for fatigue, fever, malaise. 14:41 ENT: Positive for sore throat. 14:41 Respiratory: Positive for cough. 14:41 Abdomen/GI: Positive for abdominal pain, Negative for nausea, vomiting, and diarrhea. 14:41 All other systems are negative. Exam: 14:41 Constitutional: This is a well developed, well nourished patient who is awake, alert, kb and in no acute distress. Head/Face: Normocephalic, atraumatic. ENT: Moist Mucous membranes Cardiovascular: Regular rate and rhythm with a normal S1 and S2. No gallops, murmurs, or rubs. No pulse deficits. Respiratory: Respirations even and unlabored. No increased work of breathing. Talking in full sentences Abdomen/GI: Soft, non-tender. No distention Skin: Warm, dry with normal turgor. Normal color. MS/ Extremity: Pulses equal, no cyanosis. Neurovascular intact. Full, normal range of motion. Neuro: Awake and alert, GCS 15, oriented to person, place, time, and situation. Moves all extremities. Normal gait. Vital Signs: 12:24 BP 145 / 92; Pulse 67; Resp 16; Temp 98.5; Pulse Ox 100% on R/A; Weight 45.81 kg (R); cm10 Height 4 ft. 11 in. ; Pain 9/10; 13:28 BP 152 / 49; Pulse 61; Resp 18; Pulse Ox 99% ; ko1 16:15 BP 138 / 76; Pulse 64; Resp 18; Pulse Ox 98% ; ko1 12:24 Body Mass Index 20.40 (45.81 kg, 149.86 cm) cm10 12:24 Pain Scale: Adult cm10 MDM: 12:26 Patient medically screened. kb 14:41 Data reviewed: vital signs, nurses notes. kb 16:10 Differential diagnosis: diverticulitis, gastritis, gastroesophageal reflux disease, kb non-specific abd pain, pancreatitis. Management of patient was discussed with the following: Dr Rosales, recommended MRCP to rule out stone . Test considered but Not performed: MRI: MRCP considered, but pt does not want to have that done at this time. Counseling: I had a detailed discussion with the patient and/or guardian regarding: the historical points, exam findings, and any diagnostic results supporting the discharge/admit diagnosis, lab results, radiology results, the need for outpatient follow up, a family practitioner, a coil shaper, to return to the emergency department if symptoms worsen or persist or if there are any questions or concerns that arise at home. ED course: Pt does not want to stay for MRCP. Pt and family member educated on risks and return precautions. Pt instructed that she can return at any time for any reason in the future. Verbal understanding of all instructions received. . 11/01 12:36 Order name: CBC with Diff; Complete Time: 13:30 kb 11/01 12:36 Order name: CMP; Complete Time: 13:30 kb 11/01 12:36 Order name: Lipase; Complete Time: 13:30 kb 11/01 12:36 Order name: Urinalysis w/ reflexes; Complete Time: 15:20 kb 11/01 12:36 Order name: Flu; Complete Time: 13:18 kb 11/01 12:36 Order name: Strep kb 11/01 12:36 Order name: SARS-COV-2 RT PCR; Complete Time: 13:30 kb 11/01 13:18 Order name: Throat Culture EDMS 11/01 13:43 Order name: Abdomen ; Complete Time: 14:11 EDMS 11/01 14:13 Order name: Chest Single View XRAY; Complete Time: 15:20 kb 11/01 12:36 Order name: IV Saline Lock; Complete Time: 13:03 kb 11/01 12:36 Order name: Labs collected and sent; Complete Time: 13:03 kb Administered Medications: No medications were administered Disposition: 18:17 Co-signature as Attending Physician, Zeke MARSHALL was immediately available on-site ms3 in the Emergency Department for consultation in the care of the patient. Disposition Summary: 11/01/22 16:09 Discharge Ordered Location: Home kb Condition: Stable kb Diagnosis - Diarrhea, unspecified kb - Other malaise kb Followup: kb - With: Emergency Department - When: As needed - Reason: Worsening of condition Followup: kb - With: Private Physician - When: 2 - 3 days - Reason: Recheck today's complaints, Continuance of care, Re-evaluation by your physician Discharge Instructions: - Discharge Summary Sheet kb - Food Choices to Help Relieve Diarrhea, Adult kb - Diarrhea, Adult, [id number] kb Forms: - Medication Reconciliation Form kb - Thank You Letter kb - Antibiotic Education kb - Prescription Opioid Use kb - [email or web address].htm kb Prescriptions: - dicyclomine 20 mg Oral Tablet - take 1 tablet by ORAL route 4 times per day As needed; 20 tablet; Refills: 0, kb Product Selection Permitted Signatures: Dispatcher [employer] EDHI Cristiana De Dios, ALTON DONG-Zeke Olmos DO DO ms3 Christen Dorman RN RN cm10 Corrections: (The following items were deleted from the chart) 13:01 12:58 Blood Culture ordered. EDHI EDMS 13:43 12:36 Abdomen Pelvis W Con+CT.RAD.BRZ ordered. EDMS EDMS
--- NOTE | 2022-11-01 16:10 | ER ---
Nurse's Notes [facility] Name: Meme Rushing Age: 82 yrs Sex: Female : 1940 Arrival Date: 11/01/2022 Time: 12:12 Bed 14 Private MD: Juve Moncada Diagnosis: Diarrhea, unspecified;Other malaise Presentation: 11/01 12:24 Chief complaint: Patient states: Fever and weakness onset Sunday. Pt states TMAX was cm10 99.9. Pt denies any sick contacts. Pt states that Sunday she was coughing up "thick yellowish" mucus. Pt denies chest pain and states that she has "a little bit" of shortness of breath. Pt states that she has throat pain and RUQ abdominal pain. Coronavirus screen: Vaccine status: Patient reports receiving the 2nd dose of the covid vaccine. Client denies travel out of the [place] in the last 14 days. Ebola Screen: Patient denies travel to an Ebola-affected area in the 21 days before illness onset. No symptoms or risks identified at this time. Initial Sepsis Screen: Does the patient meet any 2 criteria? No. Patient's initial sepsis screen is negative. Does the patient have a suspected source of infection? No. Patient's initial sepsis screen is negative. Risk Assessment: Do you want to hurt yourself or someone else? Patient reports no desire to harm self or others. Onset of symptoms was October 29, 2022. 12:24 Method Of Arrival: Ambulatory cm10 12:24 Acuity: RODY 3 cm10 Historical: - Allergies: 12:27 Aspirin; cm10 12:27 Ibuprofen; cm10 12:27 Lisinopril; cm10 12:27 PENICILLINS; cm10 12:27 Grapefruit; cm10 - PMHx: 12:27 ADD/ADHD; CHF; COPD; CVA; Diverticulitis; Hernia; Hyperlipidemia; Hypertension; polyps cm10 and diverticuli in esophagus-had removed and now has more; Renal Disease; - Immunization history:: Adult Immunizations up to date. - Social history:: Smoking status: unknown. Screenin:30 [facility] ED Fall Risk Assessment (Adult) History of falling in the last 3 months, ko1 including since admission Yes- single mechanical fall (1 pt) Confusion or Disorientation No (0 pts) Intoxicated or Sedated No (0 pts) Impaired Gait No (0 pts) Mobility Assist Device Used No (0 pt) Altered Elimination No (0 pt) Score/Fall Risk Level 0 - 2 = Low Risk Oriented to surroundings, Maintained a safe environment, Educated pt \\T\\ family on fall prevention, incl call for assistance when getting out of bed, Assessed \\T\\ reinforced patient's understanding of fall precautions, Provided non-skid footwear, Hourly rounding (assess needs \\T\\ fall precautionary measures) done, Used ambulatory aids as needed (educated on \\T\\ assisted with), Used gait belt as appropriate. Abuse screen: Denies threats or abuse. Denies injuries from another. Nutritional screening: No deficits noted. Tuberculosis screening: No symptoms or risk factors identified. Assessment: 12:30 General: Appears in no apparent distress. comfortable, Behavior is calm, cooperative, ko1 appropriate for age. Pain: Denies pain. Neuro: No deficits noted. Cardiovascular: No deficits noted. Respiratory: No deficits noted. GI: Abdomen is non-distended. : No deficits noted. EENT: No deficits noted. Derm: No deficits noted. Musculoskeletal: No deficits noted. Vital Signs: 12:24 BP 145 / 92; Pulse 67; Resp 16; Temp 98.5; Pulse Ox 100% on R/A; Weight 45.81 kg (R); cm10 Height 4 ft. 11 in. ; Pain 9/10; 13:28 BP 152 / 49; Pulse 61; Resp 18; Pulse Ox 99% ; ko1 16:15 BP 138 / 76; Pulse 64; Resp 18; Pulse Ox 98% ; ko1 12:24 Body Mass Index 20.40 (45.81 kg, 149.86 cm) cm10 12:24 Pain Scale: Adult cm10 ED Course: 12:14 Patient arrived in ED. am2 12:14 Juve Moncada DO is Private Physician. am2 12:16 Cristiana De Dios FNP-C is [facility]. kb 12:16 Zeke Puri DO is Attending Physician. kb 12:27 Triage completed. cm10 12:28 Arm band placed on Patient placed in an exam room, on a stretcher. cm10 12:30 Jyoti Fleming, RAINA is Primary Nurse. ko1 12:30 Patient has correct armband on for positive identification. Placed in gown. Bed in low ko1 position. Client placed on continuous cardiac and pulse oximetry monitoring. NIBP monitoring applied. rehabilitation worker on. 13:00 Inserted saline lock: 20 gauge in right antecubital area, using aseptic technique. ko1 Blood collected. 13:03 SARS-COV-2 RT PCR Sent. ko1 13:03 Strep Sent. ko1 13:03 Flu Sent. ko1 13:03 CBC with Diff Sent. ko1 13:03 CMP Sent. ko1 13:03 Lipase Sent. ko1 13:43 Abdomen In Process Unspecified. EDMS 14:40 Chest Single View XRAY In Process Unspecified. EDMS 15:04 Urinalysis w/ reflexes Sent. ko1 16:15 No provider procedures requiring assistance completed. IV discontinued, intact, ko1 bleeding controlled, No redness/swelling at site. Pressure dressing applied. Administered Medications: No medications were administered Medication: 16:15 VIS not applicable for this client. ko1 Outcome: 16:09 Discharge ordered by . kb 16:15 Discharged to home ambulatory, with family. ko1 16:15 Condition: stable 16:15 Discharge instructions given to patient, family, Instructed on discharge instructions, follow up and referral plans. medication usage, Demonstrated understanding of instructions, follow-up care, medications, Prescriptions given X 1. 16:16 Patient left the ED. ko1 Signatures: Dispatcher [employer] EDCristiana Mann, INSPECTOR PRECISION-C INSPECTOR PRECISION-Rebekah Tavera Kathy, RN RN ko1 Christen Dorman RN RN cm10
[2022-11-01 16:47] VITALS: TEMP 98.5
[2022-11-01 16:48] VITALS: BP 138/76; O2SAT 98
== END 2022-11-01 16:16 | disposition home or self-care (01) ==
LOC: ER 12:12
DX: R19.7 Diarrhea, unspecified (principal); R53.81 Other malaise; R05.9 Cough, unspecified; R50.9 Fever, unspecified; I10 Essential (primary) hypertension; Z20.822 Contact with and (suspected) exposure to COVID-19; Z88.0 Allergy status to penicillin; Z88.6 Allergy status to analgesic agent; Z88.8 Allergy status to other drugs, medicaments and biological substances; Z91.018 Allergy to other foods
CPT/HCPCS: 36415; 71045; 74176; 80053; 81003; 83690; 85025; 87070; 87081; 87635; 87804; 99284

== ENCOUNTER 2023-02-26 14:55 | Inpatient (IN) | payer MEDICARE ==
--- OUTSIDE RECORDS SUMMARY | 2023-02-26 15:00 | XMS REPORT | Continuity of Care Document ---
:1940 Author Organization [facility] t Address [address] [facility]. [address] [place] [address] Care Team Providers Name Role Phone Phuong Salas DO Primary Care Physician Emelia Devine Attending Clinician Unavailable Mayco Pruett Attending Clinician Unavailable Agueda Rain Attending Clinician Unavailable Phuong SALAS Attending Clinician Unavailable Betty Attending Clinician Unavailable Ann Person Attending Clinician Penny Wu Attending Clinician OW_Joe Attending Clinician Unavailable Jackelin Flanagan Attending Clinician JAELYN MCKEON Attending Clinician Unavailable JAGJIT REID Attending Clinician Unavailable Radiology Attending Clinician Unavailable Ni Farrell Attending Clinician Unavailable Severiano Xiong MD Attending Clinician RADIOLOGY Attending Clinician Unavailable Bryce_Joe Admitting Clinician Unavailable ARMINDA_Joe Admitting Clinician Unavailable Payers Payer Name Policy Type Policy Number Effective Date Expiration Date [facility] [id number] 2020 (MEDICARE 00:00:00 REPLACEMENT HMO) Problems Condition Condition Condition Status Onset Resolution Last Treating Co mments Source Name Details Category Date Date Treatment Clinician Date No known No known Disease Unive rs active active ity of problems problems [facility] Branch Diverticul Diverticul Problem C ommon itis itis [facility] Swelling Swelling Problem Commo n [facility] [id number] Gastro-eso Problem Co mmon phageal [facility] reflux - [facility] disease [facility] esophagiti Medica l s Center [id number] History of Problem Co mmon stomach [facility] ulcers - [facility] [id number] Irritable Problem Com mon bowel [facility] [place] [id number] Gastroesop Problem Co mmon hageal [facility] reflux - [facility] disease, esophagiti [facility] s presence Medica l not Center specified [id number] Hyperlipid Problem Com mon emia, Spirit unspecifie - [facility] d hyperlipid [facility] emia type Medical Center Essential Essential Problem Com mon hypertensi hypertensi Sp eliza on on - [facility] [id number] History of Problem Co mmon stroke [facility] [id number] Chronic Problem Common obstructiv Spirit e - [facility] pulmonary [facility] unspecifie Medica l d COPD Center type [id number] Peripheral Problem Co mmon edema [facility] [id number] Anemia in Problem Com mon chronic [facility] kidney - [facility] disease [facility] [id number] Fibromyalg Problem Co mmon ia [facility] Vitamin D Vitamin D Problem Com mon deficiency deficiency Sp eliza - [facility] 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 [facility] [id number] [place] [address] kidney Spirit disease, - [facility]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) [facility] [id number] Depression Problem Co mmon with Spirit anxiety - [facility] [id number] Chronic Problem Common congestive [facility], [facility] type Heart Heart Problem Common disease disease [facility] 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 - [facility] Hypertensi Hypertensi Problem C ommon on on Spirit [facility] Chronic CKD Problem Common kidney (chronic Spirit disease kidney - CHI stage 4 disease) stage 4, [facility] GFR 15-29 Medical ml/min [place] [id number] Other Problem Common chronic [facility] pain - [facility] [id number] Lumbar Problem Common degenerati Spirit ve disc - [facility] disease [facility] Chronic Unspecifie Problem Comm on bronchitis d chronic Spi rit bronchitis - [facility] 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, - [facility] stage 3B stage 3b St (disorder) [facility] [id number] Hypertensi Problem Comm on ve heart Spirit disease - [facility] with heart failure [facility] [id number] Primary Problem Common insomnia [facility] [id number] Smokes 1 Problem Comm on pack of Spirit cigarettes - CHI per day [facility] [id number] Chronic Problem Commo n systolic Spirit (congestiv - CHI e) heart [facility] Allergies, Adverse Reactions, Alerts Allergy Allergy Status [...] ity of 00:00: [place] 00 Medical Branch Lisinopr Lisinopr Active dizziness Com mon il il [facility] Grapefru Grapefru Active Unknown Commo n it it [facility] [id number] Drug Active swelling Common 85 allergy [facility] Social History Social Habit Start Date Stop Date Quantity Comments Source Gender identity [facility] History of Tobacco Current Smoker [facility] - Use [facility] Sexual orientation Method ist [facility] Sex Assigned At [birth year] [facility] 00:[facility]00 [facility] Smoking Status Start Date Stop Date Source [facility] 2022-10-30 00:00:00 [facility] - [facility] Ce nter Medications Ordered Filled Start Stop Current Ordering Indication Dosage Frequency Signature Comments Components Source Medication Medication Date Date Medication? Clinician (SIG) Name Name Pregabalin Pregabalin 2021-0 No Pregabalin 50 MG 50 MG 7-05 [...] 00:00: dtime_a 00 s_neede d} Famotidine Famotidine 2021-0 No 1{table QD Famotidine 20 MG 20 MG 3-14 t_at_be 20 MG 00:00: dtime_a 00 s_neede d} Famotidine Famotidine 2021-0 No 1{table QD Famotidine 20 MG 20 MG 3-14 t_at_be 20 MG 00:00: dtime_a 00 s_neede d} Famotidine Famotidine 2021-0 No 1{table QD Famotidine 20 MG 20 MG 3-14 t_at_be 20 MG 00:00: dtime_a 00 s_neede d} Famotidine Famotidine 2021-0 No 1{table QD Famotidine 20 MG 20 MG 3-14 t_at_be 20 MG 00:00: dtime_a 00 s_neede d} Famotidine Famotidine 2021-0 No 1{table QD Famotidine 20 MG 20 MG 3-14 t_at_be 20 MG 00:00: dtime_a 00 s_neede d} Famotidine Famotidine 2021-0 No 1{table QD Famotidine 20 MG 20 MG 3-14 t_at_be 20 MG 00:00: dtime_a 00 s_neede d} Pregabalin Pregabalin 2021-0 No Pregabalin 50 MG 50 MG 2-18 50 MG 00:00: 00 Pregabalin Pregabalin 2021-0 No Pregabalin 50 MG 50 MG 2-18 50 MG 00:00: 00 Alendronate Alendronate 2021- No Alendronat Sodium 70 Sodium 70 06-16-16 e Sodium MG MG 00:00: 00:00 70 MG 00 :00 Alendronate Alendronate 2021-0 2021- No Alendronat Sodium 70 Sodium 70 06-16-16 e Sodium MG MG 00:00: 00:00 70 MG 00 :00 Alendronate Alendronate 2021-2021- No Alendronat Sodium 70 Sodium 70 - 08-15 e Sodium MG MG 00:00: 00:00 70 MG 00 :00 Alendronate Alendronate 2021- No Alendronat Sodium 70 Sodium 70 2-16 -15 e Sodium MG MG 00:00: 00:00 70 MG 00 :00 Alendronate Alendronate 2021-0 2021- No Alendronat Sodium 70 Sodium 70 -16 -15 e Sodium MG MG 00:00: 00:00 70 MG 00 :00 Nasonex 50 Nasonex 50 2020-0 No 2{spray [...] 6-25 s_in_ea MCG/ACT 00:00: ch_nost 00 ril} budesonide/ 2018-04 Yes Inhale. Uni vers formoterol 0-10 ity of fumarate 20:50: [place] (SYMBICORT 45 Medical INHALE) Branch carvedilol 2018-04 Yes 6.25mg Take 6.25 Univers (COREG) 0-10 mg by ity of 6.25 mg 20:50: mouth 2 [place] tablet 45 (two) Medical times Branch daily with meals. mv-mn/iron/ 2018-04 Yes Take by Uni vers folic 0-10 mouth. ity of acid/herb 20:50: [place] 190 45 Medical (VITAMIN D3 Branch COMPLETE ORAL) escitalopra 2018-04 Yes 20mg Take 20 mg Univers m oxalate 0-10 by mouth ity of 20 mg 20:50: daily. [place] tablet 45 Medical Branch furosemide 2018-04 Yes 20mg Take 20 mg U nivers (LASIX) 20 0-10 by mouth ity o f mg tablet 20:50: daily. [place] [address] Medical Branch mirtazapine 2018-04 Yes 15mg Take [...] by mouth ity of tablet 20:50: at [place] 45 bedtime. Medical Branch clopidogrel 2018-04 Yes [...] 0-10 mouth. ity of vitamin C 20:50: [place] (VITAMIN B 45 Medical COMPLEX-C Branch ORAL) clonazePAM 2018-04 Yes .5mg Take 0.5 Uni vers 0.5 mg 0-10 mg by ity of tablet 20:50: mouth 3 [place] 45 (three) Medical times Branch daily. budesonide/ 2018-04 Yes Inhale. Uni vers formoterol 0-10 ity of fumarate 20:50: [place] (SYMBICORT 45 Medical INHALE) Branch carvedilol 2018-04 Yes 6.25mg Take 6.25 Univers (COREG) 0-10 mg by ity of 6.25 mg 20:50: mouth 2 [place] tablet 45 (two) Medical times Branch daily with meals. mv-mn/iron/ 2018-04 Yes Take by Uni vers folic 0-10 mouth. ity of acid/herb 20:50: [place] 190 45 Medical (VITAMIN D3 Branch COMPLETE ORAL) escitalopra 2018-04 Yes 20mg Take 20 mg Univers m oxalate 0-10 by mouth ity of 20 mg 20:50: daily. [place] tablet 45 Medical Branch furosemide 2018- Yes 20mg Take 20 mg U nivers (LASIX) 20 0-10 by mouth ity o f mg tablet 20:50: daily. [place] 45 Medical Branch mirtazapine 2018-04 Yes 15mg [...] by ity of mg tablet 20:50: mouth [place] 45 daily. Medical Branch B-complex 2018-04 Yes [...] vers formoterol 0-10 ity of fumarate 20:50: [place] (SYMBICORT 45 Medical INHALE) Branch carvedilol 2018-04 [...] ity o f mg tablet 20:50: daily. [place] 45 Medical Branch mirtazapine 2018-04 Yes 15mg [...] vers formoterol 0-10 ity of fumarate 20:50: [place] (SYMBICORT 45 Medical INHALE) Branch carvedilol 2018-04 [...] ity o f mg tablet 20:50: daily. [place] 45 Medical Branch mirtazapine 2018-04 Yes 15mg [...] [place] 45 (three) Medical times Branch daily. Allopurinol Allopurinol No Allopurino 100 MG 100 [...] 100 MG 100 MG l 100 MG Linzess 145 Linzess 145 No 1{table QD Linzess mcg mcg t} 145 mcg HYDROcodone HYDROcodone No 1{table QID HYDROcodon -Acetaminop -Acetaminop t_as_ne e-Acetamin hen 10-325 hen 10-325 eded} ophen MG MG 10-325 MG Losartan Losartan No QD Losartan Potassium Potassium Potassium 25 MG 25 MG 25 MG Iron 325 Iron 325 No 1{table Iron 325 (65 Fe) MG (65 Fe) MG t} (65 Fe) MG Carvedilol Carvedilol No Carvedilol 6.25 MG 6.25 MG 6.25 MG Vitamin D3 Vitamin D3 No Vitamin D3 2400 2400 2400 UNIT/ML UNIT/ML UNIT/ML Allopurinol Allopurinol No Allopurino 100 MG 100 MG l 100 MG Mirtazapine Mirtazapine No Mirtazapin 15 MG 15 MG e 15 MG busPIRone busPIRone No BID busPIRone HCl 7.5 MG HCl 7.5 MG HCl 7.5 MG Alendronate Alendronate No Alendronat Sodium 70 Sodium 70 e Sodium MG MG 70 MG Furosemide Furosemide No Furosemide 20 MG 20 MG 20 MG amLODIPine amLODIPine No 1{table amLODIPine Besylate Besylate t} Besylate 2.5 MG 2.5 MG 2.5 MG Escitalopra Escitalopra No 1{table QD Escitalopr m Oxalate m Oxalate t} am Oxalate 20 MG 20 MG 20 MG Clopidogrel Clopidogrel No Clopidogre Bisulfate Bisulfate l 75 MG 75 MG Bisulfate 75 MG Symbicort Symbicort No 2{puffs BID Symbicort 160-4.5 160-4.5 } 160-4.5 MCG/ACT MCG/ACT MCG/ACT Calcium Calcium No 1{table QD Calcium 1200 1200 t} 1200 8721-5895 2994-6163 9306-2106 MG-UNIT MG-UNIT MG-UNIT Breztri Breztri No 2{puffs BID Breztri Aerosphere Aerosphere } Aerosphere 160-9-4.8 160-9-4.8 160-9-4.8 MCG/ACT MCG/ACT MCG/ACT amLODIPine amLODIPine No 1{table amLODIPine Besylate Besylate t} Besylate 2.5 MG 2.5 MG 2.5 MG Albuterol Albuterol No 2{puffs Albuterol Sulfate HFA Sulfate HFA _as_nee Sulfate 108 (90 108 (90 ded} HFA 108 Base) Base) (90 Base) MCG/ACT MCG/ACT MCG/ACT Allopurinol Allopurinol No Allopurino 100 MG 100 MG l 100 MG Linzess 145 Linzess 145 No 1{table QD Linzess mcg mcg t} 145 mcg HYDROcodone HYDROcodone No 1{table QID HYDROcodon -Acetaminop -Acetaminop t_as_ne e-Acetamin hen 10-325 hen 10-325 eded} ophen MG MG 10-325 MG Losartan Losartan No QD Losartan Potassium Potassium Potassium 25 MG 25 MG 25 MG Carvedilol Carvedilol No 1{table BID Carvedilol 6.25 MG 6.25 MG t_with_ 6.25 MG food} Iron 325 Iron 325 No 1{table Iron 325 (65 Fe) MG (65 Fe) MG t} (65 Fe) MG Carvedilol Carvedilol No Carvedilol 6.25 MG 6.25 MG 6.25 MG Vitamin D3 Vitamin D3 No Vitamin D3 2400 2400 2400 UNIT/ML UNIT/ML UNIT/ML Mirtazapine Mirtazapine No Mirtazapin 15 MG 15 MG e 15 MG busPIRone busPIRone No BID busPIRone HCl 7.5 MG HCl 7.5 MG HCl 7.5 MG Alendronate Alendronate No Alendronat Sodium 70 Sodium 70 e Sodium MG MG 70 MG Furosemide Furosemide No Furosemide 20 MG 20 MG 20 MG amLODIPine amLODIPine No 1{table amLODIPine Besylate Besylate t} Besylate 2.5 MG 2.5 MG 2.5 MG Escitalopra Escitalopra No 1{table QD Escitalopr m Oxalate m Oxalate t} am Oxalate 20 MG 20 MG 20 MG Clopidogrel Clopidogrel No Clopidogre Bisulfate Bisulfate l 75 MG 75 MG Bisulfate 75 MG Symbicort Symbicort No 2{puffs BID Symbicort 160-4.5 160-4.5 } 160-4.5 MCG/ACT MCG/ACT MCG/ACT Calcium Calcium No 1{table QD Calcium 1200 1200 t} 1200 9360-3031 0961-7812 6128-9929 MG-UNIT MG-UNIT MG-UNIT Breztri Breztri No 2{puffs BID Breztri Aerosphere Aerosphere } Aerosphere 160-9-4.8 160-9-4.8 160-9-4.8 MCG/ACT MCG/ACT MCG/ACT Albuterol Albuterol No 2{puffs Albuterol Sulfate HFA Sulfate HFA _as_nee Sulfate 108 (90 108 (90 ded} HFA 108 Base) Base) (90 Base) MCG/ACT MCG/ACT MCG/ACT Allopurinol Allopurinol No Allopurino 100 MG 100 MG l 100 MG Losartan Losartan No QD Losartan Potassium Potassium Potassium 25 MG 25 MG 25 MG Linzess 145 Linzess 145 No 1{table QD Linzess mcg mcg t} 145 mcg HYDROcodone HYDROcodone No 1{table QID HYDROcodon -Acetaminop -Acetaminop t_as_ne e-Acetamin hen 10-325 hen 10-325 eded} ophen MG MG 10-325 MG Losartan Losartan No QD Losartan Potassium Potassium Potassium 25 MG 25 MG 25 MG Iron 325 Iron 325 No 1{table Iron 325 (65 Fe) MG (65 Fe) MG t} (65 Fe) MG Carvedilol Carvedilol No Carvedilol 6.25 MG 6.25 MG 6.25 MG Vitamin D3 Vitamin D3 No Vitamin D3 2400 2400 2400 UNIT/ML UNIT/ML UNIT/ML Mirtazapine Mirtazapine No Mirtazapin 15 MG 15 MG e 15 MG busPIRone busPIRone No BID busPIRone HCl 7.5 MG HCl 7.5 MG HCl 7.5 MG Alendronate Alendronate No Alendronat Sodium 70 Sodium 70 e Sodium MG MG 70 MG Furosemide Furosemide No Furosemide 20 MG 20 MG 20 MG Escitalopra Escitalopra No Escitalopr m Oxalate m Oxalate am Oxalate 20 MG 20 MG 20 MG amLODIPine amLODIPine No 1{table amLODIPine Besylate Besylate t} Besylate 2.5 MG 2.5 MG 2.5 MG Escitalopra Escitalopra No 1{table QD Escitalopr m Oxalate m Oxalate t} am Oxalate 20 MG 20 MG 20 MG Clopidogrel Clopidogrel No Clopidogre Bisulfate Bisulfate l 75 MG 75 MG Bisulfate 75 MG Symbicort Symbicort No 2{puffs BID Symbicort 160-4.5 160-4.5 } 160-4.5 MCG/ACT MCG/ACT MCG/ACT Calcium Calcium No 1{table QD Calcium 1200 1200 t} 1200 8384-8758 4263-9865 4134-4078 MG-UNIT MG-UNIT MG-UNIT Breztri Breztri No 2{puffs BID Breztri Aerosphere Aerosphere } Aerosphere 160-9-4.8 160-9-4.8 160-9-4.8 MCG/ACT MCG/ACT MCG/ACT Albuterol Albuterol No 2{puffs Albuterol Sulfate HFA Sulfate HFA _as_nee Sulfate 108 (90 108 (90 ded} HFA 108 Base) Base) (90 Base) MCG/ACT MCG/ACT MCG/ACT Allopurinol Allopurinol No Allopurino 100 MG 100 MG l 100 MG Linzess 145 Linzess 145 No 1{table QD Linzess mcg mcg t} 145 mcg HYDROcodone HYDROcodone No 1{table QID HYDROcodon -Acetaminop -Acetaminop t_as_ne e-Acetamin hen 10-325 hen 10-325 eded} ophen MG MG 10-325 MG Losartan Losartan No QD Losartan Potassium Potassium Potassium 25 MG 25 MG 25 MG Iron 325 Iron 325 No 1{table Iron 325 (65 Fe) MG (65 Fe) MG t} (65 Fe) MG Carvedilol Carvedilol No Carvedilol 6.25 MG 6.25 MG 6.25 MG Vitamin D3 Vitamin D3 No Vitamin D3 2400 2400 2400 UNIT/ML UNIT/ML UNIT/ML cloNIDine cloNIDine No cloNIDine HCl 0.1 MG HCl 0.1 MG HCl 0.1 MG Mirtazapine Mirtazapine No Mirtazapin 15 MG 15 MG e 15 MG busPIRone busPIRone No BID busPIRone HCl 7.5 MG HCl 7.5 MG HCl 7.5 MG Alendronate Alendronate No Alendronat Sodium 70 Sodium 70 e Sodium MG MG 70 MG Furosemide Furosemide No Furosemide 20 MG 20 MG 20 MG amLODIPine amLODIPine No 1{table amLODIPine Besylate Besylate t} Besylate 2.5 MG 2.5 MG 2.5 MG Escitalopra Escitalopra No 1{table QD Escitalopr m Oxalate m Oxalate t} am Oxalate 20 MG 20 MG 20 MG Clopidogrel Clopidogrel No Clopidogre Bisulfate Bisulfate l 75 MG 75 MG Bisulfate 75 MG Symbicort Symbicort No 2{puffs BID Symbicort 160-4.5 160-4.5 } 160-4.5 MCG/ACT MCG/ACT MCG/ACT Calcium Calcium No 1{table QD Calcium 1200 1200 t} 1200 1014-1354 6182-9433 3521-9892 MG-UNIT MG-UNIT MG-UNIT Breztri Breztri No 2{puffs BID Breztri Aerosphere Aerosphere } Aerosphere 160-9-4.8 160-9-4.8 160-9-4.8 MCG/ACT MCG/ACT MCG/ACT Albuterol Albuterol No 2{puffs Albuterol Sulfate HFA Sulfate HFA _as_nee Sulfate 108 (90 108 (90 ded} HFA 108 Base) Base) (90 Base) MCG/ACT MCG/ACT MCG/ACT Allopurinol Allopurinol No Allopurino 100 MG 100 MG l 100 MG Linzess 145 Linzess 145 No 1{table QD Linzess mcg mcg t} 145 mcg HYDROcodone HYDROcodone No 1{table QID HYDROcodon -Acetaminop -Acetaminop t_as_ne e-Acetamin hen 10-325 hen 10-325 eded} ophen MG MG 10-325 MG Vitamin D3 Vitamin D3 No Vitamin D3 50,000 50,000 50,000 Losartan Losartan No QD Losartan Potassium Potassium Potassium 25 MG 25 MG 25 MG Iron 325 Iron 325 No 1{table Iron 325 (65 Fe) MG (65 Fe) MG t} (65 Fe) MG Carvedilol Carvedilol No Carvedilol 6.25 MG 6.25 MG 6.25 MG Vitamin D3 Vitamin D3 No Vitamin D3 2400 2400 2400 UNIT/ML UNIT/ML UNIT/ML Mirtazapine Mirtazapine No Mirtazapin 15 MG 15 MG e 15 MG busPIRone busPIRone No BID busPIRone HCl 7.5 MG HCl 7.5 MG HCl 7.5 MG Alendronate Alendronate No Alendronat Sodium 70 Sodium 70 e Sodium MG MG 70 MG Furosemide Furosemide No Furosemide 20 MG 20 MG 20 MG amLODIPine amLODIPine No 1{table amLODIPine Besylate Besylate t} Besylate 2.5 MG 2.5 MG 2.5 MG Escitalopra Escitalopra No 1{table QD Escitalopr m Oxalate m Oxalate t} am Oxalate 20 MG 20 MG 20 MG Furosemide Furosemide No Furosemide 20 MG 20 MG 20 MG Clopidogrel Clopidogrel No Clopidogre Bisulfate Bisulfate l 75 MG 75 MG Bisulfate 75 MG Symbicort Symbicort No 2{puffs BID Symbicort 160-4.5 160-4.5 } 160-4.5 MCG/ACT MCG/ACT MCG/ACT Calcium Calcium No 1{table QD Calcium 1200 1200 t} 1200 9480-2052 4213-3184 2234-9273 MG-UNIT MG-UNIT MG-UNIT Breztri Breztri No 2{puffs BID Breztri Aerosphere Aerosphere } Aerosphere 160-9-4.8 160-9-4.8 160-9-4.8 MCG/ACT MCG/ACT MCG/ACT Albuterol Albuterol No 2{puffs Albuterol Sulfate HFA Sulfate HFA _as_nee Sulfate 108 (90 108 (90 ded} HFA 108 Base) Base) (90 Base) MCG/ACT MCG/ACT MCG/ACT Albuterol Albuterol No 2{puffs Albuterol Sulfate HFA Sulfate HFA _as_nee Sulfate 108 (90 108 (90 ded} HFA 108 Base) Base) (90 Base) MCG/ACT MCG/ACT MCG/ACT Allopurinol Allopurinol No Allopurino 100 MG 100 MG l 100 MG Linzess 145 Linzess 145 No 1{table QD Linzess mcg mcg t} 145 mcg HYDROcodone HYDROcodone No 1{table QID HYDROcodon -Acetaminop -Acetaminop t_as_ne e-Acetamin hen 10-325 hen 10-325 eded} ophen MG MG 10-325 MG Losartan Losartan No QD Losartan Potassium Potassium Potassium 25 MG 25 MG 25 MG Iron 325 Iron 325 No 1{table Iron 325 (65 Fe) MG (65 Fe) MG t} (65 Fe) MG Carvedilol Carvedilol No Carvedilol 6.25 MG 6.25 MG 6.25 MG Vitamin D3 Vitamin D3 No Vitamin D3 2400 2400 2400 UNIT/ML UNIT/ML UNIT/ML Symbicort Symbicort No 2{puffs BID Symbicort 160-4.5 160-4.5 } 160-4.5 MCG/ACT MCG/ACT MCG/ACT Mirtazapine Mirtazapine No Mirtazapin 15 MG 15 MG e 15 MG busPIRone busPIRone No BID busPIRone HCl 7.5 MG HCl 7.5 MG HCl 7.5 MG Alendronate Alendronate No Alendronat Sodium 70 Sodium 70 e Sodium MG MG 70 MG Furosemide Furosemide No Furosemide 20 MG 20 MG 20 MG amLODIPine amLODIPine No 1{table amLODIPine Besylate Besylate t} Besylate 2.5 MG 2.5 MG 2.5 MG Escitalopra Escitalopra No 1{table QD Escitalopr m Oxalate m Oxalate t} am Oxalate 20 MG 20 MG 20 MG Clopidogrel Clopidogrel No Clopidogre Bisulfate Bisulfate l 75 MG 75 MG Bisulfate 75 MG Symbicort Symbicort No 2{puffs BID Symbicort 160-4.5 160-4.5 } 160-4.5 MCG/ACT MCG/ACT MCG/ACT Calcium Calcium No 1{table QD Calcium 1200 1200 t} 1200 5217-6915 6701-6082 2391-7908 MG-UNIT MG-UNIT MG-UNIT Breztri Breztri No 2{puffs BID Breztri Aerosphere Aerosphere } Aerosphere 160-9-4.8 160-9-4.8 160-9-4.8 MCG/ACT MCG/ACT MCG/ACT amLODIPine amLODIPine No 1{table QD amLODIPine Besylate Besylate t} Besylate 2.5 MG 2.5 MG 2.5 MG Albuterol Albuterol No 2{puffs Albuterol Sulfate HFA Sulfate HFA _as_nee Sulfate 108 (90 108 (90 ded} HFA 108 Base) Base) (90 Base) MCG/ACT MCG/ACT MCG/ACT Alendronate Alendronate No Alendronat [...] 12.5 MG 12.5 MG Immunizations Ordered Filled Date Status Comments Source Immunization Name Immunization Name FluAD FluAD 2021-03-04 [facility]00 [facility] FluAD FluAD 2021-03-04 Completed [facility] 15:40:00 [facility] FluAD FluAD 2021-03-04 Completed [facility] - 15:40:00 [facility] FluAD FluAD 2021-03-04 Completed [facility] - 15:40:00 [facility] FluAD FluAD 2021-03-04 Completed [facility] - 15:40:00 [facility] FluAD FluAD 2021-03-04 Completed [facility] - 15:40:00 [facility] FluAD FluAD 2021-03-04 Completed [facility] - 15:40:00 [facility] FluAD FluAD 2021-03-04 Completed [facility] - 15:40:00 [facility] FluAD FluAD 2021-03-04 Completed [facility] - 15:40:00 [facility] FluAD FluAD 2021-03-04 Completed [facility] - 15:40:00 [facility] FluAD FluAD 2021-03-04 Completed [facility] - 15:40:00 [facility] FluAD FluAD 2021-03-04 Completed [facility] - 15:40:00 [facility] FluAD FluAD 2021-03-04 Completed [facility] - 15:40:00 [facility] FluAD FluAD 2021-03-04 Completed [facility] - 15:40:00 [facility] FluAD FluAD 2021-03-04 Completed [facility] - 15:40:00 [facility] COVID19 [facility] COVID19 2021-03-04 Completed [facility] - Vaccine (Low Dose Vaccine (Low Dose 15:37:[address] [facility] Booster) Booster) [facility] COVID19 [facility] COVID-19 2021-03-04 Completed [facility] - Vaccine (Low Dose Vaccine (Low Dose 15:37:[address] [facility] Booster) Booster) [facility] COVID19 Moderna COVID-19 2021-03-04 Completed [facility] - Vaccine (Low Dose Vaccine (Low Dose 15:37:[address] [facility] Booster) Booster) [facility] COVID19 Moderna COVID-19 2021-03-04 Completed [facility] - Vaccine (Low Dose Vaccine (Low Dose 15:37:[address] [facility] Booster) Booster) [facility] COVID19 Moderna COVID-19 2021-03-04 Completed [facility] - [facility] (Low Dose Vaccine (Low Dose 15:37:[address] [facility] [facility]04 Com[facility] - [facility]ine (Low Dose Vaccine (Low Dose 15:37:[address] [facility] Booster) Booster) [address] [facility] 2021-03-04 Completed [facility] - Vaccine (Low Dose Vaccine (Low Dose 15:37:[address] [facility] Booster) Booster) [address] [facility] 2021-03-04 Completed [facility] - Vaccine (Low Dose Vaccine (Low Dose 15:37:[address] [facility] Booster) Booster) [address] [facility]-04 Com[facility] (Low Dose Vaccine (Low Dose 15:37:[address] [facility] Booster) [facility]oster) [facility] [address] [facility]04 Completed [facility] - [facility]ine (Low Dose Vaccine (Low Dose 15:37:[address] [facility] Booster[facility]oster[facility] [facility] 2021-03-04 Completed [facility] - Vaccine (Low Dose Vaccine (Low Dose 15:37:[address] [facility] Booster) Booster) [address] [facility] 2021-03-04 Completed [facility] - Vaccine (Low Dose Vaccine (Low Dose 15:37:[address] [facility] Booster) Booster) [address] [facility] 2021-03-04 Completed [facility] - Vaccine (Low Dose Vaccine (Low Dose 15:37:[address] [facility] Booster) Booster) [address] [facility] 2021-03-04 Completed [facility] - Vaccine (Low Dose Vaccine (Low Dose 15:37:[address] [facility] Booster) Booster) [address] COVIDTyler [facility] 2021-03-04 Completed [facility] - Vaccine (Low Dose Vaccine (Low Dose 15:37:[address] [facility] Booster) Booster) [facility] 2019-02-06 Completed [facility] 00:00:00 [facility] 2019-02-06 Completed [facility] 00:00:00 [facility] Td 2019-02-06 Completed [facility] 00:00: [facility] Td 2019-02-06 Completed [facility] 00:00: [facility] Moderna COVID-19 Moderna COVID-19 Unknown Completed [facility] Vaccine (Low Dose Vaccine (Low Dose [facility] Booster) Booster) [facility] FluAD FluAD Unknown Completed [facility] Moderna COVID-19 Moderna COVID-19 Unknown Completed [facility]ine (Low Dose Vaccine (Low Dose [facility] Booster) Booster) [facility] FluAD FluAD Unknown Completed [facility] Moderna COVID-19 Unknown Completed [facility]ine (Low Dose Vaccine (Low Dose [facility] Booster) Booster) [facility] FluAD FluAD Unknown Completed [facility] Moderna COVID-19 Moderna COVID-19 Unknown Completed [facility]ine (Low Dose Vaccine (Low Dose [facility] Booster) Booster) [facility] FluAD FluAD Unknown Completed [facility] Moderna COVID-19 Moderna COVID-19 Unknown Completed [facility]ine (Low Dose Vaccine (Low Dose [facility] Booster) Booster) [facility] FluAD FluAD Unknown Completed [facility] COVID-19 Moderna COVID-19 Unknown Completed [facility] (Low Dose Vaccine (Low Dose [facility] Booster) Booster) [facility] Center FluAD FluAD Unknown Completed [facility] Vital Signs Vital Name Observation Time Observation Value Comments Source height 2022-02-23 17:00:00 59.50 [in_i] [facility] weight 2022-02-23 17:00:00 117 [lb_av] [facility] bmi 2022-02-23 17:00:00 23.23 kg/m2 [facility] height 2021-10-06 15:00:00 59.50 [in_i] Common [facility] weight 2021-10-06 15:00:00 117 [lb_av] Common [facility] temperature 2021-10-06 15:00:00 97.3 [degF] Common [facility] bmi 2021-10-06 15:00:00 23.23 kg/m2 Common [facility] oximetry 2021-10-06 15:00:00 96 % Common [facility] respiratory rate 2021-10-06 15:00:00 14 /min Comm on [facility] blood pressure 2021-10-06 15:00:00 109 mm[Hg] Common [facility] systolic [facility] blood pressure 2021-10-06 15:00:00 55 mm[Hg] Common [facility] diastolic [facility] height 2021-10-06 15:00:00 59.50 [in_i] Common [facility] weight 2021-10-06 15:00:00 117 [lb_av] Common [facility] temperature 2021-10-06 15:00:00 97.3 [degF] Common [facility] bmi 2021-10-06 15:00:00 23.23 kg/m2 [facility] oximetry 2021-10-06 15:00:00 96 % [facility] respiratory rate 2021-10-06 15:00:00 14 /min Comm on [facility] blood pressure 2021-10-06 15:00:00 109 mm[Hg] Common [facility] systolic [facility] blood pressure 2021-10-06 15:00:00 55 mm[Hg] Common [facility] diastolic [facility] Procedures Procedure Date / Time Performing Clinician Source Performed [place] MODIFIED BARIUM SWALLOW 2020-03-03 19:43:20 Requisition, Luis fleming [facility] NOTICE OF BILLING 2020-03-03 19:07:40 Doctor Unassigned, [facility] PRACTICES FOR MEDICARE [facility] PATIENTS [facility] PATIENT FINANCIAL 2020-03-03 19:07:02 Doctor Unassigned, [facility] [place] [facility] NO SHOW OR MISSED 2020-03-03 19:06:26 Doctor Unassigned, [facility] APPOINTMENT POLICY [facility] ACKNOWLEDGEMENT CONSENT/REFUSAL FOR 2020-03-03 19:05:29 Doctor Unassigned, [facility] DIAGNOSIS AND TREATMENT [facility] ASSIGNMENT OF BENEFITS 2020-03-03 19:04:46 Doctor Unassigned, [facility] [place] [facility] Plan of Care Planned Activity Planned Date Details Comments Source Future Scheduled 2023-02-21 COVID-19 VACCINE (#1) [facility] Test 20:09:33 [code = COVID-19 VACCINE (#1)] Future Scheduled 2023-02-21 SHINGLES VACCINES (1 Met [facility] Test 20:09:33 of 2) [code = SHINGLES VACCINES (1 of 2)] Future Scheduled 2023-02-21 65+ [facility] 20:09:33 VACCINE (2 - PCV) [code = 65+ PNEUMOCOCCAL VACCINE (2 - PCV)] Future Scheduled 2023-02-21 INFLUENZA VACCINE (#1) [facility] Test 20:09:33 [code = INFLUENZA VACCINE (#1)] Future Scheduled 2022-12-31 COVID-19 VACCINE (#1) [facility] Test 00:43:02 [code = COVID-19 VACCINE (#1)] Future Scheduled 2022-12-31 SHINGLES VACCINES (1 Met [facility] Test 00:43:02 of 2) [code = SHINGLES VACCINES (1 of 2)] Future Scheduled 2022-12-31 65+ [facility]AL [facility] Test 00:43:02 VACCINE (2 - PCV) [code = 65+ PNEUMOCOCCAL VACCINE (2 - PCV)] Future Scheduled 2022-12-31 INFLUENZA VACCINE (#1) [facility] Test 00:43:02 [code = INFLUENZA VACCINE (#1)] Future Scheduled 2022-10-23 COVID-19 VACCINE (#1) [facility] Test 14:48:03 [code = COVID-19 VACCINE (#1)] Future Scheduled 2022-10-23 SHINGLES VACCINES (1 Met [facility] Test 14:48:03 of 2) [code = SHINGLES VACCINES (1 of 2)] Future Scheduled 2022-10-23 65+ PNEUMOCOCCAL [facility] Test 14:48:03 VACCINE (2 - PCV) [code = 65+ PNEUMOCOCCAL VACCINE (2 - PCV)] Future Scheduled 2022-10-23 INFLUENZA VACCINE Method [facility] Test 14:48:03 [code = INFLUENZA VACCINE] Future Scheduled 2022-03-02 INFLUENZA VACCINE Method [facility] Test 05:55:59 [code = INFLUENZA VACCINE] Future Scheduled 2022-03-02 HEPATITIS B VACCINES Met [facility] Test 05:55:59 (1 of 3 - 3-dose series) [code = HEPATITIS B VACCINES (1 of 3 - 3-dose series)] Future Scheduled 2022-03-02 COVID-19 VACCINE (#1) [facility] Test 05:55:59 [code = COVID-19 VACCINE (#1)] Future Scheduled 2022-03-02 SHINGLES VACCINES (1 Met [facility] Test 05:55:59 of 2) [code = SHINGLES VACCINES (1 of 2)] Future Scheduled 2022-03-02 65+ PNEUMOCOCCAL [facility] Test 05:55:59 VACCINE (2 - PCV) [code = 65+ PNEUMOCOCCAL VACCINE (2 - PCV)] Encounters Start End Encounter Admission Attending Care Care Encounter Source Date/Time Date/Time Type Type Clinicians Facility Department ID 2022-09-05 Outpatient Devine, [facility] [id number] Common 13:52:01 Emelia [id number] [facility] 2022-09-01 Outpatient Pruett, [facility] [id number] Common 08:45:01 [facility] [id number] [facility] 2022-07-25 Outpatient Pruett, [facility] [id number] Common 15:41:01 Mayco [id number] [facility] 2022-06-20 Outpatient Devine, [facility] [id number] Common 11:36:01 Emelia [id number] [facility] 2022-06-16 Outpatient Briseyda, [facility] [id number] Common 11:00:02 Agueda [id number] [facility] 2022-05-08 Outpatient SALAS, Na STLMLC STLMLC [id number] Common 14:16:02 [id number] [facility] 2022-02-21 Outpatient Salas, Na STLMLC STLMLC [id number] Common 15:52:03 [facility] 2021-11-02 Outpatient Salas, Na STLMLC STLMLC [id number] Common 11:05:01 [id number] [facility] 2021-10-06 Outpatient Salas, Na STLMLC STLMLC [id number] Common 15:20:03 [facility] 2022-11-24 2022-11-24 Outpatient Thomas_T [facility] [id number]- 2022 [facility] 00:00:00 00:00:00 0728 [facility] 2022-11-24 2022-11-24 Outpatient Thomas_T [facility] [id number]- 2022 [facility] 00:00:00 00:00:00 1026 [facility] 2022-11-17 2022-11-17 CAV Ann 2.16.840. 2.16.840.1. CLAC [id number] [facility] 19:30:00 20:30:00 [place] [id number] [id number] [facility] [id number] 2022-07-12 2022-07-12 (TEL) STLMLC STLMLC [id number] [facility] 00:00:00 00:00:00 [facility] 2022-07-04 2022-07-04 (TEL) STLMLC STLMLC [id number] [facility] 00:00:00 00:00:00 [facility] 2022-06-21 2022-06-21 (TEL) STLMLC STLMLC [id number] [facility] 00:00:00 00:00:00 [facility] 2022-06-20 2022-06-20 (TEL) STLMLC STLMLC [id number] [facility] 00:00:00 00:00:00 [facility] 2022-06-16 2022-06-16 (TEL) STLMLC STLMLC [id number] [facility] 00:00:00 00:00:00 [facility] 2022-06-16 2022-06-16 (TEL) STLMLC STLMLC [id number] [facility] 00:00:00 00:00:00 [facility] 2022-05-19 2022-05-19 (TEL) STLMLC STLMLC [id number] [facility] 00:00:00 00:00:00 [facility] 2022-04-19 2022-04-19 (TEL) STLMLC STLMLC [id number] [facility] 00:00:00 00:00:00 [facility] 2022-04-18 2022-04-18 (TEL) STLMLC STLMLC [id number] [facility]mon 00:00:00 00:00:00 [facility] 2022-03-22 2022-03-22 OL DIG E/M STLMLC STLMLC [id number] Common 00:00:00 00:00:00 [facility] -20 Spir it MIN [facility] 2022-03-20 2022-03-20 (TEL) STLMLC STLMLC [id number] Co mmon 00:00:00 00:00:00 [facility] 2022-02-23 2022-02-23 OL DIG E/M STLMLC STLMLC [id number] Common 00:00:00 00:00:00 [facility] -20 Spir it MIN [facility] 2022-02-10 2022-02-10 (TEL) STLMLC STLMLC [id number] [facility]mon 00:00:00 00:00:00 [facility] 2022-01-11 2022-01-11 CAV Penny 2.16.840. 2.16.840.1. CLAC [id number] [facility] 19:00:00 20:00:00 Bryce [id number]. [id number]. [facility] [id number] 2022-01-10 2022-01-10 (TEL) STLMLC STLMLC [id number] [facility]mon 00:00:00 00:00:00 [facility] 2021-12-26 2021-12-26 Outpatient Thomas_T [facility] [id number]- 2021 [facility] 00:00:00 00:00:00 0829 [facility] 2021-12-26 2021-12-26 Outpatient Thomas_T [facility] [id number]- 2022 [facility] 00:00:00 00:00:00 0112 [facility] 2021-12-26 2021-12-26 Outpatient Thomas_T [facility] [id number] [facility] 00:00:00 00:00:00 0506 [facility] 2021-12-20 2021-12-20 OL DIG E/M STLMLC STLMLC [id number] Common 00:00:00 00:00:00 [facility] 20 Spir it MIN [facility] 2021-12-16 2021-12-16 (TEL) STLMLC STLMLC [id number] [facility]mon 00:00:00 00:00:00 [facility] 2021-12-09 2021-12-09 (TEL) STLMLC STLMLC [id number] Co mmon 00:00:00 00:00:00 [facility] 2021-11-12 2021-11-12 [facility] [id number] [id number] [facility] 04:31:00 04:31:00 0716 [facility] 2021-11-02 2021-11-02 OL DIG E/M STLMLC STLMLC [id number] Common 00:00:00 00:00:00 [facility] -20 Spir it MIN [facility] 2021-10-06 2021-10-06 SUB ANNUAL STLMLC STLMLC [id number] Common 00:00:00 00:00:00 MCR [facility] WELLNESS - [facility] VISIT [facility] 2021-10-06 2021-10-06 OFFICE STLMLC STLMLC [id number] [facility] 00:00:00 00:00:00 VISIT Saman DEJESUS PT - CHI LEVEL 4 [facility] 2021-04-19 2021-04-19 On Demand Jackelin 2.16.840. 2.16.840.1. CL [id number] [facility] 15:30:00 16:00:00 Masha [id number] [facility] [id number] 2020-11-17 2020-11-17 Outpatient JULIUSGABRIEL [facility] [id number] [address] [place] 00:00:00 00:00:00 JAELYN [address] 2020-09-01 2020-09-01 [id number] Univers 11:10:00 11:00:53 JAGJIT [facility] 2020-08-31 2020-08-31 Outpatient OWENS_T [facility] [id number] 021 [facility] 06:09:00 06:09:00 0504 [facility] 2020-08-04 2020-08-04 Outpatient Quinten REID [facility] [id number] Univers 16:40:00 16:37:08 JAGJIT [facility] 2020-03-03 2020-03-03 Hospital Radiology [facility] [id number] 13:00:00 23:59:00 Encounter [place] [id number] Gregory [id number] [place] [phone] [facility] 2020-03-03 2020-03-03 [facility] Radiology [facility] [id number] Univers 13:00:00 23:59:00 Encounter [place] [id number] [facility] [id number] [facility] [id number] [address] 2020-03-03 2020-03-03 [facility] Eduard [facility] 1.2.840.114 [id number] 13:51:46 14:36:46 Visit [place] [id number] [place] [id number] Professio [id number] [address] 2020-03-03 2020-03-03 Ancillary Ni [place] [facility] 1.2.8 40.114 [id number] Univers 13:51:46 14:36:46 Visit Severiano Xiong [id number] ity yoli PhillipGreg[place] 4.2.7.2.686 [place] [phone] [address] 2020-03-03 2020-03-03 Outpatient R [facility] [id number] Univers 14:30:00 14:30:00 ity [facility] 2020-03-03 2020-03-03 Outpatient R RADIOLOGY [facility] [id number] Univers 13:00:00 13:00:00 [facility] 2020-02-18 2020-02-18 Telephone Eduard [facility] 1.2.840.114 [id number] 00:00:00 00:00:00 [place] [id number] [place] [id number] Professio [phone] [address] 2020-02-18 2020-02-18 Telephone Eduard [facility] 1.2.840.114 [id number] [facility] 00:00:00 00:00:00 [place] [id number] ity yoli PhillipGreg[place] [id number] [place] [phone] [address] Results Test Description Test Time Test Comments Results Result [facility] e Comments [place] MODIFIED HISTORY: Dysphagia Unive [...] visualized in the piriformsinuses, otherwise normal study. [facility], Radiant Results Inft User - 03/03/2020 1:50 [...]
[2023-02-26] MEDS ORDERED: METHYLPREDNISOLONE 125 MG INJ ONE (15:34)
[2023-02-26] MEDS ORDERED: IPRATROPIUM BROM 0.5MG/2.5ML ONE (15:34)
[2023-02-26] MEDS ORDERED: LEVALBUTEROL 1.25 MG/3 ML NEB ONE (15:34)
[2023-02-26] MEDS ORDERED: NA CHLORIDE 0.9% 1,000 ML ONE ×2 (15:35→16:43)
[2023-02-26 15:47] LABS: SARS-CoV-2 Antigen Rapid Res Negative (Negative)
[2023-02-26 16:03] LABS: Absolute Lymphocytes (CBC) 2.4 K/uL (0.7-4.9); Hematocrit 32.2 % (36.0-45.0); Lymphocytes % 25.6 % (15.3-44.8); MCV 97.9 fL (80-100); MPV 8.8 fL (7.6-11.3); Platelets 164 thou/uL (152-406); RBC Red Blood Cell Count 3.29 M/uL (3.86-4.86)
[2023-02-26 16:16] LABS: Albumin 3.5 g/dL (3.4-5.0); Bilirubin Direct 0.1 mg/dL (0-0.2); Bilirubin Indirect, Calculated 0.3 mg/dL (0.2-0.8); Bilirubin Total 0.4 mg/dL (0.2-1.0); Magnesium 2.3 mg/dL (1.6-2.4); Potassium 4.2 mEq/L (3.5-5.1); Protein, Total 7.1 g/dL (6.4-8.2); Troponin High Sensitivity 32.3 pg/mL (<58.9)
--- NOTE | 2023-02-26 16:19 | RAD REPORT ---
EXAM DESCRIPTION: RAD - Chest Single View - 02/26/2023 4:10 pm CLINICAL HISTORY: DYSPNEA Chest pain. COMPARISON: No comparisonsChest Single View dated 02/08/2023; Chest Single View dated 11/01/2022; Abdo men 1 View (KUB) dated 03/13/2022; Abdomen 1 View (KUB) dated 2Chest Single View dated 02/08; Chest Single View dated 11/01/2022; Abdomen 1 View (KUB) dated 03/13/2022; Abdomen 1 View (KUB) dated 03/11/2022; Thorax Wo Con dated 02/08/2023 FINDINGS: Portable technique limits examination quality. Mild reticular opacities are present bilaterally, greater on the left. This is probably related to mi ld emphysema. The heart is mildly enlarged in size. No displaced fractures.Aortic atherosclerosis. IMPRESSION: Mild COPD is suspected.
--- NOTE | 2023-02-26 16:55 | ER ---
Nurse's Notes [facility] Name: Meme Rushing Age: 82 yrs Sex: Female : 1940 Arrival Date: 02/26/2023 Time: 14:55 Bed 18 Private MD: Diagnosis: COPD/ Chronic obstructive pulmonary disease with (acute) exacerbation;Acute kidney failure, unspecified;Hypotension, unspecified Presentation: 02/26 15:01 Chief complaint: Patient states: SOB on exertion, daughter states she was coughing up iw blood in her mucous, , started on Sunday, hx of COPD, is also having issues with her throat, has a hard time swallowing. Coronavirus screen: Client presents with at least one sign or symptom that may indicate coronavirus-19. Ebola Screen: Patient negative for fever greater than or equal to 101.5 degrees Fahrenheit, and additional compatible Ebola Virus Disease symptoms Patient denies exposure to infectious person. Patient denies travel to an Ebola-affected area in the 21 days before illness onset. No symptoms or risks identified at this time. Initial Sepsis Screen: Does the patient meet any 2 criteria? No. Patient's initial sepsis screen is negative. Does the patient have a suspected source of infection? No. Patient's initial sepsis screen is negative. Risk Assessment: Do you want to hurt yourself or someone else? Patient reports no desire to harm self or others. Onset of symptoms was February 23, 2023. 15:01 Method Of Arrival: Ambulatory iw 15:01 Acuity: RODY 3 iw Triage Assessment: 20:31 General: Appears in no apparent distress. comfortable, well groomed, well developed. nw1 Respiratory: Onset: The symptoms/episode began/occurred. Respiratory: the patient has mild shortness of breath. 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 - Family history:: not pertinent. - Social history:: Smoking status: . - Hospitalizations: : No recent hospitalization is reported. Screenin:15 [facility] ED Fall Risk Assessment (Adult) History of falling in the last 3 months, kc6 including since admission No falls in past 3 months (0 pts) Confusion or Disorientation No (0 pts) Intoxicated or Sedated No (0 pts) Impaired Gait No (0 pts) Mobility Assist Device Used No (0 pt) Altered Elimination No (0 pt) Score/Fall Risk Level 0 - 2 = Low Risk. Abuse screen: Denies threats or abuse. Denies injuries from another. Nutritional screening: No deficits noted. Tuberculosis screening: No symptoms or risk factors identified. Assessment: 15:48 General: Appears in no apparent distress. comfortable, Behavior is calm, cooperative, kc6 appropriate for age. Pain: Complains of pain in chest Quality of pain is described as pressure. Neuro: Level of Consciousness is awake, alert, obeys commands, Oriented to person, place, time, situation, Appropriate for age. Cardiovascular: Denies chest pain, Heart tones S1 S2 present Capillary refill < 3 seconds Rhythm is atrial fibrillation. Respiratory: Reports shortness of breath at rest on exertion Airway is patent Trachea midline Respiratory effort is even, unlabored, Respiratory pattern is regular, symmetrical, Breath sounds are clear bilaterally. GI: No signs and/or symptoms were reported involving the gastrointestinal system. : No signs and/or symptoms were reported regarding the genitourinary system. EENT: Reports difficulty swallowing. Derm: No signs and/or symptoms reported regarding the dermatologic system. Skin is intact, is healthy with good turgor, Skin is pink, warm \T\ dry. Musculoskeletal: No signs and/or symptoms reported regarding the musculoskeletal system. Circulation, motion, and sensation intact. Capillary refill < 3 seconds, Range of motion: intact in all extremities. 16:46 Reassessment: Patient appears in no apparent distress at this time. No changes from kc6 previously documented assessment. Patient and/or family updated on plan of care and expected duration. Pain level reassessed. Patient is alert, oriented x 3, equal unlabored respirations, skin warm/dry/pink. 17:35 Reassessment: Patient appears in no apparent distress at this time. No changes from kc6 previously documented assessment. Patient and/or family updated on plan of care and expected duration. Pain level reassessed. Patient is alert, oriented x 3, equal unlabored respirations, skin warm/dry/pink. 18:35 Reassessment: Patient appears in no apparent distress at this time. No changes from kc6 previously documented assessment. Patient and/or family updated on plan of care and expected duration. Pain level reassessed. Patient is alert, oriented x 3, equal unlabored respirations, skin warm/dry/pink. please see [facility] for further charting. 19:06 Reassessment: Rounds made and patient noted in bed. 0 s/s of acute distress noted at nw1 this time. Call light at bedside. POC discussed. Will continue to monitor. 20:29 Reassessment: Call made to attempt report x3 and no answer. Charge nurse Jones RN nw1 made aware. 20:43 Reassessment: Call made to floor 4 to give report. Notified by Parris that RAINA Hunter nw1 will be calling back in approx 5 min to receive report. 20:44 Reassessment: Pt assisted to bedside commode, x1 standby assist. nw1 21:01 Reassessment: Report given to RAINA Hunter. All questions asked, answered. nw1 Vital Signs: 15:01 BP 86 / 41; Pulse 53; Resp 20; Temp 97.9(O); Pulse Ox 96% on R/A; Weight 48.53 kg; iw Height 4 ft. 11 in. ; 15:47 BP 82 / 44; Pulse 57; Resp 17 S; Pulse Ox 98% on R/A; kc6 16:21 BP 91 / 48; Pulse 66; Resp 16 S; Pulse Ox 97% on R/A; kc6 16:46 BP 96 / 46; Pulse 61; Resp 14 S; Pulse Ox 91% on R/A; kc6 17:06 BP 109 / 51; rn 17:35 BP 130 / 58; Pulse 62; Resp 16 S; Pulse Ox 96% on R/A; kc6 18:57 BP 96 / 57; Pulse 68; Resp 15 S; Pulse Ox 92% on R/A; kc6 19:15 BP 113 / 59; Pulse 64; Resp 16; Pulse Ox 94% on R/A; nw1 20:44 BP 141 / 57; Pulse 68; Resp 17; Pulse Ox 93% on R/A; nw1 15:01 Body Mass Index 21.61 (48.53 kg, 149.86 cm) iw 19:15 PMHx of COPD nw1 ED Course: 14:57 Patient arrived in ED. rg4 15:03 Tani Rosales MD is Attending Physician. rn 15:04 Triage completed. iw 15:15 Adriana Love, RAINA is Primary Nurse. kc6 15:15 Patient has correct armband on for positive identification. Bed in low position. Call kc6 light in reach. Side rails up X2. Adult w/ patient. Client placed on continuous cardiac and pulse oximetry monitoring. NIBP monitoring applied. playground monitor on. 15:15 Arm band placed on. kc6 15:47 Inserted saline lock: 20 gauge in right antecubital area, using aseptic technique. kc6 Blood collected. Patient maintains SpO2 saturation greater than 95% on room air. 16:12 XRAY CXR (1 view) In Process Unspecified. EDMS 16:53 Rome Rosales MD is Hospitalizing Provider. rn 18:59 No provider procedures requiring assistance completed. Patient admitted, IV remains in kc6 place. 19:00 Attending Physician role handed off by Tani Rosales MD kc 19:01 Tani Rosales MD is Attending Physician. rv1 20:29 Provided Education on: POC/Admit. nw1 Administered Medications: 15:47 Drug: NS 0.9% IV 1000 ml IV at 1000 ml once Route: IV; Rate: 1000 ml; Site: right kc6 antecubital; 16:56 Follow up: Response: No adverse reaction; IV Status: Completed infusion; IV Intake: kc6 1000ml 15:47 Drug: MethylPrednisoLONE IVP 125 mg IVP once Route: IVP; Site: right antecubital; kc6 16:56 Follow up: Response: No adverse reaction kc6 15:47 Drug: Levalbuterol Inhalation 1.25 mg Inhalation once Route: Inhalation; kc6 16:56 Follow up: Response: No adverse reaction kc6 15:47 Drug: Ipratropium Inhalation Aerosol 0.5 mg Inhalation once Route: Inhalation; kc6 16:56 Follow up: Response: No adverse reaction kc6 16:39 Drug: NS 0.9% IV 1000 ml IV at 1 bolus Per protocol; 1000 mL bolus Route: IV; Rate: 1 kc6 bolus; Site: right antecubital; 18:58 Follow up: Response: No adverse reaction; IV Status: Completed infusion; IV Intake: kc6 1000ml 17:12 Drug: Rocephin IV 1 grams IV at calculated rate once; Given slow IV push per pharmacy kc6 instructions Route: IV; Rate: calculated rate; Site: right antecubital; 18:58 Follow up: Response: No adverse reaction; IV Status: Completed infusion; IV Intake: [id number] 17:35 Drug: Zithromax IVPB 500 mg IVPB once over 1 hrs; mix in 250 mL NS Route: IVPB; Infused kc6 Over: 1 hrs; Site: right antecubital; 18:58 Follow up: Response: No adverse reaction; IV Status: Completed infusion; IV Intake: kc6 250ml Medication: 18:59 VIS not applicable for this client. kc6 Intake: 16:56 IV: 1000ml; Total: 1000ml. kc6 18:58 IV: 1000ml; Total: 2000ml. kc6 18:58 IV: 50ml; Total: 2050ml. kc6 18:58 IV: 250ml; Total: 2300ml. kc6 20:48 medium stool nw1 Output: 20:48 Urine: 550ml; Stool: 3 (Formed Stool) ; Total: 550ml. nw1 20:48 medium stool nw1 Outcome: 16:54 Decision to Hospitalize by Provider. rn 18:59 Admitted to ER Hold. Please see [facility] for further documentation. kc6 18:59 Condition: improved 18:59 Instructed on the need for admit, 18:59 Patient left the ED. kc6 21:01 Admitted to Tele accompanied by nurse, room 403, Report called to RAINA Hunter. nw1 21:02 Condition: stable nw1 21:02 Instructed on the need for admit, 21:36 Patient left the ED. nw1 Signatures: Dispatcher [employer] EDMS Elaine Gilliland RN RN iw Nieto, Roman, MD MD rn Garcia, Rubi rg4 Adriana Love RN RN Elsa Ken rv1 Amaya Gilliland RN RN nw1 Corrections: (The following items were deleted from the chart) 15:04 15:01 Pulse 53bpm; Resp 20bpm; Pulse Ox 96% RA; Temp 97.9F Oral; 48.53 kg; Height 4 ft. iw 11 in.; BMI: 21.6; iw 15:05 15:01 Chief complaint: Patient states: SOB on exertion, daughter states she was iw coughing up blood in her mucous, , started on Sunday, hx of COPD iw 21: 20:43 Reassessment: Call made to floor 4 to give report. Notified by Parris that nw1 RAINA Trevizo will be calling back in approx 5 min to receive report. nw1
--- NOTE | 2023-02-26 16:55 | EDPHYS ---
Physician Documentation [facility] Name: Meme Rushing Age: 82 yrs Sex: Female : 1940 Arrival Date: 02/26/2023 Time: 14:55 Bed 18 Private MD: ED Physician Tani Rosales HPI: 02/26 15:33 This 82 yrs old Female presents to ER via Ambulatory with complaints of rn Breathing Difficulty. 15:33 The patient has shortness of breath at rest. Onset: The symptoms/episode began/occurred rn 4 day(s) ago. Duration: The symptoms are intermittent. The patient's shortness of breath is aggravated by coughing, light activity, is alleviated by rest. Associated signs and symptoms: Pertinent positives: productive cough, hemoptysis, Pertinent negatives: fever. Severity of symptoms: At their worst the symptoms were moderate in the emergency department the symptoms are unchanged. The patient has experienced similar episodes in the past. Patient reports a few days of cough, mild hemoptysis, shortness of breath. Denies fever. No sick contacts. No chest pain.. 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 - Family history:: not pertinent. - Social history:: Smoking status: . - Hospitalizations: : No recent hospitalization is reported. ROS: 15:33 Constitutional: Negative for fever, chills, and weight loss, Eyes: Negative for injury, rn pain, redness, and discharge, ENT: Positive for sore throat Cardiovascular: Negative for chest pain, palpitations, and edema, Respiratory: Positive for shortness of breath and cough with hemoptysis Abdomen/GI: Negative for abdominal pain, nausea, vomiting, diarrhea, and constipation, Back: Negative for injury and pain, MS/Extremity: Negative for injury and deformity, Skin: Negative for injury, rash, and discoloration, Neuro: Negative for headache, weakness, numbness, tingling, and seizure, Exam: 15:33 Constitutional: This is a well developed, well nourished patient who is awake, alert, rn and in no acute distress. Head/Face: Normocephalic, atraumatic. ENT: No stridor Cardiovascular: Regular rate and rhythm . No pulse deficits. Respiratory: Mild tachypnea, faint expiratory wheezing. No retractions Abdomen/GI: Soft, non-tender Skin: Warm, dry MS/ Extremity: Pulses equal, no cyanosis Neuro: Awake and alert, GCS 15 16:08 ECG was reviewed by the Attending Physician. rn Vital Signs: 15:01 BP 86 / 41; Pulse 53; Resp 20; Temp 97.9(O); Pulse Ox 96% on R/A; Weight 48.53 kg; iw Height 4 ft. 11 in. ; 15:47 BP 82 / 44; Pulse 57; Resp 17 S; Pulse Ox 98% on R/A; kc6 16:21 BP 91 / 48; Pulse 66; Resp 16 S; Pulse Ox 97% on R/A; kc6 16:46 BP 96 / 46; Pulse 61; Resp 14 S; Pulse Ox 91% on R/A; kc6 17:06 BP 109 / 51; rn 17:35 BP 130 / 58; Pulse 62; Resp 16 S; Pulse Ox 96% on R/A; kc6 18:57 BP 96 / 57; Pulse 68; Resp 15 S; Pulse Ox 92% on R/A; kc6 19:15 BP 113 / 59; Pulse 64; Resp 16; Pulse Ox 94% on R/A; nw1 20:44 BP 141 / 57; Pulse 68; Resp 17; Pulse Ox 93% on R/A; nw1 15:01 Body Mass Index 21.61 (48.53 kg, 149.86 cm) iw 19:15 PMHx of COPD nw1 MDM: 15:03 Patient medically screened. rn 16:48 ED course: No source of infection identified at this time. Normal lactate. Normal white rn blood cell count. Afebrile. At this time appears COPD exacerbation and acute renal failure. 16:52 Differential diagnosis: Anxiety Reaction Bronchitis CHF exacerbation, Chronic rn Obstructive Pulmonary Disease Myocardial Infarction pneumonia, Pneumothorax pulmonary edema, Pulmonary Embolism. Data reviewed: vital signs, nurses notes, lab test result(s), EKG, radiologic studies, plain films, and as a result, I will admit patient. Consideration of Admission/Observation Patient was admitted/placed on observation. Escalation of care including admission/observation considered. Management of patient was discussed with the following: Hospitalist: . Independent interpretation of the following test(s) in the Emergency Department EKG: See my EKG interpretation above X-Ray: My interpretation is Chest x-ray images with interstitial negative for pneumothorax per my interpretation, no focal pneumonia identified. Test considered but Not performed: CT: CT PE considered, but acute on chronic renal failure found, unable to give contrast at this time. Historians other than the Patient: Daughter/Son: Daughter gives a lot of HPI. Care significantly affected by the following chronic conditions: Congestive Heart Failure, Chronic Obstructive Pulmonary Disease, Chronic Kidney Disease. Counseling: I had a detailed discussion with the patient and/or guardian regarding the historical points, exam findings, and any diagnostic results supporting the discharge/admit diagnosis, lab results, radiology results, the need for further work-up and treatment in the hospital. 17:07 ED course: Patient's blood pressure is responding to IV fluid bolus, second bolus. Will rn reevaluate after each bolus given history of congestive heart failure and concern for volume overload.. 02/26 15:17 Order name: BMP; Complete Time: 16: rn 02/26 15:17 Order name: Blood Culture Adult (2) rn 02/26 15:17 Order name: CBC with Diff; Complete Time: 16:12 rn 02/26 15:17 Order name: Hepatic Function; Complete Time: 16:30 rn 02/26 15:17 Order name: Magnesium; Complete Time: 16:30 rn 02/26 15:17 Order name: NT PRO-BNP; Complete Time: 16:30 rn 02/26 15:17 Order name: PT-INR; Complete Time: 17:16 rn 02/26 15:17 Order name: Ptt, Activated; Complete Time: 17:16 rn 02/26 15:17 Order name: Troponin HS; Complete Time: 16:30 rn 02/26 15:17 Order name: Flu; Complete Time: 16:12 rn 02/26 15:17 Order name: SARS RAPID; Complete Time: 16:12 rn 02/26 15:18 Order name: Lactate w/ 2H reflex if indic.; Complete Time: 16:12 rn 02/26 15:17 Order name: XRAY CXR (1 view); Complete Time: 16:30 rn 02/26 15:17 Order name: EKG; Complete Time: 15:18 rn 02/26 15:17 Order name: Cardiac monitoring; Complete Time: 15:47 rn 02/26 15:17 Order name: EKG - Nurse/Tech; Complete Time: 15:47 rn 02/26 15:17 Order name: IV Saline Lock; Complete Time: 15:47 rn 02/26 15:17 Order name: Labs collected and sent; Complete Time: 15:47 rn 02/26 15:17 Order name: O2 Per Protocol; Complete Time: 15:46 rn 02/26 15:17 Order name: O2 Sat Monitoring; Complete Time: 15:46 rn EC:08 Rate is 56 beats/min. Rhythm is regular. QRS [place] is Normal. MO interval is normal. QRS rn interval is normal. No Q waves. T waves are Normal. No ST changes noted. Clinical impression: Sinus bradycardia. Interpreted by me. Reviewed by me. Administered Medications: 15:47 Drug: NS 0.9% IV 1000 ml IV at 1000 ml once Route: IV; Rate: 1000 ml; Site: right [address]; 16:56 Follow up: Response: No adverse reaction; IV Status: Completed infusion; IV Intake: kc6 1000ml 15:47 Drug: MethylPrednisoLONE IVP 125 mg IVP once Route: IVP; Site: right antecubital; kc6 16:56 Follow up: Response: No adverse reaction 6 15:47 Drug: Levalbuterol Inhalation 1.25 mg Inhalation once Route: Inhalation; 6 16:56 Follow up: Response: No adverse reaction 6 15:47 Drug: Ipratropium Inhalation Aerosol 0.5 mg Inhalation once Route: Inhalation; kc6 16:56 Follow up: Response: No adverse reaction kc6 16:39 Drug: NS 0.9% IV 1000 ml IV at 1 bolus Per protocol; 1000 mL bolus Route: IV; Rate: 1 kc6 bolus; Site: right antecubital; 18:58 Follow up: Response: No adverse reaction; IV Status: Completed infusion; IV Intake: kc6 1000ml 17:12 Drug: Rocephin IV 1 grams IV at calculated rate once; Given slow IV push per pharmacy kc6 instructions Route: IV; Rate: calculated rate; Site: right antecubital; 18:58 Follow up: Response: No adverse reaction; IV Status: Completed infusion; IV Intake: [id number] 17:35 Drug: Zithromax IVPB 500 mg IVPB once over 1 hrs; mix in 250 mL NS Route: IVPB; Infused kc6 Over: 1 hrs; Site: right antecubital; 18:58 Follow up: Response: No adverse reaction; IV Status: Completed infusion; IV Intake: kc6 250ml Disposition Summary: 02/26/23 16:54 Hospitalization Ordered Notes: Hospitalization Status: Inpatient Admission rn Provider: Rome Rosales rn Location: Telemetry/MedSurg (Inpatient) rn Condition: Stable rn Problem: new rn Symptoms: have improved rn Bed/Room Type: Standard rn Room Assignment: 403(02/26/23 20:16) kl Diagnosis - COPD/ Chronic obstructive pulmonary disease with (acute) exacerbation rn - Acute kidney failure, unspecified rn - Hypotension, unspecified rn Forms: - Medication Reconciliation Form rn - SBAR form rn - Leadership Thank You Letter rn Signatures: Dispatcher [employer] Tina Lowe RN Elaine Sapp RN RN iw Nieto, Roman, MD MD rn Campbell, Kaitlyn, RN RN kc6 Williams, Nicole, RN RN nw1 Corrections: (The following items were deleted from the chart) 20:16 16:54 bhaskar harper
[2023-02-26 17:13] LABS: Protime INR 0.94
[2023-02-26] MEDS ORDERED: AZITHROMYCIN 500 MG INJ IVPB ONE (17:19)
[2023-02-26] MEDS ORDERED: CEFTRIAXONE 1000 MG/VIAL ONE (17:19)
[2023-02-26] MEDS ORDERED: NA CHLORIDE 0.9% 250 ML ONE (17:19)
--- NOTE | 2023-02-26 17:50 | P.HP ---
Certification for Inpatient Patient admitted to: Inpatient With expected LOS: >2 Midnights Patient will require the following post-hospital care: None Practitioner: I am a practitioner with admitting privileges, knowledge of patient current condition, hospital course, and medical plan of care. Services: Services provided to patient in accordance with Admission requirements found in Title 42 Section 412.3 of the Code of Federal Regulations Patient History Date of Service: 02/26/23 Reason for admission: RADHIKA,COPD exacerbation History of Present Illness: 82-year-old female with history of chronic diastolic congestive heart failure, CKD 3, hypertension, COPD, hyperlipidemia, previous CVA presents the emergency department chief complaint of shortness of breath, hemoptysis. She reports intermittent episodes of shortness of breath where she feels like her throat is closing over the course of the last 1 month, she has been seen previously for this without significant improvement, she does have a history of esophageal issues requiring surgery as food was getting stuck previously many years ago. She also noted that she has had small amounts of hemoptysis since Sunday with just blood-tinged sputum, no gross hemoptysis. She was evaluated in the emergency department initially found to be hypotensive with systolic blood pressure in the 80s to 90s, room air sats around 90%. Her labs were significant for white blood cell count 9.3 hemoglobin 10.8 medic at 32.2 creatinine 2.85 BUN 50 EGFR 16 glucose 111 lactic acid 2.0 BNP 5079 COVID test is negative chest x-ray revealed mild COPD. She does report poor oral intake over the course of the last 1 week or so, also difficulty eating that she feels like she cannot take small bites and has to drink fluids after eating to allow food to pass, denies any vomiting at all or abdominal pain. Denies use of NSAIDs or recent contrast exposure, does report being on an antibiotic recently but cannot tell me what antibiotic she was on she was given IV fluids her blood pressure has improved and is currently 120/60 saturating well on room air. Dyspnea, COPD exacerbation, acute kidney injury. Allergies Penicillins Allergy (Intermediate, Verified 03/17/13 23:37) SWELLING lisinopril Allergy (Mild, Verified 03/17/13 23:37) Hives/Rash grapefruit Allergy (Verified 04/01/15 16:10) Hives/Rash aspirin Adverse Reaction (Verified 12/04/16 20:20) Shortness of breath Home Medications: Amlodipine [Norvasc*] 2.5 mg PO BEDTIME 04/25/13 Clopidogrel Bisulfate [Clopidogrel] 75 mg PO DAILY 04/25/13 Escitalopram Oxalate 20 mg PO DAILY 04/25/13 Furosemide [Lasix*] 10 mg PO DAILY 04/25/13 Mirtazapine [Remeron*] 15 mg PO BEDTIME 04/25/13 Pregabalin [Lyrica*] 75 mg PO BID 04/25/13 carvediloL [Coreg*] 6.25 mg PO BID 04/25/13 Budesonide/Formoterol Fumarate [Symbicort 160-4.5 Mcg Inhaler] 2 puff IH BID 11/19/14 Albuterol Sulfate [Proair Hfa] 2 puff IH PRN PRN 02/04/18 Albuterol Neb [Proventil 0.083% Neb Soln] 2.5 mg NEB Q6HP PRN 30 Days amp 02/07/18 Allopurinol 100 mg PO BREAKFAST 03/05/22 Buspirone HCl 1 tab PO BID 03/05/22 Famotidine [Pepcid*] 20 mg PO DAILY 03/05/22 Losartan Potassium [Cozaar] 12.5 mg PO DAILY 03/05/22 Lovastatin 1 tab PO BEDTIME 03/05/22 Ensure Enlive 237 ml PO BID #60 can 03/16/22 - Past Medical/Surgical History Diabetic: No -: Chronic renal disease -: copd -: Chronic diastolic congestive heart failure -: HTN -: Hyperlipidemia -: Depression -: GERD -: cholecystectomy -: esophogeal polyp removal -: appendectomy -: hysterectomy -: Doppler r/o DVT on L. foot, 02/04/13 -: Aortic echo, valve leakage, 02/04/13 Psychosocial/ Personal History: Patient lives at home alone. - Family History Sister -: Diabetes Brother -: Cancer Father -: Cancer Notes: bone, esophageal cx Mother -: Cancer Notes: gallbladder cx - Social History Smoking Status: Current every day smoker Alcohol use: No CD- Drugs: No Caffeine use: Yes Place of Residence: Home Review of Systems 10-point ROS is otherwise unremarkable ENT: Other (Sore throat, difficulty with swallowing) Respiratory: Cough, Shortness of Breath, Hemoptysis (Small amount/blood-tinged sputum) Physical Examination - Physical Exam General: Alert, In no apparent distress, Oriented x3 HEENT: Atraumatic, PERRLA, Mucous membr. moist/pink, EOMI, Sclerae nonicteric Neck: Supple, 2+ carotid pulse no bruit, No LAD, Without JVD or thyroid ab normality Respiratory: Diminished, Expiratory wheezes Cardiovascular: Regular rate/rhythm, Normal S1 S2 Capillary refill: <2 Seconds Gastrointestinal: Normal bowel sounds, No tenderness Musculoskeletal: No tenderness Integumentary: No rashes Neurological: Normal speech, Normal strength at 5/5 x4 extr, Normal affect - Studies Laboratory Data (last 24 hrs) 02/26/23 02/26/23 02/26/23 15:42 15:42 15:42 WBC 9.30 Hgb 10.8 L Hct 32.2 L Plt Count 164 PT 10.3 INR 0.94 APTT 34.0 Sodium 141 Potassium 4.2 BUN 50 H Creatinine 2.85 H Glucose 111 H Magnesium 2.3 Total Bilirubin 0.4 AST 17 ALT 12 L Alkaline Phosphatase 83 Microbiology Data (last 24 hrs): 02/26/23 15:27 Nasopharnyx Influenza Type A Antigen Screen - Final 02/26/23 15:27 Nasopharnyx Influenza Type B Antigen Screen - Final Assessment and Plan - Plan Assessment: Dyspnea, mild hemoptysis COPD exacerbation hypotension RADHIKA on CKD 3 Chronic diastolic congestive heart failure Hypertension Hyperlipidemia GERD Previous CVA Atrial fibrillation Plan: Dyspnea, mild hemoptysis COPD exacerbation Unable to obtain CT of the chest given acute kidney injury, significant elevated creatinine. will order VQ scan Continue steroids, nebulizer treatments as needed, ICS. Pulmonology consult. Hypotension Improving significantly with IV fluids, continue IV fluids. RADHIKA on CKD 3 Reports poor oral intake over the course of the last 1 week, does not appear overloaded. Continue IV fluids Nephrology consult, renal ultrasound, additional labs added. Chronic diastolic congestive heart failure Does not appear overloaded, continue with gentle IV fluids, monitor for signs of volume overload. Echocardiogram ordered. Hypertension Hyperlipidemia GERD Previous CVA Atrial fibrillation Patient is a very poor historian, unclear at home medications, query pharmacies but no information available. Will need to obtain and verify home medications. Patient unsure if she is on chronic evaluation. DVT PPX: Lovenox Code status: Full Discharge Plan: Home Plan to discharge in: 48 Hours - Advance Directives Does patient have a Living Will: No Does patient have a Durable POA for Healthcare: No - Code Status/Comfort Care Code Status Assessed: Yes (Full code) Critical Care: No Time Spent Managing Pts Care (In Minutes): 55
[2023-02-26] MEDS ORDERED: ACETAMINOPHEN 500 MG TAB PO PRN (22:25)
[2023-02-26] MEDS ORDERED: ALBUTEROL 2.5 MG/3 ML NEB SOL NEB PRN (22:25)
[2023-02-26] MEDS: DULERA 100/5 (MOMETASONE/FORMOTEROL) INHALER IH SCH (22:25)
[2023-02-26] MEDS ORDERED: ONDANSETRON 4 MG/2 ML VIAL IV PRN (22:25)
[2023-02-27 01:08] VITALS: BMI 23.0
[2023-02-27] MEDS: HEPARIN 5000 UNIT/ML 1 ML VIAL SQ SCH ×2 (01:53→10:21)
[2023-02-27] MEDS: NA CHLORIDE 0.9% 1,000 ML IV SCH ×2 (01:53→10:22)
[2023-02-27] MEDS: MIRTAZAPINE 15 MG TAB PO SCH ×2 (01:54→20:14)
[2023-02-27] MEDS: predniSONE 10 MG TAB PO SCH ×3 (01:54→16:51)
--- NOTE | 2023-02-27 07:50 | EKG ---
Test Date: 2023-02-26 Test Time: 15:29:46 Software Engineer Intern: KENDALL MEASUREMENT RESULTS: Intervals: Rate: 56 CA: 172 QRSD: 70 QT: 464 QTc: 447 [place]: P: 62 CA: 172 QRS: 1 T: 6 INTERPRETIVE STATEMENTS: Sinus bradycardia with marked sinus arrhythmia Cannot rule out Anterior infarct, age undetermined Abnormal ECG Compared to ECG 02/08/2023 17:31:02 No significant changes Electronically Signed On 02-27-23 07:49:32 CDT by Bill Porter
--- NOTE | 2023-02-27 07:53 | RAD REPORT ---
EXAM DESCRIPTION: US - Renal Ultrasound-Complete - 02/27/2023 12:58 am CLINICAL HISTORY: yocasta COMPARISON: Abdomen Pelvis Wo Contrast dated 11/01/2022 FINDINGS: The right kidney measures 9.8. No hydronephrosis, focal mass or perinephric fluid. The left kidney measures 7.9. 1.2 x 1.3 cm cyst in the upper pole left kidney. Diffuse cortical thinn ing. Grossly unremarkable appearance of the bladder. IMPRESSION: No hydronephrosis. Left renal cyst and cortical thinning.
[2023-02-27 09:36] LABS: Absolute Lymphocytes (CBC) 1.4 K/uL (0.7-4.9); Hematocrit 31.7 % (36.0-45.0); Lymphocytes % 19.2 % (15.3-44.8); MCV 98.5 fL (80-100); MPV 8.4 fL (7.6-11.3); Platelets 162 thou/uL (152-406); RBC Red Blood Cell Count 3.22 M/uL (3.86-4.86)
--- NOTE | 2023-02-27 10:13 | RAD REPORT ---
EXAM DESCRIPTION: CT - Thorax Wo Con - 02/27/2023 9:58 am CLINICAL HISTORY: hemoptysis COMPARISON: Thorax Wo Con dated 02/08/2023; Thorax Wo Con dated 08/21/2022; Thorax Wo Con dated 2017; THORAX WO CONTRAST dated 11/20/2014 FINDINGS: Chest Wall: No suspicious thyroid nodules or pathologic lymphadenopathy. Lungs: Scarring in the lingula. Mild dependent atelectasis. No acute process otherwise identified. No new or enlarging pulmonary nodules identified. Pleura: Trace pleural effusions. Mediastinum/rafa: No pathologic lymphadenopathy. Pulmonary arteries/Aorta: Limited evaluation without contrast. No aortic aneurysm. Atherosclerosis. Heart: No significant pericardial effusion. Normal heart size. A few coronary calcifications are note d. Upper abdomen: Cholecystectomy. Probable left renal cyst. Bones: No acute abnormality. All CT scans are performed using dose optimization technique as appropriate and may include automated exposure control or mA/KV adjustment according to patient size. IMPRESSION: Trace pleural effusions but otherwise no acute findings in the chest. Specifically, no f indings to explain hemoptysis.
[2023-02-27] MEDS: DULERA 100/5 (MOMETASONE/FORMOTEROL) INHALER IH SCH ×2 (10:21→20:16)
[2023-02-27 10:35] LABS: Phosphorus 1.9 mg/dL (2.5-4.9); Potassium 4.4 mEq/L (3.5-5.1); Thyroid Stimulating Hormone 0.464 uIU/mL (0.358-3.740); Troponin High Sensitivity 33.1 pg/mL (<58.9); Uric Acid 4.3 mg/dL (2.6-6.0)
[2023-02-27] MEDS ORDERED: NA CHLORIDE 0.9% 1,000 ML IV SCH (10:56)
--- NOTE | 2023-02-27 11:39 | RAD REPORT ---
EXAM DESCRIPTION: NM - Vent Perfusion VQ Scan - 02/27/2023 11:27 am CLINICAL HISTORY: dyspnea, hemoptysis COMPARISON: Same-day chest CT, yesterday chest radiograph TECHNIQUE: The patient was administered approximately 18.8 mCi Xenon 133 gas with posterior projecti on inspiration, equilibrium, and washout views obtained. The patient was then administered approximat kaylan 6.7 MCi Tc-99m SC labeled RBCs followed by standard 8 view protocol. FINDINGS: There is good distribution of the Xenon with no ventilation defects identified. Mild air-t rapping present. . Large profusion defects present in the left upper and left lower lobe without matching ventilation de fect. This is consistent with a V/Q mismatch. No right-sided perfusion defects identified. IMPRESSION: High probability for pulmonary embolism by PIOPED II criteria.
--- NOTE | 2023-02-27 12:12 | P.CNS ---
Date of Consult: 02/27/23 Reason for Consult: Hemoptysis Chief Complaint: RADHIKA,COPD exacerbation History of Present Illness: Patient is 82 years of age admitted to the hospital complaining of hemoptysis etc. throat closes cannot breathe and is an active smoker COPD follows up with pulmonary in [place] CT scan therefore does not show any mass Allergies Penicillins Allergy (Intermediate, Verified 03/17/13 23:37) SWELLING lisinopril Allergy (Mild, Verified 03/17/13 23:37) Hives/Rash grapefruit Allergy (Verified 04/01/15 16:10) Hives/Rash aspirin Adverse Reaction (Verified 12/04/16 20:20) Shortness of breath Home Medications: Amlodipine [Norvasc*] 2.5 mg PO BEDTIME 04/25/13 Clopidogrel Bisulfate [Clopidogrel] 75 mg PO DAILY 04/25/13 Escitalopram Oxalate 20 mg PO DAILY 04/25/13 Furosemide [Lasix*] 20 mg PO BID 04/25/13 Mirtazapine [Remeron*] 15 mg PO BEDTIME 04/25/13 Pregabalin [Lyrica*] 75 mg PO DAILY 04/25/13 carvediloL [Coreg*] 2 tab PO BID 04/25/13 Budesonide/Formoterol Fumarate [Symbicort 160-4.5 Mcg Inhaler] 2 puff IH BID 11/19/14 Albuterol Sulfate [Proair Hfa] 2 puff IH PRN PRN 02/04/18 Albuterol Neb [Proventil 0.083% Neb Soln] 2.5 mg NEB Q6HP PRN 30 Days amp 02/07/18 Allopurinol 100 mg PO BREAKFAST 03/05/22 Buspirone HCl 1 tab PO BID 03/05/22 Famotidine [Pepcid*] 20 mg PO BID 03/05/22 Losartan Potassium [Cozaar] 12.5 mg PO DAILY 03/05/22 Lovastatin 1 tab PO BEDTIME 03/05/22 - Past Medical/Surgical History Diabetic: No -: Chronic renal disease -: copd -: Chronic diastolic congestive heart failure -: HTN -: Hyperlipidemia -: Depression -: GERD -: cholecystectomy -: esophogeal polyp removal -: appendectomy -: hysterectomy -: Doppler r/o DVT on L. foot, 02/04/13 -: Aortic echo, valve leakage, 02/04/13 -: Hernia repair 02/2022 Psychosocial/ Personal History: Patient lives at home alone. - Family History Sister Medical History: Diabetes Brother Medical History: Cancer Father Medical History: Cancer Notes: bone, esophageal cx Mother Medical History: Cancer Notes: gallbladder cx - Social History Smoking Status: Current every day smoker Alcohol use: No CD- Drugs: No Caffeine use: Yes Place of Residence: Home Review of Systems 10-point ROS is otherwise unremarkable Physical Examination Temp Pulse Resp BP Pulse Ox 97.3 F 69 16 149/63 H 96 02/27/23 07:43 02/27/23 07:43 02/27/23 07:43 02/27/23 07:43 02/27/23 07:43 General: Alert, In no apparent distress, Oriented x3 Neck: Supple Respiratory: Clear to auscultation bilaterally Cardiovascular: No edema, Regular rate/rhythm, Normal S1 S2 Gastrointestinal: Normal bowel sounds, Soft and benign Musculoskeletal: No clubbing, No swelling Integumentary: No rashes, No breakdown Laboratory Data (last 24 hrs) 02/26/23 02/26/23 02/26/23 15:42 15:42 15:42 WBC 9.30 Hgb 10.8 L Hct 32.2 L Plt Count 164 PT 10.3 INR 0.94 APTT 34.0 Sodium 141 Potassium 4.2 BUN 50 H Creatinine 2.85 H Glucose 111 H Magnesium 2.3 Total Bilirubin 0.4 AST 17 ALT 12 L Alkaline Phosphatase 83 - Problems (1) Hemoptysis Current Visit: No Status: Active Plan: Patient is 82 years of age with a history of COPD active smoker admitted with hemoptysis CT scan does not show any mass will have ENT evaluate and need a bronchoscopy for hemoptysis persists on antibiotic patient has chronic renal failure mild anemia of chronic renal disease check sputum culture
--- NOTE | 2023-02-27 13:19 | CON ---
Date of Consultation: 02/27/2023 Reason For Consultation: Elevated BUN and creatinine, fluid management. History Of Present Illness: This is a pleasant 82-year-old female with advanced dementia. 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 The patient last visits back in December. At that time, her creatinine was 1.4 with GFR of 36 and BUN 26. The patient came to the hospital with cough and hemoptysis. Upon arrival to the hospital, the patient's blood pressure on the lower side and had elevation in BUN and creatinine. Creatinine was up to 2.8. For that reason, we have been consulted. The patient was started on IV fluid. Blood pressure has stabilized up to 120. Creatinine started being improving. The patient denied taking any nonsteroidal. Denied any IV contrast exposure recently. The patient had no fever. No chills. No diarrhea. The patient is complaining from poor intake. Past Medical History: 1. COPD. 2. CAD. 3. CVA, no residual. 4. Peripheral vascular disease. 5. Chronic kidney disease, baseline creatinine 1.4 and GFR of 36. Allergies: PENICILLIN, LISINOPRIL, GRAPEFRUIT, AND ASPIRIN. Home Medications: Include amlodipine, Plavix, carvedilol, citalopram, Lasix, mirtazapine, allopurinol, Pepcid, losartan, lovastatin. Family History: Positive for hypertension. Positive for diabetes and cancer. Social History: Active smoker, occasional alcohol. Denied drug abuse. Review of Systems: Head and Neck: No red eye. No ear pain. GI: Has a black stool. : No polyuria. No dysuria. No hematuria. TESTING TECH: No vaginal discharge. Respiratory: Has hemoptysis. Cardiovascular: No chest pain. Endocrine: No polydipsia. Skin: No rash. Neuro: Has dementia. Musculoskeletal: Generalized weakness. Physical Examination: Vital Signs: When I saw the patient; blood pressure 149/63, pulse of 69, afebrile. Reviewing the record, blood pressure was down to 86. Chest: Clear to auscultation. Heart: S1, S2 regular. Abdomen: Soft, nontender. Extremities: No edema. Neurologic: Alert. No focality. Laboratory Data: Upon admission, hemoglobin 8.2. Creatinine 2.8, GFR of 16. Today lab data; sodium 144, potassium 4.4, bicarb 24, BUN 39, creatinine 1.9, GFR 26, calcium 7.9, uric acid 4.3, phosphorous 1.9, magnesium of 2. Albumin 3.5. Chest CT; no masses. Renal ultrasound; small size kidney 9.8/7.9. No hydronephrosis. Left renal cyst with thinning in the course. Chest x-ray; cardiomegaly without any congestion. Current Medications: The patient on in the hospital include, 1. IV fluid. 2. Albuterol. 3. Heparin. 4. Mirtazapine. 5. Zofran. Assessment And Plan: 1. Acute kidney injury secondary to prerenal, secondary to low blood pressure, superimposed with losartan and Lasix on the recovery, getting closer to her baseline normal volume to the dry side. I agree with holding all blood pressure medications. Obstructive uropathy has been ruled out. I doubt with the presence of hemoptysis, the need to rule out any pulmonary, renal as kidney function has been improved with IV fluid. I am going to decrease IV fluid to 50 per hour and we will monitor. 2. Hypertension with the presence of marginal low blood pressure. Hold all blood pressure medications, especially ARB and diuresis and we will monitor. 3. Hemoptysis. Asked by Pulmonary. 4. Hypophosphatemia. We will hold on any supplement given the acute kidney injury. time spent examining the patient [id number] reviewing that her lab and the radiology placing order discussing the case with the patient discussing the case with the steam roller operator including hospitalists and nursing staff more than 75 minutes LUX Voice ID: [id number] Report ID: [id number] ALFONSO
[2023-02-27] MEDS: AMOX/K CLAV 875 MG TAB PO SCH ×2 (14:47→20:14)
--- NOTE | 2023-02-27 15:17 | RAD REPORT ---
EXAM DESCRIPTION: RAD - Barium Swallow Modified - 02/27/2023 2:46 pm CLINICAL HISTORY: per speech therapy COMPARISON: <Comparisons> TECHNIQUE: The patient was given liquid, semi-solid and solid forms of barium. Lateral view fluorosc opic imaging was performed in conjunction with speech pathology service. FINDINGS: No aspiration or penetration observed. Examination is within functional limits. Total fluoroscopy time: 2 minutes
--- NOTE | 2023-02-27 17:32 | P.PN ---
Subjective Date of Service: 02/27/23 Chief Complaint: RADHIKA,COPD exacerbation Patient denies any new complain. No more hemoptysis. She denies any chest pain or shortness of breath. Physical Examination - Vital Signs Temperature: 97.3 F Blood Pressure: 149/63 Pulse: 69 Respirations: 16 Pulse Ox (%): 96 - Studies Microbiology Data (last 24 hrs): 02/26/23 15:27 Nasopharnyx Influenza Type A Antigen Screen - Final 02/26/23 15:27 Nasopharnyx Influenza Type B Antigen Screen - Final Assessment And Plan - Plan Physical Exam General: Alert, In no apparent distress, Oriented x3 Neck: Supple, no elevated JVD. Respiratory: Diminished, clear to auscultation bilaterally Cardiovascular: Regular rate/rhythm, Normal S1 S2 Gastrointestinal: Normal bowel sounds, No tenderness Musculoskeletal: No tenderness Integumentary: No rashes Neurological: Normal speech, no focal motor deficit. Diagnosis Dyspnea, Hemoptysis COPD exacerbation Hypotension RADHIKA on CKD 3 Chronic diastolic congestive heart failure Hypertension Hyperlipidemia GERD Previous CVA Atrial fibrillation Plan: Dyspnea, mild hemoptysis COPD exacerbation Suspected pulm embolus Unable to obtain CT of the chest given acute kidney injury, significant elevated creatinine. VQ scan shows high probability for PE Continue steroids, nebulizer treatments as needed, ICS. Pulmonary input appreciated Start full anticoagulation with Eliquis Hypotension Improving significantly with IV fluids, continue IV fluids. RADHIKA on CKD 3 Reports poor oral intake over the course of the last 1 week. Continue IV fluids Seen by nephrology. Chronic diastolic congestive heart failure Does not appear overloaded, continue with gentle IV fluids, monitor for signs of volume overload. Echocardiogram ordered. Hypertension Hyperlipidemia GERD Previous CVA Atrial fibrillation Complement continue home medications. DVT PPX: Eliquis Code status: Full Discharge Plan: Home
[2023-02-27] MEDS: APIXABAN 5 MG TABLET PO SCH (20:14)
[2023-02-27] MEDS: ALBUTEROL 2.5 MG/3 ML NEB SOL NEB PRN (22:00)
[2023-02-27] MEDS: IPRATROPIUM BROM 0.5MG/2.5ML NEB PRN (22:00)
[2023-02-28] MEDS: IPRATROPIUM BROM 0.5MG/2.5ML NEB PRN (05:10)
[2023-02-28] MEDS: ALBUTEROL 2.5 MG/3 ML NEB SOL NEB PRN (05:10)
[2023-02-28] MEDS ORDERED: FUROSEMIDE 20 MG/ 2ML VIAL IV ONE ×2 (05:54→05:55)
[2023-02-28] MEDS ORDERED: FUROSEMIDE 20 MG/ 2ML VIAL ONE (06:09)
[2023-02-28 09:27] LABS: Absolute Lymphocytes (CBC) 1.4 K/uL (0.7-4.9); Hematocrit 33.7 % (36.0-45.0); Lymphocytes % 6.5 % (15.3-44.8); MCV 96.8 fL (80-100); MPV 8.5 fL (7.6-11.3); Platelets 164 thou/uL (152-406); RBC Red Blood Cell Count 3.48 M/uL (3.86-4.86)
[2023-02-28 09:41] LABS: Phosphorus 2.2 mg/dL (2.5-4.9); Potassium 3.1 mEq/L (3.5-5.1)
[2023-02-28] MEDS: DULERA 100/5 (MOMETASONE/FORMOTEROL) INHALER IH SCH (10:48)
[2023-02-28] MEDS: APIXABAN 5 MG TABLET PO SCH (10:49)
[2023-02-28] MEDS: AMOX/K CLAV 875 MG TAB PO SCH (10:49)
[2023-02-28] MEDS: predniSONE 10 MG TAB PO SCH ×2 (10:49→18:00)
[2023-02-28 11:12] LABS: Blood Morphology Comment NOT SEEN (NOT SEEN); Platelet Estimate ADEQ; White Blood Cell Scan OK (OK)
[2023-02-28] MEDS ORDERED: POTASSIUM CL SA 10 MEQ TAB PO ONE (12:15)
--- NOTE | 2023-02-28 12:26 | PN ---
Date of Progress Note: 02/28/2023 Subjective: Patient was admitted to the hospital with acute kidney injury secondary to prerenal. The patient after hydration, kidney function back to her baseline. Patient still complaining of some cough and shortness of breath. Physical Examination: Vital Signs: Blood pressure 189/81, pulse of 74, afebrile. Chest: Faint rales on the left base. Heart: S1, S2. Systolic murmur. Abdomen: Soft nontender. Extremities: No edema. Neurologic: Alert. Pleasantly confused. No focality. No tremor. Laboratory Data: Hemoglobin 11.7, sodium 146, potassium 3.1, bicarb 24, BUN 27, creatinine 1.3, GFR of 38, calcium 8.4, phosphorus 2.2, magnesium 2. Current Medications: The patient on include: 1. Augmentin. 2. Eliquis. 3. The patient received single dose of Lasix. 4. Breathing treatment. Assessment And Plan: 1. Acute kidney injury, normal size kidney secondary to prerenal kidney function back to baseline. The patient is scheduled for CT with contrast and received Lasix. I am going to go ahead and resume the patient on IV fluid to minimize the acute kidney injury with contrast induced and we will follow up. 2. Hypertension, controlled, optimal. Continue current treatment. 3. Chronic kidney disease, stage IIIB/IV, status post acute kidney injury as above. Obstructive uropathy has been ruled out. 4. Hypophosphatemia. I will keep holding any supplement currently given the acute kidney injury. 5. Hypokalemia. We will supplement. time spent examining the patient [id number] reviewing that her lab and the radiology placing order discussing the case with the patient discussing the case with the pilot steam yacht including hospitalists and nursing staff more than 35 minutes LUX Voice ID: [id number] Report ID: [id number] ALFONSO
--- NOTE | 2023-02-28 12:40 | RAD REPORT ---
EXAM DESCRIPTION: CT - Chest For Pe Angio - 02/28/2023 11:42 am CLINICAL HISTORY: Chest pain. Hemoptysis COMPARISON: Thorax Wo Con dated 02/27/2023; Barium Swallow Modified dated 02/27/2023; Vent Perfusion VQ Scan dated 02/27/2023 TECHNIQUE: CT angiogram of the pulmonary arteries was performed with MIP. All CT scans are performed using dose optimization technique as appropriate and may include automated exposure control or mA/KV adjustment according to patient size. FINDINGS: No evidence of pulmonary thromboembolism. No acute aortic finding demonstrated. Extensive airspace opacity has developed since the prior study in the right upper lobe, right lower l obe in left lung base. This is presumably pneumonia or pulmonary edema. Small bilateral pleural effusions. No concerning bony finding. IMPRESSION: No evidence of pulmonary thromboembolism. Significant airspace opacities have developed since the prior study, particularly in the right upper lobe and both lung bases. Small bilateral pleural effusions also have developed. The findings could i ndicate pulmonary edema or pneumonia.
--- NOTE | 2023-02-28 12:59 | P.PN ---
Subjective Date of Service: 02/28/23 Chief Complaint: RADHIKA,COPD exacerbation/possible pulmonary embolism She is still complaining of shortness of breath has some right shoulder pain anxious Review of Systems General: Weakness Respiratory: Shortness of Breath Cardiovascular: Chest Pain Physical Examination - Vital Signs Temperature: 99.4 F Blood Pressure: 171/77 Pulse: 76 Respirations: 17 Pulse Ox (%): 93 - Physical Exam General: Alert, Oriented x3, Moderate distress Neck: Supple Respiratory: Clear to auscultation bilaterally Cardiovascular: No edema, Normal pulses, Regular rate/rhythm Assessment And Plan - Current Problems (Diagnosis) (1) Hemoptysis Current Visit: No Status: Active Plan: Patient's hemoptysis has improved CT scan is negative for pulmonary embolism however since yesterday she has just developed extensive left upper lobe infiltrate presumed pneumonia with IV antibiotics changed to IV levofloxacin DC Augmentin pressure elevated resume home meds and nebulized Brovana count is slightly increased to 21,000 has been complaining of right-sided chest pain and shoulder pain short of breath anxious
[2023-02-28] MEDS: ARFORMOTEROL TARTRATE 15 MCG/2 ML VIAL.NEB NEB SCH ×2 (13:00→22:00)
[2023-02-28] MEDS: Levofloxacin500mg IV 500 MG/100 ML BAG IV SCH (13:33)
[2023-02-28] MEDS: D5 0.45 NS 1,000 ML IV SCH (13:34)
--- NOTE | 2023-02-28 16:43 | P.PN ---
Subjective Date of Service: 02/28/23 Chief Complaint: RADHIKA,COPD exacerbation/possible pulmonary embolism Patient is complaining of chest pain and wheezing. She is currently maintained on 4 L oxygen by nasal cannula. Significant leukocytosis today. Physical Examination - Vital Signs Temperature: 99.8 F Blood Pressure: 172/65 Pulse: 68 Respirations: 17 Pulse Ox (%): 94 Assessment And Plan - Plan Physical Exam General: Alert, In no apparent distress, Oriented x3 Neck: Supple, no elevated JVD. Respiratory: Diminished, clear to auscultation bilaterally Cardiovascular: Regular rate/rhythm, Normal S1 S2 Gastrointestinal: Normal bowel sounds, No tenderness Musculoskeletal: No tenderness Integumentary: No rashes Neurological: Normal speech, no focal motor deficit. Diagnosis Dyspnea, Hemoptysis COPD exacerbation Hypotension RADHIKA on CKD 3 Chronic diastolic congestive heart failure Hypertension Hyperlipidemia GERD Previous CVA Atrial fibrillation Plan: Dyspnea/hemoptysis COPD exacerbation Pneumonia-suspected aspiration pneumonia CTA thorax was negative for pulm embolism but demonstrated bilateral infiltrates worse on the lower right. Anticoagulation discontinued. Continue steroids, nebulizer treatments as needed, ICS. Pulmonary is following. Suspected aspiration pneumonia given history of dysphagia. Patient started on antibiotics. ENT consulted for hemoptysis in the context dysphagia. Speech consult for swallow evaluation Hypotension Hypertension resolved. Patient is now hypertensive. RADHIKA on CKD 3 Reports poor oral intake over the course of the last 1 week. Renal function improved. IV fluids per nephrology Nephrology is following. Chronic diastolic congestive heart failure Does not appear overloaded, continue with gentle IV fluids, monitor for signs of volume overload. Echocardiogram is pending. Hypertension Hyperlipidemia GERD Previous CVA Atrial fibrillation Resume home medications. DVT PPX: heparin SQ. Code status: Full Discharge Plan: Home
[2023-02-28] MEDS: CLOPIDOGREL 75 MG TABLET PO SCH (18:00)
[2023-02-28] MEDS ORDERED: CLINDAMYCIN 600MG/D5W 50 ML IV SCH (18:00)
[2023-02-28] MEDS: ATORVASTATIN 20 MG TAB PO SCH (20:47)
[2023-02-28] MEDS: MIRTAZAPINE 15 MG TAB PO SCH (20:48)
[2023-02-28] MEDS: BUSPIRONE HCL 5 MG TABLET PO SCH (20:48)
[2023-02-28] MEDS: carvediloL 12.5 MG TAB PO SCH (20:48)
[2023-02-28] MEDS: FAMOTIDINE 20 MG TAB PO SCH (20:49)
[2023-02-28] MEDS: CLINDAMYCIN 600MG/D5W 50 ML IV SCH (20:51)
[2023-02-28] MEDS: AYR NASAL SALINE DROPS NAS SCH (20:52)
[2023-02-28] MEDS: BENZONATATE 100 MG CAP PO PRN (20:59)
[2023-02-28] MEDS ORDERED: FUROSEMIDE 20 MG TABLET PO SCH (21:00)
[2023-02-28] MEDS ORDERED: HOME MED 1 EA UNK (Lovastatin [Lovastatin] 40 MG Tablet) PO SCH (21:00)
[2023-02-28] MEDS ORDERED: AMLODIPINE 2.5 MG TAB PO SCH (21:00)
[2023-03-01] MEDS: CLINDAMYCIN 600MG/D5W 50 ML IV SCH ×5 (00:40→23:05)
[2023-03-01] MEDS: ALBUTEROL 2.5 MG/3 ML NEB SOL NEB PRN (07:15)
[2023-03-01] MEDS: IPRATROPIUM BROM 0.5MG/2.5ML NEB PRN (07:15)
[2023-03-01] MEDS: ARFORMOTEROL TARTRATE 15 MCG/2 ML VIAL.NEB NEB SCH ×2 (07:30→20:15)
--- NOTE | 2023-03-01 07:32 | ECHO ---
HEIGHT: 4 ft 11 in WEIGHT: 114 lb 0 oz DATE OF STUDY: 02/28/[address]: Gorge Burroughs NP 2-DIMENSIONAL: YES M.MODE: YES DOPPLER: YES COLOR FLOW: YES TDS: PORTABLE: YES DEFINITY: BUBBLE STUDY: DIAGNOSIS: DYSPNEA, CONGESTIVE HEART FAILURE, HYPOTENSION CARDIAC HISTORY: CATHERIZATION: SURGERY: PROSTHETIC VALVE: PACEMAKER: MEASUREMENTS (cm) DIASTOLIC (NORMALS) SYSTOLIC (NORMALS) IVSd 0.8 (0.6-1.2) LA Diam 3.9 (1.9-4.0) LVEF 61% LVIDd 4.7 (3.5-5.7) LVIDs 3.2 (2.0-3.5) %FS 32% LVPWd 1.0 (0.6-1.2) Ao Diam 2.5 (2.0-3.7) 2 DIMENSIONAL ASSESSMENT: RIGHT ATRIUM: NORMAL LEFT ATRIUM: ENLARGED RIGHT VENTRICLE: NORMAL LEFT VENTRICLE: NORMAL TRICUSPID VALVE: MODERATE TRICUSPID REGURGITATION MITRAL VALVE: MODERATE MITRAL REGURGITATION PULMONIC VALVE: NORMAL AORTIC VALVE: MODERATE AORTIC INSUFFICIENCY PERICARDIAL EFFUSION: NONE AORTIC ROOT: NORMAL LEFT VENTRICULAR WALL MOTION: NORMAL DOPPLER/COLOR FLOW: SEE BELOW COMMENTS: 1. NORMAL LEFT VENTRICULAR EJECTION FRACTION 60-65% WITH NORMAL WALL MOTION 2. MODERATE DIASTOLIC DYSFUNCTION 3. MODERATE MITRAL REGURGITATION 4. MODERATE TRICUSPID REGURGITATION 5. MODERATE AORTIC INSUFFICIENCY 6. LEFT ATRIAL ENLARGEMENT 7. SEVERE PULMONARY HYPERTENSION WITH RIGHT VENTRICULAR SYSTOLIC PRESSURE GREATER THAN 70 mmHg. TECHNOLOGIST: ANDRES LESTER
[2023-03-01] MEDS: AYR NASAL SALINE DROPS NAS SCH ×2 (09:00→20:34)
[2023-03-01] MEDS ORDERED: HOME MED 1 EA UNK (Losartan Potassium [Cozaar] 25 MG Tablet) PO SCH (09:00)
[2023-03-01] MEDS: D5 0.45 NS 1,000 ML IV SCH (10:37)
[2023-03-01] MEDS: HOME MED 1 EA UNK (Losartan Potassium [Cozaar] 25 MG Tablet) PO SCH (10:38)
[2023-03-01] MEDS: PREGABALIN 75 MG CAP PO SCH (10:38)
[2023-03-01] MEDS: BUSPIRONE HCL 5 MG TABLET PO SCH ×2 (10:39→20:32)
[2023-03-01] MEDS: BENZONATATE 100 MG CAP PO PRN ×2 (10:39→16:43)
[2023-03-01] MEDS: CLOPIDOGREL 75 MG TABLET PO SCH (10:39)
[2023-03-01] MEDS: FAMOTIDINE 20 MG TAB PO SCH ×2 (10:39→20:32)
[2023-03-01] MEDS: predniSONE 10 MG TAB PO SCH ×2 (10:40→16:43)
[2023-03-01] MEDS: allopurinoL 100 MG TAB PO SCH (10:40)
[2023-03-01] MEDS: ESCITALOPRAM 20 MG TAB PO SCH (10:40)
[2023-03-01] MEDS: carvediloL 12.5 MG TAB PO SCH ×2 (10:40→20:32)
[2023-03-01 11:39] LABS: Absolute Lymphocytes (CBC) 1.7 K/uL (0.7-4.9); Hematocrit 30.8 % (36.0-45.0); Lymphocytes % 13.9 % (15.3-44.8); MCV 96.3 fL (80-100); MPV 8.3 fL (7.6-11.3); Platelets 133 thou/uL (152-406)
[2023-03-01 11:55] LABS: Magnesium 1.9 mg/dL (1.6-2.4); Potassium 3.3 mEq/L (3.5-5.1)
[2023-03-01] MEDS ORDERED: MAGNESIUM SULFATE 1 gm IVPB 1 GM/100 ML BAG IV ONE (12:40)
[2023-03-01] MEDS ORDERED: POTASSIUM PHOS 10 MM in NA CHLORIDE 0.9% 250 ML IV ONE (12:40)
[2023-03-01] MEDS: D5W 1,000 ML with POTASSIUM CL 20 MEQ IV SCH ×2 (13:38)
[2023-03-01] MEDS: Levofloxacin500mg IV 500 MG/100 ML BAG IV SCH (13:38)
--- NOTE | 2023-03-01 14:17 | P.PN ---
Subjective Date of Service: 03/01/23 Chief Complaint: RADHIKA,COPD exacerbation/possible pulmonary embolism Patient is complaining of chest pain. She is also coughing with hemoptysis. She is maintained on 4 L oxygen by nasal cannula. Leukocytosis improved from yesterday. Physical Examination - Vital Signs Temperature: 97.4 F Blood Pressure: 169/67 Pulse: 65 Respirations: 17 Pulse Ox (%): 95 - Studies Microbiology Data (last 24 hrs): 02/28/23 13:45 Sputum Sputum Gram Stain - Final Assessment And Plan - Plan Physical Exam General: Alert, In no apparent distress, Oriented x3 Neck: no elevated JVD. Respiratory: Diminished, bilateral crackles, worse on the right. Cardiovascular: Regular rate/rhythm, Normal S1 S2 Gastrointestinal: Normal bowel sounds, No tenderness Musculoskeletal: No tenderness Integumentary: No rashes Neurological: Normal speech, no focal motor deficit. Diagnosis Dyspnea, Hemoptysis COPD exacerbation Hypotension RADHIKA on CKD 3 Chronic diastolic congestive heart failure Hypertension Hyperlipidemia GERD Previous CVA Atrial fibrillation Plan: Dyspnea/hemoptysis COPD exacerbation Pneumonia-suspected aspiration pneumonia Hemoptysis Pulmonary hypertension CTA thorax was negative for pulm embolism but demonstrated bilateral infiltrates worse on the lower right. Anticoagulation discontinued. Continue steroids, nebulizer treatments as needed, ICS. Pulmonary is following. Suspected aspiration pneumonia given history of dysphagia. Continue IV Levaquin and clindamycin ENT input appreciated. No lesion identified on direct examination of the pharynx and larynx. Prior MBS was unremarkable. Patient seen by speech therapy Hypotension Hypertension resolved. Patient is now hypertensive. RADHIKA on CKD 3 Reports poor oral intake over the course of the last 1 week. RADHIKA IV fluids per nephrology Nephrology is following. Chronic diastolic congestive heart failure Does not appear overloaded, continue with gentle IV fluids, monitor for signs of volume overload. Echocardiogram result reviewed and remarkable for moderate valvular insufficiency and severe pulmonary hypertension. Hypertension Hyperlipidemia GERD Previous CVA Atrial fibrillation Home medications resumed. DVT PPX: SCD Code status: Full Discharge Plan: Home
--- NOTE | 2023-03-01 14:44 | PN ---
Date of Progress Note: 03/01/2023 Subjective: Patient was admitted to the hospital with pneumonia, acute kidney injury secondary to pr erenal after hydration. Patient's kidney function has been improved. Patient is feeling better, sti ll poor intake. Physical Examination: Vital Signs: Blood pressure 169/67, pulse of 65, afebrile. Chest: Faint crackles on the left base. Heart: S1, S2. Regular. Systolic murmur. Abdomen: Soft, nontender. Extremities: No edema. Neuro: Pleasantly confused. No focality. Laboratory Data: WBC 11.9, improving; hemoglobin 10.4. Sodium 143, potassium 3.3, bicarb 26, BUN 18 , creatinine 1.1. GFR of 47. Calcium 7.6. Phosphorus 2.5, magnesium 1.9. Current Medications: The patient is on include: 1.Levofloxacin. 2.Clindamycin. 3.Amlodipine 5 mg. 4.Carvedilol 12.5. 5.Atorvastatin. 6.Pepcid. Assessment And Plan: 1.Acute kidney injury secondary to prerenal. Continue to recover, resolved back to baseline. I am going to change IV fluid to D5. 2.Hypernatremia. We will change IV fluid to D5 and we will monitor. 3.Hypomagnesemia, hypophosphatemia. We will supplement. 4.Pneumonia as by primary. 5.Hypertension, controlled, optimal. Continue current treatment. MERCEDES/CLINT Voice ID: [id number] Report ID: [id number]
[2023-03-01] MEDS ORDERED: CLINDAMYCIN 600MG/D5W 50 ML IV SCH (20:00)
[2023-03-01] MEDS: AMLODIPINE 5 MG TAB PO SCH (20:31)
[2023-03-01] MEDS: MIRTAZAPINE 15 MG TAB PO SCH (20:32)
[2023-03-01] MEDS: ATORVASTATIN 20 MG TAB PO SCH (20:32)
[2023-03-01] MEDS ORDERED: TRAMADOL HCL 50 MG TAB PO ONE (20:44)
--- NOTE | 2023-03-01 22:07 | CON ---
Date of Consultation: 02/28/2023 Chief Complaint: Coughing up blood. History Of Present Illness: The patient is a pleasant 82-year-old female who was admitted to the hospital for mild blood-tinged hemoptysis and dyspnea. The patient complains of coughing up blood over the course of the last month. I was consulted to see if I can find a bleeding source of the upper airway. Upon arrival to bedside, patient is resting comfortably in no acute distress and she is wearing a nasal cannula oxygen. She describes that she has coughed up small amounts of blood since 02/23, but no gross hemoptysis. She has chronic shortness of breath and COPD. The patient is a long-time smoker and deals with chronic shortness of breath. She denies fever; headaches; hematemesis; throat, nasal, or ear pain. No other ENT complaints today. Past Medical History: Chronic renal disease, COPD, chronic diastolic congestive heart failure, hypertension, hyperlipidemia, depression, GERD. Past Surgical History: Cholecystectomy, esophageal polyp removal, appendectomy, hysterectomy, Doppler to rule out DVT on left foot, aortic echocardiogram for valve leakage. Psychosocial Personal History: Patient lives at home independently. Family History: Sister positive for diabetes, brother positive for cancer, father positive for cancer. Social History: The patient is a current everyday smoker, but denies alcohol or illicit drugs. Allergies: POSITIVE FOR PENICILLIN, LISINOPRIL, GRAPEFRUIT, ASPIRIN. Home Medications: Amlodipine, clopidogrel, escitalopram, furosemide, mirtazapine, pregabalin, carvedilol, budesonide/formoterol, albuterol sulfate, albuterol nebulizer, allopurinol, buspirone, famotidine, losartan, lovastatin, and Ensure. Review of Systems: Head: Negative for headaches, trauma. General: Positive for fatigue and negative for fever. Eyes: Negative for drainage, blurred or double vision. Ears: Negative for ear pain or ear drainage. Positive for hearing loss. Negative for tinnitus. Nose: Positive for dry intranasal mucosa. Negative for epistaxis, nasal congestion, postnasal drip. Throat: Positive for spitting up blood, but negative for sore throat, vomiting. Physical Examination: Vital Signs: Stable. Patient is awake, alert, in no apparent distress and she is oriented x3. Head: Atraumatic, normocephalic. Eyes: PERRLA/EOMI. Ears: Deferred. Nose: Oxygen nasal cannula intact. Patient has moderately dry intranasal mucosa with septal crusting. No acute bleeding or blood clots. The patient does have scabbing/eschar of the nasal septum. Throat: Posterior oropharynx intact. Midline uvula. No evidence of blood or blood clots. Neck: Supple. Trachea midline. After obtaining consent, patient was placed into a sitting position and a lubricated flexible laryngoscope was introduced into the bilateral nasal cavities. The patient had significantly dry intranasal mucosa. I felt that she had a more patent left nasal cavity, thus I introduced the scope along the floor back to the level of the nasopharynx, hypopharynx, and larynx. All areas were carefully examined and I did not see any ulceration, bleeding, neoplasm. I was able to advance the scope to the subglottic trachea. I did not see any evidence of bleeding or stenosis. Scope was completely withdrawn. Patient tolerated the tolerated the procedure well. Diagnoses: Hemoptysis and history of chronic obstructive pulmonary disease-no evidence of any bleeding source during my thorough exam of the oral cavity, oropharynx, hypopharynx, and larynx as well as subglottis. Recommendations: 1. Suspect pulmonology source or possibly esophageal. This was discussed with Dr. Anderson. 2. Recommend nasal saline spray b.i.d. 3. Will follow as needed. TEGAN/CLINT Voice ID: [id number] Report ID: [id number] ALFONSO
[2023-03-02 04:50] LABS: Absolute Lymphocytes (CBC) 1.3 K/uL (0.7-4.9); Hematocrit 29.8 % (36.0-45.0); MCV 96.6 fL (80-100); MPV 8.6 fL (7.6-11.3); Platelets 136 thou/uL (152-406); RBC Red Blood Cell Count 3.08 M/uL (3.86-4.86)
[2023-03-02 05:24] LABS: Potassium 3.9 mEq/L (3.5-5.1)
[2023-03-02] MEDS: CLINDAMYCIN 600MG/D5W 50 ML IV SCH ×2 (06:23→11:15)
--- NOTE | 2023-03-02 07:20 | RAD REPORT ---
EXAM DESCRIPTION: RAD - Chest Single View - 03/02/2023 4:34 am CLINICAL HISTORY: Pneumonia COMPARISON: Chest Single View dated 02/26/2023; Chest Single View dated 02/08/2023; Chest Single Vie w dated 11/01/2022; Abdomen 1 View (KUB) dated 03/13/2022; Chest For Pe Angio dated 02/28/2023 FINDINGS: Lines: None. Lungs: Increasing reticulonodular airspace disease in the right upper lobe compared with 02/26/2023. Prominence of the pulmonary vasculature. Pleural: Small left effusion. Cardiac: The heart size is within normal limits. Mediastinum: Within normal limits. Bones: No acute fractures. Other: None IMPRESSION: Irregular airspace disease primarily in the right upper lobe remains concerning for pneu monia.
[2023-03-02] MEDS: predniSONE 10 MG TAB PO SCH ×2 (08:00→17:14)
[2023-03-02] MEDS: allopurinoL 100 MG TAB PO SCH (08:00)
[2023-03-02] MEDS ORDERED: MORPHINE 2 MG/ML SYR IV PRN (08:07)
[2023-03-02] MEDS: carvediloL 12.5 MG TAB PO SCH ×2 (08:40→21:27)
[2023-03-02] MEDS: BUSPIRONE HCL 5 MG TABLET PO SCH ×2 (08:40→21:27)
[2023-03-02] MEDS: HOME MED 1 EA UNK (Losartan Potassium [Cozaar] 25 MG Tablet) PO SCH (08:40)
[2023-03-02] MEDS: ESCITALOPRAM 20 MG TAB PO SCH (08:40)
[2023-03-02] MEDS: PREGABALIN 75 MG CAP PO SCH (08:41)
[2023-03-02] MEDS: FAMOTIDINE 20 MG TAB PO SCH ×2 (08:46→21:26)
[2023-03-02] MEDS: CLOPIDOGREL 75 MG TABLET PO SCH (08:47)
[2023-03-02] MEDS: AYR NASAL SALINE DROPS NAS SCH ×2 (09:00→21:00)
[2023-03-02] MEDS: ARFORMOTEROL TARTRATE 15 MCG/2 ML VIAL.NEB NEB SCH ×2 (09:00→19:40)
[2023-03-02] MEDS: D5W 1,000 ML with POTASSIUM CL 20 MEQ IV SCH ×4 (09:12→16:54)
--- NOTE | 2023-03-02 10:20 | RAD REPORT ---
EXAM DESCRIPTION: RAD - Esophagram Only - 03/02/2023 10:00 am CLINICAL HISTORY: Dysphagia. COMPARISON: Barium Swallow Modified dated 02/27/2023; Chest For Pe Angio dated 02/28/2023 FINDINGS: An esophagram was performed and shows normal bolus formation and normal initiation of swal lowing. Nonspecific, non propulsive tertiary contractions. Small hiatal hernia. . Total fluoroscopy time: 1 minutes 28 seconds Number of images acquired: 4 series IMPRESSION: Nonspecific esophageal motility disorder. Aperistaltic contractions present. Small hiata l hernia.
--- NOTE | 2023-03-02 10:58 | P.PN ---
Subjective Date of Service: 03/02/23 Chief Complaint: Pneumonia right upper lobe Patient is doing better still weak has occasional hemoptysis Review of Systems General: Weakness Respiratory: Shortness of Breath, Hemoptysis Physical Examination - Vital Signs Temperature: 98.2 F Blood Pressure: 136/65 Pulse: 67 Respirations: 18 Pulse Ox (%): 97 - Physical Exam General: Alert, Oriented x3 HEENT: Atraumatic Respiratory: Crackles/rales (Crackles on the right side) Cardiovascular: No edema, Regular rate/rhythm - Studies Microbiology Data (last 24 hrs): 02/28/23 13:45 Sputum Sputum Gram Stain - Final 02/28/23 13:45 Sputum Culture & Sensitivity - Final NORMAL QUANTITY OF UPPER RESPIRATORY YOAV GROWN. 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
[2023-03-02] MEDS: Levofloxacin500mg IV 500 MG/100 ML BAG IV SCH (14:13)
--- NOTE | 2023-03-02 14:27 | P.PN ---
Subjective Date of Service: 03/02/23 Chief Complaint: Pneumonia right upper lobe Subjective: No new changes Physical Examination - Vital Signs Temperature: 98.8 F Blood Pressure: 136/57 Pulse: 72 Respirations: 18 Pulse Ox (%): 90 - Physical Exam General: Other (appears as her stated age) HEENT: Atraumatic, Normocephalic Neck: Supple Respiratory: Other (symmetric chest expansion) Cardiovascular: No rubs, No murmurs Gastrointestinal: Soft and benign, No rebound Musculoskeletal: No clubbing Integumentary: No warmth Neurological: Normal tone Urinary: Other (no bladder distention) External genitalia: Deferred Rectal: Deferred - Studies Microbiology Data (last 24 hrs): 02/28/23 13:45 Sputum Sputum Gram Stain - Final 02/28/23 13:45 Sputum Culture & Sensitivity - Final NORMAL QUANTITY OF UPPER RESPIRATORY YOAV GROWN. Assessment And Plan - Plan 1. Acute kidney injury secondary to prerenal. SCr improved to 1.2. Encourage po fluid intake. IVF prn. 2. Hypernatremia. Resolved. Encourage po fluid intake. 3. HypoCa. Ca IV repletion today. 4. HypoK. Improved. KCl repletion prn. 5. Pneumonia. Per primary team. 6. Hypertension. Cont current med regimen.
--- NOTE | 2023-03-02 15:12 | P.PN ---
Subjective Date of Service: 03/02/23 Chief Complaint: Pneumonia right upper lobe Patient is complaining of intermittent chest pain. She is also coughing with hemoptysis. She is maintained on 2 L oxygen by nasal cannula. Physical Examination - Vital Signs Temperature: 98.8 F Blood Pressure: 136/57 Pulse: 72 Respirations: 18 Pulse Ox (%): 90 - Studies Microbiology Data (last 24 hrs): 02/28/23 13:45 Sputum Sputum Gram Stain - Final 02/28/23 13:45 Sputum Culture & Sensitivity - Final NORMAL QUANTITY OF UPPER RESPIRATORY YOAV GROWN. Assessment And Plan - Plan Physical Exam General: Alert, In no apparent distress, Oriented x3 Neck: no elevated JVD. Respiratory: Diminished, bilateral crackles, worse on the right. Cardiovascular: Regular rate/rhythm, Normal S1 S2 Gastrointestinal: Normal bowel sounds, No tenderness Musculoskeletal: No tenderness Integumentary: No rashes Neurological: Normal speech, no focal motor deficit. Diagnosis Dyspnea, Hemoptysis COPD exacerbation Hypotension RADHIKA on CKD 3 Chronic diastolic congestive heart failure Hypertension Hyperlipidemia GERD Previous CVA Atrial fibrillation Plan: Dyspnea/hemoptysis COPD exacerbation Pneumonia-suspected aspiration pneumonia Hemoptysis Pulmonary hypertension Acute respiratory failure with hypoxia CTA thorax was negative for pulm embolism but demonstrated bilateral infiltrates worse on the lower right. Anticoagulation discontinued. Continue steroids, nebulizer treatments as needed, ICS. Pulmonary is following. Suspected aspiration pneumonia given history of dysphagia. Transition IV antibiotics to oral Augmentin. ENT input appreciated. No lesion identified on direct examination of the pharynx and larynx. Prior MBS was unremarkable. Patient seen by speech therapy. Diet resumed. Wean oxygen, evaluate for home oxygen. Dysphagia Nonspecific esophageal dysmotility noted on the barium swallow study. Follow-up with GI as outpatient. Patient reported dysphagia to solids> liquids. Hypotension Hypertension resolved. RADHIKA on CKD 3 Reports poor oral intake over the course of the last 1 week. RADHIKA IV fluids per nephrology Nephrology is following. Chronic diastolic congestive heart failure Does not appear overloaded, continue with gentle IV fluids, monitor for signs of volume overload. Echocardiogram result reviewed and remarkable for moderate valvular insufficiency and severe pulmonary hypertension. Hypertension Hyperlipidemia GERD Previous CVA Atrial fibrillation Continue home medications DVT PPX: SCD Code status: Full Discharge Plan: Home
[2023-03-02] MEDS: CALCIUM GLUCONATE 1 GM IVPB 2 GM/100 ML BAG IV ONE (16:54)
[2023-03-02] MEDS: AMOX/K CLAV 875 MG TAB PO SCH (21:25)
[2023-03-02] MEDS: ATORVASTATIN 20 MG TAB PO SCH (21:26)
[2023-03-02] MEDS: MIRTAZAPINE 15 MG TAB PO SCH (21:26)
[2023-03-02] MEDS: AMLODIPINE 5 MG TAB PO SCH (21:27)
[2023-03-02] MEDS: BENZONATATE 100 MG CAP PO PRN (21:42)
--- NOTE | 2023-03-03 08:08 | RAD REPORT ---
EXAM DESCRIPTION: RAD - Chest Single View - 03/03/2023 7:59 am CLINICAL HISTORY: Pneumonia COMPARISON: Chest Single View dated 03/02/2023; Chest Single View dated 02/26/2023; Chest Single View dated 02/08/2023; Chest Single View dated 11/01/2022 FINDINGS: Lines: None. Lungs: Irregular airspace disease in the right upper lobe without significant interval change. Pleural: No significant pleural effusions or pneumothorax. Cardiac: The heart size is within normal limits. Mediastinum: Within normal limits. Bones: No acute fractures. Other: None IMPRESSION: Similar airspace disease in the right upper lobe consistent with pneumonia.
[2023-03-03] MEDS: BUSPIRONE HCL 5 MG TABLET PO SCH ×2 (08:09→19:49)
[2023-03-03] MEDS: PREGABALIN 75 MG CAP PO SCH (08:10)
[2023-03-03] MEDS: carvediloL 12.5 MG TAB PO SCH ×2 (08:10→19:48)
[2023-03-03] MEDS: ESCITALOPRAM 20 MG TAB PO SCH (08:10)
[2023-03-03] MEDS: FAMOTIDINE 20 MG TAB PO SCH ×2 (08:10→19:48)
[2023-03-03] MEDS: AMOX/K CLAV 875 MG TAB PO SCH ×2 (08:10→19:48)
[2023-03-03] MEDS: allopurinoL 100 MG TAB PO SCH (08:10)
[2023-03-03] MEDS: AYR NASAL SALINE DROPS NAS SCH ×2 (08:11→19:49)
[2023-03-03] MEDS: HOME MED 1 EA UNK (Losartan Potassium [Cozaar] 25 MG Tablet) PO SCH (08:11)
[2023-03-03] MEDS: CLOPIDOGREL 75 MG TABLET PO SCH (08:15)
[2023-03-03] MEDS: predniSONE 10 MG TAB PO SCH ×2 (08:15→16:35)
[2023-03-03] MEDS: BENZONATATE 100 MG CAP PO PRN (08:16)
[2023-03-03] MEDS: ARFORMOTEROL TARTRATE 15 MCG/2 ML VIAL.NEB NEB SCH ×2 (09:09→20:45)
--- NOTE | 2023-03-03 13:53 | P.PN ---
Subjective Date of Service: 03/03/23 Chief Complaint: Pneumonia right upper lobe Patient states she feels better today. She is tolerating 2 L oxygen by nasal cannula with good oxygen saturation. Patient desaturated to 83% on room air with ambulation. Physical Examination - Vital Signs Temperature: 99.4 F Blood Pressure: 149/58 Pulse: 73 Respirations: 16 Pulse Ox (%): 96 - Studies Microbiology Data (last 24 hrs): 02/28/23 13:45 Sputum Sputum Gram Stain - Final 02/28/23 13:45 Sputum Culture & Sensitivity - Final NORMAL QUANTITY OF UPPER RESPIRATORY YOAV GROWN. Assessment And Plan - Plan Physical Exam General: Alert, In no apparent distress, Oriented x3 Neck: no elevated JVD. Respiratory: Diminished, bilateral crackles, worse on the right. Cardiovascular: Regular rate/rhythm, Normal S1 S2 Gastrointestinal: Normal bowel sounds, No tenderness Musculoskeletal: No tenderness Integumentary: No rashes Neurological: Normal speech, no focal motor deficit. Diagnosis Dyspnea, Hemoptysis COPD exacerbation Hypotension RADHIKA on CKD 3 Chronic diastolic congestive heart failure Hypertension Hyperlipidemia GERD Previous CVA Atrial fibrillation Plan: Dyspnea/hemoptysis COPD exacerbation Pneumonia-suspected aspiration pneumonia Hemoptysis Pulmonary hypertension Acute respiratory failure with hypoxia CTA thorax was negative for pulm embolism but demonstrated bilateral infiltrates worse on the lower right. Anticoagulation discontinued. Continue steroids, nebulizer treatments as needed, ICS. Pulmonary is following. Suspected aspiration pneumonia given history of dysphagia. Transition IV antibiotics to oral Augmentin. ENT input appreciated. No lesion identified on direct examination of the pharynx and larynx. Prior MBS was unremarkable. Patient seen by speech therapy. Diet resumed. Wean oxygen. Home with oxygen. Dysphagia Nonspecific esophageal dysmotility noted on the barium swallow study. Follow-up with GI as outpatient. Patient reported dysphagia to solids> liquids. Hypotension Hypertension resolved. RADHIKA on CKD 3 Reports poor oral intake over the course of the last 1 week. RADHIKA IV fluids per nephrology Nephrology is following. Chronic diastolic congestive heart failure Does not appear overloaded. She appears compensated for CHF. monitor for signs of volume overload. Echocardiogram result reviewed and remarkable for moderate valvular insufficiency and severe pulmonary hypertension. Hypertension Hyperlipidemia GERD Previous CVA Atrial fibrillation Continue home medications DVT PPX: SCD Code status: Full Discharge Plan: Home Time Spent Managing PTS Care (In Minutes): 26
[2023-03-03] MEDS: MIRTAZAPINE 15 MG TAB PO SCH (19:48)
[2023-03-03] MEDS: AMLODIPINE 5 MG TAB PO SCH (19:48)
[2023-03-03] MEDS: ATORVASTATIN 20 MG TAB PO SCH (19:49)
--- NOTE | 2023-03-03 23:47 | PN ---
Date of Progress Note: 03/03/2023 Subjective: The patient was admitted to the hospital with acute kidney injury and pneumonia, acute k idney injury secondary to prerenal. The patient was started on IV hydration. Kidney function back t o baseline. The patient is feeling well. Shortness of breath has been resolved. Physical Examination: Vital Signs: Blood pressure 158/68, pulse of 65, afebrile. Chest: Clear to auscultation. Heart: S1, S2. Regular. Abdomen: Soft, nontender. Extremities: No edema. Neurologic: Alert. No focality. Pleasantly confused. Laboratory Data: WBC 9.5, hemoglobin 10.3. Sodium 141, potassium 3.9, bicarb 26, BUN 16, creatinine 1.1, GFR 48, calcium 7.1. Current Medications: The patient on include: 1.Albuterol. 2.Plavix. 3.Carvedilol. 4.Atorvastatin. 5.Amlodipine 5 mg. 6.Citalopram. 7.Mirtazapine. 8.Lyrica. 9.Calcium carbonate. 10.Prednisone 10 mg b.i.d. 11.Pepcid. Assessment And Plan: 1.Acute kidney injury secondary to prerenal, recovered, resolved, back to baseline. 2.Hypertension, controlled, optimal. Continue current treatment. 3.Pneumonia. Continue current treatment. 4.Hypokalemia. We will supplement. 5.Hypernatremia. Continue oral hydration. LUX Voice ID: [id number] Report ID: [id number]
[2023-03-04] MEDS: BENZONATATE 100 MG CAP PO PRN (04:53)
[2023-03-04 06:56] LABS: Absolute Lymphocytes (CBC) 1.8 K/uL (0.7-4.9); Hematocrit 33.3 % (36.0-45.0); Lymphocytes % 26.8 % (15.3-44.8); MCV 96.5 fL (80-100); MPV 8.2 fL (7.6-11.3); Platelets 195 thou/uL (152-406); RBC Red Blood Cell Count 3.45 M/uL (3.86-4.86)
[2023-03-04 07:03] LABS: Potassium 4.4 mEq/L (3.5-5.1)
[2023-03-04] MEDS: AMOX/K CLAV 875 MG TAB PO SCH (08:12)
[2023-03-04] MEDS: PREGABALIN 75 MG CAP PO SCH (08:13)
[2023-03-04] MEDS: FAMOTIDINE 20 MG TAB PO SCH (08:13)
[2023-03-04] MEDS: predniSONE 10 MG TAB PO SCH ×2 (08:13→16:11)
[2023-03-04] MEDS: HOME MED 1 EA UNK (Losartan Potassium [Cozaar] 25 MG Tablet) PO SCH (08:13)
[2023-03-04] MEDS: BUSPIRONE HCL 5 MG TABLET PO SCH (08:13)
[2023-03-04] MEDS: ESCITALOPRAM 20 MG TAB PO SCH (08:13)
[2023-03-04] MEDS: allopurinoL 100 MG TAB PO SCH (08:13)
[2023-03-04] MEDS: CLOPIDOGREL 75 MG TABLET PO SCH (08:13)
[2023-03-04] MEDS: AYR NASAL SALINE DROPS NAS SCH (08:14)
[2023-03-04] MEDS: carvediloL 12.5 MG TAB PO SCH (08:17)
[2023-03-04] MEDS: ARFORMOTEROL TARTRATE 15 MCG/2 ML VIAL.NEB NEB SCH (09:07)
[2023-03-04 11:35] VITALS: O2SAT 99
--- NOTE | 2023-03-04 13:54 | PN ---
Date of Progress Note: 03/04/2023 Subjective: The patient is doing well. No nausea. No vomiting. Physical Examination: Vital Signs: When I saw the patient, blood pressure 159/66, pulse of 66, afebrile. Chest: Clear to auscultation. Heart: S1, S2. Regular. Abdomen: Soft, nontender. Extremities: No edema. Neurologic: Alert. No focality. Laboratory Data: Hemoglobin 11.3. Sodium 140, potassium 4.4, bicarb 26, BUN 18, creatinine 1.1, kehinde cium 8.3. Current Medications: The patient on its include; 1.Augmentin. 2.Plavix. 3.Amlodipine 5 mg. 4.Carvedilol. 5.Atorvastatin. 6.Mirtazapine. 7.Citalopram. 8.Pepcid. 9.Zofran. 10.Allopurinol. Assessment And Plan: 1.Acute kidney injury secondary to prerenal, recovered, resolved, back to baseline normal volume. I am going to continue to monitor the patient. 2.Hypertension, controlled, optimal. Continue current treatment. 3.Hypophosphatemia, status post supplement, resolved. 4.Hypokalemia, status post supplement, resolved. MERCEDES/CLINT Voice ID: [id number] Report ID: [id number]
--- NOTE | 2023-03-04 14:44 | P.DS ---
Admission Date: 02/28/23 Discharge Date: 03/04/23 Disposition: DC HOME/HOME HEALTH CARE Discharge Condition: FAIR Reason for Admission: Pneumonia right upper lobe Brief History of Present Illness: 82-year-old female with history of chronic diastolic congestive heart failure, CKD 3, hypertension, COPD, hyperlipidemia, previous CVA presented to the emergency department chief complaint of shortness of breath, hemoptysis. She reported intermittent episodes of shortness of breath where she feels like her throat is closing over the course of the last 1 month. She does have a history of esophageal issues requiring surgery as food was getting stuck previously many years ago. She also noted that she has had small amounts of hemoptysis since Sunday with just blood-tinged sputum, no gross hemoptysis. She was evaluated in the emergency department initially found to be hypotensive with systolic blood pressure in the 80s to 90s, room air sats around 90%. Her labs were significant for white blood cell count 9.3 hemoglobin 10.8 medic at 32.2 creatinine 2.85 BUN 50 EGFR 16 glucose 111 lactic acid 2.0 BNP 5079 COVID test is negative chest x-ray revealed mild COPD. She reported poor oral intake over the course of 1 week. She reported being on an antibiotic recently but could not name it. Her hypotension responded to IV fluid bolus in the ED. Patient admitted for further management. Hospital Course: Diagnosis Dyspnea, Hemoptysis COPD exacerbation Hypotension RADHIKA on CKD 3 Chronic diastolic congestive heart failure Hypertension Hyperlipidemia GERD Previous CVA Atrial fibrillation Patient admitted to the medical floor and the following medical problems addressed: Dyspnea/hemoptysis COPD exacerbation Pneumonia-suspected aspiration pneumonia Hemoptysis Pulmonary hypertension Acute respiratory failure with hypoxia CTA thorax was negative for pulm embolism but demonstrated bilateral infiltrates worse on the lower right. Patient treated with steroids, nebulizer treatments as needed, ICS. Seen and evaluated by pulmonary who assisted with management. Suspected aspiration pneumonia given history of dysphagia. Initially on IV Levaquin and clindamycin, transitioned to oral Augmentin. Reported allergy to penicillin but no issues with the Augmentin. Seen by ENT for hemoptysis. No lesion identified on direct examination of the pharynx and larynx. Prior MBS was unremarkable. Patient seen by speech therapy. Diet resumed. She clinically improved back patient desaturated to 83% with ambulation She is discharged with home with oxygen. Dysphagia Nonspecific esophageal dysmotility noted on the barium swallow study. Follow-up with GI as outpatient recommended. Patient states that she has been following with Dr. Aquino. Patient reported dysphagia to solids> liquids. Hypotension Hypotension resolved. Likely secondary to dehydration. Not septic shock. RADHIKA on CKD 3 Secondary to poor oral intake. RADHIKA resolved with IV fluid. Nephrology evaluated patient and assisted with management Chronic diastolic congestive heart failure Does not appear overloaded. She appears compensated for CHF. Echocardiogram result reviewed and remarkable for moderate valvular insufficiency and severe pulmonary hypertension. Hypertension Hyperlipidemia GERD Previous CVA Atrial fibrillation Continued home medications Vital Signs/Physical Exam: Temp Pulse Resp BP Pulse Ox 98.0 F 66 16 159/66 H 97 03/04/23 11:47 03/04/23 11:47 03/04/23 11:47 03/04/23 11:47 03/04/23 11:47 General: Alert, In no apparent distress, Oriented x3 HEENT: Mucous membr. moist/pink Neck: Supple, JVD not distended Respiratory: Crackles/rales Cardiovascular: No edema, Regular rate/rhythm, Normal S1 S2 Gastrointestinal: Normal bowel sounds, Soft and benign, Non-distended Musculoskeletal: No swelling Integumentary: No cyanosis Neurological: Normal strength at 5/5 x4 extr Laboratory Data at Discharge: WBC 6.90 thou/uL (4.3-10.9) 03/04/23 06:05 Hgb 11.3 g/dL (12.0-15.0) L 03/04/23 06:05 Hct 33.3 % (36.0-45.0) L 03/04/23 06:05 Plt Count 195 thou/uL (152-406) 03/04/23 06:05 PT 10.3 SECONDS (9.5-12.5) 02/26/23 15:42 INR 0.94 02/26/23 15:42 APTT 34.0 SECONDS (24.3-36.9) 02/26/23 15:42 Sodium 140 mEq/L (136-145) 03/04/23 06:05 Potassium 4.4 mEq/L (3.5-5.1) 03/04/23 06:05 BUN 18 mg/dL (7-18) 03/04/23 06:05 Creatinine 1.18 mg/dL (0.55-1.02) H 03/04/23 06:05 Glucose 98 mg/dL (74-106) 03/04/23 06:05 Uric Acid 4.3 mg/dL (2.6-6.0) 02/27/23 09:19 Phosphorus 2.0 mg/dL (2.5-4.9) L 03/01/23 11:21 Magnesium 1.9 mg/dL (1.6-2.4) 03/01/23 11:21 Total Bilirubin 0.4 mg/dL (0.2-1.0) 02/26/23 15:42 AST 17 U/L (15-37) 02/26/23 15:42 ALT 12 U/L (13-56) L 02/26/23 15:42 Alkaline Phosphatase 83 U/L (45-117) 02/26/23 15:42 Home Medications: Amlodipine [Norvasc*] 2.5 mg PO BEDTIME 04/25/13 Clopidogrel Bisulfate [Clopidogrel] 75 mg PO DAILY 04/25/13 Escitalopram Oxalate 20 mg PO DAILY 04/25/13 Furosemide [Lasix*] 20 mg PO BID 04/25/13 Mirtazapine [Remeron*] 15 mg PO BEDTIME 04/25/13 Pregabalin [Lyrica*] 75 mg PO DAILY 04/25/13 carvediloL [Coreg*] 2 tab PO BID 04/25/13 Budesonide/Formoterol Fumarate [Symbicort 160-4.5 Mcg Inhaler] 2 puff IH BID 11/19/14 Albuterol Sulfate [Proair Hfa] 2 puff IH PRN PRN 02/04/18 Albuterol Neb [Proventil 0.083% Neb Soln] 2.5 mg NEB Q6HP PRN 30 Days amp 1 Allopurinol 100 mg PO BREAKFAST 03/05/22 Buspirone HCl 1 tab PO BID 03/05/22 Famotidine [Pepcid*] 20 mg PO BID 03/05/22 Losartan Potassium [Cozaar] 12.5 mg PO DAILY 03/05/22 Lovastatin 1 tab PO BEDTIME 03/05/22 Amox/Clavulanate [Augmentin 875-125 Tab*] 875 mg PO BID #20 tab 03/04/23 Benzonatate [Tessalon Perle*] 100 mg PO TID PRN #30 cap 03/04/23 Ipratropium Neb [Atrovent*] 0.5 mg IH Q6H PRN #120 amp 03/04/23 levoFLOXacin [Levaquin] 750 mg PO DAILY #7 tab 03/04/23 metroNIDAZOLE [Metronidazole] 500 mg PO TID #21 tab 03/04/23 predniSONE [Deltasone*] 10 mg PO BIDWM #10 tab 03/04/23 New Medications: Ipratropium Neb [Atrovent*] 0.5 mg IH Q6H PRN #120 amp PRN Reason: Shortness Of Breath Amox/Clavulanate [Augmentin 875-125 Tab*] 875 mg PO BID #20 tab predniSONE [Deltasone*] 10 mg PO BIDWM #10 tab levoFLOXacin [Levaquin] 750 mg PO DAILY #7 tab metroNIDAZOLE [Metronidazole] 500 mg PO TID #21 tab Benzonatate [Tessalon Perle*] 100 mg PO TID PRN #30 cap PRN Reason: Cough Diet: AHA Activity: Fall precautions Followup: Tio Anderson MD [ACTIVE - CAN ADMIT] - Time spent managing pt's care (in minutes): 36
--- NOTE | 2023-03-04 14:51 | P.PN ---
Subjective Date of Service: 03/04/23 Chief Complaint: Pneumonia right upper lobe Patient has no new complain. She stated the hemoptysis is very much improved. She reports shortness of breath with exertion but not at rest. Physical Examination - Vital Signs Temperature: 98.0 F Blood Pressure: 159/66 Pulse: 66 Respirations: 16 Pulse Ox (%): 97 - Studies Microbiology Data (last 24 hrs): 02/26/23 16:02 Blood - Blood Aerobic Blood Culture - Final No growth in 5 days. 02/26/23 16:02 Blood - Blood Anaerobic Blood Culture - Final No growth in 5 days. 02/26/23 15:42 Blood - Blood Aerobic Blood Culture - Final No growth in 5 days. 02/26/23 15:42 Blood - Blood Anaerobic Blood Culture - Final No growth in 5 days. Assessment And Plan - Plan Physical Exam General: Alert, In no apparent distress, Oriented x3 Respiratory: Diminished, bilateral crackles, worse on the right. Cardiovascular: Regular rate/rhythm, Normal S1 S2 Gastrointestinal: Normal bowel sounds, No tenderness Integumentary: No rashes Diagnosis Dyspnea, Hemoptysis COPD exacerbation Hypotension RADHIKA on CKD 3 Chronic diastolic congestive heart failure Hypertension Hyperlipidemia GERD Previous CVA Atrial fibrillation Plan: Dyspnea/hemoptysis COPD exacerbation Pneumonia-suspected aspiration pneumonia Hemoptysis Pulmonary hypertension Acute respiratory failure with hypoxia CTA thorax was negative for pulm embolism but demonstrated bilateral infiltrates worse on the lower right. Anticoagulation discontinued. Continue steroids, nebulizer treatments as needed, ICS. Pulmonary is following. Suspected aspiration pneumonia given history of dysphagia. Transition IV antibiotics to oral Augmentin. ENT input appreciated. No lesion identified on direct examination of the pharynx and larynx. Prior MBS was unremarkable. Patient seen by speech therapy. Diet resumed. Arranging for Home with oxygen. Dysphagia Nonspecific esophageal dysmotility noted on the barium swallow study. Follow-up with GI as outpatient. Patient reported dysphagia to solids> liquids. Hypotension Hypertension resolved. RADHIKA on CKD 3 Reports poor oral intake over the course of the last 1 week. RADHIKA resolved IV fluids discontinued Nephrology is following. Chronic diastolic congestive heart failure Does not appear overloaded. She appears compensated for CHF. Echocardiogram result reviewed and remarkable for moderate valvular insufficiency and severe pulmonary hypertension. Hypertension Hyperlipidemia GERD Previous CVA Atrial fibrillation Continue home medications DVT PPX: SCD Code status: Full Discharge Plan: Home
[2023-03-04 15:43] VITALS: BP 134/59; TEMP 99.3
== END 2023-03-04 18:26 | disposition home or self-care (01) | DRG 177 ==
LOC: ER 14:55 → ERHOLD 17:29 → 4TH 20:29 → OBSVTOIN 02-28 16:59
PROVIDERS: ADMIT Hospitalist; ATTEND Internal Medicine
DX: J69.0 Pneumonitis due to inhalation of food and vomit (principal); J96.01 Acute respiratory failure with hypoxia; J44.1 Chronic obstructive pulmonary disease with (acute) exacerbation; F03.94 Unspecified dementia, unspecified severity, with anxiety; I13.0 Hypertensive heart and chronic kidney disease with heart failure and stage 1 through stage 4 chronic kidney disease, or unspecified chronic kidney disease; N17.9 Acute kidney failure, unspecified; R04.2 Hemoptysis; I50.32 Chronic diastolic (congestive) heart failure; E87.0 Hyperosmolality and hypernatremia; N18.30 Chronic kidney disease, stage 3 unspecified; D63.1 Anemia in chronic kidney disease; I95.9 Hypotension, unspecified; E78.5 Hyperlipidemia, unspecified; I48.91 Unspecified atrial fibrillation; E83.39 Other disorders of phosphorus metabolism; F90.9 Attention-deficit hyperactivity disorder, unspecified type; N28.1 Cyst of kidney, acquired; E87.6 Hypokalemia; I73.9 Peripheral vascular disease, unspecified; E86.0 Dehydration; K21.9 Gastro-esophageal reflux disease without esophagitis; E83.42 Hypomagnesemia; I27.20 Pulmonary hypertension, unspecified; D72.829 Elevated white blood cell count, unspecified; I25.10 Atherosclerotic heart disease of native coronary artery without angina pectoris; F17.200 Nicotine dependence, unspecified, uncomplicated; Z60.2 Problems related to living alone; Z88.6 Allergy status to analgesic agent; Z88.0 Allergy status to penicillin; Z88.8 Allergy status to other drugs, medicaments and biological substances; Z79.52 Long term (current) use of systemic steroids; Z86.73 Personal history of transient ischemic attack (TIA), and cerebral infarction without residual deficits; Z79.02 Long term (current) use of antithrombotics/antiplatelets; Z90.49 Acquired absence of other specified parts of digestive tract; Z11.52 Encounter for screening for COVID-19; Z91.018 Allergy to other foods; Z79.899 Other long term (current) drug therapy; Z90.710 Acquired absence of both cervix and uterus
CPT/HCPCS: 36415; 71045; 71250; 71275; 74220; 74230; 76770; 78582; 80048; 80076; 82306; 82550; 83605; 83735; 83880; 83970; 84100; 84439; 84443; 84484; 84550; 85025; 85610; 85730; 87040; 87070; 87205; 87804; 87811; 92610; 92611; 93005; 93306; 94640; 96361; 96365; 96375; 99285; A9540; A9558; G0378; J0612; J0696; J1644; J1940; J2270; J2405; J2930; J3475; J3480; J3535; J7030; J7050; J7512; J7605; J7613; J7614; J7644; J7799; Q9967

== ENCOUNTER 2024-08-01 18:01 | Emergency (ER) | payer MEDICARE ==
[2024-08-01] MEDS ORDERED: FENTANYL CITR 100 MCG/2 ML ONE (18:57)
[2024-08-01] MEDS ORDERED: MORPHINE 2 MG/ML SYR ONE ×2 (18:59→21:18)
[2024-08-01 19:03] LABS: Absolute Basophils 0.1 K/uL (0-0.5); Absolute Eosinophils 0.3 K/uL (0-0.5); Absolute Lymphocytes (CBC) 2.8 K/uL (0.7-4.9); Absolute Monocytes 1.1 K/uL (0.1-1.3); Absolute Neutrophil 4.3 K/uL (1.8-8.0); Basophils % 0.8 % (0-1.3); Hematocrit 34.1 % (36.0-45.0); Hemoglobin 11.9 g/dL (12.0-15.0); Lymphocytes % 32.2 % (15.3-44.8); MCH 34.5 pg (27.0-35.0); MCHC 34.8 g/dL (32.0-36.0); MCV 99.1 fL (80-100); MPV 9.1 fL (7.6-11.3); Platelets 162 thou/uL (152-406); RBC Red Blood Cell Count 3.44 M/uL (3.86-4.86); Red Cell Distribution Width 14.2 % (12.1-15.2)
[2024-08-01 19:12] LABS: PT Prothrombin Time 10.7 SECONDS (10-13.0); Protime INR 0.94
[2024-08-01 19:22] LABS: Albumin 3.3 g/dL (3.4-5.0); Bilirubin Direct 0.2 mg/dL (0-0.2); Bilirubin Indirect, Calculated 0.2 mg/dL (0.2-0.8); Bilirubin Total 0.4 mg/dL (0.2-1.0); Globulin 3.2 g/dL (2.3-3.5); Protein, Total 6.5 g/dL (6.4-8.2); Troponin High Sensitivity 37.7 pg/mL (<58.9)
--- NOTE | 2024-08-01 19:56 | RAD REPORT ---
EXAMINATION: Head C Spine Mpr Wo Con CLINICAL INDICATION: Female, 84 years old. fall TECHNIQUE: Axial CT images from the skull base to the vertex without intravenous contrast. Axial CT i mages through the cervical spine were obtained without intravenous contrast. Sagittal and coronal reformatted images were created from the data set. Coronal and sagittal reformatted images were creat ed from the data set. One or more of the following dose reduction techniques were used: Automated exposure control, adjustment of the mA and/or kV according to patient size, and/or iterative reconstr uction. Unless otherwise specified, incidental findings do not require dedicated imaging follow-up. [id number]. COMPARISON: 05/06/2009 FINDINGS: Head: INTRACRANIAL: No acute intracranial hemorrhage. No hydrocephalus. No mass effect or midline shift. Mi ld chronic small vessel ischemic changes.Mild cerebral atrophy. VASCULATURE: No visualized abnormalities in the arteries or dural venous sinuses. SCALP/SKULL: No calvarial fracture identified. No acute soft tissue abnormality. SINUSES: The visualized paranasal sinuses are mostly clear. No significant mastoid fluid. Cervical spine: ALIGNMENT: Anterolisthesis of C3 on C4 and C4 on C5 is likely chronic and related to underlying facet degenerative changes. BONE: Vertebral body heights are maintained. No aggressive osseous lesions. DEGENERATIVE: Multilevel cervical spondylosis with evidence of bilateral neural foraminal narrowing. No high grade central spinal stenosis. SOFT TISSUE: No significant abnormalities in the soft tissue of the neck. The visualized lung apices are clear. IMPRESSION: No acute intracranial abnormality. No acute fracture or traumatic malalignment of the cervical spine.
--- NOTE | 2024-08-01 19:58 | RAD REPORT ---
EXAM: Chest Single View HISTORY: 84 years Female fall COMPARISON: 03/03/2023 FINDINGS: LUNGS/PLEURA: The lungs are clear. No pleural effusions or pneumothorax. No pulmonary edema. Calcifie d right upper lobe nodule. CARDIAC/MEDIASTINUM: Stable size and configuration. UPPER ABDOMEN: No significant abnormality. BONES: No acute abnormality. LINES/TUBES/OTHER: N/A IMPRESSION: No evidence of acute cardiopulmonary disease.
--- NOTE | 2024-08-01 19:59 | RAD REPORT ---
EXAMINATION: Pelvis CLINICAL INDICATION: Female, 84 years old. fall COMPARISON: No prior exam. FINDINGS: No acute fracture. No malalignment/dislocation. No significant focal degenerative change. Other: n/a IMPRESSION: No acute osseous abnormality.
--- NOTE | 2024-08-01 20:10 | RAD REPORT ---
EXAM: Chest Abd Pelvis Wo Con CLINICAL INDICATION: Female, 84 years old FALLS, PAIN TECHNIQUE: CT chest, abdomen and pelvis was performed, without IV contrast, as per department protoco l. Axial, sagittal and coronal reconstructions were obtained. One or more of the following dose reduction techniques were used: Automated exposure control, adjustment of the mA and/or kV according to the patient size, and/or iterative reconstruction. Unless otherwise specified, incidental findings do not require dedicated imaging follow-up. [id number]. COMPARISON: 02/28/2023 FINDINGS: The lack of intravenous contrast limits the sensitivity of this exam for evaluation of solid visceral organs, vascular structures, and retroperitoneum. ---THORAX--- LOWER NECK AND CHEST WALL: Visualized thyroid gland and soft tissues are normal. LUNGS AND AIRWAYS: Airways are clear. No evidence of airspace or interstitial process.No dominant or clearly suspicious nodule identified. PLEURA: No pleural effusion. No pneumothorax. MEDIASTINUM AND LYMPH NODES: No mediastinal mass or fluid collection. Normal size mediastinal, hilar, and axillary lymph nodes. Mild distal esophageal thickening. THORACIC AORTA: No thoracic aortic aneurysm. Atherosclerotic changes are present. PULMONARY ARTERIES: Caliber is within normal limits. HEART: Mild cardiomegaly. Mild coronary artery calcifications.No significant pericardial effusion. ---ABDOMEN/PELVIS--- UPPER GI: No significant abnormality. LIVER: No significant focal abnormality. GALLBLADDER/BILE DUCTS: Cholecystectomy with moderate biliary ductal dilatation. This may be secondar y to the post-cholecystectomy state. Correlate with LFTs. If abnormal, could consider MRCP for further evaluation.?This is a chronic finding. PANCREAS: No mass, ductal dilation, or herbert-pancreatic fluid. SPLEEN: Unremarkable. ADRENALS: No adrenal masses. KIDNEYS AND URETERS: No hydronephrosis.Limited evaluation for renal lesions in the absence of IV cont rast.No renal calculi.Left renal atrophy ABDOMINAL AORTA AND OTHER VESSELS: Severe atherosclerotic changes. No aortic aneurysm. PERITONEUM: No abnormal free fluid. No free air. LYMPH NODES: No pathologic lymphadenopathy. ABDOMINAL WALL: Unremarkable SMALL BOWEL/COLON: Small bowel has normal course and caliber. No colonic wall thickening or pericolon ic inflammatory changes. Moderate diverticulosis without diverticulitis. Moderate formed stool burden. URINARY BLADDER: Underdistended but grossly unremarkable. REPRODUCTIVE ORGANS: No pathologic process. ---COMBINED--- MUSCULOSKELETAL: Remote L1 compression fracture. No acute fracture identified. ADDITIONAL FINDINGS: None. IMPRESSION: No evidence of significant trauma to the chest, abdomen, or pelvis. Incidental findings as noted above,
[2024-08-01 21:19] LABS: Specific Gravity 1.016 (1.005-1.030); Sqamous Epithelial <5 /HPF (None Seen); Urine Bacteria None Seen /HPF (<20); Urine Bilirubin NEGATIVE (Negative); Urine Blood Negative (Negative); Urine Clarity Clear (Clear); Urine Color Light-Yellow (Yellow); Urine Culture Reflex Order NOT NEEDED; Urine Glucose NEGATIVE (Negative); Urine Ketones NEGATIVE (Negative); Urine Micro Reflex YN NO BILL MICROSCOPIC; Urine Mucus Slight /HPF (None Seen); Urine Nitrite NEGATIVE (Negative); Urine Protein NEGATIVE (Negative); Urine RBC <5 /HPF (None Seen); Urine Urobilinogen Normal (Normal); Urine WBC <5 /HPF (<5); Urine pH 5.5 (5.0-7.0)
--- NOTE | 2024-08-01 21:38 | ER ---
Nurse's Notes [facility] Name: Meme Rushing Age: 84 yrs Sex: Female : 1940 Arrival Date: 08/01/2024 Time: 18:01 Bed 13 Private MD: Diagnosis: Repeated falls;Contusion of unspecified part of head, initial encounter;Cervicalgia;Dorsalgia, unspecified Presentation: 08/01 18:10 Chief complaint: Patient's son or daughter states: patient fell 7 times yesterday, ap3 patient denies LOC. patient does report hitting her head. Patient reports being on a blood thinner. patient currently reports pain in her head, right side of her neck, hips, legs \T\ back. Patient currently rates her pain as a 10/10 on the pain scale. Coronavirus screen: At this time, the client does not indicate any symptoms associated with coronavirus-19. Ebola Screen: No symptoms or risks identified at this time. Initial Sepsis Screen: Does the patient meet any 2 criteria? No. Patient's initial sepsis screen is negative. Does the patient have a suspected source of infection? No. Patient's initial sepsis screen is negative. Risk Assessment: Do you want to hurt yourself or someone else? Patient reports no desire to harm self or others. Onset of symptoms is unknown. 18:10 Method Of Arrival: Wheelchair ap3 18:10 Acuity: RODY 2 ap3 19:00 Care prior to arrival: None. Mechanism of Injury: Fall. rg5 19:00 Trauma event details: Injury occurred in the [facility]. 5 Triage Assessment: 18:14 General: Appears uncomfortable, Behavior is calm, cooperative, appropriate for age. ap3 Pain: Complains of pain in face, back, pelvis, right leg, left leg and neck Pain currently is 10 out of 10 on a pain scale. Neuro: Level of Consciousness is awake, alert, obeys commands, Oriented to person, place, time, situation, Speech is normal. Cardiovascular: Patient's skin is warm and dry. Respiratory: Airway is patent Respiratory effort is even, unlabored, Respiratory pattern is regular, symmetrical. Historical: - Allergies: 18:13 Aspirin; ap3 18:13 GRAPEFRUIT; ap3 18:13 Ibuprofen; ap3 18:13 Lisinopril; ap3 18:13 PENICILLINS; ap3 - PMHx: 18:13 ADD/ADHD; CHF; COPD; CVA; Diverticulitis; Hernia; Hyperlipidemia; Hypertension; polyps ap3 and diverticuli in esophagus-had removed and now has more; Renal Disease; - Immunization history:: Client reports receiving the 2nd dose of the Covid vaccine. - Infectious Disease History:: Denies. - Immunization history: Last tetanus immunization: unknown. - Social history:: Smoking status: Patient reports the use of cigarette tobacco products, smokes one pack cigarettes per day. Screenin:14 Abuse screen: Denies threats or abuse. Nutritional screening: No deficits noted. ap3 Tuberculosis screening: No symptoms or risk factors identified. 18:51 [facility] ED Fall Risk Assessment (Adult) History of falling in the last 3 months, db including since admission No falls in past 3 months (0 pts) Confusion or Disorientation No (0 pts) Intoxicated or Sedated No (0 pts) Impaired Gait No (0 pts) Mobility Assist Device Used No (0 pt) Altered Elimination No (0 pt) Score/Fall Risk Level 0 - 2 = Low Risk Oriented to surroundings, Maintained a safe environment. Primary Survey: 19:00 NO uncontrolled hemorrhage observed. rg5 19:00 A: The client is awake and alert. The airway is patent. Breathing/Chest: Spontaneous rg5 respiratory effort, equal unlabored respirations, breath sounds clear bilaterally, regular pattern, symmetrical chest rise and fall. Circulation: No external hemorrhage present. Regular and strong central pulse, skin warm/dry/normal color. Disability Pupils are equal, round, reactive to light and accommodation. Client is alert. Exposure/Environment: All clothing and personal items were removed. Forensic evidence collection is not deemed to be indicated at this time. Items placed in patient belonging bag. There is no evidence of uncontrolled external bleeding. 20:00 Reassessment Breathing: Spontaneous respiratory effort, equal unlabored respirations, rg5 breath sounds clear bilaterally, regular pattern with symmetrical chest rise and fall. Circulation: No external hemorrhage noted. Regular and strong central pulse, skin warm/dry/normal color. Disability: Pupils Pupils are equal, round, reactive to light and accomodation. Alert. Assessment: 18:40 Reassessment: Patient appears in no apparent distress at this time. Patient and/or db family updated on plan of care and expected duration. Pain level reassessed. Patient is alert, oriented x 3, equal unlabored respirations, skin warm/dry/pink. General: Appears in no apparent distress. comfortable, Behavior is calm, cooperative. Pain: Complains of pain in chest and neck and left leg and right leg and pelvis and back and face. Neuro: Level of Consciousness is awake, alert, obeys commands, Oriented to person, place, time, situation. Cardiovascular: Reports chest pain. Respiratory: Airway is patent Respiratory effort is even, unlabored, Respiratory pattern is regular, symmetrical. 19:05 General: Appears in no apparent distress. comfortable, Behavior is calm, cooperative. rg5 19:05 Pain: Complains of pain in face and neck Quality of pain is described as aching. Neuro: rg5 Level of Consciousness is awake, alert, obeys commands, Oriented to person, place, time, situation. Cardiovascular: Reports chest pain, Rhythm is sinus rhythm. Respiratory: Airway is patent Respiratory effort is even, unlabored, Respiratory pattern is regular, symmetrical. GI: Abdomen is flat, non-distended, Abd is soft and non tender. : No signs and/or symptoms were reported regarding the genitourinary system. EENT: No signs and/or symptoms were reported regarding the EENT system. Derm: Skin is fragile, Skin is dry, Skin is normal, Skin temperature is warm. Musculoskeletal: Circulation, motion, and sensation intact. Range of motion:. 20:30 Reassessment: No changes from previously documented assessment. Patient and/or family rg5 updated on plan of care and expected duration. Pain level reassessed. Patient is alert, oriented x 3, equal unlabored respirations, skin warm/dry/pink. 21:27 Reassessment: No changes from previously documented assessment. Patient and/or family rg5 updated on plan of care and expected duration. Pain level reassessed. Patient is alert, oriented x 3, equal unlabored respirations, skin warm/dry/pink. Vital Signs: 18:10 BP 157 / 58; Pulse 73; Resp 18; Temp 99.1(O); Pulse Ox 96% on R/A; Weight 47.63 kg; ap3 Height 4 ft. 11 in. ; Pain 10/10; 18:40 BP 149 / 51; Pulse 67; Resp 16; Pulse Ox 98% on R/A; db 19:30 BP 130 / 46; Pulse 63; Resp 18; Temp 98; Pulse Ox 98% on R/A; Pain 0/10; rg5 20:45 BP 151 / 44; Pulse 64; Resp 18; Pulse Ox 98% on R/A; rg5 21:25 BP 137 / 42; Pulse 67; Resp 18; Pulse Ox 97% on R/A; Pain 7/10; rg5 18:10 Body Mass Index 21.21 (47.63 kg, 149.86 cm) ap3 18:10 Pain Scale: Adult ap3 19:30 Pain Scale: Adult rg5 21:25 Pain Scale: Adult rg5 Gile Coma Score: 18:15 Eye Response: spontaneous(4). Motor Response: obeys commands(6). Verbal Response: ap3 oriented(5). Total: 15. Trauma Score (Adult): 18:15 Eye Response: spontaneous(1); Verbal Response: oriented(1); Motor Response: obeys ap3 commands(2); Systolic BP: > 89 mm Hg(4); Respiratory Rate: 10 to 29 per min(4); Gile Score: 15; Trauma Score: 12 ED Course: 18:06 Patient arrived in ED. al6 18:13 Triage completed. ap3 18:15 Patient maintains SpO2 saturation greater than 95% on room air. ap3 18:15 Arm band placed on right wrist. ap3 18:18 Bryan Kam PA is PHCP. cp 18:18 Tani Rosales MD is Attending Physician. cp 18:39 Rupa Cortez, RAINA is Primary Nurse. db 18:51 Initial lab(s) drawn, by me, sent to lab. Inserted saline lock: 22 gauge in right db antecubital area, using aseptic technique. Blood collected. Flushed with 10 mL NS. 18:51 Patient has correct armband on for positive identification. Bed in low position. Call db light in reach. Side rails up X 1. Client placed on continuous cardiac and pulse oximetry monitoring. NIBP monitoring applied. equipment monitor phototypesetting on. Pulse ox on. NIBP on. Warm blanket given. Pillow given. 19:05 No provider procedures requiring assistance completed. rg5 19:09 Thermoregulation: warm blanket given to patient. rg5 19:41 XRAY Chest (1 view) In Process Unspecified. EDMS 19:41 XRAY Pelvis In Process Unspecified. EDMS 19:48 Head C Spine Mpr Wo Con In Process Unspecified. EDMS 19:49 Chest Abd Pelvis Wo Con In Process Unspecified. EDMS 20:07 Truman Sanchez, RN is Primary Nurse. rg5 21:37 Provided Education on: POST ER CARE. rg5 21:38 IV discontinued, bleeding controlled, No redness/swelling at site. Pressure dressing rg5 applied. Administered Medications: 18:42 CANCELLED (Physician Discretion): fentanyl (pf)25 mcg IVP once cp 18:59 Drug: morphine IVP or IV 2 mg IVP once over 4 mins Route: IVP; Infused Over: 4 mins; db Site: right antecubital; 19:10 Follow up: Response: No adverse reaction; Pain is decreased rg5 21:27 Drug: morphine IVP or IV 2 mg IVP once over 4 mins Route: IVP; Infused Over: 4 mins; rg5 Site: right antecubital; 21:40 Follow up: Response: No adverse reaction; Pain is decreased rg5 Medication: 18:51 VIS not applicable for this client. db Intake: 19:00 PO: 0ml; Total: 0ml. rg5 Outcome: 21:36 Discharge ordered by MD. cp 21:55 Discharged to home via wheelchair, rg5 21:55 Condition: stable 21:55 Discharge instructions given to patient, family, Instructed on discharge instructions, follow up and referral plans. Demonstrated understanding of instructions, follow-up care, 21:56 Patient left the ED. rg5 Signatures: Dispatcher [employer] EDIN Bryan Kam PA PA cp Prokisch, Amanda, RN RN ap3 Rupa Cortez RN RN db Gallardo, Rommel, RN RN rg5 Mame Fontaine6
--- NOTE | 2024-08-01 21:38 | EDPHYS ---
Physician Documentation [facility] Name: Meme Rushing Age: 84 yrs Sex: Female : 1940 Arrival Date: 08/01/2024 Time: 18:01 Bed 13 Private MD: ED Physician Tani Rosales HPI: 08/01 18:35 This 84 yrs old Female presents to ER via Wheelchair with complaints of Fall cp Injury. 18:35 Details of fall: The patient fell from an upright position, while walking. Onset: The cp symptoms/episode began/occurred today. 18:35 Associated injuries: The patient sustained injury to the head, contusion, swelling, cp neck injury, pain, injury to the chest, specifically the left lateral posterior chest and left lateral anterior chest. 18:35 Daughter reports patient has had multiple falls since yesterday. Fell today hitting cp head. No LOC. Historical: - Allergies: 18:13 Aspirin; ap3 18:13 GRAPEFRUIT; ap3 18:13 Ibuprofen; ap3 18:13 Lisinopril; ap3 18:13 PENICILLINS; ap3 - PMHx: 18:13 ADD/ADHD; CHF; COPD; CVA; Diverticulitis; Hernia; Hyperlipidemia; Hypertension; polyps ap3 and diverticuli in esophagus-had removed and now has more; Renal Disease; - Immunization history:: Client reports receiving the 2nd dose of the Covid vaccine. - Infectious Disease History:: Denies. - Immunization history: Last tetanus immunization: unknown. - Social history:: Smoking status: Patient reports the use of cigarette tobacco products, smokes one pack cigarettes per day. ROS: 18:40 Constitutional: Negative for body aches, chills, fever, poor PO intake, cp 18:40 Eyes: Negative for injury, pain, redness, and discharge, cp 18:40 ENT: Negative for drainage from ear(s), ear pain, sore throat, difficulty swallowing, difficulty handling secretions, 18:40 Neck: Positive for pain with movement, pain at rest, tenderness, 18:40 Cardiovascular: Positive for chest pain, of the left side of chest, Negative for edema, palpitations, 18:40 Respiratory: Negative for cough, shortness of breath, wheezing, 18:40 Back: Positive for pain at rest, pain with movement, 18:40 Neuro: Positive for headache, Negative for altered mental status, loss of consciousness, 18:40 All other systems are negative, Exam: 18:45 Constitutional: The patient appears in no acute distress, alert, awake, cp non-diaphoretic, non-toxic, well developed, frail, uncomfortable, 18:45 Head/face: Noted is contusion, that is superficial, of the forehead, ecchymosis, that cp is mild, of the forehead, 18:45 Eyes: Periorbital structures: appear normal, Pupils: equal, round, and reactive to light and accomodation, Extraocular movements: intact throughout, Lids and lashes: appear normal, bilaterally, 18:45 ENT: External ear(s): are unremarkable, Nose: is normal, Mouth: Lips: moist, Oral mucosa: moist, Posterior pharynx: Airway: no evidence of obstruction, patent, 18:45 Neck: ROM/movement: pain, that is moderate, with any movement, 18:45 Chest/axilla: Inspection: normal, Palpation: crepitus, is not appreciated, tenderness, that is moderate, of the left lateral posterior chest and left lateral anterior chest, 18:45 Cardiovascular: Rate: normal, Rhythm: regular, Edema: is not appreciated, JVD: is not appreciated, 18:45 Respiratory: the patient does not display signs of respiratory distress, Respirations: cp normal, no use of accessory muscles, no retractions, labored breathing, is not present, Breath sounds: are clear throughout, no decreased breath sounds, no stridor, no wheezing, 18:45 Abdomen/GI: Inspection: abdomen appears normal, Palpation: soft, in all quadrants, rebound tenderness, is not appreciated, 18:45 Back: pain, that is moderate, ROM is painful, with all movement, 18:45 Musculoskeletal/extremity: Exam is negative for decreased range of motion, deformity, 18:45 Neuro: Orientation: to person, place \T\ time. Mentation: is normal, Motor: moves all fours, no focal deficits, Sensation: no obvious gross deficits, 18:53 ECG was reviewed by the Attending Physician. cp Vital Signs: 18:10 BP 157 / 58; Pulse 73; Resp 18; Temp 99.1(O); Pulse Ox 96% on R/A; Weight 47.63 kg; ap3 Height 4 ft. 11 in. ; Pain 10/10; 18:40 BP 149 / 51; Pulse 67; Resp 16; Pulse Ox 98% on R/A; db 19:30 BP 130 / 46; Pulse 63; Resp 18; Temp 98; Pulse Ox 98% on R/A; Pain 0/10; rg5 20:45 BP 151 / 44; Pulse 64; Resp 18; Pulse Ox 98% on R/A; rg5 21:25 BP 137 / 42; Pulse 67; Resp 18; Pulse Ox 97% on R/A; Pain 7/10; rg5 18:10 Body Mass Index 21.21 (47.63 kg, 149.86 cm) ap3 18:10 Pain Scale: Adult ap3 19:30 Pain Scale: Adult rg5 21:25 Pain Scale: Adult rg5 Hamburg Coma Score: 18:15 Eye Response: spontaneous(4). Motor Response: obeys commands(6). Verbal Response: ap3 oriented(5). Total: 15. Trauma Score (Adult): 18:15 Eye Response: spontaneous(1); Verbal Response: oriented(1); Motor Response: obeys ap3 commands(2); Systolic BP: > 89 mm Hg(4); Respiratory Rate: 10 to 29 per min(4); Hamburg Score: 15; Trauma Score: 12 MDM: 18:18 Medical Screening Exam initiated cp 21:35 Data reviewed: vital signs, nurses notes, lab test result(s), EKG, radiologic studies, cp CT scan, and as a result, I will discharge patient. 21:35 Differential diagnosis: closed head injury, contusion, fracture, laceration, multiple cp trauma. I considered the following discharge prescriptions or medication management in the emergency department Medications were administered in the Emergency Department. See MAR. Independent interpretation of the following test(s) in the Emergency Department EKG: See my EKG interpretation above. Care significantly affected by the following chronic conditions: Hypertension, Congestive Heart Failure, Chronic Obstructive Pulmonary Disease. Counseling: I had a detailed discussion with the patient and/or guardian regarding the historical points, exam findings, and any diagnostic results supporting the discharge/admit diagnosis, lab results, radiology results, to return to the emergency department if symptoms worsen or persist or if there are any questions or concerns that arise at home. Special discussion: Based on the patient's history, exam and DX evaluation, there is no indication for emergent intervention or inpatient TX. It is understood by the patient/guardian that if the SXs persist or worsen they need to return immediately for re-evaluation. 04 18:32 Order name: Basic Metabolic Panel; Complete Time: 20:12 cp 04/ 20:13 Interpretation: Normal except: CL 110; BUN 41; CRE 1.27; GFR 41. cp 08/01 18:32 Order name: CBC with Diff; Complete Time: 20:12 cp 08/01 20:13 Interpretation: Normal except: RBC 3.44; HGB 11.9; HCT 34.1; MN% 13.0. cp / 18:32 Order name: LFT's; Complete Time: 20:12 cp 08/01 20:15 Interpretation: Reviewed. cp 08/01 18:32 Order name: Magnesium; Complete Time: 20:12 cp 08/01 18:32 Order name: NT PRO-BNP; Complete Time: 20:12 cp 08/01 18:32 Order name: PT-INR; Complete Time: 20:12 cp 08/01 18:32 Order name: Troponin HS; Complete Time: 20:12 cp 08/01 18:32 Order name: Urinalysis W/Microscopic; Complete Time: 21:38 cp 08/01 18:32 Order name: XRAY Chest (1 view); Complete Time: 20:12 cp 08/01 20:15 Interpretation: Report review. cp 08/01 18:32 Order name: XRAY Pelvis; Complete Time: 20:12 cp 04 20:15 Interpretation: Report reviewed. cp 08/01 19:35 Order name: Head C Spine Mpr Wo Con; Complete Time: 20:12 EDMS 08/01 19:37 Order name: Chest Abd Pelvis Wo Con; Complete Time: 20:12 EDMS 08/01 20:14 Interpretation: Report reviewed. cp 08/01 18:32 Order name: Cardiac monitoring; Complete Time: 19:08 cp 08/01 18:32 Order name: EKG - Nurse/Tech; Complete Time: 19:08 cp 08/01 18:32 Order name: IV Saline Lock; Complete Time: 19:08 cp 08/01 18:32 Order name: Labs collected and sent; Complete Time: 19:08 cp 08/01 18:32 Order name: O2 Per Protocol; Complete Time: 19:08 cp 08/01 18:32 Order name: O2 Sat Monitoring; Complete Time: 19:08 cp EC:53 Rate is 69 beats/min. Rhythm is regular. ID interval is normal. QRS interval is normal. cp QT interval is normal. T waves are Inverted in lead aVR. Interpreted by me. Reviewed by me. Administered Medications: 18:42 CANCELLED (Physician Discretion): fentanyl (pf)25 mcg IVP once cp 18:59 Drug: morphine IVP or IV 2 mg IVP once over 4 mins Route: IVP; Infused Over: 4 mins; db Site: right antecubital; 19:10 Follow up: Response: No adverse reaction; Pain is decreased rg5 21:27 Drug: morphine IVP or IV 2 mg IVP once over 4 mins Route: IVP; Infused Over: 4 mins; rg5 Site: right antecubital; 21:40 Follow up: Response: No adverse reaction; Pain is decreased rg5 Disposition: 08/02 21:20 Chart complete. cp Disposition Summary: 08/01/24 21:36 Discharge Ordered Notes: Location: Home cp Problem: new cp Symptoms: have improved cp Condition: Stable cp Diagnosis - Repeated falls cp - Contusion of unspecified part of head, initial encounter cp - Cervicalgia cp - Dorsalgia, unspecified cp Followup: cp - With: Private Physician - When: 2 - 3 days - Reason: Recheck today's complaints Discharge Instructions: - Discharge Summary Sheet cp - Chronic Back Pain cp - Facial or Scalp Contusion cp - Head Injury, Adult cp - Fall Prevention in the Home, Adult cp Forms: - Medication Reconciliation Form cp - Antibiotic Education cp - Prescription Opioid Use cp - Patient Portal Instructions cp - Leadership Thank You Letter cp Addendum: 08/04/2024 10:25 Co-signature as Attending Physician, Tani Rosales MD I reviewed the patient's care r n provided by the Advanced Practice Provider and agree with the diagnosis and treatment plan. Signatures: Dispatcher [employer] Tani Leyva MD MD rn Page, Corey, PA PA cp Rebekah Esteves RN RN ap3 Rupa Cortez RN RN db Truman Sanchez RN RN rg5 Corrections: (The following items were deleted from the chart) 08/01 18:33 18:33 BASIC METABOLIC PANEL+C.LAB.BRZ ordered. EDMS EDMS 18:33 18:33 CBC+H.LAB.BRZ ordered. EDMS EDMS 18:33 18:33 HEPATIC FUNCTION+C.LAB.BRZ ordered. EDMS EDMS 18:33 18:33 MAGNESIUM+C.LAB.BRZ ordered. EDMS EDMS 18:33 18:33 PROBNP+C.LAB.BRZ ordered. EDMS EDMS 18:33 18:33 PROTIME (+INR)+COAG.LAB.BRZ ordered. EDMS EDMS 18:33 18:33 Troponin High Sensitivity+C.LAB.BRZ ordered. EDMS EDMS 18:33 18:33 Chest Single View+RAD.RAD.BRZ ordered. EDMS EDMS 18:33 18:33 Pelvis+RAD.RAD.BRZ ordered. EDMS EDMS 18:42 18:32 fentaNYL (PF) IVP 25 mcg IVP once ordered. cp cp 19:35 18:51 Head C Spine Cap Wo Con+CT.RAD.BRZ ordered. EDMS EDMS 08/02 21:12 08/01 18:35 Granddaughter reports patient has had multiple falls . cp cp
[2024-08-01 22:15] VITALS: TEMP 98
[2024-08-01 22:21] VITALS: BP 137/42; O2SAT 97
--- NOTE | 2024-08-04 11:35 | EKG ---
Test Date: 2024-08-01 Test Time: 18:47:09 Patient Services Assistant: IMER MEASUREMENT RESULTS: Intervals: Rate: 69 AL: 144 QRSD: 76 QT: 402 QTc: 430 [place]: P: 73 AL: 144 QRS: 16 T: 44 INTERPRETIVE STATEMENTS: Sinus rhythm with marked sinus arrhythmia Otherwise normal ECG Compared to ECG 02/26/2023 15:29:46 Sinus bradycardia no longer present Myocardial infarct finding no longer present Electronically Signed On 08-04-24 11:30:06 CDT by Josh Larson
== END 2024-08-01 21:56 | disposition home or self-care (01) ==
LOC: ER 18:01
DX: S00.83XA Contusion of other part of head, initial encounter (principal); M54.2 Cervicalgia; M54.9 Dorsalgia, unspecified; R29.6 Repeated falls; F17.210 Nicotine dependence, cigarettes, uncomplicated
CPT/HCPCS: 85025; 81001; 80048; 36415; 83735; 85610; 80076; 84484; 83880; 70450; 71250; 72125; 74176; 71045; 72170; 96374; 99285; J3010; J2270 ×2; 93005

== ENCOUNTER 2024-08-05 14:21 | Inpatient (IN) | payer MEDICARE ==
--- NOTE | 2024-08-05 15:45 | RAD REPORT ---
EXAM: Chest Single View HISTORY: 84 years Female COUGH COMPARISON: 08/01/2024, CT 08/01/2024 FINDINGS: LUNGS/PLEURA: Increased ill-defined opacities are present in the lung bases bilaterally. A couple of calcified pulmonary nodules are noted. CARDIAC/MEDIASTINUM: The cardiac silhouette is within normal limits. UPPER ABDOMEN: No significant abnormality. BONES: No acute abnormality. LINES/TUBES/OTHER: Loop recorder. IMPRESSION: New, mild opacities in the lung bases could reflect atelectasis, pneumonia, or pneumonitis.
[2024-08-05 17:33] LABS: Absolute Basophils 0.1 K/uL (0-0.5); Absolute Eosinophils 0.2 K/uL (0-0.5); Absolute Lymphocytes (CBC) 1.8 K/uL (0.7-4.9); Absolute Monocytes 1.2 K/uL (0.1-1.3); Absolute Neutrophil 8.2 K/uL (1.8-8.0); Eosinophils % 1.5 % (0-4.4); Hematocrit 35.6 % (36.0-45.0); Hemoglobin 12.3 g/dL (12.0-15.0); Lymphocytes % 15.5 % (15.3-44.8); MCH 34.3 pg (27.0-35.0); MCHC 34.6 g/dL (32.0-36.0); MCV 99.3 fL (80-100); Monocytes % 10.3 % (3.3-12.3); Neutrophils % 71.7 % (41.7-73.7); Platelets 163 thou/uL (152-406); RBC Red Blood Cell Count 3.58 M/uL (3.86-4.86); Red Cell Distribution Width 14.5 % (12.1-15.2)
[2024-08-05 17:37] LABS: Specific Gravity 1.017 (1.005-1.030); Urine Bilirubin NEGATIVE (Negative); Urine Blood Negative (Negative); Urine Clarity Clear (Clear); Urine Color Yellow (Yellow); Urine Glucose NEGATIVE (Negative); Urine Ketones NEGATIVE (Negative); Urine Microscopic Reflex YN NO UMIC; Urine Nitrite NEGATIVE (Negative); Urine Protein NEGATIVE (Negative); Urine Urobilinogen 1+ (Normal); Urine pH 5.5 (5.0-7.0)
[2024-08-05 17:37] LABS: PT Prothrombin Time 10.2 SECONDS (10-13.0); Protime INR 0.89
[2024-08-05 17:55] LABS: Albumin 3.2 g/dL (3.4-5.0); Anion Gap 10.2 mEq/L (5.0-15.0); Bilirubin Direct 0.2 mg/dL (0-0.2); Bilirubin Indirect, Calculated 0.3 mg/dL (0.2-0.8); Bilirubin Total 0.5 mg/dL (0.2-1.0); Globulin 3.3 g/dL (2.3-3.5); Magnesium 2.3 mg/dL (1.6-2.4); Potassium 4.2 mEq/L (3.5-5.1); Protein, Total 6.5 g/dL (6.4-8.2); Troponin High Sensitivity 37.7 pg/mL (<58.9)
[2024-08-05 19:40] LABS: Arterial Blood Carboxyhemoglob 6.5 % (0-1.5); Blood Gas Oxyhemoglobin 79.9 % (94-97); Blood O2 Saturation 87.2 % (92-98.5)
[2024-08-05] MEDS ORDERED: IPRATROPIUM BROM 0.5MG/2.5ML ONE (19:40)
[2024-08-05] MEDS ORDERED: LEVALBUTEROL 1.25 MG/3 ML NEB ONE (19:40)
[2024-08-05] MEDS ORDERED: METHYLPREDNISOLONE 125 MG INJ ONE (19:40)
[2024-08-05 19:41] LABS: Blood Gas THB 11.8 g/dl (12-18)
[2024-08-05] MEDS ORDERED: Levofloxacin500mg IV 500 MG/100 ML BAG IV ONE (19:41)
--- NOTE | 2024-08-05 20:29 | EDPHYS ---
[facility] Name: Meme Rushing Age: 84 yrs Sex: Female : 1940 Arrival Date: 08/05/2024 Time: 14:21 Bed 19 Private MD: ED Physician Bryan Guererro HPI: 08/05 20:21 This 84 yrs old Female presents to ER via Wheelchair with complaints of dr lei wants pt to get more test done. 20:21 The patient has shortness of breath at rest, with light activity. Onset: The quique symptoms/episode began/occurred 3 day(s) ago. Duration: The symptoms are continuous, and are steadily getting worse. The patient's shortness of breath is aggravated by coughing, exertion, light activity, prone position. copd, recent fall. The patient presents with confusion, trouble concentrating. Possible causes: CVA or TIA, head injury, low blood sugar, sepsis. Associated signs and symptoms: Pertinent positives: non-productive cough. Severity of symptoms: At their worst the symptoms were moderate in the emergency department the symptoms are unchanged. Historical: - Allergies: 15:10 Aspirin; ap3 15:10 GRAPEFRUIT; ap3 15:10 Ibuprofen; ap3 15:10 Lisinopril; ap3 15:10 PENICILLINS; ap3 - PMHx: 15:10 ADD/ADHD; CHF; COPD; CVA; Diverticulitis; Hernia; Hyperlipidemia; Hyperlipidemia; ap3 Hyperlipidemia; Hyperlipidemia; Hypertension; polyps and diverticuli in esophagus-had removed and now has more; Renal Disease; - Immunization history:: Client reports receiving the 2nd dose of the Covid vaccine. - Infectious Disease History:: Denies. - Social history:: Smoking status: Patient denies any tobacco usage or history of. - Family history:: not pertinent. ROS: 20:21 Constitutional: Negative for fever, chills, and weight loss, Eyes: Negative for injury, quique pain, redness, and discharge, ENT: Negative for injury, pain, and discharge, Neck: Negative for injury, pain, and swelling, Cardiovascular: Negative for chest pain, palpitations, and edema, Abdomen/GI: Negative for abdominal pain, nausea, vomiting, diarrhea, and constipation, Back: Negative for injury and pain, : Negative for injury, bleeding, discharge, and swelling, MS/Extremity: Negative for injury and deformity, Skin: Negative for injury, rash, and discoloration, Psych: Negative for depression, anxiety, suicide ideation, homicidal ideation, and hallucinations, Allergy/Immunology: Negative for hives, rash, and allergies, Endocrine: Negative for neck swelling, polydipsia, polyuria, polyphagia, and marked weight changes, Hematologic/Lymphatic: Negative for swollen nodes, abnormal bleeding, and unusual bruising, 20:21 Respiratory: Positive for cough, shortness of breath, wheezing, expiratory, 20:21 Neuro: Positive for altered mental status, dizziness, near syncope, weakness, Exam: 20:21 Constitutional: This is a well developed, well nourished patient who is awake, alert, quique and in no acute distress. Head/Face: Normocephalic, atraumatic. Eyes: Pupils equal round and reactive to light, extra-ocular motions intact. Lids and lashes normal. Conjunctiva and sclera are non-icteric and not injected. Cornea within normal limits. Periorbital areas with no swelling, redness, or edema. ENT: Nares patent. No nasal discharge, no septal abnormalities noted. Tympanic membranes are normal and external auditory canals are clear. Oropharynx with no redness, swelling, or masses, exudates, or evidence of obstruction, uvula midline. Mucous membranes moist. Neck: Trachea midline, no thyromegaly or masses palpated, and no cervical lymphadenopathy. Supple, full range of motion without nuchal rigidity, or vertebral point tenderness. No Meningismus. Chest/axilla: Normal chest wall appearance and motion. Nontender with no deformity. No lesions are appreciated. Cardiovascular: Regular rate and rhythm with a normal S1 and S2. No gallops, murmurs, or rubs. Normal PMI, no JVD. No pulse deficits. Abdomen/GI: Soft, non-tender, with normal bowel sounds. No distension or tympany. No guarding or rebound. No evidence of tenderness throughout. Back: No spinal tenderness. No costovertebral tenderness. Full range of motion. Female : Normal external genitalia. Skin: Warm, dry with normal turgor. Normal color with no rashes, no lesions, and no evidence of cellulitis. MS/ Extremity: Pulses equal, no cyanosis. Neurovascular intact. Full, normal range of motion., bilateral aka Psych: Awake, alert, with orientation to person, place and time. Behavior, mood, and affect are within normal limits. 20:21 Neuro: Orientation: to person, place, Not oriented to time, situation, Mentation: slow to respond, confused, Memory: is normal, appropriate for stated age, Cranial nerves: is grossly normal based on the patient's age, no acute changes, Cerebellar function: is grossly normal, Motor: moves all fours, Sensation: is normal, Gait: not tested. seizure activity, is not displayed by the patient, 20:24 Respiratory: the patient does not display signs of respiratory distress, Respirations: quique labored breathing, that is mild, Breath sounds: rales, are not appreciated, bronchial sounds, that are mild, are scattered, decreased breath sounds, that are mild, are scattered, rhonchi, that are mild, stridor, is not appreciated, + upper airway congestion. wheezing: inspiratory expiratory Respiratory rate: 16 20:24 Musculoskeletal/extremity: DVT Exam: No signs of deep vein thrombosis. no pain, no swelling, no tenderness, negative Homans' sign noted on exam, no appreciated bluish discoloration, no erythema, no increased warmth, 20:32 ECG was reviewed by the Attending Physician. [facility] Vital Signs: 15:08 BP 111 / 55; Pulse 58; Resp 17; Temp 98; Pulse Ox 94% ; Weight 48.53 kg; Height 4 ft. ap3 11 in. ; 18:45 BP 142 / 51; Pulse 57; Resp 15; Pulse Ox 92% ; ap3 19:33 BP 135 / 54; Pulse 62; Resp 16 S; Pulse Ox 96% on R/A; lg3 22:39 BP 131 / 59; Pulse 64; Resp 15 S; Pulse Ox 99% on highflow; lg3 23:28 BP 146 / 53; Pulse 63; Resp 16 S; Pulse Ox 99% on highflow; Pain 0/10; lg3 15:08 Body Mass Index 21.61 (48.53 kg, 149.86 cm) ap3 23:28 Pain Scale: Adult lg3 NIH Stroke Scale Scores: 20:21 NIHSS Score: 0 quique Ingrid Coma Score: 20:21 Eye Response: spontaneous(4). Motor Response: obeys commands(6). Verbal Response: quique oriented(5). Total: 15. MDM: 14:36 Medical Screening Exam initiated quique 20:30 Differential diagnosis: Anemia Anxiety Reaction asthma, Bronchitis CHF exacerbation, quique Chronic Obstructive Pulmonary Disease Myocardial Infarction pneumonia, pulmonary edema, Pulmonary Embolism reactive airway disease, Sepsis Unstable Angina. Antibiotic administration: Levaquin given. Differential Diagnosis altered mental status, sepsis, flu. Immunization status: Pneumococcal vaccine: within last 5 years. Influenza vaccine: within last 5 years. Data reviewed: vital signs, nurses notes, lab test result(s), EKG, radiologic studies, CT scan, plain films. Consideration of Admission/Observation Patient was admitted/placed on observation. Escalation of care including admission/observation considered. I considered the following discharge prescriptions or medication management in the emergency department Medications were administered in the Emergency Department. See MAR. Independent interpretation of the following test(s) in the Emergency Department EKG: See my EKG interpretation above. Test considered but Not performed: EKG: no 2 d echo. Care significantly affected by the following chronic conditions: Diabetes, Hypertension, Congestive Heart Failure, Chronic Obstructive Pulmonary Disease, Chronic Kidney Disease. Counseling: I had a detailed discussion with the patient and/or guardian regarding the historical points, exam findings, and any diagnostic results supporting the discharge/admit diagnosis, lab results, radiology results, the need for further work-up and treatment in the hospital. 08/05 14:37 Order name: Basic Metabolic Panel; Complete Time: 19:20 [facility] 08/05 14:37 Order name: CBC with Diff; Complete Time: 19:20 [facility] 08/05 14:37 Order name: LFT's; Complete Time: 19:20 [facility] 08/05 14:37 Order name: Magnesium; Complete Time: 19:20 [facility] 08/05 14:37 Order name: NT PRO-BNP; Complete Time: 19:20 [facility] 08/05 14:37 Order name: PT-INR; Complete Time: 19:20 [facility] 08/05 14:37 Order name: Troponin HS; Complete Time: 19:20 [facility] 08/05 14:37 Order name: Urinalysis w/ reflexes; Complete Time: 19:20 [facility] 08/05 14:37 Order name: Lipase; Complete Time: 19:20 [facility] 08/05 19:20 Order name: Blood Culture Adult (2) [facility] 08/05 19:20 Order name: Lactate w/ 2H reflex if indic.; Complete Time: 20:35 [facility] 08/05 19:20 Order name: ABG; Complete Time: 20:17 [facility] 08/05 20:35 Order name: COVID-19 Ag + Flu A+B Ag [facility] 08/05 22:04 Order name: Basic Metabolic Panel EDMN 08/05 22:04 Order name: Urinalysis w/ reflexes EDMN 08/05 22:05 Order name: Basic Metabolic Panel EDMN 08/05 22:05 Order name: CBC with Automated Diff EDMN 08/05 22:05 Order name: CBC with Automated Diff EDMN 08/05 22:05 Order name: Sputum Culture EDMN 08/05 14:37 Order name: XRAY Chest (1 view); Complete Time: 19:20 [facility] 08/05 19:24 Order name: Head C Spine Mpr Wo Con EDMS 08/05 19:24 Order name: Chest Abd Pelvis Wo Con EDMS 08/05 14:37 Order name: Cardiac monitoring; Complete Time: 19:00 [facility] 08/05 14:37 Order name: EKG - Nurse/Tech; Complete Time: 19:00 [facility] 08/05 14:37 Order name: IV Saline Lock; Complete Time: 18:12 [facility] 08/05 14:37 Order name: Labs collected and sent; Complete Time: 18:12 [facility] 08/05 14:37 Order name: O2 Per Protocol; Complete Time: 18:12 [facility] 08/05 14:37 Order name: O2 Sat Monitoring; Complete Time: 18:12 [facility] EC:32 Rate is 60 beats/min. Rhythm is regular. QRS [place] is Normal. GA interval is normal. QRS quique interval is normal. QT interval is normal. No Q waves. T waves are Normal. No ST changes noted. Clinical impression: NSR w/ Non-specific ST/T Changes and No evidence of ischemia. Interpreted by me. Reviewed by me. Administered Medications: 19:47 Drug: Levalbuterol Inhalation 2.5 mg Inhalation once Route: Inhalation; lg3 23:30 Follow up: Response: No adverse reaction lg3 19:47 Drug: Ipratropium Inhalation Aerosol 0.5 mg Inhalation once Route: Inhalation; lg3 23:30 Follow up: Response: No adverse reaction lg3 19:47 Drug: MethylPrednisoLONE IVP 125 mg IVP once Route: IVP; Site: right forearm; lg3 23:29 Follow up: Response: No adverse reaction lg3 19:56 Drug: levofloxacin IVPB 500 mg 100 ml IVPB once over 60 mins Volume: 100 ml; Route: lg3 IVPB; Infused Over: 60 mins; Site: right forearm; 23:30 Follow up: Response: No adverse reaction; IV Status: Completed infusion; IV Intake: lg3 100ml Disposition Summary: 08/05/24 20:28 Hospitalization Ordered Notes: Hospitalization Status: Inpatient Admission quique Provider: Lilo Appiah cha Location: Telemetry/MedSurg (Inpatient) quique Condition: Fair quique Problem: new quique Symptoms: have improved quique Bed/Room Type: Standard quique Room Assignment: 402(08/05/24 22:44) rv1 Diagnosis - Fall on same level, unspecified quique - Unspecified kidney failure quique - Pneumonia due to other specified bacteria - bibasilar quique - Elevated white blood cell count quique - Acute and chronic respiratory failure with hypoxia quique - Type 2 diabetes mellitus with hyperglycemia quique - COPD/ Chronic obstructive pulmonary disease with (acute) exacerbation - elevated quique carboxyhemoglobin(08/05/24 20:33) - Respiratory failure, unspecified with hypercapnia quique Forms: - Medication Reconciliation Form quique - SBAR form quique - Leadership Thank You Letter quique NIH Stroke Scale - NIH Stroke Score Date: 08/05/2024 Time: 20:21 Total Score = 0 10. Dysarthria (speech clarity - read or repeat words) - 0(Normal) 11. Extinction and Inattention (visual/tactile/auditory/spatial/personal) - 0(No abnormality) 1a. Level of Consciousness (LOC) - 0(Alert) 1b. Level of Consciousness (LOC) (Month \T\ Age) - 0(Both) 1c. LOC Commands (Open \T\ Closes Eyes/Traffic Manager) - 0(Both) 2. Best Gaze (Lateral Gaze Paresis) - 0(Normal) 3. Visual Field Loss - 0(No visual loss) 4. Facial Palsy - 0(Normal) 5a. Left Arm: Motor (10-second hold) - 0(No drift) 5b. Right Arm: Motor (10-second hold) - 0(No drift) 6a. Left Leg: Motor (5-second hold - always test supine) - 0(No drift) 6b. Right Leg: Motor (5-second hold - always test supine) - 0(No drift) 7. Limb Ataxia (finger/nose \T\ heel/[place] - test with eyes open) - 0(Absent) 8. Sensory Loss (pinprick arms/legs/face) - 0(Normal) 9. Best Language: Aphasia (description/naming/reading) - 0(No aphasia) Initials: quique Signatures: Dispatcher [employer] EDMS Bryan Guerrero MD MD cha Prokisch, Amanda, RN RN ap3 Able, RAINA Vu RN lg3 Elsa Shirley rv1 Corrections: (The following items were deleted from the chart) 14:37 14:37 BASIC METABOLIC PANEL+C.LAB.BRZ ordered. EDMS EDMS 14:37 14:37 CBC+H.LAB.BRZ ordered. EDMS EDMS 14:37 14:37 HEPATIC FUNCTION+C.LAB.BRZ ordered. EDMS EDMS 14:37 14:37 MAGNESIUM+C.LAB.BRZ ordered. EDMS EDMS 14:37 14:37 PROBNP+C.LAB.BRZ ordered. EDMS EDMS 14:37 14:37 PROTIME (+INR)+COAG.LAB.BRZ ordered. EDMS EDMS 14:37 14:37 Troponin High Sensitivity+C.LAB.BRZ ordered. EDMS EDMS 14:37 14:37 Urinalysis+U.LAB.BRZ ordered. EDMS EDMS 14:37 14:37 LIPASE+C.LAB.BRZ ordered. EDMS EDMS 14:37 14:37 Chest Single View+RAD.RAD.BRZ ordered. EDMS EDMS 19:21 19:21 BLOOD CULTURE*+BA.LAB.BRZ ordered. EDMS EDMS 19:21 19:21 LACTATE+C.LAB.BRZ ordered. EDMS EDMS 19:22 19:21 Head C Spine Cap Wo Con+CT.RAD.BRZ ordered. EDMS EDMS 20:33 20:28 COPD/ Chronic obstructive pulmonary disease with (acute) exacerbation quique quique 22:08 20:28 quique rv1 22:44 22:08 408 rv1 rv1
--- NOTE | 2024-08-05 20:29 | ER ---
Nurse's Notes [facility] Name: Meme Rushing Age: 84 yrs Sex: Female : 1940 Arrival Date: 08/05/2024 Time: 14:21 Bed 19 Private MD: Diagnosis: Fall on same level, unspecified;Unspecified kidney failure;COPD/ Chronic obstructive pulmonary disease with (acute) exacerbation-elevated carboxyhemoglobin;Pneumonia due to other specified bacteria-bibasilar;Elevated white blood cell count;Acute and chronic respiratory failure with hypoxia;Type 2 diabetes mellitus with hyperglycemia;Respiratory failure, unspecified with hypercapnia Presentation: 08/05 15:08 Chief complaint: Patient states: her dr sent her for an MRI due to her recent falls. ap3 patient states she was evaluated last week for a fall. Coronavirus screen: At this time, the client does not indicate any symptoms associated with coronavirus-19. Ebola Screen: No symptoms or risks identified at this time. Initial Sepsis Screen: Does the patient meet any 2 criteria? No. Patient's initial sepsis screen is negative. Does the patient have a suspected source of infection? No. Patient's initial sepsis screen is negative. Risk Assessment: Do you want to hurt yourself or someone else? Patient reports no desire to harm self or others. Onset of symptoms is unknown. 15:08 Method Of Arrival: Wheelchair ap3 15:08 Acuity: RODY 3 ap3 Triage Assessment: 15:10 General: Appears in no apparent distress. Behavior is calm, cooperative, appropriate ap3 for age. Pain: Denies pain. Neuro: Level of Consciousness is awake, alert, obeys commands, Oriented to person, place, time, situation, Appropriate for age Gait is ambulates with walker. reports recent falls. Speech is normal. Cardiovascular: Patient's skin is warm and dry. Respiratory: Airway is patent Respiratory effort is even, unlabored, Respiratory pattern is regular, symmetrical. Derm: Bruising that is dark purple, on face and left eye. Historical: - Allergies: 15:10 Aspirin; ap3 15:10 GRAPEFRUIT; ap3 15:10 Ibuprofen; ap3 15:10 Lisinopril; ap3 15:10 PENICILLINS; ap3 - PMHx: 15:10 ADD/ADHD; CHF; COPD; CVA; Diverticulitis; Hernia; Hyperlipidemia; Hyperlipidemia; ap3 Hyperlipidemia; Hyperlipidemia; Hypertension; polyps and diverticuli in esophagus-had removed and now has more; Renal Disease; - Immunization history:: Client reports receiving the 2nd dose of the Covid vaccine. - Infectious Disease History:: Denies. - Social history:: Smoking status: Patient denies any tobacco usage or history of. - Family history:: not pertinent. Screenin:11 Abuse screen: Denies threats or abuse. Nutritional screening: No deficits noted. ap3 Tuberculosis screening: No symptoms or risk factors identified. 18:15 [facility] ED Fall Risk Assessment (Adult) History of falling in the last 3 months, ap3 including since admission Yes- single mechanical fall (1 pt) Confusion or Disorientation Yes (5 pts) Intoxicated or Sedated No (0 pts) Impaired Gait Yes (1 pt) Mobility Assist Device Used No (0 pt) Altered Elimination No (0 pt) Score/Fall Risk Level 0 - 2 = Low Risk Maintained a safe environment, Provided non-skid footwear, Hourly rounding (assess needs \T\ fall precautionary measures) done. Assessment: 18:15 General: Appears in no apparent distress. well groomed, well developed, well nourished, ap3 Behavior is calm, cooperative, appropriate for age, Reports her dr sent her for an MRI due to her recent falls. patient states she was evaluated last week for a fall. Pain: Denies pain. Neuro: Level of Consciousness is awake, alert, obeys commands, Oriented to person, place, time, situation, Appropriate for age Family reports increased confusion at home. Cardiovascular: Patient's skin is warm and dry. Respiratory: Airway is patent Respiratory effort is even, unlabored, Respiratory pattern is regular, symmetrical. GI: No signs and/or symptoms were reported involving the gastrointestinal system. : No signs and/or symptoms were reported regarding the genitourinary system. EENT: No signs and/or symptoms were reported regarding the EENT system. Derm: Skin is intact, is healthy with good turgor, Skin is pink, warm \T\ dry. Musculoskeletal: No signs and/or symptoms reported regarding the musculoskeletal system. 19:33 General: Appears in no apparent distress. comfortable, Behavior is calm, cooperative. lg3 Pain: Denies pain. Neuro: Mcmahon Agitation-Sedation Scale (RASS): 0 - Alert and Calm Level of Consciousness is awake, alert, obeys commands, confused, Oriented to person, place, situation, Appropriate for age Client Advisor are equal bilaterally Speech is normal, Facial symmetry appears normal. Cardiovascular: No deficits noted. Denies chest pain, shortness of breath, Capillary refill < 3 seconds Clubbing of nail beds is absent JVD is absent Patient's skin is warm and dry. Respiratory: No deficits noted. Airway is patent Respiratory effort is even, unlabored, Respiratory pattern is regular, symmetrical, Breath sounds are clear bilaterally. GI: No deficits noted. No signs and/or symptoms were reported involving the gastrointestinal system. Abdomen is flat, non-distended. : No signs and/or symptoms were reported regarding the genitourinary system. EENT: No deficits noted. No signs and/or symptoms were reported regarding the EENT system. Derm: Skin is intact, is healthy with good turgor, Skin is dry, Skin is normal, Skin temperature is warm Bruising that is yellow, on left eye. Musculoskeletal: Circulation, motion, and sensation intact. Range of motion: intact in all extremities, Parent/caregiver report the patient having generalized weakness. 19:56 General: son Efe [phone]. lg3 23:28 Reassessment: Patient appears in no apparent distress at this time. No changes from lg3 previously documented assessment. Patient and/or family updated on plan of care and expected duration. Pain level reassessed. Patient is alert, oriented x 3, equal unlabored respirations, skin warm/dry/pink. Vital Signs: 15:08 BP 111 / 55; Pulse 58; Resp 17; Temp 98; Pulse Ox 94% ; Weight 48.53 kg; Height 4 ft. ap3 11 in. ; 18:45 BP 142 / 51; Pulse 57; Resp 15; Pulse Ox 92% ; ap3 19:33 BP 135 / 54; Pulse 62; Resp 16 S; Pulse Ox 96% on R/A; lg3 22:39 BP 131 / 59; Pulse 64; Resp 15 S; Pulse Ox 99% on highflow; lg3 23:28 BP 146 / 53; Pulse 63; Resp 16 S; Pulse Ox 99% on highflow; Pain 0/10; lg3 15:08 Body Mass Index 21.61 (48.53 kg, 149.86 cm) ap3 23:28 Pain Scale: Adult lg3 [place] Coma Score: 20:21 Eye Response: spontaneous(4). Motor Response: obeys commands(6). Verbal Response: quique oriented(5). Total: 15. NIH Stroke Scale Scores: 20:21 NIHSS Score: 0 quique ED Course: 14:23 Patient arrived in ED. al6 14:36 Bryan Guerrero MD is Attending Physician. quique 15:09 XRAY Chest (1 view) In Process Unspecified. EDMS 15:10 Triage completed. ap3 15:11 Arm band placed on left wrist. ap3 18:11 Shirin Castanon, RAINA is Primary Nurse. me1 18:13 Initial lab(s) drawn, by ED staff, sent to lab. Inserted saline lock: 20 gauge in right me1 forearm, using aseptic technique. 18:15 Patient has correct armband on for positive identification. Bed in low position. Call ap3 light in reach. Side rails up X2. Provided Education on: POC. Verbalized understanding.. Client placed on continuous cardiac and pulse oximetry monitoring. NIBP monitoring applied. quality assurance monitor on. Pulse ox on. NIBP on. 18:15 No provider procedures requiring assistance completed. ap3 18:15 EKG done, by ED staff, reviewed by Bryan Guerrero MD. ap3 19:33 Door closed. Noise minimized. Warm blanket given. Pillow given. Family accompanied lg3 patient. 20:26 Lilo Appiah MD is Hospitalizing Provider. quique 20:29 Head C Spine Mpr Wo Con In Process Unspecified. EDMS 20:29 Chest Abd Pelvis Wo Con In Process Unspecified. EDMS 23:39 Patient admitted, IV remains in place. ha1 Administered Medications: 19:47 Drug: Levalbuterol Inhalation 2.5 mg Inhalation once Route: Inhalation; lg3 23:30 Follow up: Response: No adverse reaction lg3 19:47 Drug: Ipratropium Inhalation Aerosol 0.5 mg Inhalation once Route: Inhalation; lg3 23:30 Follow up: Response: No adverse reaction lg3 19:47 Drug: MethylPrednisoLONE IVP 125 mg IVP once Route: IVP; Site: right forearm; lg3 23:29 Follow up: Response: No adverse reaction lg3 19:56 Drug: levofloxacin IVPB 500 mg 100 ml IVPB once over 60 mins Volume: 100 ml; Route: lg3 IVPB; Infused Over: 60 mins; Site: right forearm; 23:30 Follow up: Response: No adverse reaction; IV Status: Completed infusion; IV Intake: lg3 100ml Medication: 18:15 VIS not applicable for this client. ap3 Intake: 23:30 IV: 100ml; Total: 100ml. lg3 Outcome: 20:28 Decision to Hospitalize by Provider. [facility] 23:38 Admitted to Tele accompanied by tech, via stretcher, room 402, with chart, ha1 23:38 Condition: stable 23:38 Instructed on the need for admit, Demonstrated understanding of instructions, 23:39 Patient left the ED. ha1 NIH Stroke Scale - NIH Stroke Score Date: 08/05/2024 Time: 20:21 Total Score = 0 10. Dysarthria (speech clarity - read or repeat words) - 0(Normal) 11. Extinction and Inattention (visual/tactile/auditory/spatial/personal) - 0(No abnormality) 1a. Level of Consciousness (LOC) - 0(Alert) 1b. Level of Consciousness (LOC) (Month \T\ Age) - 0(Both) 1c. LOC Commands (Open \T\ Closes Eyes/Sustainability Project Coordinator) - 0(Both) 2. Best Gaze (Lateral Gaze Paresis) - 0(Normal) 3. Visual Field Loss - 0(No visual loss) 4. Facial Palsy - 0(Normal) 5a. Left Arm: Motor (10-second hold) - 0(No drift) 5b. Right Arm: Motor (10-second hold) - 0(No drift) 6a. Left Leg: Motor (5-second hold - always test supine) - 0(No drift) 6b. Right Leg: Motor (5-second hold - always test supine) - 0(No drift) 7. Limb Ataxia (finger/nose \T\ heel/holland - test with eyes open) - 0(Absent) 8. Sensory Loss (pinprick arms/legs/face) - 0(Normal) 9. Best Language: Aphasia (description/naming/reading) - 0(No aphasia) Initials: [facility] Signatures: Dispatcher [employer] EDBryan Graf MD MD cha Prokisch, Amanda, RN RN ap3 Mirella Villarreal RN RN lg3 Enid Leblanc RN RN 1 Shirin Castanon RN RN mt1 Mame Fontaine6 Corrections: (The following items were deleted from the chart) 19:04 15:08 Chief complaint: Patient states: her dr sent her for an MRI due to her ap3 recent falls. patient states she was evaluated last week for a fall ap3
--- NOTE | 2024-08-05 20:50 | RAD REPORT ---
EXAMINATION: CT HEAD WITHOUT CONTRAST CT CERVICAL SPINE WITHOUT CONTRAST CLINICAL INDICATION: Head and neck injury status post fall. Head and neck pain TECHNIQUE: Axial CT images from the skull base to the vertex without intravenous contrast. Axial CT i mages through the cervical spine were obtained without intravenous contrast. Sagittal and coronal reformatted images were created from the data set. Coronal and sagittal reformatted images were creat ed from the data set. One or more of the following dose reduction techniques were used: Automated exposure control, adjustment of the mA and/or kV according to patient size, and/or iterative reconstr uction. Unless otherwise specified, incidental findings do not require dedicated imaging follow-up. [id number]. Comparison: none FINDINGS: An intracranial bleed is not seen. Ventricles are normal in caliber. No significant hypodensity within the brain No extra-axial fluid collection. No fluid within the sinuses/mastoids No fracture or dislocation is seen involving the cervical spine. Mild anterior subluxation C3 on C4 and C4 on C5 unchanged from August 01, 2024. IMPRESSION: No acute intracranial abnormality noted A cervical fracture is not seen. If the patient continues to have symptoms to suggest acute DOCKET SPECIALIST/spinal pathology then MRI would be rec ommended
--- NOTE | 2024-08-05 21:01 | RAD REPORT ---
EXAM: CT CHEST, ABDOMEN AND PELVIS WITHOUT CONTRAST CLINICAL INDICATION: Chest and abdominal pain status post fall TECHNIQUE: CT chest, abdomen and pelvis was performed, without IV contrast, as per department protoco l. Axial, sagittal and coronal reconstructions were obtained. One or more of the following dose reduction techniques were used: Automated exposure control, adjustment of the mA and/or kV according to the patient size, and/or iterative reconstruction. Unless otherwise specified, incidental findings do not require dedicated imaging follow-up. The lack of IV and oral contrast limits evaluation of the mediastinum, rafa, vessels, organs and alex l. COMPARISON: August 02, 2023 FINDINGS: No pulmonary contusion. No mediastinal hematoma No pleural effusion. No pericardial effusion. Liver, spleen, pancreas, adrenals kidneys and bladder do not demonstrate a traumatic injury. There is no evidence of diverticulitis Mild compression deformities L1 and L4 vertebral bodies unchanged. IMPRESSION: No acute traumatic injury seen
[2024-08-05] MEDS ORDERED: ONDANSETRON 4 MG/2 ML VIAL IV PRN (21:58)
[2024-08-05] MEDS ORDERED: ZOLPIDEM TARTRATE 5 MG TABLET PO PRN (21:58)
--- NOTE | 2024-08-05 22:03 | P.HP ---
Patient History Date of Service: 08/06/24 Reason for admission: Fall History of Present Illness: 84-year-old female with a past medical history of COPD, history of CVA, hyperlipidemia, hypertension, presenting after a fall. She has had increasing shortness of breath with light activity for the last several days. Associated symptoms include cough and confusion. There is no family at bedside and history is limited due to patient's confusion. She was found to have low oxygen in the ED. EKG without any acute abnormalities. She was given breathing treatments and placed on supplemental oxygen. No fevers. Allergies Penicillins Allergy (Intermediate, Verified 03/17/13 23:37) SWELLING lisinopril Allergy (Mild, Verified 03/17/13 23:37) Hives/Rash grapefruit Allergy (Verified 04/01/15 16:10) Hives/Rash aspirin Adverse Reaction (Verified 12/04/16 20:20) Shortness of breath Home Medications: Amlodipine [Norvasc*] 5 mg PO BID 04/25/13 Escitalopram Oxalate 20 mg PO DAILY 04/25/13 Furosemide [Lasix*] 20 mg PO BID 04/25/13 Mirtazapine [Remeron*] 30 mg PO BEDTIME 04/25/13 Allopurinol 100 mg PO BREAKFAST 03/05/22 Famotidine [Pepcid*] 20 mg PO DAILY 03/05/22 Losartan Potassium [Cozaar] 50 mg PO BID 03/05/22 Ascorbic Acid [Vitamin C] 500 mg PO DAILY 08/06/24 Aspirin [Aspirin EC] 81 mg PO DAILY 08/06/24 Baclofen 10 mg PO Q8HP PRN 08/06/24 Buspirone HCl [Buspar] 10 mg PO BID 08/06/24 Calcium Carbonate [Calcium] 500 mg PO DAILY 08/06/24 Cyanocobalamin (Vitamin B-12) [Vitamin B12] 2,500 mcg PO DAILY 08/06/24 Hydrocodone Bit/Acetaminophen [[place] 10-325 Tablet] 1 each PO BIDP PRN 08/06/24 Multivitamin [Multivitamins] 1 each PO DAILY 08/06/24 Pregabalin [Lyrica] 100 mg PO BID 08/06/24 carvediloL [Coreg] 25 mg PO BID 08/06/24 methocarbamoL [Methocarbamol] 750 mg PO DAILY 08/06/24 - Past Medical/Surgical History Diabetic: No -: Chronic renal disease -: copd -: Chronic diastolic congestive heart failure -: HTN -: Hyperlipidemia -: Depression -: GERD -: Celiac disease with history of diverticulosis -: Previous Smoker -: Chronic renal disease -: Celiac disease with history of diverticulosis -: cholecystectomy -: esophogeal polyp removal -: appendectomy -: hysterectomy -: Doppler r/o DVT on L. foot, 02/04/13 -: Aortic echo, valve leakage, 02/04/13 -: Hernia repair 02/2022 Psychosocial/ Personal History: Patient lives at home alone. - Family History Sister -: Diabetes Brother -: Cancer Father -: Cancer Notes: bone, esophageal cx Mother -: Cancer Notes: gallbladder cx - Social History Alcohol use: No CD- Drugs: No Caffeine use: Yes Review of Systems is unable to be obtained Physical Examination - Vital Signs Pulse: 60 Pulse Ox (%): 97 - Physical Exam General: Confused HEENT: Normocephalic Neck: Supple Respiratory: Diminished Cardiovascular: Normal pulses Capillary refill: <2 Seconds Gastrointestinal: Normal bowel sounds Musculoskeletal: No clubbing Integumentary: No rashes Lymphatics: No axilla or inguinal lymphadenopathy - Studies Laboratory Data (last 24 hrs) 08/05/24 08/05/24 08/05/24 17:13 17:13 17:13 WBC 11.40 H Hgb 12.3 Hct 35.6 L Plt Count 163 PT 10.2 INR 0.89 Sodium 140 Potassium 4.2 BUN 29 H Creatinine 1.53 H Glucose 195 H Magnesium 2.3 Total Bilirubin 0.5 AST 23 ALT 22 Alkaline Phosphatase 70 Lipase 91 H Assessment and Plan - Plan COPD exacerbation Acute respiratory failure Pneumonia Heart failure with preserved ejection fraction RADHIKA on CKD stage III History of CVA Hyperlipidemia Hypertension History of ADHD Continue bronchodilators, IV steroid, Levaquin, supplemental oxygen Continue Lasix, daily weights, sodium restriction and fluid restriction Continue amlodipine, Coreg, and Cozaar Continue clopidogrel and lovastatin Continue Remeron and BuSpar Continue Lyrica Continue allopurinol DVT prophylaxis with heparin - Advance Directives Does patient have a Living Will: No Does patient have a Durable POA for Healthcare: No
[2024-08-05] MEDS: Levofloxacin500mg IV 500 MG/100 ML BAG IV SCH (22:19)
[2024-08-05 23:42] LABS: Influenza A Ag Negative; Influenza B Ag Negative; SARS-CoV-2 Antigen Rapid Res Negative (Negative)
[2024-08-06 00:27] VITALS: BMI 22.6
[2024-08-06] MEDS: METHYLPREDNISOLONE 40 MG INJ IV SCH (00:36)
[2024-08-06] MEDS: HEPARIN 5000 UNIT/ML 1 ML VIAL SQ SCH (00:36)
[2024-08-06] MEDS: MIRTAZAPINE 15 MG TAB PO SCH (00:36)
[2024-08-06] MEDS: ALBUTEROL 2.5 MG/3 ML NEB SOL NEB SCH (01:00)
[2024-08-06] MEDS: levoFLOXacin 250 MG TAB PO ONE (02:40)
[2024-08-06] MEDS ORDERED: Levofloxacin500mg IV 500 MG/100 ML BAG IV ONE (04:00)
[2024-08-06 06:27] LABS: Absolute Lymphocytes (CBC) 0.9 K/uL (0.7-4.9); Absolute Monocytes 0.1 K/uL (0.1-1.3); Absolute Neutrophil 5.7 K/uL (1.8-8.0); Basophils % 0.3 % (0-1.3); Hematocrit 34.7 % (36.0-45.0); Hemoglobin 11.8 g/dL (12.0-15.0); Lymphocytes % 12.9 % (15.3-44.8); MCH 34.1 pg (27.0-35.0); MCHC 34.1 g/dL (32.0-36.0); MPV 9.1 fL (7.6-11.3); Neutrophils % 85.8 % (41.7-73.7); Nucleated Red Blood Cells % 0.1 % (0-0); Platelets 154 thou/uL (152-406); RBC Red Blood Cell Count 3.47 M/uL (3.86-4.86); Red Cell Distribution Width 14.1 % (12.1-15.2)
[2024-08-06] MEDS: allopurinoL 100 MG TAB PO SCH (08:57)
[2024-08-06] MEDS ORDERED: ESCITALOPRAM OXALATE 10 MG TABLET PO SCH (09:00)
[2024-08-06] MEDS: HOME MED 1 EA UNK (Budesonide/Formoterol Fumarate [Symbicort 160-4.5 Mcg Inhaler] 10.2 GM IH SCH (09:00)
[2024-08-06] MEDS: LOSARTAN POTASSIUM 50 MG TABLET PO SCH (09:00)
--- NOTE | 2024-08-06 09:03 | P.PN ---
Date of Service: 08/06/24 Subjective: ROS: 10 point ROS as noted above, otherwise negative Physical exam GEN: Alert, oriented, NAD HEENT: Normal conjunctiva, sclera anicteric CV: Regular rate and rhythm, no edema Pulm: Nonlabored respirations on room air ABD: Soft, nontender, nondistended MSK: No joint tenderness Integumentary: No rashes Neuro: Normal speech, normal affect Vitals reviewed Problem List Acute hypoxic respiratory failure COPD with exacerbation Chronic pain Multiple falls Chronic diastolic congestive heart failure History of CVA CKD 3 Hypertension Hyperlipidemia GERD Depression Plan Acute hypoxic respiratory failure COPD with exacerbation PO steroids As needed nebs Wean 02 as tolerated PT consult Chronic pain Resume home medications when confirmed Multiple falls Reports mechanical falls Was not using walker at home Does have walker available, coached on importance of using it PT consultation Chronic diastolic congestive heart failure History of CVA Continue home medications Monitor volume status closely CKD 3 Monitor renal function daily consider nephrology consult if there is worsening-sees Dr. Moncada Hypertension Hyperlipidemia GERD Depression Continue home medications VTE: Lovenox Code: Full Dispo: 2-3 days Time Spent Managing Pts Care (In Minutes): 35
[2024-08-06] MEDS: carvediloL 6.25 MG TAB PO SCH (09:16)
[2024-08-06] MEDS: BUSPIRONE HCL 5 MG TABLET PO SCH ×2 (09:17→20:10)
[2024-08-06] MEDS: ESCITALOPRAM 20 MG TAB PO SCH (09:18)
[2024-08-06] MEDS: FUROSEMIDE 20 MG TABLET PO SCH (09:18)
[2024-08-06] MEDS: CLOPIDOGREL 75 MG TABLET PO SCH (09:18)
[2024-08-06] MEDS: predniSONE 10 MG TAB PO SCH (09:19)
[2024-08-06 09:34] LABS: Platelet Estimate ADEQ; White Blood Cell Scan OK (OK)
[2024-08-06 09:35] LABS: Anisocytosis 1+; Blood Morphology Comment NOTED (NOT SEEN); Macrocytosis 1+
[2024-08-06 10:02] LABS: Anion Gap 9.4 mEq/L (5.0-15.0); Potassium 4.4 mEq/L (3.5-5.1)
--- NOTE | 2024-08-06 11:58 | EKG ---
Test Date: 2024-08-05 Test Time: 18:37:44 Tank Wagon Driver: MEASUREMENT RESULTS: Intervals: Rate: 60 ME: 182 QRSD: 72 QT: 432 QTc: 432 Mccloud: P: 78 ME: 182 QRS: -3 T: -2 INTERPRETIVE STATEMENTS: Normal sinus rhythm with sinus arrhythmia Normal ECG Compared to ECG 08/01/2024 18:47:09 No significant changes Electronically Signed On 08-06-24 11:56:40 CDT by Josh Larson
[2024-08-06] MEDS: ACETAMINOPHEN 500 MG TAB PO PRN (14:13)
[2024-08-06] MEDS ORDERED: BACLOFEN 10 MG TAB PO PRN (17:11)
[2024-08-06] MEDS ORDERED: Levofloxacin500mg IV 500 MG/100 ML BAG IV SCH (20:00)
[2024-08-06] MEDS: PREGABALIN 50 MG CAP PO SCH (20:09)
[2024-08-06] MEDS: carvediloL 25 MG TAB PO SCH (20:10)
[2024-08-06] MEDS: AMLODIPINE 2.5 MG TAB PO SCH (20:11)
[2024-08-06] MEDS ORDERED: ATORVASTATIN 20 MG TAB PO SCH (21:00)
[2024-08-06] MEDS ORDERED: HOME MED 1 EA UNK (Buspirone Hcl [Buspar] 10 MG Tablet) PO SCH (21:00)
[2024-08-06] MEDS ORDERED: HOME MED 1 EA UNK (Pregabalin [Lyrica] 100 MG Capsule) PO SCH (21:00)
[2024-08-06] MEDS ORDERED: AMLODIPINE 5 MG TAB PO SCH (21:00)
[2024-08-06] MEDS ORDERED: MIRTAZAPINE 15 MG TAB PO SCH (21:00)
[2024-08-07 07:18] LABS: Hematocrit 35.4 % (36.0-45.0); Hemoglobin 12.1 g/dL (12.0-15.0); MCH 34.2 pg (27.0-35.0); MCHC 34.4 g/dL (32.0-36.0); MCV 99.4 fL (80-100); MPV 9.1 fL (7.6-11.3); Platelets 173 thou/uL (152-406); RBC Red Blood Cell Count 3.56 M/uL (3.86-4.86)
[2024-08-07 07:34] LABS: Anion Gap 7.8 mEq/L (5.0-15.0); Potassium 3.8 mEq/L (3.5-5.1)
[2024-08-07] MEDS ORDERED: CHLORASEPTIC LOZENGES PO PRN (08:12)
[2024-08-07] MEDS: POTASSIUM CL SA 10 MEQ TAB PO ONE ×2 (09:00→12:31)
--- NOTE | 2024-08-07 09:24 | P.PN ---
Date of Service: 08/07/24 Subjective: Feels like her breathing is improving Complains of back pain No other acute events overnight ROS: 10 point ROS as noted above, otherwise negative Physical exam GEN: Alert, oriented, NAD HEENT: Normal conjunctiva, sclera anicteric CV: Regular rate and rhythm, no edema Pulm: Nonlabored respirations on room air ABD: Soft, nontender, nondistended MSK: No joint tenderness Integumentary: No rashes Neuro: Normal speech, normal affect Vitals reviewed Problem List Acute hypoxic respiratory failure COPD with exacerbation Chronic pain Multiple falls Chronic diastolic congestive heart failure History of CVA CKD 3 Hypertension Hyperlipidemia GERD Depression Plan Acute hypoxic respiratory failure COPD with exacerbation PO steroids As needed nebs Wean 02 as tolerated-on room air this morning so far PT consult-working well with PT Chronic pain Home medications resumed Multiple falls Reports mechanical falls Was not using walker at home Does have walker available, coached on importance of using it PT consultation-worked well with PT, given her decreased function from baseline and frequent falls she would benefit with intermediate placement Chronic diastolic congestive heart failure History of CVA Continue home medications Monitor volume status closely CKD 3 Monitor renal function daily consider nephrology consult if there is worsening-sees Dr. Moncada Hypertension Hyperlipidemia GERD Depression Continue home medications VTE: Lovenox Code: Full Dispo: 2-3 days Time Spent Managing Pts Care (In Minutes): 35
[2024-08-07] MEDS: ASPIRIN EC 81 MG TAB PO SCH (11:15)
[2024-08-07] MEDS: LOSARTAN POTASSIUM 50 MG TABLET PO SCH (11:15)
[2024-08-07] MEDS: methocarbamoL 750 MG TAB PO SCH (11:17)
[2024-08-07] MEDS: HYDROCODONE/APAP 10/325 TAB PO PRN (16:23)
[2024-08-07] MEDS: Levofloxacin500mg IV 500 MG/100 ML BAG IV SCH (23:42)
[2024-08-08 06:41] LABS: Hematocrit 36.2 % (36.0-45.0); Hemoglobin 12.6 g/dL (12.0-15.0); MCH 34.4 pg (27.0-35.0); MCHC 34.7 g/dL (32.0-36.0); MCV 99.1 fL (80-100); MPV 8.6 fL (7.6-11.3); Platelets 184 thou/uL (152-406); RBC Red Blood Cell Count 3.65 M/uL (3.86-4.86); Red Cell Distribution Width 14.2 % (12.1-15.2)
[2024-08-08 07:00] LABS: Magnesium 1.9 mg/dL (1.6-2.4)
[2024-08-08 08:01] VITALS: BP 120/55; TEMP 97.9
[2024-08-08 09:26] VITALS: O2SAT 98
--- NOTE | 2024-08-08 09:32 | P.DS ---
Admission Date: 08/05/24 Discharge Date: 08/08/24 Disposition: DC HOME/HOME HEALTH CARE Discharge Condition: GOOD Reason for Admission: Fall Brief History of Present Illness: 84-year-old female with a past medical history of COPD, history of CVA, hyperlipidemia, hypertension, presenting after a fall. She has had increasing shortness of breath with light activity for the last several days. Associated symptoms include cough and confusion. There is no family at bedside and history is limited due to patient's confusion. She was found to have low oxygen in the ED. EKG without any acute abnormalities. She was given breathing treatments and placed on supplemental oxygen. No fevers. Hospital Course: Problem List Acute hypoxic respiratory failure COPD with exacerbation Chronic pain Multiple falls Chronic diastolic congestive heart failure History of CVA CKD 3 Hypertension Hyperlipidemia GERD Depression Patient was admitted to the hospital for multiple falls, COPD exacerbation. She was initially quite weak with some increased confusion. She was treated with steroids, antibiotics and had improvement in her respiratory symptoms. She also worked with physical therapy initially only able to walk 40 feet with a walker but greatly improved over the course of the last 24 hours, yesterday she walked around 250 feet and today she did much better than that with a walker without any difficulty. She reports that the reason she was falling at home when she was not using her walker, we will arrange for her to receive a new walker and she was coached on the importance of using her walker at all times. Her son at bedside reports that they have arranged for caregivers to be around the house most the time while she is at home as well. Home medication should be continued as previously taken Prescription for short course of oral steroids and antibiotics have been sent to the pharmacy [facility] in [place] Follow-up your primary care doctor in 1 week Vital Signs/Physical Exam: Temp Pulse Resp BP Pulse Ox 97.9 F 70 16 120/55 L 91 08/08/24 08:00 08/08/24 08:34 08/08/24 08:00 08/08/24 08:34 08/08/24 08:00 General: Alert, In no apparent distress, Oriented x3 HEENT: Atraumatic, PERRLA Neck: Supple, JVD not distended Respiratory: Clear to auscultation bilaterally, Normal air movement Cardiovascular: Regular rate/rhythm, Normal S1 S2 Gastrointestinal: Normal bowel sounds, No tenderness Musculoskeletal: No tenderness Integumentary: No rashes Neurological: Normal speech, Normal affect Laboratory Data at Discharge: WBC 9.30 thou/uL (4.3-10.9) 08/08/24 06:29 Hgb 12.6 g/dL (12.0-15.0) 08/08/24 06:29 Hct 36.2 % (36.0-45.0) 08/08/24 06:29 Plt Count 184 thou/uL (152-406) 08/08/24 06:29 PT 10.2 SECONDS (10-13.0) 08/05/24 17:13 INR 0.89 08/05/24 17:13 Sodium 140 mEq/L (136-145) 08/08/24 06:29 Potassium 4.0 mEq/L (3.5-5.1) 08/08/24 06:29 BUN 32 mg/dL (7-18) H 08/08/24 06:29 Creatinine 1.29 mg/dL (0.55-1.02) H 08/08/24 06:29 Glucose 112 mg/dL (74-106) H 08/08/24 06:29 Magnesium 1.9 mg/dL (1.6-2.4) 08/08/24 06:29 Total Bilirubin 0.5 mg/dL (0.2-1.0) 08/05/24 17:13 AST 23 U/L (15-37) 08/05/24 17:13 ALT 22 U/L (13-56) 08/05/24 17:13 Alkaline Phosphatase 70 U/L (45-117) 08/05/24 17:13 Lipase 91 U/L (13-75) H 08/05/24 17:13 Home Medications: Amlodipine [Norvasc*] 5 mg PO BID 04/25/13 Escitalopram Oxalate 20 mg PO DAILY 04/25/13 Furosemide [Lasix*] 20 mg PO BID 04/25/13 Mirtazapine [Remeron*] 30 mg PO BEDTIME 04/25/13 Allopurinol 100 mg PO BREAKFAST 03/05/22 Famotidine [Pepcid*] 20 mg PO DAILY 03/05/22 Losartan Potassium [Cozaar] 50 mg PO BID 03/05/22 Ascorbic Acid [Vitamin C] 500 mg PO DAILY 08/06/24 Aspirin [Aspirin EC] 81 mg PO DAILY 08/06/24 Baclofen 10 mg PO Q8HP PRN 08/06/24 Buspirone HCl [Buspar] 10 mg PO BID 08/06/24 Calcium Carbonate [Calcium] 500 mg PO DAILY 08/06/24 Cyanocobalamin (Vitamin B-12) [Vitamin B12] 2,500 mcg PO DAILY 08/06/24 Hydrocodone Bit/Acetaminophen [[place] 10-325 Tablet] 1 each PO BIDP PRN 08/06/24 Multivitamin [Multivitamins] 1 each PO DAILY 08/06/24 Pregabalin [Lyrica] 100 mg PO BID 08/06/24 carvediloL [Coreg*] 25 mg PO BID 08/06/24 methocarbamoL [Methocarbamol] 750 mg PO DAILY 08/06/24 levoFLOXacin [Levaquin*] 500 mg PO DAILY 4 Days #4 tab 08/08/24 predniSONE [Deltasone*] 10 mg PO BID 5 Days #10 tab 08/08/24 New Medications: predniSONE [Deltasone*] 10 mg PO BID 5 Days #10 tab levoFLOXacin [Levaquin*] 500 mg PO DAILY 4 Days #4 tab Physician Discharge Instructions: Patient was admitted to the hospital for multiple falls, COPD exacerbation. She was initially quite weak with some increased confusion. She was treated with steroids, antibiotics and had improvement in her respiratory symptoms. She also worked with physical therapy initially only able to walk 40 feet with a walker but greatly improved over the course of the last 24 hours, yesterday she walked around 250 feet and today she did much better than that with a walker without any difficulty. She reports that the reason she was falling at home when she was not using her walker, we will arrange for her to receive a new walker and she was coached on the importance of using her walker at all times. Her son at bedside reports that they have arranged for caregivers to be around the house most the time while she is at home as well. Will also arrange for home health with PT Home medication should be continued as previously taken Prescription for short course of oral steroids and antibiotics have been sent to the pharmacy [facility] in [place] Follow-up your primary care doctor in 1 week Diet: AHA Activity: Fall precautions (walker always!!) Followup: Juve Moncada DO [Primary Care Provider] - 1 Week Time spent managing pt's care (in minutes): 47
== END 2024-08-08 11:45 | disposition home health service (06) | DRG 177 ==
LOC: ER 14:21 → ERHOLD 21:58 → 4TH 22:37
PROVIDERS: ADMIT Family Medicine; ATTEND Hospitalist
PROC: 4A033R1 Measurement of Arterial Saturation, Peripheral, Percutaneous Approach (ICD-10-PCS; principal; 2024-08-05)
PROC: 5A0935A Assistance with Respiratory Ventilation, Less than 24 Consecutive Hours, High Flow/Velocity Cannula (ICD-10-PCS; 2024-08-05)
DX: J15.8 Pneumonia due to other specified bacteria (principal); J96.21 Acute and chronic respiratory failure with hypoxia; J44.1 Chronic obstructive pulmonary disease with (acute) exacerbation; J44.0 Chronic obstructive pulmonary disease with (acute) lower respiratory infection; I50.32 Chronic diastolic (congestive) heart failure; I13.0 Hypertensive heart and chronic kidney disease with heart failure and stage 1 through stage 4 chronic kidney disease, or unspecified chronic kidney disease; N17.9 Acute kidney failure, unspecified; N18.30 Chronic kidney disease, stage 3 unspecified; E11.22 Type 2 diabetes mellitus with diabetic chronic kidney disease; E11.65 Type 2 diabetes mellitus with hyperglycemia; E78.5 Hyperlipidemia, unspecified; F32.A Depression, unspecified; K21.9 Gastro-esophageal reflux disease without esophagitis; F90.9 Attention-deficit hyperactivity disorder, unspecified type; R29.6 Repeated falls; Z60.2 Problems related to living alone; Z88.0 Allergy status to penicillin; Z88.6 Allergy status to analgesic agent; Z88.8 Allergy status to other drugs, medicaments and biological substances; Z91.81 History of falling; Z11.52 Encounter for screening for COVID-19; Z86.73 Personal history of transient ischemic attack (TIA), and cerebral infarction without residual deficits; Z79.02 Long term (current) use of antithrombotics/antiplatelets; Z79.899 Other long term (current) drug therapy
CPT/HCPCS: 36415; 36600; 70450; 71045; 71250; 72125; 74176; 80048; 80076; 81003; 82805; 83605; 83690; 83735; 83880; 84484; 85025; 85027; 85610; 87040; 87070; 87205; 87428; 93005; 94640; 94660; 94760; 96365; 96366; 96375; 97116; 97161; 97530; 99285; J1644; J2919; J7512; J7613; J7614; J7644

== ENCOUNTER 2024-08-22 13:11 | Inpatient (IN) | payer MEDICARE ==
[2024-08-22] MEDS ORDERED: NA CHLORIDE 0.9% 50 ML ONE (14:02)
[2024-08-22] MEDS ORDERED: PROMETHAZINE INJ 25 MG/ML AMP ONE (14:02)
[2024-08-22] MEDS ORDERED: MORPHINE 2 MG/ML SYR ONE (14:02)
[2024-08-22] MEDS ORDERED: FAMOTIDINE 20 MG/2 ML VIAL IV ONE (14:02)
[2024-08-22 14:14] LABS: Absolute Eosinophils 0.2 K/uL (0-0.5); Basophils % 0.2 % (0-1.3); Eosinophils % 1.8 % (0-4.4); Hematocrit 36.5 % (36.0-45.0); Hemoglobin 12.9 g/dL (12.0-15.0); Lymphocytes % 22.1 % (15.3-44.8); MCH 34.7 pg (27.0-35.0); MCHC 35.3 g/dL (32.0-36.0); MCV 98.3 fL (80-100); MPV 8.3 fL (7.6-11.3); Monocytes % 10.7 % (3.3-12.3); Neutrophils % 65.2 % (41.7-73.7); Nucleated Red Blood Cells % 0.2 % (0-0); Platelets 208 thou/uL (152-406); RBC Red Blood Cell Count 3.71 M/uL (3.86-4.86)
[2024-08-22 15:14] LABS: AST/SGOT 12 U/L (15-37); Albumin 3.4 g/dL (3.4-5.0); Alkaline Phosphatase 64 U/L (45-117); Anion Gap 9.2 mEq/L (5.0-15.0); BUN Blood Urea Nitrogen 20 mg/dL (7-18); Bicarbonate 28 mEq/L (21-32); Bilirubin Total 0.7 mg/dL (0.2-1.0); Globulin 3.4 g/dL (2.3-3.5); Glomerular Filtration Rate 43 ml/min (=/>90); Glucose Level 82 mg/dL (74-106); Lipase 31 U/L (13-75); NT PRO-BNP 7379 pg/mL (<450); Potassium 3.2 mEq/L (3.5-5.1); Protein, Total 6.8 g/dL (6.4-8.2); Sodium Level 139 mEq/L (136-145); Troponin High Sensitivity 58.5 pg/mL (<58.9)
[2024-08-22 15:15] LABS: ALT/SGPT < 14 U/L (13-56)
--- NOTE | 2024-08-22 15:28 | ER ---
Nurse's Notes [facility] Name: Meme Rushing Age: 84 yrs Sex: Female : 1940 Arrival Date: 08/22/2024 Time: 13:10 Bed 14 Private MD: Diagnosis: Unspecified combined systolic (congestive) and diastolic (congestive) heart failure Presentation: 08/22 13:21 Chief complaint: EMS states: Called to patients home for generalized weakness, nausea cm10 and weight loss over the last 6 weeks. Pt reports a 15 pound weight decrease. Pt also reports epigastric pain. Coronavirus screen: Client denies travel out of the [place] in the last 14 days. Ebola Screen: Patient denies travel to an Ebola-affected area in the 21 days before illness onset. Initial Sepsis Screen: Does the patient meet any 2 criteria? No. Patient's initial sepsis screen is negative. Does the patient have a suspected source of infection? No. Patient's initial sepsis screen is negative. Risk Assessment: Do you want to hurt yourself or someone else? Patient reports no desire to harm self or others. Onset of symptoms is unknown. Care prior to arrival: Medication(s) given: zofran 4 mg, IV initiated. 20 GA, in the left wrist. 13:21 Method Of Arrival: EMS: [facility] cm10 13:21 Acuity: RODY 3 cm10 Triage Assessment: 13:24 General: Appears in no apparent distress. uncomfortable, Behavior is calm, cooperative. cm10 Pain: Complains of pain in epigastric area Pain does not radiate. Pain currently is 8 out of 10 on a pain scale. Neuro: No deficits noted. Level of Consciousness is awake, alert, obeys commands, Oriented to person, place, time, situation, Appropriate for age. Neuro: Reports dizziness, weakness. Respiratory: No deficits noted. Airway is patent Respiratory effort is even, unlabored, Respiratory pattern is regular, symmetrical. GI: Abdomen is flat, non-distended, Reports epigastric pain, nausea. Derm: No deficits noted. Skin is pink, warm \T\ dry. Historical: - Allergies: 13:23 Aspirin; cm10 13:23 GRAPEFRUIT; cm10 13:23 Ibuprofen; cm10 13:23 Lisinopril; cm10 13:23 PENICILLINS; cm10 - PMHx: 13:23 ADD/ADHD; CHF; COPD; CVA; Diverticulitis; Hernia; Hyperlipidemia; Hypertension; polyps cm10 and diverticuli in esophagus-had removed and now has more; Renal Disease; - Immunization history:: Adult Immunizations unknown. - Infectious Disease History:: Denies. - Social history:: Smoking status: Patient reports the use of cigarette tobacco products, smokes one-half pack cigarettes per day. Screenin:26 [facility] ED Fall Risk Assessment (Adult) History of falling in the last 3 months, cm10 including since admission No falls in past 3 months (0 pts) Confusion or Disorientation No (0 pts) Intoxicated or Sedated No (0 pts) Impaired Gait No (0 pts) Mobility Assist Device Used No (0 pt) Altered Elimination No (0 pt) Score/Fall Risk Level 0 - 2 = Low Risk Oriented to surroundings, Maintained a safe environment, Hourly rounding (assess needs \T\ fall precautionary measures) done. Abuse screen: Denies threats or abuse. Denies injuries from another. Nutritional screening: No deficits noted. Tuberculosis screening: No symptoms or risk factors identified. Assessment: 16:34 Reassessment: Patient appears in no apparent distress at this time. Patient and/or cm10 family updated on plan of care and expected duration. Pain level reassessed. Patient is alert, oriented x 3, equal unlabored respirations, skin warm/dry/pink. Purewick placed at this time. 19:28 Reassessment: Patient appears in no apparent distress at this time. Patient and/or cm10 family updated on plan of care and expected duration. Pain level reassessed. Patient is alert, oriented x 3, equal unlabored respirations, skin warm/dry/pink. Vital Signs: 13:21 BP 169 / 64; Pulse 68; Resp 14; Temp 98.8(O); Pulse Ox 100% on R/A; Weight 43.09 kg; cm10 Height 4 ft. 11 in. ; Pain 8/10; 14:00 BP 132 / 54; Pulse 96; Resp 16; Pulse Ox 98% on R/A; cm10 14:30 BP 141 / 63; Pulse 97; Resp 14; Pulse Ox 98% on R/A; cm10 15:00 BP 141 / 81; Pulse 70; Resp 18; Pulse Ox 97% on R/A; cm10 15:30 BP 129 / 47; Pulse 70; Resp 18; Pulse Ox 96% on R/A; cm10 16:00 BP 130 / 55; Pulse 73; Resp 16; Pulse Ox 99% on R/A; cm10 16:30 BP 150 / 71; Pulse 74; Resp 19; Pulse Ox 96% on R/A; cm10 17:00 BP 143 / 57; Pulse 73; Resp 17; Pulse Ox 99% ; cm10 18:00 BP 151 / 71; Pulse 63; Resp 17; Pulse Ox 99% ; cm10 19:00 BP 158 / 55; Pulse 59; Resp 19; Pulse Ox 99% ; cm10 13:21 Body Mass Index 19.19 (43.09 kg, 149.86 cm) cm10 13:21 Pain Scale: Adult cm10 ED Course: 13:10 Patient arrived in ED. eb 13:13 Shayne Rene FNP-C is [facility]. dr5 13:13 Bryan Guerrero MD is Attending Physician. dr5 13:21 Christen Dorman RN is Primary Nurse. cm10 13:23 Triage completed. cm10 13:26 Arm band placed on right wrist. Patient placed in an exam room, on a stretcher, on cm10 pulse oximetry. 13:30 Patient has correct armband on for positive identification. Bed in low position. Call cm10 light in reach. Side rails up X2. 13:30 Client placed on continuous cardiac and pulse oximetry monitoring. NIBP monitoring cm10 applied. case monitor on. 13:30 Maintain EMS IV. Dressing intact. Good blood return noted. Site clean \T\ dry. Gauge \T\ cm 10 site: 20 left wrist. Flushed with 10 mL NS. 14:50 Inserted saline lock: 20 gauge in right antecubital area, using aseptic technique. cm10 Blood collected. Flushed with 10 mL NS. 15:28 Lilo Appiah MD is Hospitalizing Provider. dr5 19:28 Provided Education on: Need for admit. cm10 19:28 No provider procedures requiring assistance completed. Patient admitted, IV remains in cm10 place. Administered Medications: 14:19 Drug: Famotidine IVP 20 mg IVP once; dilute with 10 mL 0.9% NaCl; give over 2 minutes cm10 Route: IVP; Site: left wrist; 14:49 Follow up: Response: No adverse reaction cm10 14:19 Drug: morphine IVP or IV 2 mg IVP once over 4 mins Route: IVP; Infused Over: 4 mins; cm10 Site: left wrist; 14:49 Follow up: Response: No adverse reaction cm10 14:19 Drug: Promethazine IVP 12.5 mg IVP once Route: IVP; Site: left wrist; cm10 14:49 Follow up: Response: No adverse reaction cm10 16:31 Drug: Furosemide IVP 40 mg IVP once; give over 2 minutes Route: IVP; Site: left wrist; cm10 17:01 Follow up: Response: No adverse reaction cm10 Medication: 19:28 VIS not applicable for this client. cm10 Outcome: 15:28 Decision to Hospitalize by Provider. dr5 19:29 Admitted to Med/surg accompanied by tech, via wheelchair, room 225, cm10 19:29 Condition: good 19:29 Instructed on the need for admit, 19:29 Patient left the ED. cm10 Signatures: Carol Cedeno Clarissa, RN RN cm10 Shayne Rene, PROFESSIONAL [employer] FISHER-C PROFESSIONAL [employer] FISHER-Cdr5 Corrections: (The following items were deleted from the chart) 13:24 13:21 Chief complaint: EMS states: Called to patients home for generalized weakness, cm10 nausea and weight loss over the last 6 weeks. Pt reports a 15 pound weight decrease. cm10
--- NOTE | 2024-08-22 15:28 | EDPHYS ---
Physician Documentation [facility] Name: Meme Rushing Age: 84 yrs Sex: Female : 1940 Arrival Date: 08/22/2024 Time: 13:10 Bed 14 Private MD: ED Physician Bryan Guerrero HPI: 08/22 13:27 This 84 yrs old Female presents to ER via EMS with complaints of General dr5 Weakness. 13:27 Patient is a 84-year-old female with history of CHF, COPD, CVA, diverticulitis, hernia, dr5 hyperlipidemia, hypertension coming in with epigastric abdominal pain, nausea, weakness, and reports 15 pound weight loss in the last month. Pt states she started coughing this morning. Pt denies fever, vomiting, chest pain, shortness of breath, or lower extremity swelling.. Historical: - Allergies: 13:23 Aspirin; cm10 13:23 GRAPEFRUIT; cm10 13:23 Ibuprofen; cm10 13:23 Lisinopril; cm10 13:23 PENICILLINS; cm10 - PMHx: 13:23 ADD/ADHD; CHF; COPD; CVA; Diverticulitis; Hernia; Hyperlipidemia; Hypertension; polyps cm10 and diverticuli in esophagus-had removed and now has more; Renal Disease; - Immunization history:: Adult Immunizations unknown. - Infectious Disease History:: Denies. - Social history:: Smoking status: Patient reports the use of cigarette tobacco products, smokes one-half pack cigarettes per day. ROS: 13:27 Constitutional: as per hpi dr5 Exam: 13:27 Constitutional: This is a well developed, well nourished patient who is awake, alert, dr5 and in no acute distress. Head/Face: Normocephalic, atraumatic. Eyes: Pupils equal round and reactive to light, extra-ocular motions intact. Lids and lashes normal. Conjunctiva and sclera are non-icteric and not injected. Cornea within normal limits. Periorbital areas with no swelling, redness, or edema. Neck: Trachea midline, no thyromegaly or masses palpated, and no cervical lymphadenopathy. Supple, full range of motion without nuchal rigidity, or vertebral point tenderness. No Meningismus. Chest/axilla: Normal chest wall appearance and motion. Nontender with no deformity. No lesions are appreciated. Cardiovascular: Regular rate and rhythm with a normal S1 and S2. Normal PMI, no JVD. No pulse deficits. Respiratory: Lungs have equal breath sounds bilaterally, clear to auscultation. No rales, rhonchi or wheezes noted. No increased work of breathing, no retractions or nasal flaring. 13:29 Neuro: Awake and alert, GCS 15, oriented to person, place, time, and situation. dr5 Cranial nerves II-XII grossly intact. Motor strength 5/5 in all extremities. Sensory grossly intact. Cerebellar exam normal. Normal gait. 13:29 Abdomen/GI: Inspection: abdomen appears normal, Bowel sounds: normal, Palpation: moderate abdominal tenderness, in the epigastric area, 13:29 Musculoskeletal/extremity: Extremities: all appear grossly normal, with no appreciated pain with palpation, ROM: no acute changes, Circulation is intact in all extremities. Sensation intact. 13:29 Skin: Exam negative for Vital Signs: 13:21 BP 169 / 64; Pulse 68; Resp 14; Temp 98.8(O); Pulse Ox 100% on R/A; Weight 43.09 kg; cm10 Height 4 ft. 11 in. ; Pain 8/10; 14:00 BP 132 / 54; Pulse 96; Resp 16; Pulse Ox 98% on R/A; cm10 14:30 BP 141 / 63; Pulse 97; Resp 14; Pulse Ox 98% on R/A; cm10 15:00 BP 141 / 81; Pulse 70; Resp 18; Pulse Ox 97% on R/A; cm10 15:30 BP 129 / 47; Pulse 70; Resp 18; Pulse Ox 96% on R/A; cm10 16:00 BP 130 / 55; Pulse 73; Resp 16; Pulse Ox 99% on R/A; cm10 16:30 BP 150 / 71; Pulse 74; Resp 19; Pulse Ox 96% on R/A; cm10 17:00 BP 143 / 57; Pulse 73; Resp 17; Pulse Ox 99% ; cm10 18:00 BP 151 / 71; Pulse 63; Resp 17; Pulse Ox 99% ; cm10 19:00 BP 158 / 55; Pulse 59; Resp 19; Pulse Ox 99% ; cm10 13:21 Body Mass Index 19.19 (43.09 kg, 149.86 cm) cm10 13:21 Pain Scale: Adult cm10 MDM: 13:19 Medical Screening Exam initiated quique 17:04 Differential diagnosis: viral Infection, bronchitis, CHF Exacerbation. Data reviewed: dr5 vital signs, nurses notes. I considered the following discharge prescriptions or medication management in the emergency department Medications were administered in the Emergency Department. See MAR. Care significantly affected by the following chronic conditions: CVA, COPD, CHF, Diverticulitis, Hernia, Hyperlipidemia, HTN. Care significantly affected by the following Social Determinants of Health: Poor access to healthcare and/or lack of insurance, Poor access to transportation, Problems related to employment. Counseling: I had a detailed discussion with the patient and/or guardian regarding the historical points, exam findings, and any diagnostic results supporting the discharge/admit diagnosis, the presence of at least one elevated blood pressure reading (>120/80) during this emergency department visit, lab results, the need for further work-up and treatment in the hospital. ED course: Patient BNP was elevated. Will admit and give IV lasix in ER.. 08/22 13:22 Order name: CBC with Diff; Complete Time: 14:23 rust 08/22 13:22 Order name: Urinalysis w/ reflexes rust 08/22 13:28 Order name: Troponin High Sensitivity; Complete Time: 15:18 rust 08/22 13:28 Order name: NT PRO-BNP; Complete Time: 15:18 rust 08/22 14:53 Order name: Comprehensive Metabolic Panel; Complete Time: 15:18 [facility] 08/22 14:53 Order name: Lipase; Complete Time: 15:18 [facility] 08/22 17:05 Order name: CBC with Automated Diff [facility] 08/22 17:05 Order name: Comprehensive Metabolic Panel [facility] 08/22 17:05 Order name: Troponin High Sensitivity [facility] 08/22 17:05 Order name: Echo with Doppler [facility] 08/22 13:28 Order name: EKG; Complete Time: 13:29 rust 08/22 17:05 Order name: Physical Therapy Consult [facility] 08/22 13:22 Order name: IV Saline Lock; Complete Time: 14:19 rust 08/22 13:22 Order name: Labs collected and sent; Complete Time: 14:19 rust 08/22 13:28 Order name: EKG - Nurse/Tech; Complete Time: 14:19 rust 08/22 14:27 Order name: Labs - recollect needed: 2 GREEN; Complete Time: 14:59 eb EC:13 Rate is 68 beats/min. Rhythm is regular. QRS [place] is Normal. MI interval is normal at dr5 164 msec. QRS interval is normal at 72 msec. QT interval is normal at 440 msec. Administered Medications: 14:19 Drug: Famotidine IVP 20 mg IVP once; dilute with 10 mL 0.9% NaCl; give over 2 minutes cm10 Route: IVP; Site: left wrist; 14:49 Follow up: Response: No adverse reaction cm10 14:19 Drug: morphine IVP or IV 2 mg IVP once over 4 mins Route: IVP; Infused Over: 4 mins; cm10 Site: left wrist; 14:49 Follow up: Response: No adverse reaction cm10 14:19 Drug: Promethazine IVP 12.5 mg IVP once Route: IVP; Site: left wrist; cm10 14:49 Follow up: Response: No adverse reaction cm10 16:31 Drug: Furosemide IVP 40 mg IVP once; give over 2 minutes Route: IVP; Site: left wrist; cm10 17:01 Follow up: Response: No adverse reaction cm10 Disposition Summary: 08/22/24 15:28 Hospitalization Ordered Notes: Hospitalization Status: Inpatient Admission dr5 Provider: Lilo Appiah Location: Telemetry/MedSurg (observation) dr5 Condition: Stable dr5 Problem: chronic dr5 Symptoms: have worsened dr5 Bed/Room Type: Standard rust Room Assignment: 225(08/22/24 17:08) Diagnosis - Unspecified combined systolic (congestive) and diastolic (congestive) heart failure dr5 Forms: - Medication Reconciliation Form dr5 - SBAR form dr5 - Leadership Thank You Letter dr5 Addendum: 08/31/2024 21:05 Co-signature as Attending Physician, Bryan Guerrero MD I agree with the assessment and c leavitt plan of care. Signatures: Dispatcher [employer] [facility] Bryan Guerrero MD MD cha Botello, Elizabeth eb Martinez, Clarissa, RN RN cm10 Shayne Rene FNP-C AT HOME INDEPENDENT CALL CENTER AGENT-Cdr5 Corrections: (The following items were deleted from the chart) 08/22 13:30 13:27 Constitutional: This is a well developed, well nourished patient who is awake, dr5 alert, and in no acute distress. Head/Face: Normocephalic, atraumatic. Eyes: Pupils equal round and reactive to light, extra-ocular motions intact. Lids and lashes normal. Conjunctiva and sclera are non-icteric and not injected. Cornea within normal limits. Periorbital areas with no swelling, redness, or edema. Neck: Trachea midline, no thyromegaly or masses palpated, and no cervical lymphadenopathy. Supple, full range of motion without nuchal rigidity, or vertebral point tenderness. No Meningismus. Chest/axilla: Normal chest wall appearance and motion. Nontender with no deformity. No lesions are appreciated. Cardiovascular: Regular rate and rhythm with a normal S1 and S2. Normal PMI, no JVD. No pulse deficits. Respiratory: Lungs have equal breath sounds bilaterally, clear to auscultation. No rales, rhonchi or wheezes noted. No increased work of breathing, no retractions or nasal flaring. dr5 14:53 13:23 COMPREHENSIVE METABOLIC PANEL+C.LAB.BRZ ordered. EDMS EDMS 14:53 13:23 LIPASE+C.LAB.BRZ ordered. EDMS EDMS 17:08 15:28 dr5 eb
[2024-08-22] MEDS ORDERED: FUROSEMIDE 40 MG/4 ML VIAL ONE (16:09)
[2024-08-22] MEDS ORDERED: ACETAMINOPHEN 650MG/RECT SUPP PR PRN (16:59)
[2024-08-22] MEDS ORDERED: ALBUTEROL 2.5 MG/3 ML NEB SOL NEB PRN (16:59)
--- NOTE | 2024-08-22 17:27 | P.HP ---
Patient History Date of Service: 08/22/24 Reason for admission: CHF exacerbation History of Present Illness: 84-year-old with a past medical history of chronic kidney disease stage III, neuropathy, hypertension, COPD presenting with shortness of breath for the last day. Associated symptoms include weakness, nausea, and lack of appetite. She lives alone. She does very little housework. She is able to walk with a walker but has recently noticed increasing pain upon exertion. She states she was here at this hospital 2 weeks ago after having a fall several times. In addition she went to her PCPs office who took her off some medication because it was making her lose her balance. She denies any fevers, chills, or diarrhea Allergies Penicillins Allergy (Intermediate, Verified 03/17/13 23:37) SWELLING lisinopril Allergy (Mild, Verified 03/17/13 23:37) Hives/Rash grapefruit Allergy (Verified 04/01/15 16:10) Hives/Rash aspirin Adverse Reaction (Verified 12/04/16 20:20) Shortness of breath Home Medications: Amlodipine [Norvasc*] 5 mg PO BID 04/25/13 Escitalopram Oxalate 20 mg PO DAILY 04/25/13 Furosemide [Lasix*] 20 mg PO BID 04/25/13 Mirtazapine [Remeron*] 30 mg PO BEDTIME 04/25/13 Allopurinol 100 mg PO BREAKFAST 03/05/22 Famotidine [Pepcid*] 20 mg PO DAILY 03/05/22 Losartan Potassium [Cozaar] 50 mg PO BID 03/05/22 Ascorbic Acid [Vitamin C] 500 mg PO DAILY 08/06/24 Aspirin [Aspirin EC] 81 mg PO DAILY 08/06/24 Baclofen 10 mg PO Q8HP PRN 08/06/24 Buspirone HCl [Buspar] 10 mg PO BID 08/06/24 Calcium Carbonate [Calcium] 500 mg PO DAILY 08/06/24 Cyanocobalamin (Vitamin B-12) [Vitamin B12] 2,500 mcg PO DAILY 08/06/24 Hydrocodone Bit/Acetaminophen [[place] 10-325 Tablet] 1 each PO BIDP PRN 08/06/24 Multivitamin [Multivitamins] 1 each PO DAILY 08/06/24 Pregabalin [Lyrica] 100 mg PO BID 08/06/24 carvediloL [Coreg*] 25 mg PO BID 08/06/24 methocarbamoL [Methocarbamol] 750 mg PO DAILY 08/06/24 levoFLOXacin [Levaquin*] 500 mg PO DAILY 4 Days #4 tab 08/08/24 predniSONE [Deltasone*] 10 mg PO BID 5 Days #10 tab 08/08/24 - Past Medical/Surgical History Diabetic: No -: Chronic renal disease -: copd -: Chronic diastolic congestive heart failure -: HTN -: Hyperlipidemia -: Depression -: GERD -: Celiac disease with history of diverticulosis -: Previous Smoker -: Chronic renal disease -: Celiac disease with history of diverticulosis -: cholecystectomy -: esophogeal polyp removal -: appendectomy -: hysterectomy -: Doppler r/o DVT on L. foot, 02/04/13 -: Aortic echo, valve leakage, 02/04/13 -: Hernia repair 02/2022 Psychosocial/ Personal History: Patient lives at home alone. - Family History Sister -: Diabetes Brother -: Cancer Father -: Cancer Notes: bone, esophageal cx Mother -: Cancer Notes: gallbladder cx - Social History Alcohol use: No CD- Drugs: No Caffeine use: Yes Review of Systems General: Weakness Eyes: Unremarkable ENT: Unremarkable Respiratory: SOB with Excertion Cardiovascular: Unremarkable Gastrointestinal: Unremarkable Genitourinary: Unremarkable Musculoskeletal: Unremarkable Integumentary: Unremarkable Neurological: Unremarkable Physical Examination - Physical Exam General: Alert, In no apparent distress HEENT: Normocephalic Neck: Supple Respiratory: Clear to auscultation bilaterally, Normal air movement Cardiovascular: No edema, Normal pulses Capillary refill: <2 Seconds Gastrointestinal: Normal bowel sounds Musculoskeletal: No clubbing, No swelling Integumentary: No rashes Neurological: Normal strength at 5/5 x4 extr Lymphatics: No axilla or inguinal lymphadenopathy - Studies Laboratory Data (last 24 hrs) 08/22/24 08/22/24 08/22/24 14:45 13:55 13:55 WBC 9.10 Hgb 12.9 Hct 36.5 Plt Count 208 Sodium 139 Cancelled Potassium 3.2 L Cancelled BUN 20 H Cancelled Creatinine 1.22 H Cancelled Glucose 82 Cancelled Total Bilirubin 0.7 Cancelled AST 12 L Cancelled ALT < 14 Cancelled Alkaline Phosphatase 64 Cancelled Lipase 31 Cancelled Assessment and Plan - Plan CHF exacerbation Chronic kidney disease stage III Hypertension COPD Hyperlipidemia Neuropathy Admit to floor Daily weights, fluid and sodium restriction Obtain echocardiogram Continue coreg, losartan, start IV Lasix every 8 hours Consult [facility] cardiology Consult Dr. Moncada Obtain UA Continue Norvasc As needed albuterol Hold Lyrica in lieu of fatigue and weakness DVT prophylaxis with SCDs - Advance Directives Does patient have a Living Will: No Does patient have a Durable POA for Healthcare: No
[2024-08-22] MEDS ORDERED: HOME MED 1 EA UNK (Buspirone Hcl [Buspar] 10 MG Tablet) PO SCH (21:00)
[2024-08-22] MEDS: AMLODIPINE 5 MG TAB PO SCH (21:00)
[2024-08-22] MEDS ORDERED: HOME MED 1 EA UNK (Losartan Potassium [Cozaar] 25 MG Tablet) PO SCH (21:00)
[2024-08-22] MEDS: LOSARTAN POTASSIUM 50 MG TABLET PO SCH (21:00)
[2024-08-22] MEDS: MIRTAZAPINE 15 MG TAB PO SCH (21:05)
[2024-08-22] MEDS: BUSPIRONE HCL 5 MG TABLET PO SCH (21:05)
[2024-08-22] MEDS: carvediloL 25 MG TAB PO SCH (21:05)
[2024-08-22] MEDS: HYDROMORPHONE HCL 1 MG/ML INJ IV ONE (21:06)
[2024-08-22] MEDS: ONDANSETRON 4 MG/2 ML VIAL IV PRN (21:06)
[2024-08-23] MEDS: FUROSEMIDE 40 MG/4 ML VIAL IV SCH (02:08)
[2024-08-23] MEDS ORDERED: PNEUMOCOCCAL VACCINE 0.5 ML IMVAC ONE (07:00)
[2024-08-23 08:20] LABS: Absolute Basophils 0.1 K/uL (0-0.5); Absolute Eosinophils 0.3 K/uL (0-0.5); Absolute Lymphocytes (CBC) 1.8 K/uL (0.7-4.9); Absolute Monocytes 0.9 K/uL (0.1-1.3); Basophils % 0.9 % (0-1.3); Eosinophils % 3.5 % (0-4.4); Hematocrit 36.7 % (36.0-45.0); Hemoglobin 12.8 g/dL (12.0-15.0); Lymphocytes % 21.9 % (15.3-44.8); MCH 34.5 pg (27.0-35.0); MCHC 34.9 g/dL (32.0-36.0); MCV 98.8 fL (80-100); MPV 8.6 fL (7.6-11.3); Monocytes % 11.2 % (3.3-12.3); Neutrophils % 62.5 % (41.7-73.7); Nucleated Red Blood Cells % 0.1 % (0-0); Platelets 189 thou/uL (152-406); RBC Red Blood Cell Count 3.72 M/uL (3.86-4.86); Red Cell Distribution Width 13.6 % (12.1-15.2)
[2024-08-23 08:36] LABS: AST/SGOT 13 U/L (15-37); Albumin 3.3 g/dL (3.4-5.0); Alkaline Phosphatase 75 U/L (45-117); Anion Gap 9.1 mEq/L (5.0-15.0); BUN Blood Urea Nitrogen 26 mg/dL (7-18); Bicarbonate 30 mEq/L (21-32); Bilirubin Total 0.6 mg/dL (0.2-1.0); Globulin 3.3 g/dL (2.3-3.5); Glomerular Filtration Rate 34 ml/min (=/>90); Glucose Level 91 mg/dL (74-106); Potassium 3.1 mEq/L (3.5-5.1); Protein, Total 6.6 g/dL (6.4-8.2); Sodium Level 140 mEq/L (136-145)
[2024-08-23 08:43] LABS: ALT/SGPT < 14 U/L (13-56)
--- NOTE | 2024-08-23 10:15 | P.CNS ---
Date of Consult: 08/23/24 Reason for Consult: RADHIKA/ CKD Requesting Physician: Lilo Appiah Chief Complaint: CHF exacerbation History of Present Illness: 84-year-old with a past medical history of chronic kidney disease stage III, neuropathy, hypertension, COPD presenting with shortness of breath for the last day. Associated symptoms include weakness, nausea, and lack of appetite. She lives alone. She does very little housework. She is able to walk with a walker but has recently noticed increasing pain upon exertion. She states she was here at this hospital 2 weeks ago after having a fall several times. In addition she went to her PCPs office who took her off some medication because it was making her lose her balance. She denies any fevers, chills, or diarrhea 13:27 This 84 yrs old Female presents to ER via EMS with complaints of General dr5 Weakness. 13:27 Patient is a 84-year-old female with history of CHF, COPD, CVA, diverticulitis, hernia, dr5 hyperlipidemia, hypertension coming in with epigastric abdominal pain, nausea, weakness, and reports 15 pound weight loss in the last month. Pt states she started coughing this morning. Pt denies fever, vomiting, chest pain, shortness of breath, or lower extremity swelling. Allergies Penicillins Allergy (Intermediate, Verified 03/17/13 23:37) SWELLING lisinopril Allergy (Mild, Verified 03/17/13 23:37) Hives/Rash grapefruit Allergy (Verified 04/01/15 16:10) Hives/Rash aspirin Adverse Reaction (Verified 12/04/16 20:20) Shortness of breath Home medications list reviewed: Yes Home Medications: Amlodipine [Norvasc*] 5 mg PO BID 04/25/13 Escitalopram Oxalate 20 mg PO DAILY 04/25/13 Furosemide [Lasix*] 20 mg PO BID 04/25/13 Mirtazapine [Remeron*] 30 mg PO BEDTIME 04/25/13 Allopurinol 100 mg PO BREAKFAST 03/05/22 Famotidine [Pepcid*] 20 mg PO DAILY 03/05/22 Losartan Potassium [Cozaar] 50 mg PO BID 03/05/22 Ascorbic Acid [Vitamin C] 500 mg PO DAILY 08/06/24 Aspirin [Aspirin EC] 81 mg PO DAILY 08/06/24 Baclofen 10 mg PO Q8HP PRN 08/06/24 Buspirone HCl [Buspar] 10 mg PO BID 08/06/24 Calcium Carbonate [Calcium] 500 mg PO DAILY 08/06/24 Cyanocobalamin (Vitamin B-12) [Vitamin B12] 2,500 mcg PO DAILY 08/06/24 Hydrocodone Bit/Acetaminophen [[place] 10-325 Tablet] 1 each PO BIDP PRN 08/06/24 Multivitamin [Multivitamins] 1 each PO DAILY 08/06/24 Pregabalin [Lyrica] 100 mg PO BID 08/06/24 carvediloL [Coreg*] 25 mg PO BID 08/06/24 methocarbamoL [Methocarbamol] 750 mg PO DAILY 08/06/24 levoFLOXacin [Levaquin*] 500 mg PO DAILY 4 Days #4 tab 08/08/24 predniSONE [Deltasone*] 10 mg PO BID 5 Days #10 tab 08/08/24 - Past Medical/Surgical History Diabetic: No -: CKD (Dr. Moncada) -: COPD -: Chronic diastolic congestive heart failure -: HTN -: HLD -: Depression -: GERD -: Celiac disease with history of diverticulosis -: Previous Smoker -: Celiac disease with history of diverticulosis -: cholecystectomy -: esophogeal polyp removal -: appendectomy -: hysterectomy -: Doppler r/o DVT on L. foot, 02/04/13 -: Aortic echo, valve leakage, 02/04/13 -: Hernia repair 02/2022 Psychosocial/ Personal History: Patient lives at home alone. - Family History Sister Medical History: Diabetes Brother Medical History: Cancer Father Medical History: Cancer Notes: bone, esophageal cx Mother Medical History: Cancer Notes: gallbladder cx - Social History Smoking Status: Current every day smoker Alcohol use: No CD- Drugs: No Caffeine use: Yes Place of Residence: Home Review of Systems 10-point ROS is otherwise unremarkable General: Weakness Gastrointestinal: Nausea Physical Examination Temp Pulse Resp BP Pulse Ox 98.2 F 66 16 177/74 H 92 08/23/24 08:00 08/23/24 08:00 08/23/24 08:00 08/23/24 08:00 08/23/24 08:00 General: In no apparent distress, Oriented x3, Cooperative HEENT: Atraumatic Neck: Supple Respiratory: Clear to auscultation bilaterally Cardiovascular: No edema Gastrointestinal: Soft and benign, Non-distended Musculoskeletal: No clubbing, No contractures Integumentary: No rashes, No cyanosis Neurological: Normal speech Laboratory Data (last 24 hrs) 08/22/24 08/22/24 08/22/24 14:45 13:55 13:55 WBC 9.10 Hgb 12.9 Hct 36.5 Plt Count 208 Sodium 139 Cancelled Potassium 3.2 L Cancelled BUN 20 H Cancelled Creatinine 1.22 H Cancelled Glucose 82 Cancelled Total Bilirubin 0.7 Cancelled AST 12 L Cancelled ALT < 14 Cancelled Alkaline Phosphatase 64 Cancelled Lipase 31 Cancelled Conclusions/Impression: Stage I RADHIKA in the setting of diuresis CKD III -No NSAIDs Hypokalemia -Replete as ordered HTN with CKD/ CHF -Continue Coreg -Continue Losartan and Amlodipine Diastolic CHF, A/C -Continue Lasix -Echocardiogram pending -CXR in the AM Hospitalist and ER notes reviewed Thank you kindly for the consultation
--- NOTE | 2024-08-23 13:51 | P.PN ---
Date of Service: 08/23/24 Subjective Awake, working with PT No new complaints ROS 10 point ROS as noted above, otherwise negative Physical Exam General: Alert, NAD HEENT: Normocephalic Neck: Supple Respiratory: Clear BBS, Normal air movement, on RA Cardiovascular: No edema, Normal pulses Capillary refill: <2 Seconds Gastrointestinal: Normal bowel sounds Musculoskeletal: No clubbing, No swelling Integumentary: No rashes Neurological: Normal strength at 5/5 x4 extr Lymphatics: No axilla or inguinal lymphadenopathy Vitals Reviewed Problem list CHF exacerbation Chronic kidney disease stage III Hypokalemia Hypertension COPD Hyperlipidemia Neuropathy Assessment and Plan CHF exacerbation Hypertension Daily weights, fluid and sodium restriction echocardiogram ordered Continue coreg, losartan, norvasc, start IV Lasix every 8 hours Consult [place] [facility] Albuterol PRN intake/output, daily weights Chronic kidney disease stage III Hyp[address] Consult [address] Moncada, recommendations appreciated UA pending potassium protocol in place COPD Hyperlipidemia Neuropathy Continue home medications DVT prophylaxis with SCDs Full code LOS 2 days Time Spent Managing Pts Care (In Minutes): 35 <Aleida Garcia - Last Filed: 08/23/24 13:53> I have personally reviewed and discussed the patient's history, physical findings, assessment, and plan as documented by Errol Garcia NP. I confirmed the accuracy of the information and agree with the management of the plan as outlined Lilo Appiah <Lilo Appiah - Last Filed: 08/23/24 15:43>
[2024-08-23] MEDS: POTASSIUM 25 MEQ EFFERV TAB PO ONE (19:05)
[2024-08-24 08:27] VITALS: BMI 20.2
--- NOTE | 2024-08-24 08:30 | RAD REPORT ---
EXAMINATION: ONE VIEW CHEST XR CLINICAL INDICATION: CHF TECHNIQUE: Frontal chest projection is submitted. Examination is limited by patient positioning and t echnique. COMPARISON: 08/05/2024 FINDINGS: The lungs are mildly emphysematous but clear. The heart is upper limit of normal in size. No displace d fractures identified. Aortic atherosclerosis. IMPRESSION: COPD.
[2024-08-24 08:50] LABS: Albumin 3.6 g/dL (3.4-5.0); Anion Gap 7.4 mEq/L (5.0-15.0); Magnesium 2.1 mg/dL (1.6-2.4); Phosphorus 3.5 mg/dL (2.5-4.9); Potassium 3.4 mEq/L (3.5-5.1); Uric Acid 8.1 mg/dL (2.6-6.0)
[2024-08-24 09:25] LABS: Specific Gravity 1.015 (1.005-1.030); Sqamous Epithelial <5 /HPF (None Seen); Urine Bacteria <20 /HPF (<20); Urine Bilirubin NEGATIVE (Negative); Urine Blood Negative (Negative); Urine Clarity Turbid (Clear); Urine Color Yellow (Yellow); Urine Culture Reflex Order NOT NEEDED; Urine Glucose NEGATIVE (Negative); Urine Ketones NEGATIVE (Negative); Urine Microscopic Reflex YN ORDER UMIC; Urine Nitrite NEGATIVE (Negative); Urine Protein NEGATIVE (Negative); Urine RBC <5 /HPF (None Seen); Urine Urobilinogen Normal (Normal); Urine WBC <5 /HPF (<5); Urine Yeast (Budding) Occasional /HPF (None Seen)
--- NOTE | 2024-08-24 09:30 | P.PN ---
Subjective Date of Service: 08/24/24 Chief Complaint: CHF exacerbation Reports generalized weakness, poor appetite, <Odalis Florence - Last Filed: 08/24/24 17:37> Date of Service: 08/24/24 <Lilo Appiah - Last Filed: 08/24/24 17:56> Review of Systems 10-point ROS is otherwise unremarkable <Odalis Florence Last Filed: 08/24/24 17:37> Physical Examination - Vital Signs Temperature: 98.1 F Blood Pressure: 174/72 Pulse: 64 Respirations: 18 Pulse Ox (%): 93 - Physical Exam General: Alert, In no apparent distress, Oriented x3 HEENT: Atraumatic, Normocephalic, PERRLA Neck: Supple, JVD not distended Respiratory: Normal air movement, Diminished Cardiovascular: Normal pulses, Regular rate/rhythm Capillary refill: <2 Seconds Gastrointestinal: Normal bowel sounds, Soft and benign, Non-distended Musculoskeletal: No clubbing, No swelling Neurological: Normal speech, Normal strength at 5/5 x4 extr <Odalis Florence Last Filed: 08/24/24 17:37> Assessment And Plan - Plan Assessment and Plan CHF exacerbation Hypertension elevated BNP Daily weights, fluid and sodium restriction echocardiogram ordered Continue coreg, losartan, norvasc, start IV Lasix every 8 hours Consult [facility] cardiology Albuterol PRN intake/output, daily weights Chronic kidney disease stage III Hypok[address]emia Consult Dr. Moncada, recommendations appreciated UA pending Trend electrolytes replace as needed COPD Hyperlipidemia Neuropathy Continue home medications DVT SCDs Full code LOS 2 days Discharge Plan: Home - Code Status/Comfort Care Code Status: Full Code Critical Care: No Time Spent Managing PTS Care (In Minutes): 35 <NamanOdalis - Last Filed: 08/24/24 17:37> Physician Review: Patient Assessed, Agree with Above Assessment and Plan <Lilo Appiah - Last Filed: 08/24/24 17:56>
[2024-08-24] MEDS: FUROSEMIDE 40 MG/4 ML VIAL IV SCH (10:19)
[2024-08-24] MEDS: POTASSIUM 25 MEQ EFFERV TAB PO ONE (18:46)
[2024-08-24] MEDS: POTASSIUM 25 MEQ EFFERV TAB ONE (22:52)
[2024-08-25] MEDS ORDERED: HYDRALAZINE HCL 20 MG/ML VIAL IV PRN (08:08)
--- NOTE | 2024-08-25 08:09 | P.PN ---
Date of Service: 08/25/24 Subjective Chief Complaint: CHF exacerbation Reports generalized weakness, poor appetite, Review of Systems 10-point ROS is otherwise unremarkable Physical Examination - Vital Signs Reviewed - Physical Exam General: Alert, In no apparent distress, Oriented x3 HEENT: Atraumatic, Normocephalic, PERRLA Neck: Supple, JVD not distended Respiratory: Normal air movement, Diminished Cardiovascular: Normal pulses, Regular rate/rhythm Capillary refill: <2 Seconds Gastrointestinal: Normal bowel sounds, Soft and benign, Non-distended Musculoskeletal: No clubbing, No swelling Neurological: Normal speech, Normal strength at 5/5 x4 extr Assessment And Plan - Plan Assessment and Plan CHF exacerbation Hypertension elevated BNP Daily weights, fluid and sodium restriction echocardiogram ordered Continue coreg, losartan, norvasc, start IV Lasix every 8 hours Consult [facility] [facility]ology Albuterol PRN intake/output, daily weights Chronic kidney disease stage III Hyp[address] Consult [address] Moncada, recommendations appreciated UA pending Trend electrolytes replace as needed COPD Hyperlipidemia Neuropathy Continue home medications DVT SCDs Full code LOS 2 days Discharge Plan: Home - Code Status/Comfort Care Code Status: Full Code Critical Care: No Time Spent Managing PTS Care (In Minutes): 30
[2024-08-25 09:35] VITALS: O2SAT 96
[2024-08-25] MEDS: POTASSIUM CL SA 10 MEQ TAB PO ONE (09:51)
--- NOTE | 2024-08-25 11:27 | P.CNS ---
Date of Consult: 08/25/24 Chief Complaint: CHF exacerbation History of Present Illness: Patient with PMH of Heart failure preserved EF, COPD, presented with worsening SOB, JONES, denies chest pain, no palpitations, no syncope. Allergies Penicillins Allergy (Intermediate, Verified 03/17/13 23:37) SWELLING lisinopril Allergy (Mild, Verified 03/17/13 23:37) Hives/Rash grapefruit Allergy (Verified 04/01/15 16:10) Hives/Rash aspirin Adverse Reaction (Verified 12/04/16 20:20) Shortness of breath Home medications list reviewed: Yes Home Medications: Amlodipine [Norvasc*] 5 mg PO BID 04/25/13 Escitalopram Oxalate 20 mg PO DAILY 04/25/13 Furosemide [Lasix*] 20 mg PO BID 04/25/13 Mirtazapine [Remeron*] 30 mg PO BEDTIME 04/25/13 Allopurinol 100 mg PO BREAKFAST 03/05/22 Famotidine [Pepcid*] 20 mg PO DAILY 03/05/22 Losartan Potassium [Cozaar] 50 mg PO BID 03/05/22 Ascorbic Acid [Vitamin C] 500 mg PO DAILY 08/06/24 Aspirin [Aspirin EC] 81 mg PO DAILY 08/06/24 Baclofen 10 mg PO Q8HP PRN 08/06/24 Buspirone HCl [Buspar] 10 mg PO BID 08/06/24 Calcium Carbonate [Calcium] 500 mg PO DAILY 08/06/24 Cyanocobalamin (Vitamin B-12) [Vitamin B12] 2,500 mcg PO DAILY 08/06/24 Hydrocodone Bit/Acetaminophen [[place] 10-325 Tablet] 1 each PO BIDP PRN 08/06/24 Multivitamin [Multivitamins] 1 each PO DAILY 08/06/24 Pregabalin [Lyrica] 100 mg PO BID 08/06/24 carvediloL [Coreg*] 25 mg PO BID 08/06/24 methocarbamoL [Methocarbamol] 750 mg PO DAILY 08/06/24 levoFLOXacin [Levaquin*] 500 mg PO DAILY 4 Days #4 tab 08/08/24 predniSONE [Deltasone*] 10 mg PO BID 5 Days #10 tab 08/08/24 - Past Medical/Surgical History Diabetic: No -: CKD (Dr. Aglieco) -: COPD -: Chronic diastolic congestive heart failure -: HTN -: HLD -: Depression -: GERD -: Celiac disease with history of diverticulosis -: Previous Smoker -: Chronic renal disease -: Celiac disease with history of diverticulosis -: cholecystectomy -: esophogeal polyp removal -: appendectomy -: hysterectomy -: Doppler r/o DVT on L. foot, 02/04/13 -: Aortic echo, valve leakage, 02/04/13 -: Hernia repair 02/2022 Psychosocial/ Personal History: Patient lives at home alone. - Family History Sister Medical History: Diabetes Brother Medical History: Cancer Father Medical History: Cancer Notes: bone, esophageal cx Mother Medical History: Cancer Notes: gallbladder cx - Social History Smoking Status: Current every day smoker Alcohol use: No CD- Drugs: No Caffeine use: Yes Place of Residence: Home Review of Systems 10-point ROS is otherwise unremarkable Physical Examination Temp Pulse Resp BP Pulse Ox 98.8 F 69 18 133/63 96 08/25/24 08:00 08/25/24 08:00 08/25/24 08:00 08/25/24 08:00 08/25/24 08:00 General: Alert, In no apparent distress HEENT: Atraumatic, PERRLA, Mucous membr. moist/pink, EOMI, Sclerae nonicteric Neck: Supple, 2+ carotid pulse no bruit, No LAD, Without JVD or thyroid abnormality Respiratory: Clear to auscultation bilaterally, Normal air movement Cardiovascular: Regular rate/rhythm, Normal S1 S2 Gastrointestinal: Normal bowel sounds, No tenderness Musculoskeletal: No tenderness Integumentary: No rashes Neurological: Normal gait, Normal speech, Normal tone, Normal affect Lymphatics: No axilla or inguinal lymphadenopathy - Problems (1) Acute on chronic diastolic heart failure Current Visit: Yes Status: Acute Plan: Patient looks euvolemic on exam stop IV lasix Switch back to home lasix continue Coreg continue losartan continue to follow up as outpatient with her curb setter helper Cardiology will sign off. (2) HTN (hypertension) Current Visit: No Status: Chronic Plan: continue coreg and losartan Qualifiers: Hypertension type: primary hypertension Qualified Code(s): I10 - Essential (primary) hypertension (3) Hyperlipidemia Current Visit: No Status: Chronic Plan: continue statin outpatient follow up for lipid panel Qualifiers: Hyperlipidemia type: unspecified Qualified Code(s): E78.5 - Hyperlipidemia, unspecified
--- NOTE | 2024-08-25 12:16 | EKG ---
Test Date: 2024-08-22 Test Time: 14:13:17 Entry Tech: AMELIA MEASUREMENT RESULTS: Intervals: Rate: 68 SD: 164 QRSD: 72 QT: 440 QTc: 467 [place]: P: 56 SD: 164 QRS: -6 T: -9 INTERPRETIVE STATEMENTS: Normal sinus rhythm Nonspecific T wave abnormality Abnormal ECG Compared to ECG 08/05/2024 18:37:44 T-wave abnormality now present Sinus arrhythmia no longer present Electronically Signed On 08-25-24 12:09:36 CDT by Josh Larson
--- NOTE | 2024-08-25 12:37 | P.DS ---
Admission Date: 08/22/24 Discharge Date: 08/25/24 Disposition: ROUTINE DISCHARGE Discharge Condition: GOOD Reason for Admission: CHF exacerbation Brief History of Present Illness: 84-year-old with a past medical history of chronic kidney disease stage III, neuropathy, hypertension, COPD presenting with shortness of breath for the last day. Associated symptoms include weakness, nausea, and lack of appetite. She lives alone. She does very little housework. She is able to walk with a walker but has recently noticed increasing pain upon exertion. She states she was here at this hospital 2 weeks ago after having a fall several times. In addition she went to her PCPs office who took her off some medication because it was making her lose her balance. She denies any fevers, chills, or diarrhea - Physical Exam General: Alert, In no apparent distress HEENT: Normocephalic Neck: Supple Respiratory: Clear to auscultation bilaterally, Normal air movement Cardiovascular: No edema, Normal pulses Capillary refill: <2 Seconds Gastrointestinal: Normal bowel sounds Musculoskeletal: No clubbing, No swelling Integumentary: No rashes Neurological: Normal strength at 5/5 x4 extr Lymphatics: No axilla or inguinal lymphadenopathy Hospital Course: 84-year-old with a past medical history of chronic kidney disease stage III, neuropathy, hypertension, COPD presenting with shortness of breath for the last day. Associated symptoms include weakness, nausea, and lack of appetite. She lives alone. She does very little housework. She is able to walk with a walker but has recently noticed increasing pain upon exertion. She states she was here at this hospital 2 weeks ago after having a fall several times. In addition she went to her PCPs office who took her off some medication because it was making her lose her balance. She was seen by cardiology,. Euvolemic, follow up as outpatient with her drapery maker Home medication Resume p.o. Lasix, Coreg, losartan Assessment Acute on chronic heart failure, was treated with IV Lasix, stable to discharge home on p.o. [id number] with cardiology after discharge CKD stage III, follow-up with nephrology after discharge Hypertension, resume home meds COPD not in exacerbation, resume home meds Neuropathy resume home meds after discharge, fall precautions INSTRUCTIONS: Physician Discharge Instructions: Follow-up with nephrology after the discharge Follow-up with cardiology after discharge -Follow-up with PCP in 1 to 2 weeks -Please call if any questions regarding hospital stay -Please call nursing station at [phone] if any nursing or medication questions -Return to the emergency room if symptoms worsen Diet: ADA, low sodium Activity: Fall precautio f Vital Signs/Physical Exam: Temp Pulse Resp BP Pulse Ox 98.8 F 69 18 133/63 96 08/25/24 08:00 08/25/24 08:00 08/25/24 08:00 08/25/24 08:00 08/25/24 08:00 Laboratory Data at Discharge: WBC 8.00 thou/uL (4.3-10.9) 08/23/24 07:30 Hgb 12.8 g/dL (12.0-15.0) 08/23/24 07:30 Hct 36.7 % (36.0-45.0) 08/23/24 07:30 Plt Count 189 thou/uL (152-406) 08/23/24 07:30 Sodium 139 mEq/L (136-145) 08/24/24 07:28 Potassium 3.4 mEq/L (3.5-5.1) L 08/24/24 07:28 BUN 27 mg/dL (7-18) H 08/24/24 07:28 Creatinine 1.39 mg/dL (0.55-1.02) H 08/24/24 07:28 Glucose 103 mg/dL (74-106) 08/24/24 07:28 Uric Acid 8.1 mg/dL (2.6-6.0) H 08/24/24 07:28 Phosphorus 3.5 mg/dL (2.5-4.9) 08/24/24 07:28 Magnesium 2.1 mg/dL (1.6-2.4) 08/24/24 07:28 Total Bilirubin 0.6 mg/dL (0.2-1.0) 08/23/24 07:30 AST 13 U/L (15-37) L 08/23/24 07:30 ALT < 14 U/L (13-56) 08/23/24 07:30 Alkaline Phosphatase 75 U/L (45-117) 08/23/24 07:30 Lipase 31 U/L (13-75) 08/22/24 14:45 Home Medications: Amlodipine [Norvasc*] 5 mg PO BID 04/25/13 Escitalopram Oxalate 20 mg PO DAILY 04/25/13 Furosemide [Lasix*] 20 mg PO BID 04/25/13 Mirtazapine [Remeron*] 30 mg PO BEDTIME 04/25/13 Allopurinol 100 mg PO BREAKFAST 03/05/22 Famotidine [Pepcid*] 20 mg PO DAILY 03/05/22 Losartan Potassium [Cozaar] 50 mg PO BID 03/05/22 Ascorbic Acid [Vitamin C] 500 mg PO DAILY 08/06/24 Aspirin [Aspirin EC] 81 mg PO DAILY 08/06/24 Baclofen 10 mg PO Q8HP PRN 08/06/24 Buspirone HCl [Buspar] 10 mg PO BID 08/06/24 Calcium Carbonate [Calcium] 500 mg PO DAILY 08/06/24 Cyanocobalamin (Vitamin B-12) [Vitamin B12] 2,500 mcg PO DAILY 08/06/24 Hydrocodone Bit/Acetaminophen [[place] 10-325 Tablet] 1 each PO BIDP PRN 08/06/24 Multivitamin [Multivitamins] 1 each PO DAILY 08/06/24 Pregabalin [Lyrica] 100 mg PO BID 08/06/24 carvediloL [Coreg*] 25 mg PO BID 08/06/24 methocarbamoL [Methocarbamol] 750 mg PO DAILY 08/06/24 levoFLOXacin [Levaquin*] 500 mg PO DAILY 4 Days #4 tab 08/08/24 predniSONE [Deltasone*] 10 mg PO BID 5 Days #10 tab 08/08/24 Physician Discharge Instructions: 84-year-old with a past medical history of chronic kidney disease stage III, neuropathy, hypertension, COPD presenting with shortness of breath for the last day. Associated symptoms include weakness, nausea, and lack of appetite. She lives alone. She does very little housework. She is able to walk with a walker but has recently noticed increasing pain upon exertion. She states she was here at this hospital 2 weeks ago after having a fall several times. In addition she went to her PCPs office who took her off some medication because it was making her lose her balance. She was seen by cardiology,. Euvolemic, follow up as outpatient with her drapery maker Home medication Resume p.o. Lasix, Coreg, losartan CBC, CMP, uric acid in 1 week, follow-up with nephrology and cardiology Assessment Acute on chronic heart failure, was treated with IV Lasix, stable to discharge home on p.o. [id number] with cardiology after discharge CKD stage III, follow-up with nephrology after discharge Hypertension, resume home meds COPD not in exacerbation, resume home meds Neuropathy resume home meds after discharge, fall precautions INSTRUCTIONS: Physician Discharge Instructions: Follow-up with nephrology after the discharge Follow-up with cardiology after discharge -Follow-up with PCP in 1 to 2 weeks -Please call if any questions regarding hospital stay -Please call nursing station at [phone] if any nursing or medication questions -Return to the emergency room if symptoms worsen Diet: ADA, low sodium Activity: Fall precautio Diet: Low sodium Activity: Fall precautions Followup: Juve Moncada DO [Primary Care Provider] - 1-2 Weeks Time spent managing pt's care (in minutes): 45
[2024-08-25 12:44] VITALS: BP 146/67; TEMP 98.9
--- NOTE | 2024-08-25 13:14 | ECHO ---
HEIGHT: 4 ft 11 in WEIGHT: 100 lb 0 oz DATE OF STUDY: 08/25/[address]: Lilo Appiah MD 2-DIMENSIONAL: YES M.MODE: YES DOPPLER: YES COLOR FLOW: YES TDS: PORTABLE: YES DEFINITY: BUBBLE STUDY: DIAGNOSIS: CONGESTIVE HEART FAILURE CARDIAC HISTORY: CATHERIZATION: YES SURGERY: NO PROSTHETIC VALVE: NO PACEMAKER: NO MEASUREMENTS (cm) DIASTOLIC (NORMALS) SYSTOLIC (NORMALS) IVSd 1.2 (0.6-1.2) LA Diam 3.1 (1.9-4.0) LVEF 60-65% LVIDd 3.2 (3.5-5.7) LVIDs 2.2 (2.0-3.5) %FS 30% LVPWd 1.2 (0.6-1.2) Ao Diam 2.8 (2.0-3.7) 2 DIMENSIONAL ASSESSMENT: RIGHT ATRIUM: NORMAL LEFT ATRIUM: MODERATELY DILATED RIGHT VENTRICLE: NORMAL LEFT VENTRICLE: NORMAL TRICUSPID VALVE: MILD TRICUSPID REGURGITATION MITRAL VALVE: MILD MITRAL REGURGITATION PULMONIC VALVE: NORMAL AORTIC VALVE: MILD AORTIC REGURGITATION PERICARDIAL EFFUSION: NONE AORTIC ROOT: NORMAL LEFT VENTRICULAR WALL MOTION: NORMAL DOPPLER/COLOR FLOW: DIASTOLIC DYSFUNCTION COMMENTS: 1. NORMAL LEFT VENTRICULAR SYSTOLIC FUNCTION, EJECTION FRACTION 60-65%, NORMAL WALL MOTION 2. DIASTOLIC DYSFUNCTION 3. MILD AORTIC REGURGITATION 4. NORMAL FILLING PRESSURE (RIGHT ATRIAL PRESSURE 0-5 mmHg) TECHNOLOGIST: HAN LOZANO
[2024-08-25] MEDS: POTASSIUM 25 MEQ EFFERV TAB PO ONE (13:35)
--- NOTE | 2024-08-25 14:46 | P.PN ---
This is an attestation to [employer] note. Subjective: No chest pain or shortness of breath. No nausea or vomiting. No abdominal pain. No obvious bleeding. Looks comfortable in the bed. Feels ready to go home. Objective: General appearance: Alert and comfortable CVS: Normal S1 and S2 Lungs: Clear to auscultation bilaterally Abdomen: Soft, bowel sounds present, no tenderness Extremities: No lower extremity edema 84-year-old patient with acute diastolic heart failure, echo showed 60 to 65% EF with diastolic dysfunction, on IV Lasix, cardiology recommendations appreciated, DC home on oral Lasix. Elevated uric acid, CKD 3A, need to follow-up with nephrology. Hypertension, continue home medications. Plan discussed with the patient, answered all questions.
--- NOTE | 2024-08-25 21:17 | P.PN ---
Date of Service: 08/25/24 Vital Signs Temp Pulse Resp BP Pulse Ox 98.9 F 75 18 146/67 H 95 08/25/24 12:00 08/25/24 12:00 08/25/24 12:00 08/25/24 12:00 08/25/24 12:00 Assessment/ Plan: Nephrology No dyspnea No chest pain Feeling better No acute events overnight Vitals, medications, blood work and imaging reviewed in the chart General: In no apparent distress, Oriented x3, Cooperative HEENT: Atraumatic Neck: Supple Respiratory: Clear to auscultation bilaterally Cardiovascular: No edema Gastrointestinal: Soft and benign, Non-distended Musculoskeletal: No clubbing, No contractures Integumentary: No rashes, No cyanosis Neurological: Normal speech Laboratory Data (last 24 hrs) 08/22/24 08/22/24 08/22/24 14:45 13:55 13:55 WBC 9.10 Hgb 12.9 Hct 36.5 Plt Count 208 Sodium 139 Cancelled Potassium 3.2 L Cancelled BUN 20 H Cancelled Creatinine 1.22 H Cancelled Glucose 82 Cancelled Total Bilirubin 0.7 Cancelled AST 12 L Cancelled ALT < 14 Cancelled Alkaline Phosphatase 64 Cancelled Lipase 31 Cancelled LEFT VENTRICULAR WALL MOTION: NORMAL DOPPLER/COLOR FLOW: DIASTOLIC DYSFUNCTION COMMENTS: 1. NORMAL LEFT VENTRICULAR SYSTOLIC FUNCTION, EJECTION FRACTION 60-65%, NORMAL WALL MOTION 2. DIASTOLIC DYSFUNCTION 3. MILD AORTIC REGURGITATION 4. NORMAL FILLING PRESSURE (RIGHT ATRIAL PRESSURE 0-5 mmHg) Conclusions/Impression: Stage I RADHIKA in the setting of diuresis CKD III -No NSAIDs Hypokalemia -Replete as ordered HTN with CKD/ CHF -Continue Coreg -Continue Losartan and Amlodipine Diastolic CHF, A/C -Continue Lasix -Echocardiogram reviewed -CXR reviewed/ clear Hospitalist note reviewed Case reviewed with Dr. Vidales
== END 2024-08-25 15:10 | disposition home or self-care (01) | DRG 291 ==
LOC: ER 13:11 → ERHOLD 16:59 → 2ND 17:50
PROVIDERS: ADMIT Family Medicine; ATTEND Hospitalist
DX: I13.0 Hypertensive heart and chronic kidney disease with heart failure and stage 1 through stage 4 chronic kidney disease, or unspecified chronic kidney disease (principal); I50.33 Acute on chronic diastolic (congestive) heart failure; N17.9 Acute kidney failure, unspecified; N18.30 Chronic kidney disease, stage 3 unspecified; E78.5 Hyperlipidemia, unspecified; G62.9 Polyneuropathy, unspecified; E87.6 Hypokalemia; K21.9 Gastro-esophageal reflux disease without esophagitis; J44.9 Chronic obstructive pulmonary disease, unspecified; F90.9 Attention-deficit hyperactivity disorder, unspecified type; F17.210 Nicotine dependence, cigarettes, uncomplicated; R29.6 Repeated falls; Z60.2 Problems related to living alone; Z88.6 Allergy status to analgesic agent; Z88.0 Allergy status to penicillin; Z88.8 Allergy status to other drugs, medicaments and biological substances; Z91.81 History of falling; Z59.71 Insufficient health insurance coverage; Z98.2 Presence of cerebrospinal fluid drainage device; Z79.52 Long term (current) use of systemic steroids; Z86.73 Personal history of transient ischemic attack (TIA), and cerebral infarction without residual deficits; Z79.899 Other long term (current) drug therapy
CPT/HCPCS: 36415; 71045; 80053; 80069; 81001; 82947; 83690; 83735; 83880; 84484; 84550; 85025; 93005; 93306; 96374; 96375; 97161; 99285; J1171; J1938; J2270; J2405; J2550

== ENCOUNTER 2024-12-18 20:38 | Observation (INO) | payer MEDICARE ==
[2024-12-18] MEDS ORDERED: PROMETHAZINE 25 MG TABLET ONE (20:45)
[2024-12-18 21:05] LABS: Absolute Lymphocytes (CBC) 2.5 K/uL (0.7-4.9); Hematocrit 36.9 % (36.0-45.0); Hemoglobin 12.7 g/dL (12.0-15.0); MCH 33.2 pg (27.0-35.0); MCHC 34.4 g/dL (32.0-36.0); MCV 96.5 fL (80-100); MPV 8.5 fL (7.6-11.3); Nucleated RBC Absolute Count 0.0 (0-0); Nucleated Red Blood Cells % 0.1 % (0-0); RBC Red Blood Cell Count 3.82 M/uL (3.86-4.86); White Blood Count 6.30 thou/uL (4.3-10.9)
--- NOTE | 2024-12-18 21:17 | RAD REPORT ---
EXAM: Chest Single View HISTORY: 84 years Female feeling unwell COMPARISON: 08/24/2024 FINDINGS: LUNGS/PLEURA: The lungs are clear. No pleural effusions or pneumothorax. No pulmonary edema. Emphysem a. CARDIAC/MEDIASTINUM: Mild cardiomegaly UPPER ABDOMEN: No significant abnormality. BONES: No acute abnormality. LINES/TUBES/OTHER: loop recorder IMPRESSION: No evidence of acute cardiopulmonary disease.
[2024-12-18 21:22] LABS: PT Prothrombin Time 10.9 SECONDS (10-13.0); Protime INR 0.96
[2024-12-18] MEDS ORDERED: MECLIZINE HCL 12.5 MG TAB ONE (21:30)
[2024-12-18] MEDS ORDERED: NA CHLORIDE 0.9% 500 ML ONE (21:30)
[2024-12-18 21:38] LABS: ALT/SGPT 15 U/L (13-56); AST/SGOT 16 U/L (15-37); Albumin 3.4 g/dL (3.4-5.0); Albumin/Globulin Ratio 1.1 (1.1-1.8); Alkaline Phosphatase 77 U/L (45-117); Anion Gap 6.1 mEq/L (5.0-15.0); BUN Blood Urea Nitrogen 36 mg/dL (7-18); Globulin 3.1 g/dL (2.3-3.5); Glucose Level 121 mg/dL (74-106); Magnesium 2.3 mg/dL (1.6-2.4); NT PRO-BNP 2774 pg/mL (<450); Potassium 4.1 mEq/L (3.5-5.1); Troponin High Sensitivity 33.3 pg/mL (<58.9)
[2024-12-18 21:47] LABS: Lipase 30.0 U/L (13-75); Thyroid Stimulating Hormone 1.78 uIU/mL (0.358-3.740)
[2024-12-18 21:54] LABS: Bilirubin Indirect, Calculated 0.0 mg/dL (0.2-0.8)
--- NOTE | 2024-12-18 22:04 | RAD REPORT ---
EXAMINATION: Head Brain Wo Cont CLINICAL INDICATION: Female, 84 years old.dizzy TECHNIQUE: Axial CT images from the skull base to the vertex without intravenous contrast. Coronal an d sagittal reformatted images were created from the data set. One or more of the following dose reduction techniques were used: Automated exposure control, adjustment of the mA and/or kV according to patient size, and/or iterative reconstruction. Unless otherwise specified, incidental findings do not require dedicated imaging follow-up. [id number]. COMPARISON: 03/07/2022 FINDINGS: INTRACRANIAL: No acute intracranial hemorrhage. No acute large vascular territory infarct. No hydroce phalus. No mass effect or midline shift. Mild chronic small vessel ischemic changes.Mild cerebral atrophy. VASCULATURE: No visualized abnormalities in the arteries or dural venous sinuses. SCALP/SKULL: No calvarial fracture identified. No acute soft tissue abnormality. SINUSES: The visualized paranasal sinuses are mostly clear. No significant mastoid fluid. IMPRESSION: No acute intracranial abnormality.
--- NOTE | 2024-12-19 02:03 | ER ---
Nurse's Notes [facility] Name: Meme Rushing Age: 84 yrs Sex: Female : 1940 Arrival Date: 12/18/2024 Time: 20:22 Bed IW10 Private MD: Diagnosis: Muscle weakness (generalized);Other peripheral vertigo, bilateral;Intractable vomiting, moderate dehydration.;Near syncopal episode Presentation: 12/18 20:23 Chief complaint: EMS states: Patient c/o dizziness x1 day and chronic headaches that's tb4 been happening for months. Coronavirus screen: At this time, the client does not indicate any symptoms associated with coronavirus-19. Ebola Screen: No symptoms or risks identified at this time. Risk Assessment: Do you want to hurt yourself or someone else? Patient reports no desire to harm self or others. Onset of symptoms is unknown. Care prior to arrival: Glucose check: 130. Activity prior to arrival: None. 20:23 Method Of Arrival: EMS: [facility] tb4 20:23 Acuity: RODY 3 tb4 12/19 00:25 Initial Sepsis Screen: Does the patient meet any 2 criteria? No. Patient's initial tb4 sepsis screen is negative. Does the patient have a suspected source of infection? No. Patient's initial sepsis screen is negative. Triage Assessment: 12/18 20:23 General: Appears in no apparent distress. Behavior is calm, cooperative. Pain: tb4 Complains of pain in forehead Pain does not radiate. Pain currently is 8 out of 10 on a pain scale. Quality of pain is described as aching, Pain began gradually, on and off for months Is intermittent, Alleviated by nothing. EENT: No signs and/or symptoms were reported regarding the EENT system. Neuro: Level of Consciousness is awake, alert, obeys commands, Oriented to person, place, time, situation, Backbreaker are weak bilaterally Moves all extremities. Full function Weakness in bilateral hand(s) arm(s) leg(s) foot/feet Gait is unsteady, patient use a rollator at home. Speech is normal, Facial symmetry appears normal. Historical: - Allergies: 20:53 Aspirin; tb4 20:53 GRAPEFRUIT; tb4 20:53 Ibuprofen; tb4 20:53 Lisinopril; tb4 20:53 PENICILLINS; tb4 - Home Meds: 20:53 amlodipine 2.5 mg tablet 1 tab daily [Active]; mirtazapine 15 mg Oral tab 1 tab once tb4 daily [Active]; Plavix 75 mg Oral tab 1 tab once daily [Active]; Lasix 10mg Oral tab 1 tab daily [Active]; carvedilol 12.5 mg Oral tablet 1 tab every 12 hours [Active]; escitalopram oxalate 20 mg Oral tab 1 tab once daily [Active]; - PMHx: 20:53 CHF; COPD; CVA; Diverticulitis; Hyperlipidemia; Hernia; Hypertension; polyps and tb4 diverticuli in esophagus-had removed and now has more; Renal Disease; ADD/ADHD; 12/19 00:49 Implanted Defibrillator; tb4 - Immunization history:: Adult Immunizations up to date. - Infectious Disease History:: Denies. - Social history:: Smoking status: Patient reports the use of cigarette tobacco products, smokes one-half pack cigarettes per day, Patient/guardian denies using alcohol, street drugs, IV drugs. - Family history:: not pertinent. Screenin/21 20:54 [facility] ED Fall Risk Assessment (Adult) History of falling in the last 3 months, tb4 including since admission Yes- fall prone (multiple falls) (3 pts) Confusion or Disorientation No (0 pts) Intoxicated or Sedated No (0 pts) Impaired Gait Yes (1 pt) Mobility Assist Device Used Yes (1 pt) Altered Elimination No (0 pt) Score/Fall Risk Level 3 or more points = High Risk Oriented to surroundings, Maintained a safe environment, Educated pt \T\ family on fall prevention, incl call for assistance when getting out of bed, Provided non-skid footwear. Abuse screen: Denies threats or abuse. Denies injuries from another. Nutritional screening: No deficits noted. Tuberculosis screening: No symptoms or risk factors identified. Assessment: 21:07 Respiratory: Airway is patent Trachea midline Respiratory effort is even, unlabored, tb4 Respiratory pattern is regular, symmetrical. GI: No signs and/or symptoms were reported involving the gastrointestinal system. : No signs and/or symptoms were reported regarding the genitourinary system. EENT: No signs and/or symptoms were reported regarding the EENT system. Derm: Skin is intact, is fragile, is thin, Skin is dry, Skin is normal, Skin temperature is warm. Musculoskeletal: Capillary refill < 3 seconds, is brisk, in bilateral fingers. Range of motion: intact in all extremities. Injury Description: Multiple falls. 22:30 Reassessment: Patient denies pain at this time. Patient states feeling better. Patient tb4 states symptoms have improved. General: Appears in no apparent distress. Behavior is cooperative. Pain: Denies pain. Neuro: Level of Consciousness is awake, alert, obeys commands, Oriented to person, place, time, situation, Backbreaker are equal bilaterally Moves all extremities. Full function Gait is steady, with one person assist. Speech is normal, Facial symmetry appears normal. Cardiovascular: Denies fatigue, lightheadedness, shortness of breath. 12/19 00:36 Cardiovascular: Rhythm is ventricular pacer. 4 Vital Signs: 12/18 20:54 BP 133 / 50; Pulse 63; Resp 18; Temp 98.3(O); Pulse Ox 97% on R/A; Weight 44.45 kg; tb4 Height 4 ft. 11 in. ; Pain 8/10; 22:00 BP 148 / 69; Pulse 77; Resp 18; Pulse Ox 99% on R/A; Pain 0/10; tb4 23:00 BP 150 / 73; Pulse 81; Resp 19; Pulse Ox 98% on R/A; Pain 0/10; 4 12/19 00:00 BP 155 / 51; Pulse 75; Resp 18; Pulse Ox 100% on R/A; Pain 0/10; tb4 01:05 BP 144 / 54; Pulse 63; Resp 18; Pulse Ox 97% on R/A; Pain 0/10; tb4 02:03 BP 148 / 60; Pulse 54; Resp 20; Pulse Ox 98% on R/A; Pain 0/10; tb4 12/18 20:54 Body Mass Index 19.79 (44.45 kg, 149.86 cm) tb4 12/18 20:54 Pain Scale: Adult tb4 22:00 Pain Scale: Adult tb4 23:00 Pain Scale: Adult tb4 12/19 00:00 Pain Scale: Adult tb4 01:05 Pain Scale: Adult tb4 02:03 Pain Scale: Adult tb4 Ingrid Coma Score: 01:56 Eye Response: spontaneous(4). Motor Response: obeys commands(6). Verbal Response: sp4 oriented(5). Total: 15. ED Course: 12/18 20:22 Patient arrived in ED. rv1 20:33 Festus Dickey MD is Attending Physician. sp4 20:54 Patient has correct armband on for positive identification. Bed in low position. Call tb4 light in reach. Side rails up X 1. Client placed on continuous cardiac and pulse oximetry monitoring. NIBP monitoring applied. electronics engineering manager on. Pulse ox on. Lights dimmed. Warm blanket given. 20:54 Initial lab(s) drawn, by me. tb4 21:03 Triage completed. tb4 21:07 Maintain EMS IV. Dressing intact. Good blood return noted. Site clean \T\ dry. Gauge \T\ tb 4 site: 20G Right AC. Flushed with 10 mL NS IV is patent, is intact, Flushed right. 21:16 XRAY Chest (1 view) In Process Unspecified. EDMS 21:45 CT Head Brain wo Cont In Process Unspecified. EDMS 12/19 00:25 Arm band placed on right wrist. EKG completed in triage. Results shown to MD. tb4 00:25 No provider procedures requiring assistance completed. tb4 00:26 EKG done, by ED staff, X-ray(s) taken. CT Scan. tb4 02:01 Michael Moore MD is Hospitalizing Provider. sp4 Administered Medications: 12/18 21:37 Drug: NS 0.9% IV 500 ml 500 ml IV at 1 bolus once; to be given as a bolus over 30 tb4 minutes Volume: 500 ml; Route: IV; Rate: 1 bolus; Site: right antecubital; 12/19 00:10 Follow up: Response: Pain is decreased; IV Status: Completed infusion tb4 12/18 21:37 Drug: Meclizine PO 25 mg PO once Route: PO; tb4 12/19 00:09 Follow up: Response: No adverse reaction; Pain is decreased tb4 12/18 21:37 Drug: Promethazine PO 25 mg PO once Route: PO; tb4 12/19 00:09 Follow up: Response: No adverse reaction; Pain is decreased tb4 Medication: 12/18 20:54 VIS not applicable for this client. tb4 Outcome: 12/19 02:02 Decision to Hospitalize by Provider. sp4 04:37 Patient left the ED. tb4 Signatures: Dispatcher [employer] Elsa Palacios rv1 Festus Dickey MD MD sp4 Penny Jesus RN RN tb4
--- NOTE | 2024-12-19 02:03 | EDPHYS ---
Physician Documentation [facility] Name: Meme Rushing Age: 84 yrs Sex: Female : 1940 Arrival Date: 12/18/2024 Time: 20: Bed [id number] Private MD: ED Physician Festus Dickey HPI: 12/18 20:34 This 84 yrs old Female presents to ER via Unassigned with complaints of dizzy. sp4 12/19 01:55 Very pleasant 84-year-old female with past medical history of chronic kidney disease, sp4 neuropathy, hypertension, COPD, presents with dizziness generalized weakness and vertigo.. 01:56 Patient's home medications include amlodipine 5 mg p.o. twice daily, escitalopram 20 mg sp4 p.o. daily, furosemide 20 mg p.o. twice daily, Remeron 30 mg p.o. bedtime, allopurinol 100 mg p.o. daily, Pepcid 20 mg p.o. daily, losartan 50 mg p.o. twice daily, vitamin C 500 mg p.o. daily, aspirin 81 mg p.o. daily, baclofen 10 mg p.o. every 8 hours. Buspirone 10 mg p.o. twice daily, calcium carbonate 5 mg p.o. daily senna cobalamin vitamin B12 daily, [place] 10 twice daily, multivitamin daily, Lyrica 100 mg p.o. twice daily, carvedilol 25 mg p.o. twice daily, methocarbamol 750 p.o. daily,. Historical: - Allergies: 12/18 20:53 Aspirin; tb4 20:53 GRAPEFRUIT; tb4 20:53 Ibuprofen; tb4 20:53 Lisinopril; tb4 20:53 PENICILLINS; tb4 - Home Meds: 20:53 amlodipine 2.5 mg tablet 1 tab daily [Active]; mirtazapine 15 mg Oral tab 1 tab once tb4 daily [Active]; Plavix 75 mg Oral tab 1 tab once daily [Active]; Lasix 10mg Oral tab 1 tab daily [Active]; carvedilol 12.5 mg Oral tablet 1 tab every 12 hours [Active]; escitalopram oxalate 20 mg Oral tab 1 tab once daily [Active]; - PMHx: 20:53 CHF; COPD; CVA; Diverticulitis; Hyperlipidemia; Hernia; Hypertension; polyps and tb4 diverticuli in esophagus-had removed and now has more; Renal Disease; ADD/ADHD; 12/19 00:49 Implanted Defibrillator; tb4 - Immunization history:: Adult Immunizations up to date. - Infectious Disease History:: Denies. - Social history:: Smoking status: Patient reports the use of cigarette tobacco products, smokes one-half pack cigarettes per day, Patient/guardian denies using alcohol, street drugs, IV drugs. - Family history:: not pertinent. ROS: 01:55 Constitutional: Negative for fever, chills, and weight loss, positive for generalized sp4 weakness, positive for vertigo, positive for dizziness. 01:55 All other systems are negative, Exam: 01:56 Constitutional: Frail elderly female, short stature, ambulatory with assistance. No sp4 acute distress Head/Face: Normocephalic, atraumatic. Eyes: Pupils equal round and reactive to light, extra-ocular motions intact. Lids and lashes normal. Conjunctiva and sclera are not injected. Cornea within normal limits. Periorbital areas with no swelling, redness, or edema. ENT: Nares patent. No nasal discharge, no septal abnormalities noted. Tympanic membranes are normal and external auditory canals are clear. Oropharynx with no redness, swelling, or masses, exudates, or evidence of obstruction, uvula midline. Mucous membranes moist. Neck: Trachea midline, no thyromegaly or masses palpated, and no cervical lymphadenopathy. Supple, full range of motion without nuchal rigidity, or vertebral point tenderness. Chest/axilla: Normal chest wall appearance and motion. Nontender with no deformity. No lesions are appreciated. Cardiovascular: Regular rate and rhythm with a normal S1 and S2. No gallops, murmurs, or rubs. No pulse deficits. Respiratory: Lungs have equal breath sounds bilaterally, clear to auscultation and percussion. No rales, rhonchi or wheezes noted. No increased work of breathing, no retractions or nasal flaring. Abdomen/GI: Soft, with normal bowel sounds. No distension or tympany. No guarding or rebound. No evidence of tenderness throughout. Back: No spinal tenderness. No costovertebral tenderness. Skin: Warm, dry with normal turgor. Normal color with no rashes, no lesions, and no evidence of cellulitis. MS/ Extremity: Pulses equal, no cyanosis. Neurovascular intact. Full, normal range of motion. Neuro: Awake and alert, GCS 15, oriented to person, place, time, and situation. Cranial nerves II-XII grossly intact. Motor strength 5/5 in all extremities. Sensory grossly intact. Psych: Awake, alert, with orientation to person, place and time. Behavior, mood, and affect are within normal limits 02:08 ECG was reviewed by the Attending Physician. EKG at 2118 sinus bradycardia with sp4 sinus arrhythmia rate 55, Vital Signs: 12/18 20:54 BP 133 / 50; Pulse 63; Resp 18; Temp 98.3(O); Pulse Ox 97% on R/A; Weight 44.45 kg; tb4 Height 4 ft. 11 in. ; Pain 8/10; 22:00 BP 148 / 69; Pulse 77; Resp 18; Pulse Ox 99% on R/A; Pain 0/10; 4 23:00 BP 150 / 73; Pulse 81; Resp 19; Pulse Ox 98% on R/A; Pain 0/10; 4 12/19 00:00 BP 155 / 51; Pulse 75; Resp 18; Pulse Ox 100% on R/A; Pain 0/10; 4 01:05 BP 144 / 54; Pulse 63; Resp 18; Pulse Ox 97% on R/A; Pain 0/10; 4 02:03 BP 148 / 60; Pulse 54; Resp 20; Pulse Ox 98% on R/A; Pain 0/10; 4 12/18 20:54 Body Mass Index 19.79 (44.45 kg, 149.86 cm) 4 12/18 20:54 Pain Scale: Adult tb4 22:00 Pain Scale: Adult tb4 23:00 Pain Scale: Adult tb4 12/19 00:00 Pain Scale: Adult tb4 01:05 Pain Scale: Adult tb4 02:03 Pain Scale: Adult tb4 Burson Coma Score: 01:56 Eye Response: spontaneous(4). Motor Response: obeys commands(6). Verbal Response: sp4 oriented(5). Total: 15. MDM: 12/18 20:34 Medical Screening Exam initiated sp4 12/19 02:00 Differential diagnosis: cardiac arrhythmia, CVA, generalized weakness, near-syncope, sp4 sepsis, syncope, TIA, vertigo. Data reviewed: vital signs, nurses notes, EMS record, old medical records, lab test result(s), EKG, radiologic studies, CT scan, plain films. Consideration of Admission/Observation Patient was admitted/placed on observation. Escalation of care including admission/observation considered. ED course: COMPARISON: 03/07/2022 FINDINGS: INTRACRANIAL: No acute intracranial hemorrhage. No acute large vascular territory infarct. No hydrocephalus. No mass effect or midline shift. Mild chronic small vessel ischemic changes.Mild cerebral atrophy. VASCULATURE: No visualized abnormalities in the arteries or dural venous sinuses. SCALP/SKULL: No calvarial fracture identified. No acute soft tissue abnormality. SINUSES: The visualized paranasal sinuses are mostly clear. No significant mastoid fluid. IMPRESSION: No acute intracranial abnormality. . 02:00 ED course: HISTORY: 84 years Female feeling unwell COMPARISON: 08/24/2024 FINDINGS: sp4 LUNGS/PLEURA: The lungs are clear. No pleural effusions or pneumothorax. No pulmonary edema. Emphysema. CARDIAC/MEDIASTINUM: Mild cardiomegaly UPPER ABDOMEN: No significant abnormality. BONES: No acute abnormality. LINES/TUBES/OTHER: loop recorder IMPRESSION: No evidence of acute cardiopulmonary disease. . 12/18 20:34 Order name: Basic Metabolic Panel; Complete Time: sp4 12/18 20:34 Order name: CBC with Diff; Complete Time: sp4 12/18 20:34 Order name: LFT's; Complete Time: sp4 12/18 20:34 Order name: Magnesium; Complete Time: sp4 12/18 20:34 Order name: NT PRO-BNP; Complete Time: sp4 12/18 20:34 Order name: PT-INR; Complete Time: sp4 12/18 20:34 Order name: Troponin HS; Complete Time: sp4 12/18 20:46 Order name: TSH; Complete Time: sp4 12/18 20:46 Order name: T4 Free; Complete Time: sp4 12/18 20:46 Order name: CK; Complete Time: sp4 12/18 20:46 Order name: UA W/ Microscopic sp4 12/18 20:46 Order name: Lipase; Complete Time: sp4 12/19 02:34 Order name: CBC with Automated Diff EDMS 12/19 02:34 Order name: CBC with Automated Diff EDMS 12/19 02:34 Order name: Comprehensive Metabolic Panel EDMS 12/19 02:34 Order name: Comprehensive Metabolic Panel EDOH 12/18 20:34 Order name: XRAY Chest (1 view); Complete Time: : sp4 12/18 20:46 Order name: CT Head Brain wo Cont; Complete Time: sp4 12/19 02:34 Order name: Physical Therapy Consult EDOH 12/18 20:34 Order name: Cardiac monitoring; Complete Time: : sp4 12/18 20:34 Order name: EKG - Nurse/Tech; Complete Time: : sp4 12/18 20:34 Order name: IV Saline Lock; Complete Time: sp4 12/18 20:34 Order name: Labs collected and sent; Complete Time: : sp4 12/18 20:34 Order name: O2 Per Protocol; Complete Time: 21: sp4 12/18 20:34 Order name: O2 Sat Monitoring; Complete Time: 21: sp4 EC/21 21:18 Rate is 55 beats/min. Rhythm is irregular, Sinus bradycardia. QRS [place] is Normal. DE sp4 interval is normal. QRS interval is normal. QT interval is normal. No Q waves. T waves are Normal. No ST changes noted. Clinical impression: No evidence of ischemia. Interpreted by me. Reviewed by me. Administered Medications: 21:37 Drug: NS 0.9% IV 500 ml 500 ml IV at 1 bolus once; to be given as a bolus over 30 tb4 minutes Volume: 500 ml; Route: IV; Rate: 1 bolus; Site: right antecubital; 12/19 00:10 Follow up: Response: Pain is decreased; IV Status: Completed infusion tb4 12/18 21:37 Drug: Meclizine PO 25 mg PO once Route: PO; tb4 12/19 00:09 Follow up: Response: No adverse reaction; Pain is decreased tb4 12/18 21:37 Drug: Promethazine PO 25 mg PO once Route: PO; tb4 12/19 00:09 Follow up: Response: No adverse reaction; Pain is decreased tb4 Disposition Summary: 12/19/24 02:02 Hospitalization Ordered Notes: Hospitalization Status: Observation sp4 Provider: Michael Moore sp4 Location: Telemetry/MedSurg (observation) sp4 Condition: Stable sp4 Problem: new sp4 Symptoms: have improved sp4 Bed/Room Type: Standard sp4 Room Assignment: 414(12/19/24 02:38) rv1 Diagnosis - Muscle weakness (generalized) sp4 - Other peripheral vertigo, bilateral sp4 - Intractable vomiting, moderate dehydration. sp4 - Near syncopal episode sp4 Forms: - Medication Reconciliation Form sp4 - SBAR form sp4 - Leadership Thank You Letter sp4 Signatures: Dispatcher [employer] [facility] Elsa Shirley rv1 Festus Dickey MD MD sp4 Penny Jesus RN RN tb4 Corrections: (The following items were deleted from the chart) 12/18 20:47 20:47 LIPASE+C.LAB.BRZ ordered. [facility] 12/19 02:38 02:02 sp4 rv1
[2024-12-19] MEDS ORDERED: ACETAMINOPHEN 325 MG TABLET PO PRN (02:29)
[2024-12-19] MEDS ORDERED: ONDANSETRON 4 MG/2 ML VIAL IV PRN (02:29)
--- NOTE | 2024-12-19 02:29 | P.HP ---
Certification for Inpatient Patient admitted to: Observation With expected LOS: <2 Midnights Practitioner: I am a practitioner with admitting privileges, knowledge of patient current condition, hospital course, and medical plan of care. Services: Services provided to patient in accordance with Admission requirements found in Title 42 Section 412.3 of the Code of Federal Regulations Patient History Date of Service: 12/19/24 Reason for admission: Generalized weakness/dizziness History of Present Illness: 84 yrs old Female with past medical history of hypertension, hy perlipidemia, COPD, CHF, CKD stage II, ADHD, CHF status post AICD, diverticulitis, who was brought to ER with dizziness and generalized weakness. Patient states that she started having dizziness and extreme weakness and nausea 2 days ago and has been progressively getting worse. Denies any syncopal episodes. But has presyncopal symptoms. Denies any chest pain or shortness of breath. Denies any fever or chills The patient was assessed in the ER and was admitted for further management of dehydration and presyncopal episodes. Allergies Penicillins Allergy (Intermediate, Verified 03/17/13 23:37) SWELLING lisinopril Allergy (Mild, Verified 03/17/13 23:37) Hives/Rash grapefruit Allergy (Verified 04/01/15 16:10) Hives/Rash aspirin Adverse Reaction (Verified 12/04/16 20:20) Shortness of breath Home medications list reviewed: Yes Home Medications: Amlodipine [Norvasc*] 5 mg PO BID 04/25/13 Escitalopram Oxalate 20 mg PO DAILY 04/25/13 Furosemide [Lasix*] 20 mg PO BID 04/25/13 Mirtazapine [Remeron*] 30 mg PO BEDTIME 04/25/13 Allopurinol 100 mg PO BREAKFAST 03/05/22 Famotidine [Pepcid*] 20 mg PO DAILY 03/05/22 Ascorbic Acid [Vitamin C] 500 mg PO DAILY 08/06/24 Aspirin [Aspirin EC] 81 mg PO DAILY 08/06/24 Buspirone HCl [Buspar] 10 mg PO BID 08/06/24 Calcium Carbonate [Calcium] 500 mg PO DAILY 08/06/24 Cyanocobalamin (Vitamin B-12) [Vitamin B12] 2,500 mcg PO DAILY 08/06/24 Hydrocodone Bit/Acetaminophen [[place] 10-325 Tablet] 1 each PO BIDP PRN 08/06/24 Multivitamin [Multivitamins] 1 each PO DAILY 08/06/24 Pregabalin [Lyrica] 100 mg PO BID 08/06/24 carvediloL [Coreg*] 25 mg PO BID 08/06/24 Hydralazine [Apresoline*] 1 tab PO BID 12/19/24 - Past Medical/Surgical History Diabetic: No Past Medical History: Reviewed- Non-Contributory -: CKD (Dr. Moncada) -: COPD -: Chronic diastolic congestive heart failure -: HTN -: HLD -: Depression -: GERD -: Celiac disease with history of diverticulosis -: Previous Smoker -: Chronic renal disease -: Celiac disease with history of diverticulosis Past Surgical History: Reviewed- Non-Contributory -: cholecystectomy -: esophogeal polyp removal -: appendectomy -: hysterectomy -: Doppler r/o DVT on L. foot, 02/04/13 -: Aortic echo, valve leakage, 02/04/13 -: Hernia repair 02/2022 Psychosocial/ Personal History: Patient lives at home alone. - Family History Sister -: Diabetes Brother -: Cancer Father -: Cancer Notes: bone, esophageal cx Mother -: Cancer Notes: gallbladder cx - Social History Smoking Status: Never smoker Alcohol use: No CD- Drugs: No Caffeine use: Yes Review of Systems 10-point ROS is otherwise unremarkable Physical Examination - Physical Exam General: Alert, Oriented x3 HEENT: Atraumatic, Normocephalic Neck: Supple, No Thyromegaly Respiratory: Clear to auscultation bilaterally, Normal air movement Cardiovascular: Regular rate/rhythm, Normal S1 S2 Capillary refill: <2 Seconds Gastrointestinal: Soft and benign, W/out hepatosplenomegaly Musculoskeletal: No clubbing, No swelling Integumentary: No rashes, No tenderness/swelling Neurological: Other (Alert awake nonfocal) Lymphatics: No axilla or inguinal lymphadenopathy - Studies Laboratory Data (last 24 hrs) 12/18/24 12/18/24 12/18/24 20:45 20:45 20:45 WBC 6.30 Hgb 12.7 Hct 36.9 Plt Count 145 L PT 10.9 INR 0.96 Sodium Potassium BUN Creatinine Glucose Magnesium Total Bilirubin AST ALT Alkaline Phosphatase Lipase 30 12/18/24 20:45 WBC Hgb Hct Plt Count PT INR Sodium 142 Potassium 4.1 BUN 36 H Creatinine 1.34 H Glucose 121 H Magnesium 2.3 Total Bilirubin 0.2 AST 16 ALT 15 Alkaline Phosphatase 77 Lipase Assessment and Plan - Plan Presyncopal episodes Dehydration Monitor closely on telemetry CT head negative for any acute changes Will get a syncopal workup Carotid Doppler and Hypertension Antihypertensives titrated Continue home medications and titrate as needed Hyperlipidemia Continue statin CKD stage II Monitor renal parameters Electrolytes monitor and replace accordingly History of CHF with AICD Elevated BNP noted Will get an echocardiogram GI/DVT prophylaxis Advanced directive full code Discharge Plan: Home Plan to discharge in: 48 Hours - Advance Directives Does patient have a Living Will: No Does patient have a Durable POA for Healthcare: No - Code Status/Comfort Care Code Status: Full Code Time Spent Managing Pts Care (In Minutes): 48
[2024-12-19 04:05] LABS: Sqamous Epithelial None Seen /HPF (None Seen); Urine Micro Reflex YN NO BILL MICROSCOPIC
[2024-12-19] MEDS: NA CHLORIDE 0.9% 1,000 ML IV SCH (04:14)
[2024-12-19 04:37] VITALS: BMI 19.6
[2024-12-19 05:06] VITALS: O2SAT 98
--- NOTE | 2024-12-19 09:40 | RAD REPORT ---
EXAM: US Carotid Artery Bilateral CLINICAL INDICATION: presyncope TECHNIQUE: Real-time grayscale, color flow, and spectral Doppler sonographic images were obtained of the extracranial carotid system using a linear transducer. Arterial peak systolic velocities are recorded as follows. COMPARISON: No prior exam. FINDINGS: RIGHT: Common carotid artery: 75 cm/s Internal carotid artery: 122 cm/s Right ICA/CCA ratio: 1.6 Plaque: mild lobulated isoechoic plaque External carotid artery: 66 cm/s Vertebral artery: Antegrade LEFT: Common carotid artery: 62 cm/s Internal carotid artery: 181 cm/s Left ICA/CCA ratio: 2.9 Plaque: dense calcified irregular plaque External carotid artery: 142 cm/s Vertebral artery: Antegrade IMPRESSION: Dense calcified irregular plaque at the left carotid bulb, with 50-69% stenosis. No hemodynamically significant stenosis (greater than 50%) within the extracranial right internal car otid artery. The degrees of stenosis, if any, are quantified according to the consensus statement of the Society o f Radiologists in Ultrasound (SRUS). Please refer to Anupam E, Kar C, Linda G et al. Carotid Artery Stenosis: Jacobs-Scale and Doppler US Diagnosis--Society of Radiologists in Ultrasound Consensus Conference. Radiology. 2003;229(2):340-6. doi:10.1148/[id number]
[2024-12-19] MEDS ORDERED: HYDROCODONE/APAP 10/325 TAB PO PRN (11:04)
[2024-12-19] MEDS ORDERED: HYDRALAZINE HCL 20 MG/ML VIAL IV PRN (11:08)
[2024-12-19 12:05] VITALS: BP 182/74; TEMP 98.4
--- NOTE | 2024-12-19 13:59 | ECHO ---
HEIGHT: 4 ft 11 in WEIGHT: 98 lb 0 oz DATE OF STUDY: 12/19/[address]: Clyde Moore DO 2-DIMENSIONAL: YES M.MODE: YES DOPPLER: YES COLOR FLOW: YES TDS: NO PORTABLE: YES DEFINITY: NO BUBBLE STUDY: NO DIAGNOSIS: PRES SYNCOPE CARDIAC HISTORY: CATHERIZATION: NO SURGERY: NO PROSTHETIC VALVE: NO PACEMAKER: NO MEASUREMENTS (cm) DIASTOLIC (NORMALS) SYSTOLIC (NORMALS) IVSd 1.0 (0.6-1.2) LA Diam 4.3 (1.9-4.0) LVEF 55-60% LVIDd 4.4 (3.5-5.7) LVIDs 3.2 (2.0-3.5) %FS 29% LVPWd 1.0 (0.6-1.2) Ao Diam 2.4 (2.0-3.7) 2 DIMENSIONAL ASSESSMENT: RIGHT ATRIUM: NORMAL LEFT ATRIUM: MODERATELY DILATED RIGHT VENTRICLE: NORMAL LEFT VENTRICLE: NORMAL TRICUSPID VALVE: MILD TRICUSPID REGURGITATION MITRAL VALVE: MILD MITRAL REGURGITATION PULMONIC VALVE: NORMAL AORTIC VALVE: MILD AORTIC REGURGITATION PERICARDIAL EFFUSION: NONE AORTIC ROOT: NORMAL LEFT VENTRICULAR WALL MOTION: NORMAL. DOPPLER/COLOR FLOW: GRADE II DIASTOLIC DYSFUNCTION. COMMENTS: 1. NORMAL LEFT VENTRICULAR SYSTOLIC FUNCTION, EJECTION FRACTION 55-60%, NORMAL WALL MOTION. 2. GRADE II DIASTOLIC DYSFUNCTION. 3. MODERATE PULMONARY HYPERTENSION (RIGHT VENTRICULAR SYSTOLIC PRESSURE 45-50mmHg). 4. ELEVATED FILLING PRESSURE (RIGHT ATRIAL PRESSURE 10-15mmHg). 5. MILD MITRAL AND AORTIC REGURGITATION. TECHNOLOGIST: ANDRES STAUFFER
[2024-12-19] MEDS ORDERED: FUROSEMIDE 20 MG TABLET PO SCH (17:00)
[2024-12-19] MEDS ORDERED: HYDRALAZINE HCL 25 MG TABLET PO SCH (21:00)
[2024-12-19] MEDS ORDERED: BUSPIRONE HCL 5 MG TABLET PO SCH (21:00)
[2024-12-19] MEDS ORDERED: PREGABALIN 50 MG CAP PO SCH (21:00)
[2024-12-19] MEDS ORDERED: T PO SCH (21:00)
[2024-12-19] MEDS ORDERED: AMLODIPINE 5 MG TAB PO SCH (21:00)
[2024-12-19] MEDS ORDERED: MIRTAZAPINE 15 MG TAB PO SCH (21:00)
[2024-12-20] MEDS ORDERED: CYANOCOBALAMIN 1,000 MCG TAB PO SCH (09:00)
[2024-12-20] MEDS ORDERED: ESCITALOPRAM 20 MG TAB PO SCH (09:00)
[2024-12-20] MEDS ORDERED: FAMOTIDINE 20 MG TAB PO SCH (09:00)
[2024-12-20] MEDS ORDERED: CALCIUM CARBONATE 500 MG TAB PO SCH (09:00)
[2024-12-20] MEDS ORDERED: ASCORBIC ACID 500 MG TABLET PO SCH (09:00)
[2024-12-20] MEDS ORDERED: T PO SCH (09:00)
[2024-12-20] MEDS ORDERED: Multi-VIT(Centravite Senior) 1 TAB TAB PO SCH (09:00)
[2024-12-20] MEDS ORDERED: ASPIRIN EC 81 MG TAB PO SCH (09:00)
== END 2024-12-19 15:02 | disposition home or self-care (01) ==
LOC: ER 20:38 → 4TH 12-19 02:29
PROVIDERS: ADMIT Family Medicine; ATTEND Hospitalist
DX: E86.0 Dehydration (principal); R55 Syncope and collapse; R11.10 Vomiting, unspecified; M62.81 Muscle weakness (generalized); H81.393 Other peripheral vertigo, bilateral; I10 Essential (primary) hypertension; E78.5 Hyperlipidemia, unspecified; J44.9 Chronic obstructive pulmonary disease, unspecified; I50.9 Heart failure, unspecified; N18.2 Chronic kidney disease, stage 2 (mild); F90.9 Attention-deficit hyperactivity disorder, unspecified type; K57.92 Diverticulitis of intestine, part unspecified, without perforation or abscess without bleeding; Z88.0 Allergy status to penicillin; Z88.6 Allergy status to analgesic agent; Z88.8 Allergy status to other drugs, medicaments and biological substances
CPT/HCPCS: 96361; 93306; 85025; 81001; 80048; 36415; 83735; 82550; 85610; 80076; 84443; 84484; 84439; 83690; 83880; 70450; 71045; 93880; 97116; 97161; 96360; 99285; Q0169; J8597; J7040; J7030; G0378 ×3